=== PATIENT | male | born 1995 | race Caucasian/White ===

== ENCOUNTER 2021-07-25 14:01 | Emergency (ER) | payer SELFPAY ==
[2021-07-25 15:53] LABS: SARS-COV-2 RT PCR NEGATIVE (NEGATIVE)
--- NOTE | 2021-07-25 16:15 | EDPHYS ---
Physician Documentation [facility] Name: Aguila Monaco Age: 26 yrs Sex: Male : 1995 Arrival Date: 07/25/2021 Time: 14:02 Bed 15 Private MD: ED Physician Gt Landry HPI: 07/25 16:13 This 26 yrs old Male presents to ER via Ambulatory with complaints of Cough, kb Congestion, Headache. 16:13 The patient or guardian reports cough, that is intermittent, described as moderate. kb Onset: The symptoms/episode began/occurred 3 day(s) ago. Severity of symptoms: At their worst the symptoms were moderate, in the emergency department the symptoms are unchanged. Modifying factors: The symptoms are alleviated by nothing, the symptoms are aggravated by nothing. Associated signs and symptoms: Pertinent positives: fever, rhinorrhea. The patient has not experienced similar symptoms in the past. The patient has not recently seen a physician. Pt reports cough and congestion for 3 days. Had temp of 99.9 yesterday, but hasn't had fever since then. Historical: - Allergies: 14:15 No Known Allergies; ld1 - Home Meds: 14:15 None [Active]; ld1 - PMHx: 14:15 None; ld1 - PSHx: 14:15 None; ld1 - Immunization history:: Adult Immunizations not up to date, Client reports having NOT received the Covid vaccine. - Social history:: Smoking status: Patient reports the use of cigarette tobacco products, smokes one pack cigarettes per day. Patient/guardian denies using alcohol. ROS: 16:12 Constitutional: Negative for fever, chills, and weight loss. kb 16:12 ENT: Positive for rhinorrhea, sinus congestion. 16:12 Respiratory: Positive for cough, Negative for dyspnea on exertion, hemoptysis, orthopnea, pleurisy, shortness of breath, sputum production, wheezing. 16:12 All other systems are negative. Exam: 16:13 Constitutional: This is a well developed, well nourished patient who is awake, alert, kb and in no acute distress. Head/Face: Normocephalic, atraumatic. ENT: Moist Mucous membranes Cardiovascular: Regular rate and rhythm with a normal S1 and S2. No gallops, murmurs, or rubs. No pulse deficits. Respiratory: Respirations even and unlabored. No increased work of breathing, no retractions or nasal flaring. Skin: Warm, dry with normal turgor. Normal color. MS/ Extremity: Pulses equal, no cyanosis. Neurovascular intact. Full, normal range of motion. Neuro: Awake and alert, GCS 15, oriented to person, place, time, and situation. Moves all extremities. Normal gait. Psych: Awake, alert, with orientation to person, place and time. Behavior, mood, and affect are within normal limits. Vital Signs: 14:13 BP 119 / 74; Pulse 86; Resp 18; Temp 98.5(TE); Pulse Ox 98% on R/A; Weight 77.11 kg; ld1 Height 6 ft. 0 in. (182.88 cm); Pain 0/10; 14:47 BP 121 / 68; Pulse 75; Resp 17; Pulse Ox 98% on R/A; jt3 16:38 BP 120 / 89; Pulse 86; Resp 19; Temp 98.1; Pulse Ox 97% on R/A; jt3 14:13 Body Mass Index 23.06 (77.11 kg, 182.88 cm) ld1 MDM: 14:18 Patient medically screened. kb 16:13 Data reviewed: vital signs, nurses notes. Data interpreted: Pulse oximetry: on room air kb is 98 %. Interpretation: normal. Counseling: I had a detailed discussion with the patient and/or guardian regarding: the historical points, exam findings, and any diagnostic results supporting the discharge/admit diagnosis, lab results, the need for outpatient follow up, a family practitioner, to return to the emergency department if symptoms worsen or persist or if there are any questions or concerns that arise at home. 07/25 14:06 Order name: COVID-19/FLU A+B (Document "Date of Onset" if Symptomatic); Complete Time: kb 15:57 Administered Medications: No medications were administered Disposition Summary: 07/25/21 16:14 Discharge Ordered Location: Home Condition: Stable Diagnosis - Acute upper respiratory infection, unspecified kb Followup: kb - With: Emergency Department - When: As needed - Reason: Worsening of condition Followup: kb - With: Private Physician - When: 2 - 3 days - Reason: Recheck today's complaints, Continuance of care, Re-evaluation by your physician Discharge Instructions: - Discharge Summary Sheet kb - Upper Respiratory Infection, Adult, [id number] kb - Viral Respiratory Infection, [id number] kb Forms: - Medication Reconciliation Form kb - Thank You Letter kb - Antibiotic Education kb - Prescription Opioid Use kb - Work release form jt3 Addendum: 07/29/2021 06:41 Co-signature as Attending Physician, Gt Landry MD. m a2 Signatures: Dispatcher [employer] EDTanisha Vazquez, THO-C THO-Gt Correa MD MD ma2 Ailin Madrid, RN RN ld1
--- NOTE | 2021-07-25 16:15 | ER ---
Nurse's Notes [facility] Name: Aguila Monaco Age: 26 yrs Sex: Male : 1995 Arrival Date: 07/25/2021 Time: 14:02 Bed 15 Private MD: Diagnosis: Acute upper respiratory infection, unspecified Presentation: 07/25 14:13 Chief complaint: Patient states: My daughter just went to the doctor and we found out ld1 she has bronchitis. I have been running fever, coughing, runny nose \T\ congestion. I am heavy smoker so I want to find out what is wrong with me. Coronavirus screen: Client presents with at least one sign or symptom that may indicate coronavirus-19. Standard/surgical mask placed on the client. Ebola Screen: No symptoms or risks identified at this time. Initial Sepsis Screen: Does the patient meet any 2 criteria? No. Patient's initial sepsis screen is negative. Does the patient have a suspected source of infection? No. Patient's initial sepsis screen is negative. Risk Assessment: Do you want to hurt yourself or someone else? Patient reports no desire to harm self or others. Onset of symptoms was July 25, 2021. 14:13 Method Of Arrival: Ambulatory ld1 14:13 Acuity: GERTRUDIS 4 ld1 Triage Assessment: 14:15 General: Appears in no apparent distress. comfortable, Behavior is calm, cooperative, ld1 appropriate for age. Pain: Denies pain. EENT: Reports nasal congestion. Neuro: Level of Consciousness is awake, alert, obeys commands, Oriented to person, place, time, situation, Appropriate for age. Cardiovascular: Reports Capillary refill < 3 seconds Patient's skin is warm and dry. Respiratory: Airway is patent Respiratory effort is even, unlabored, Respiratory pattern is regular, symmetrical, Breath sounds are clear bilaterally. GI: Abdomen is flat, non-distended. : No signs and/or symptoms were reported regarding the genitourinary system. Derm: No signs and/or symptoms reported regarding the dermatologic system. Musculoskeletal: No signs and/or symptoms reported regarding the musculoskeletal system. Historical: - Allergies: 14:15 No Known Allergies; ld1 - Home Meds: 14:15 None [Active]; ld1 - PMHx: 14:15 None; ld1 - PSHx: 14:15 None; ld1 - Immunization history:: Adult Immunizations not up to date, Client reports having NOT received the Covid vaccine. - Social history:: Smoking status: Patient reports the use of cigarette tobacco products, smokes one pack cigarettes per day. Patient/guardian denies using alcohol. Screenin:37 Abuse screen: Denies threats or abuse. Denies injuries from another. Nutritional jt3 screening: No deficits noted. Tuberculosis screening: No symptoms or risk factors identified. Fall Risk None identified. Assessment: 16:37 General: Appears in no apparent distress. Behavior is calm, cooperative. jt3 Cardiovascular: Rhythm is sinus rhythm. Respiratory: Breath sounds are clear bilaterally. Vital Signs: 14:13 BP 119 / 74; Pulse 86; Resp 18; Temp 98.5(TE); Pulse Ox 98% on R/A; Weight 77.11 kg; ld1 Height 6 ft. 0 in. (182.88 cm); Pain 0/10; 14:47 BP 121 / 68; Pulse 75; Resp 17; Pulse Ox 98% on R/A; jt3 16:38 BP 120 / 89; Pulse 86; Resp 19; Temp 98.1; Pulse Ox 97% on R/A; jt3 14:13 Body Mass Index 23.06 (77.11 kg, 182.88 cm) ld1 ED Course: 14:02 Patient arrived in ED. am2 14:06 Tanish[facility] Garcia [facility]-C [facility] kb 14:06 Gt Landry MD is Attending Physician. kb 14:15 Triage completed. ld1 14:15 Arm band placed on right wrist. ld1 14:17 Adalberto Dorsey RN is Primary Nurse. jt3 16:37 Patient has correct armband on for positive identification. Bed in low position. Side jt3 rails up X2. 16:37 No provider procedures requiring assistance completed. jt3 Administered Medications: No medications were administered Outcome: 16:14 Discharge ordered by . kb 16:37 Discharged to home ambulatory. jt3 16:37 Condition: good 16:37 Discharge instructions given to patient. 16:38 Patient left the ED. jt3 Signatures: Tanisha Garcia FNP-C FNP-Mayuri Jose am2 Ailin Madrid RN RN ld1 Tejchma, Adalberto, RN RN jt3
[2021-07-25 16:56] VITALS: BP 121/68; TEMP 98.5; O2SAT 98
== END 2021-07-25 16:38 | disposition home or self-care (01) ==
LOC: ER 14:01
DX: J06.9 Acute upper respiratory infection, unspecified (principal); Z20.822 Contact with and (suspected) exposure to COVID-19
CPT/HCPCS: 0240U; 99284

== ENCOUNTER 2022-03-31 09:28 | Emergency (ER) | payer SELFPAY ==
[2022-03-31 12:25] LABS: Hematocrit 36.7 % (39.6-49.0); MCV 89.2 fL (80-100); RBC Red Blood Cell Count 4.12 M/uL (4.33-5.43)
[2022-03-31 12:51] LABS: Blood Morphology Comment NOT SEEN (NOT SEEN); Platelet Estimate DECR
--- NOTE | 2022-03-31 14:42 | ER ---
Nurse's Notes [facility] Name: Aguila Monaco Age: 27 yrs Sex: Male : 1995 Arrival Date: 03/31/2022 Time: 09:30 Bed 11 Private MD: Diagnosis: Idiopathic thrombocytopenia purpura Presentation: 03/31 10:51 Chief complaint: Patient states: was seen on Thursday02/27/2022 and dx with immune vg1 thrombocytopenic purpura and was told to come back to ED for repeat lab work; also states headache. Coronavirus screen: Vaccine status: Patient reports being unvaccinated. Client denies travel out of the [place] in the last 14 days. Ebola Screen: Patient denies exposure to infectious person. Patient denies travel to an Ebola-affected area in the 21 days before illness onset. Initial Sepsis Screen: Does the patient meet any 2 criteria? No. Patient's initial sepsis screen is negative. Does the patient have a suspected source of infection? No. Patient's initial sepsis screen is negative. Risk Assessment: Do you want to hurt yourself or someone else? Patient reports no desire to harm self or others. Onset of symptoms was February 27, 2022. 10:51 Method Of Arrival: Ambulatory vg1 10:51 Acuity: GERTRUDIS 3 vg1 Triage Assessment: 10:53 General: Appears comfortable, Behavior is calm, cooperative. Pain: Complains of pain in vg1 head Pain currently is 6 out of 10 on a pain scale. Pain:. Neuro: Level of Consciousness is awake, alert, obeys commands, Oriented to person, place, time, situation, Reports headache Denies dizziness. Historical: - Allergies: 10:53 No Known Allergies; vg1 - Home Meds: 10:53 None [Active]; vg1 - PMHx: 16:45 idiopathic thrombocytopenia purpura; ld1 - PSHx: 10:53 None; vg1 - Immunization history:: Client reports having NOT received the Covid vaccine. - Social history:: Smoking status: Patient reports the use of cigarette tobacco products, smokes one-half pack cigarettes per day. Screenin:43 Abuse screen: Denies threats or abuse. Denies injuries from another. Nutritional ss screening: No deficits noted. Tuberculosis screening: Never had TB. Fall Risk None identified. Assessment: 11:43 General: Appears in no apparent distress. comfortable, Behavior is calm, cooperative. ss Pain: Denies pain. Neuro: Level of Consciousness is awake, alert, obeys commands, Oriented to person, place, time, situation. Cardiovascular: Capillary refill < 3 seconds is sluggish in bilateral fingers Patient's skin is warm and dry. Respiratory: Airway is patent Respiratory effort is even, unlabored, Respiratory pattern is regular, symmetrical. Derm: Skin is intact, is healthy with good turgor, Skin is dry, Skin is pink, warm \\T\\ dry. normal. Musculoskeletal: Circulation, motion, and sensation intact. Range of motion: intact in all extremities, Swelling absent. Vital Signs: 10:51 BP 133 / 72; Pulse 63; Resp 16; Temp 98.8; Pulse Ox 100% on R/A; Weight 74.84 kg; vg1 Height 6 ft. 0 in. (182.88 cm); Pain 6/10; 12:17 BP 110 / 73; Pulse 64; Resp 18; Pulse Ox 99% on R/A; ld1 15:20 BP 113 / 87; Pulse 82; Resp 18; Pulse Ox 100% on R/A; eh3 17:42 BP 119 / 81; Pulse 79; Resp 18; Pulse Ox 99% on R/A; ld1 10:51 Body Mass Index 22.38 (74.84 kg, 182.88 cm) vg1 ED Course: 09:30 Patient arrived in ED. as 09:41 [facility]ala [facility]NP [facility] 09:41 Shreyas Hameed DO is Attending Physician. [facility] 10:53 Triage completed. 1 10:53 Arm band placed on. vg1 11:43 Melonie Mcnamara, MANJINDER is Primary Nurse. ss 11:43 Patient has correct armband on for positive identification. ss 12:00 Report given to MANJINDER Parisi and MANJINDER Benz. ss 15:11 CT Head Brain wo Cont In Process Unspecified. EDMS 15:33 Inserted saline lock: 20 gauge in right antecubital area, using aseptic technique. kc6 Blood collected. 15:33 PT-INR Sent. kc6 15:33 Magnesium Sent. kc6 15:33 LFT's Sent. kc6 15:33 Basic Metabolic Panel Sent. kc6 15:51 Transfer initiated with Xena Guido Rn from the [facility] Transfer [facility]. eb 16:17 SARS-COV-2 RT PCR (Document "Date of Onset" if Symptomatic) Sent. [facility] 16:25 connected the hospitalist system validation engineer for [facility] with Leslie Cornejo for patient eb transfer consultation. 16:39 administrative approval given by Xena Guido Rn/ patient has been accepted to [facility] Bed 1209/ Dr. Becky Merino has accepted the patient in transfer/ Report to be called to the transfer center at [phone]. 18:11 No provider procedures requiring assistance completed. Patient transferred, IV remains ld1 in place. Administered Medications: No medications were administered Medication: 11:43 VIS not applicable for this client. Outcome: 14:42 Discharge ordered by MD. reyes 16:28 ER care complete, transfer ordered by MD. reyes 18:11 Transferred by ground EMS to [facility]. ld1 18:11 Condition: stable 18:11 Discharge instructions given to patient, Instructed on the need for transfer. 18:11 Patient left the ED. ld1 Signatures: Dispatcher [employer] EDMS Magali Pierre Shelby, RN RN Melody Singh Victoria RN RN 1 Ailin Madrid RN RN 1 Tuyet Nolan [facility] Leslie Ayala, DIRECTOR [employer]IENCE [employer]ET[employer] DIRECTOR [employer]UD[employer]ET[employer] Marita Glover 6 Corrections: (The following items were deleted from the chart) 16:45 10:53 PMHx: None; 1 1
--- NOTE | 2022-03-31 14:43 | EDPHYS ---
Physician Documentation [facility] Name: Aguila Monaco Age: 27 yrs Sex: Male : 1995 Arrival Date: 03/31/2022 Time: 09:30 Bed 11 Private MD: ED Physician Shreyas Hameed HPI: 03/31 10:55 This 27 yrs old Male presents to ER via Ambulatory with complaints of repeat labwork. jh7 10:55 Patient presents for repeat CBC. He was seen here 2 days ago with a platelet level of jh7 31,000. He was advised to follow-up if his platelets were less than 50. States that he forgot to mention that he has been suffering from headaches lately and that his rash is spread to his chest.. Historical: - Allergies: 10:53 No Known Allergies; vg1 - Home Meds: 10:53 None [Active]; vg1 - PMHx: 16:45 idiopathic thrombocytopenia purpura; ld1 - PSHx: 10:53 None; vg1 - Immunization history:: Client reports having NOT received the Covid vaccine. - Social history:: Smoking status: Patient reports the use of cigarette tobacco products, smokes one-half pack cigarettes per day. ROS: 10:55 Constitutional: Negative for fever, chills, and weight loss, ENT: Negative for injury, jh7 pain, and discharge, Neck: Negative for injury, pain, and swelling, Cardiovascular: Negative for chest pain, palpitations, and edema, Respiratory: Negative for shortness of breath, cough, wheezing, and pleuritic chest pain, Abdomen/GI: Negative for abdominal pain, nausea, vomiting, diarrhea, and constipation, Back: Negative for injury and pain, Skin: Negative for injury, rash, and discoloration. 10:55 Skin: Positive for rash. 10:55 Neuro: Positive for headache, Negative for dizziness, loss of consciousness, numbness, syncope, tingling, weakness. Exam: 10:55 Constitutional: This is a well developed, well nourished patient who is awake, alert, jh7 and in no acute distress. ENT: Nares patent. No nasal discharge, no septal abnormalities noted. Tympanic membranes are normal and external auditory canals are clear. Oropharynx with no redness, swelling, or masses, exudates, or evidence of obstruction, uvula midline. Mucous membranes moist. Neck: Trachea midline, no thyromegaly or masses palpated, and no cervical lymphadenopathy. Supple, full range of motion without nuchal rigidity, or vertebral point tenderness. No Meningismus. Cardiovascular: Regular rate and rhythm with a normal S1 and S2. No gallops, murmurs, or rubs. Normal PMI, no JVD. No pulse deficits. Respiratory: Lungs have equal breath sounds bilaterally, clear to auscultation and percussion. No rales, rhonchi or wheezes noted. No increased work of breathing, no retractions or nasal flaring. Abdomen/GI: Soft, non-tender, with normal bowel sounds. No distension or tympany. No guarding or rebound. No evidence of tenderness throughout. Back: No spinal tenderness. No costovertebral tenderness. Full range of motion. Neuro: Awake and alert, GCS 15, oriented to person, place, time, and situation. Cranial nerves II-XII grossly intact. Motor strength 5/5 in all extremities. Sensory grossly intact. Cerebellar exam normal. Normal gait. 10:55 Skin: rash can be described as Petechial rash present on forearms and anterior chest. Vital Signs: 10:51 BP 133 / 72; Pulse 63; Resp 16; Temp 98.8; Pulse Ox 100% on R/A; Weight 74.84 kg; vg1 Height 6 ft. 0 in. (182.88 cm); Pain 6/10; 12:17 BP 110 / 73; Pulse 64; Resp 18; Pulse Ox 99% on R/A; ld1 15:20 BP 113 / 87; Pulse 82; Resp 18; Pulse Ox 100% on R/A; eh3 17:42 BP 119 / 81; Pulse 79; Resp 18; Pulse Ox 99% on R/A; ld1 10:51 Body Mass Index 22.38 (74.84 kg, 182.88 cm) vg1 MDM: 10:58 Patient medically screened. [facility] 16:30 Differential diagnosis: ITP. Data reviewed: vital signs, nurses notes, lab test [facility] result(s), radiologic studies, CT scan. Data interpreted: Pulse oximetry: is 100 %. Interpretation: normal. Counseling: I had a detailed discussion with the patient and/or guardian regarding: the historical points, exam findings, and any diagnostic results supporting the discharge/admit diagnosis, the need to transfer to another facility, [facility] does not immediately have the required specialist. ED course: The patient will be transferred to [facility]. Accepting physician is the hospitalist Dr. Palma.. 03/31 11:11 Order name: CBC with Manual Differential; Complete Time: 14:18 [facility] 03/31 14:55 Order name: Basic Metabolic Panel; Complete Time: 16:23 [facility] 03/31 14:55 Order name: LFT's; Complete Time: 16:23 [facility] 03/31 14:55 Order name: Magnesium; Complete Time: 16:23 [facility] 03/31 14:55 Order name: PT-INR; Complete Time: 16:23 [facility] 03/31 16:09 Order name: SARS-COV-2 RT PCR (Document "Date of Onset" if Symptomatic) 03/31 14:55 Order name: CT Head Brain wo Cont; Complete Time: 15:37 [facility] Administered Medications: No medications were administered Disposition: 22:12 Co-signature as Attending Physician, Shreyas CHARLTON was immediately available on-site ms3 in the Emergency Department for consultation in the care of the patient. . Disposition Summary: 03/31/22 16:28 Transfer Ordered Transfer Location: [place] [address] Reason: Higher level of care [facility] Condition: Stable(03/31/22 16:28) [facility] Problem: new(03/31/22 16:28) [facility] Symptoms: are unchanged(03/31/22 16:28) [facility] Accepting Physician: Dr. Palma, hospitalist(03/31/22 18:11) ld1 Diagnosis - Idiopathic thrombocytopenia purpura [facility] Forms: - Medication Reconciliation Form [facility] - SBAR form [facility] Signatures: Dispatcher [employer] Dariela Molina RN RN vg1 Shreyas Hameed DO DO ms3 Ailin Madrid RN RN ld1 Leslie Ayala FNP FNP [facility] Corrections: (The following items were deleted from the chart) 14:53 14:42 [place] [id number] 14:53 14:42 [place] [address] 14:53 14:42 are unchanged [place] [address] 14:53 14:42 Stable [place] [address] 14:53 14:42 Immune thrombocytopenic purpura [facility] jh7 16:45 10:53 PMHx: None; vg1 ld1 18:11 16:28 Dr. Palma, hospitalist 7 ld1
--- NOTE | 2022-03-31 15:19 | RAD REPORT ---
EXAM DESCRIPTION: CT - Head Brain Wo Cont - 03/31/2022 3:09 pm CLINICAL HISTORY: Headache COMPARISON: None. TECHNIQUE: Computed axial tomography of the head was obtained. IV contrast was not requested. All CT scans are performed using dose optimization technique as appropriate and may include automated exposure control or mA/KV adjustment according to patient size. FINDINGS: An intracranial bleed is not seen . The ventricles are normal in caliber. No significant hypodense areas within the brain visualized No extra-axial fluid collection is noted. Fluid within the sinuses/ mastoids is not seen. Moderate mucoperiosteal thickening sphenoid sinus. Mi ld mucoperiosteal thickening left maxillary sinus IMPRESSION: No acute intracranial abnormality is seen. If patient's symptoms persist MRI of the bra in would be recommended. Chronic sinusitis
[2022-03-31 15:44] LABS: Protime INR 1.04
[2022-03-31 16:02] LABS: Albumin 4.4 g/dL (3.4-5.0); Bilirubin Direct 0.2 mg/dL (0-0.2); Bilirubin Total 0.8 mg/dL (0.2-1.0); Magnesium 2.2 mg/dL (1.8-2.4); Potassium 4.2 mmol/L (3.5-5.1); Protein, Total 7.2 g/dL (6.4-8.2)
[2022-03-31 18:52] VITALS: TEMP 98.8
[2022-03-31 18:56] VITALS: BP 119/81; O2SAT 99
== END 2022-03-31 18:11 | disposition short-term general hospital (02) ==
LOC: ER 09:28
DX: D69.3 Immune thrombocytopenic purpura (principal); R51.9 Headache, unspecified; F17.210 Nicotine dependence, cigarettes, uncomplicated
CPT/HCPCS: 36415; 70450; 80048; 80076; 83735; 85025; 85610; 99285; U0003

== ENCOUNTER 2022-04-13 07:18 | Emergency (ER) | payer SELFPAY ==
[2022-04-13 08:01] LABS: Protime INR 1.12
[2022-04-13 08:09] LABS: Albumin 4.1 g/dL (3.4-5.0); Bilirubin Total 0.7 mg/dL (0.2-1.0); Potassium 3.6 mmol/L (3.5-5.1); Protein, Total 7.1 g/dL (6.4-8.2)
[2022-04-13 08:36] LABS: Absolute Lymphocytes (CBC) 1.3 K/uL (0.7-4.9); Hematocrit 31.9 % (39.6-49.0); Lymphocytes % 51.5 % (15.3-44.8); MCV 89.8 fL (80-100); MPV 6.9 fL (7.6-11.3); RBC Red Blood Cell Count 3.55 M/uL (4.33-5.43)
--- NOTE | 2022-04-13 10:00 | EDPHYS ---
Physician Documentation [facility] Name: Aguila Monaco Age: 27 yrs Sex: Male : 1995 Arrival Date: 04/13/2022 Time: 07:20 Bed 5 Private MD: ED Physician Hali Eng HPI: 04/13 07:38 This 27 yrs old Male presents to ER via Ambulatory with complaints of Bruising. sd2 07:38 27 yo M with a hx of ITP presents with CC of bruise noted to his L forearm starting 1 sd2 week ago. Reports he was seen 2 weeks ago and diagnosed with a low platelet count then followed up 2 days later and his platelets had decreased and he was transferred to [facility] at that time. Pt is a poor historian and is unable to tell me if he received any other formal diagnosis or what the treatment plan was aside from follow up. No new medications were started per patient. He states he was told to get insurance and then follow up with a group segment consultant. Pt reports he has been spitting up blood since Thursday but had an increased amount yesterday morning. This occurs upon awakening and comes from somewhere inside his mouth but he cannot tell where. Denies any hematemesis or hemoptysis. . 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 - Social history:: Smoking status: Patient reports the use of cigarette tobacco products, smokes one-half pack cigarettes per day. ROS: 07:38 Constitutional: Negative for fever, chills, and weight loss, Eyes: Negative for injury, sd2 pain, redness, and discharge, ENT: Negative for injury, pain, and discharge. Positive for gum bleeding. Cardiovascular: Negative for chest pain, palpitations, and edema, Respiratory: Negative for shortness of breath, cough, wheezing. Abdomen/GI: Negative for abdominal pain, nausea, vomiting, diarrhea. MS/Extremity: Negative for injury and deformity, Skin: Negative for injury. Positive for bruising. Neuro: Negative for headache, numbness and tingling. Hematologic/Lymphatic: Negative for swollen nodes. Positive for abnormal bleeding and easy bruising. Exam: 07:38 Constitutional: This is a well developed, well nourished patient who is awake, alert, sd2 and in no acute distress. Head/Face: Normocephalic, atraumatic. Eyes: EOMI, normal conjunctiva bilaterally ENT: Nares patent. No nasal discharge, no septal abnormalities noted. Oropharynx with no redness, swelling, or masses, exudates, or evidence of obstruction, uvula midline. Mucous membranes moist. Dentition normal. No active bleeding sources noted in the mouth. Chest/axilla: Normal chest wall appearance and motion. Nontender with no deformity. Cardiovascular: Regular rate and rhythm with a normal S1 and S2. No gallops, murmurs, or rubs. 2+ distal pulses. Respiratory: Lungs have equal breath sounds bilaterally, clear to auscultation and percussion. No rales, rhonchi or wheezes noted. No increased work of breathing, no retractions or nasal flaring. Abdomen/GI: Soft, non-tender, with normal bowel sounds. No guarding or rebound. No evidence of tenderness throughout. Skin: Warm, dry with normal turgor. Normal color with no rashes, no lesions, and no evidence of cellulitis. Area of old bruising noted to L medial forearm. MS/ Extremity: Pulses equal, no cyanosis. Neurovascular intact. Full, normal range of motion. Ambulatory without difficulty. Psych: Awake, alert, with orientation to person, place and time. Behavior, mood, and affect are within normal limits. Vital Signs: 07:26 BP 115 / 85; Pulse 73; Resp 16; Temp 98.7; Pulse Ox 98% ; Weight 74.84 kg; Height 6 ft. ll1 0 in. (182.88 cm); Pain 0/10; 07:26 Body Mass Index 22.38 (74.84 kg, 182.88 cm) ll1 MDM: 07:22 Patient medically screened. sd2 07:38 Differential Diagnosis ITP, thrombocytopenia, pancytopenia, anemia, VWD, clotting sd2 disorder, coagulopathy among others. Data reviewed: vital signs, nurses notes, old medical records. 09:55 Physician consultation: Spoke with Dr. Wren, hematology at [facility], who recommends no sd2 intervention at this time due to platelets being >20k after discussing patient's prior workup at their facility at time of last transfer. At time of discharge, his platelets were 30. Pt with no current active bleeding. Suspect 2/2 recent COVID infection that patient's counts have dropped per Dr. Wren. Pt is supposed to be getting [facility] to follow up as he is a . I stressed the importance of this with the patient and he will plan to go to the [place] tomorrow to set up insurance and get follow up. Verbalizes understanding of discharge plan and strict return precautions.. 04/13 07:28 Order name: CBC with Diff; Complete Time: 08:43 sd2 04/13 09:51 Interpretation: Abnormal: PLT 21. sd2 04/13 07:28 Order name: CMP; Complete Time: 08:12 04/13 07:28 Order name: PT-INR; Complete Time: 08:12 2 04/13 07:28 Order name: Ptt, Activated; Complete Time: 08:12 04/13 07:42 Order name: IV Saline Lock; Complete Time: 07:42 mb7 Administered Medications: No medications were administered Disposition Summary: 04/13/22 10:00 Discharge Ordered Location: Home sd2 Problem: an acute exacerbation sd2 Symptoms: have improved sd2 Condition: Stable sd2 Diagnosis - Idiopathic Thrombocytopenic Purpura sd2 Followup: sd2 - With: Private Physician - When: Tomorrow - Reason: at the [place] to set up insurance and follow up Followup: sd2 - With: Emergency Department - When: As needed - Reason: Discharge Instructions: - Discharge Summary Sheet sd2 - Thrombocytopenia sd2 - Idiopathic Thrombocytopenic Purpura sd2 Forms: - Medication Reconciliation Form sd2 - Thank You Letter sd2 - Antibiotic Education sd2 - Prescription Opioid Use sd2 Signatures: Dispatcher [employer] Paula Cannon RN RN Geneva Bishop mb7 Hali Eng MD MD sd2 Corrections: (The following items were deleted from the chart) 09:51 09:51 PLT 21. sd2 sd2
--- NOTE | 2022-04-13 10:00 | ER ---
Nurse's Notes [facility] Name: Aguila Monaco Age: 27 yrs Sex: Male : 1995 Arrival Date: 04/13/2022 Time: 07:20 Bed 5 Private MD: Diagnosis: Idiopathic Thrombocytopenic Purpura Presentation: 04/13 07:26 Chief complaint: Patient states: Noticed bruising to arm for a few days. Was recently ll1 transferred from here to [facility] for platelet transfusions. No fever. States he had covid last week. Coronavirus screen: Vaccine status: Patient reports being unvaccinated. Client denies travel out of the [place] in the last 14 days. At this time, the client does not indicate any symptoms associated with coronavirus-19. Ebola Screen: Patient denies travel to an Ebola-affected area in the 21 days before illness onset. Initial Sepsis Screen: Does the patient meet any 2 criteria? No. Patient's initial sepsis screen is negative. Does the patient have a suspected source of infection? No. Patient's initial sepsis screen is negative. Risk Assessment: Do you want to hurt yourself or someone else? Patient reports no desire to harm self or others. Onset of symptoms was April 09, 2022. 07:26 Method Of Arrival: Ambulatory 1 07:26 Acuity: GERTRUDIS 3 ll1 Triage Assessment: 07:28 General: Appears in no apparent distress. Behavior is calm, cooperative, appropriate ll1 for age. Pain: Denies pain. Derm: Bruising that is brown, on left arm. Musculoskeletal: Circulation, motion, and sensation intact. Capillary refill. 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 - Social history:: Smoking status: Patient reports the use of cigarette tobacco products, smokes one-half pack cigarettes per day. Screenin:23 Abuse screen: Denies threats or abuse. Denies injuries from another. Nutritional camilo screening: No deficits noted. Tuberculosis screening: No symptoms or risk factors identified. Fall Risk None identified. Assessment: 08:23 General: Appears in no apparent distress. Behavior is calm, cooperative. Pain: camilo Complains of pain in left arm. Derm: Bruising that is on left arm. 08:38 Reassessment: Dr. Eng notified of critical lab value PLT 21. Vital Signs: 07:26 BP 115 / 85; Pulse 73; Resp 16; Temp 98.7; Pulse Ox 98% ; Weight 74.84 kg; Height 6 ft. ll1 0 in. (182.88 cm); Pain 0/10; 07:26 Body Mass Index 22.38 (74.84 kg, 182.88 cm) 1 ED Course: 07:20 Patient arrived in ED. mr 07:21 Carlyn Anne, RN is Primary Nurse. camilo 07:21 Hali Eng MD is Attending Physician. sd2 07:24 Arm band placed on Patient placed in an exam room, on a stretcher. 6 07:28 Triage completed. ll1 07:42 Bed in low position. Call light in reach. Side rails up X 1. Door closed. Noise mb7 minimized. Warm blanket given. Client placed on continuous cardiac and pulse oximetry monitoring. NIBP monitoring applied. 07:42 Ptt, Activated Sent. mb7 07:42 CBC with Diff Sent. mb7 07:42 CMP Sent. mb7 07:42 PT-INR Sent. mb7 07:42 Inserted saline lock: 20 gauge in right forearm, using aseptic technique. Blood mb7 collected. 08:23 No provider procedures requiring assistance completed. camilo 08:[address] 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 09:[address] Wren the math interventionist covering Dr. Henning with Dr. Eng for patient eb consultation. 10:09 IV discontinued, intact, Pressure dressing applied. camilo Administered Medications: No medications were administered Medication: 08:24 VIS not applicable for this client. camilo Outcome: 10:00 Discharge ordered by . sd2 10:09 Discharged to home ambulatory. camilo 10:09 Condition: good 10:09 Discharge instructions given to patient. 10:09 Patient left the ED. camilo Signatures: Geneva Brian Melonie Mcnamara, RN RN Melody Singh Lynsay, RN RN ll1 Leslie Newman RN RN jh6 Erasmoernestine Geneva mb7 Au-Stager, Carlyn RN RN Hali Weber MD MD sd2 Corrections: (The following items were deleted from the chart) 07:31 07:26 Pulse 73bpm; Resp 16bpm; Pulse Ox 98%; Temp 98.7F; Pain 0/10; ll1 1 09:42 08:[address] 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
[2022-04-13 10:26] VITALS: BP 115/85; TEMP 98.7; O2SAT 98
[2022-04-13 12:19] LABS: Anisocytosis 1+; Blood Morphology Comment NOTED (NOT SEEN); Platelet Estimate DECR
== END 2022-04-13 10:09 | disposition home or self-care (01) ==
LOC: ER 07:18
DX: D69.3 Immune thrombocytopenic purpura (principal); F17.210 Nicotine dependence, cigarettes, uncomplicated
CPT/HCPCS: 36415; 80053; 85025; 85610; 85730; 99283

== ENCOUNTER 2022-05-13 13:09 | Emergency (ER) | payer OTHER ==
--- OUTSIDE RECORDS SUMMARY | 2022-05-13 13:14 | XMS REPORT | Continuity of Care Document ---
:1995 Author Organization [facility] t Address [address] [place] [address] Care Team Providers Name Role Phone PCP, PATIENT DOES NOT HAVE A Primary Care Physician Unavaila Chas Rios NP Attending Clinician CHAS VASQUES Attending Clinician Unavailable RICARDO CESPEDES Attending Clinician Unavailable Ricardo Cespedes MD Attending Clinician Efrain TAMEZ, Pati De Luna Attending Clinician [phone] Paige Woo MD Attending Clinician Lindsay Corral MD Attending Clinician Lachelle Ruiz MD Attending Clinician LINDSAY CORRAL Attending Clinician Unavailable DENTON DAN Attending Clinician Unavailable Denton Dan MD Attending Clinician CONRADO FRIAS Attending Clinician Unavailable Conrado Frias MD Attending Clinician [phone] Kaylie Mejia MD Attending Clinician [phone] Trina Coffman MD Attending Clinician TRINA COFFMAN Attending Clinician Unavailable Mayuri Parisi MD Attending Clinician MAYURI PARISI Attending Clinician Unavailable Doctor Unassigned, [place] Attending Clinician Unavailable KINZA EDGAR III Attending Clinician Unavailable LACHELLE RUIZ Admitting Clinician Unavailable DENTON DAN Admitting Clinician Unavailable KAYLIE MEJIA Admitting Clinician Unavailable KINZA EDGAR III Admitting Clinician Unavailable Payers Payer Name Policy Type Policy Number Effective Date Expiration Date S анна MEDICAID SSI PENDING 2022 PENDING 00:00:00 Problems Condition Condition Condition Status Onset Resolution Last Treating Co mments Source Name Details Category Date Date Treatment Clinician Date Bone Bone Disease Active [facility]17 [facility] hypocellul hypocellul [facility]:00: Ct dical arity arity 00 Center concerning concerning for for aplastic aplastic anemia anemia Pancytopen Pancytopen Disease Active [facility] ia ia 04-17 [facility] Medical 00 Center COVID-19 COVID-19 Disease Active [facility] virus virus 04-13 detected detected 00:00: Medica l (04/13/22) (04/13/22) 00 Cent er Thrombocyt Thrombocyt Disease Active [facility] openia openia 03-31 [facility] 00:00: Medical 00 [place] Headache Headache Disease Active [facility] 00 Center Petechiae Petechiae Disease Active [facility] 03[facility] 00 Center No known No known Disease Unive rs active active ity of problems problems [facility] GIB GIB Disease Resolve 2022-04-14 2022-04-[address] (gastroint (gastroint d 04-13 00:00:00 02:25:00 [facility] estinal estinal 00:00: Medical bleeding) bleeding) 00 Cent er History of History of Disease Resolve 2022-03-31 2022-03-[address] ITP ITP d 03-31 00:00:00 20:18:59 [facility] 00:[facility]: Medical 00 Center Allergies, Adverse Reactions, Alerts Allergy Allergy Status Severity Reaction(s) Onset Inactive Treating Comm ents Source Name Type Date Date Clinician NO KNOWN Allergy Active [facility] NO KNOWN Drug Active Univers ALLERGIE Class ity of S [facility] Social History Social Habit Start Date Stop Date Quantity Comments Source History of tobacco 2016-09-[address] [facility] use 00:00:00 day smoker Medical Center History [facility] Transport Non-Med Medical Center Alcohol intake 2022-04-24 2022-04-24 Ex-drinker [facility] 00:00:00 00:00:00 (finding) Medical Center History [facility] 2022-04-14 2022-04-[address] [facility] Transport Med 00:00:00 00:00:[address] History [facility] 2022-04-14 2022-04-[address] [facility] Housing Unable to 00:00:00 00:00:00 Medical Center Pay History [facility] 2022-04-14 2022-04-[address] [facility] Housing Places 00:00:00 00:00:00 Medical Ce nter Lived History [facility] 2022-04-14 2022-04-[address] [facility] Housing Homeless 00:00:00 00:00:00 Medical Center Last Year Exposure to 2022-04-03 2022-04-[address] [facility] SARS-CoV-2 (event) 00:00:00 18:25:00 [facility] Cigarettes smoked 2022-04-13 2022-04-[address] [facility] current (pack per 00:00:00 00:00:00 Medical Center day) - Reported Tobacco use and 2022-04-13 2022-04-[address] Melissa kes exposure 00:00:00 00:00:00 [facility] Sex Assigned At [address] [facility] 00:00:00 00:00:00 Medical Center Smoking Status Start Date Stop Date Source Unknown if ever smoked [facility] Current every day smoker 2022-04-13 00:00:00 [facility] Medications Ordered Filled Start Stop Current Ordering Indication Dosage Frequency Signature Comments Components Source Medication Medication Date Date Medication? Clinician (SIG) Name Name pantoprazol Yes 40mg QD Take [address] [facility] e 8-05 tablet (40 [facility] (PROTONIX) 00:00: mg total) Me dical 40 MG 00 by mouth Center tablet daily Continue while on prednisone . predniSONE Yes 75mg QD Take 7.[address] (DELTASONE) 8-05 tablets [facility] 10 MG 00:00: (75 mg Medical tablet 00 total) by Center mouth daily Continue until told to do otherwise by PCP. nicotine 0 2021- No 1{patch QD Place [address] (NICODERM 8-05 08-11 } patch onto Bhavana es CQ) 14 00:00: 00:00 the skin Medica l mg/24 hr 00 :00 daily. Center patch pantoprazol Yes 8mg/h 8 mg/hr Un lanette e 04-13 (50 ity of (PROTONIX) 22:00: mL/hr), IV [place] 80 mg in 00 Infusion, Medica l NaCl 0.9% CONTINUOUS Bran ch (NS) 500 mL , Starting infusion on 04/13/22 at 1700 pantoprazol 2021- No 80mg 80 mg, IV Univers e 04-13 Push, ity of (PROTONIX) 22:00: 22:02 ONCE, 1 Carl as 80 mg in 00 :00 dose, On Medical NaCl 0.9% [place] (NS) 20 mL 04/13/22 at syringe 1700, Administer over 2 Minutes, 20 mL iopamidol 2021- No [id number] 65mL 65 mL, Univers (ISOVUE 04-13 Intravenou ity o f 370-500 mL) 17:14: 17:14 s, ONCE, 1 [place] injection 00 :00 dose, On Medica l 65 mL [place] 04/13/22 at 1230, Routine triamcinolo Yes [id number] Apply to Univers ne 6-28 area(s) 2 ity of acetonide 00:00: (two) [place] 0.1 % cream 00 times Medical daily. Branch triamcinolo Yes [id number] Apply to Univers ne 6-28 area(s) 2 ity of acetonide 00:00: (two) [place] 0.1 % cream 00 times Medical daily. Branch traMADol Yes [id number] 50mg Take 1 Univers (ULTRAM) 50 1-03 [id number] tablet by i ty of mg tablet 00:00: mouth [place] 00 every 8 Medical (eight) Branch hours as needed for Pain (scale 4-6). cyclobenzap 2020-0 Yes [id number] 5mg Take 1 Univers rine 5 mg 1-03 [id number] tablet by ity of tablet 00:00: mouth 3 00 (three) Medical times Branch daily. traMADol 2020-0 Yes [id number] 50mg Take 1 Univers (ULTRAM) 50 1-03 [id number] tablet by i ty of mg tablet 00:00: mouth 00 every 8 Medical (eight) Branch hours as needed for Pain (scale 4-6). cyclobenzap 2020-0 Yes [id number] 5mg Take 1 Univers rine 5 mg 1-03 [id number] tablet by ity of tablet 00:00: mouth 3 00 (three) Medical times Branch daily. traMADol 2020-0 Yes [id number] 50mg Take 1 Univers (ULTRAM) 50 1-03 [id number] tablet by i ty of mg tablet 00:00: mouth 00 every 8 Medical (eight) Branch hours as needed for Pain (scale 4-6). cyclobenzap 2020-0 Yes [id number] 5mg Take 1 Univers rine 5 mg 1-03 [id number] tablet by ity of tablet 00:00: mouth 3 (three) Medical times Branch daily. Vital Signs Vital Name Observation Time Observation Value Comments Source HEIGHT 2022-04-24 11:18:00 182.9 cm WEIGHT 2022-04-24 11:18:00 74.844 kg HEIGHT 2022-04-24 11:18:00 182.9 cm WEIGHT 2022-04-24 11:18:00 74.844 kg HEIGHT 2022-04-24 11:18:00 182.9 cm WEIGHT 2022-04-24 11:18:00 74.844 kg HEIGHT 2022-04-13 20:00:00 182.9 cm WEIGHT 2022-04-13 20:00:00 74.844 kg HEIGHT 2022-04-13 20:00:00 182.9 cm WEIGHT 2022-04-13 20:00:00 74.844 kg HEIGHT 2022-04-13 20:00:00 182.9 cm WEIGHT 2022-04-13 20:00:00 74.844 kg Systolic blood 2022-04-13 21:27:45 111 mm[Hg] Univer sity of pressure [place] [facility] Diastolic blood 2022-04-13 21:27:45 70 mm[Hg] Unive rsity of pressure [place] [facility] Heart rate 2022-04-13 21:27:45 65 /min [facility] [place] [facility] Respiratory rate 2022-04-13 21:27:45 18 /min Univ ersity of [place] [facility] Oxygen saturation in 2022-04-13 21:27:45 99 /min University of Arterial blood by [place] [facility] dereck Pulse oximetry Branch Body temperature 2022-04-13 15:54:00 37.06 Cuca Univ ers[facility] [place] [facility] Body height 2022-04-13 15:54:00 182.9 cm [facility] [place] [facility] Body weight 2022-04-13 15:54:00 74.844 kg [facility] [place] [facility] BMI 2022-04-13 15:54:00 22.38 kg/m2 [facility] [place] [facility] WEIGHT 2022-04-03 16:55:00 75.479 kg WEIGHT 2022-03-31 21:00:00 75.479 kg WEIGHT 2022-04-03 16:55:00 75.479 kg WEIGHT 2022-03-31 21:00:00 75.479 kg WEIGHT 2022-04-03 16:55:00 75.479 kg WEIGHT 2022-03-31 21:00:00 75.479 kg Body height 2022-03-11 23:09:00 182.9 cm [facility] [place] [facility] Body weight 2022-03-11 23:09:00 73.891 kg [facility] [place] [facility] BMI 2022-03-11 23:09:00 22.09 kg/m2 [facility] [place] [facility] Oxygen saturation in 2022-03-11 23:09:00 99 /min University of Arterial blood by [place] [employer] dereck Pulse oximetry Branch Systolic blood 2022-03-11 23:09:00 118 mm[Hg] Univer sity of pressure [place] [facility] Diastolic blood 2022-03-11 23:09:00 60 mm[Hg] Unive rsity of pressure [place] [facility] Heart rate 2022-03-11 23:09:00 60 /min [facility] [place] [facility] Body temperature 2022-03-11 23:09:00 36.39 Cuca [facility] Respiratory rate 2022-03-11 23:09:00 18 /min [facility] Systolic blood 2022-04-24 11:18:00 118 mm[Hg] [facility] Diastolic blood 2022-04-24 11:18:00 88 mm[Hg] [facility] Heart rate 2022-04-24 11:18:00 89 /min [facility] Body temperature 2022-04-24 11:18:00 37 Cuca [facility] Respiratory rate 2022-04-24 11:18:00 17 /min [facility] Body height 2022-04-24 11:18:00 182.9 cm [facility] Body weight 2022-04-24 11:18:00 74.844 kg [facility] BMI 2022-04-24 11:18:00 22.38 kg/m2 [facility] Oxygen saturation in 2022-04-24 11:18:00 98 /min [facility] Arterial blood by Medical Ce nter Pulse oximetry Procedures Procedure Date / Time Performing Clinician Source Performed CBC W/PLT COUNT & AUTO 2022-04-24 11:51:00 [place] [facility] CBC W/PLT COUNT & AUTO 2022-04-24 11:51:00 [place] [facility] US ABDOMEN COMPLETE 2022-04-17 08:33:00 Lindsay Corral [facility] CBC W/PLT COUNT & AUTO 2022-04-17 05:13:00 [facility] W/[facility]T [facility] & AUTO 2022-04-17 05:13:00 [facility]IS[facility]LL[facility] LAB ORDER 2022-04-17 05:13[facility] AUTO 2022-04-16 05:16:00 Paige Woo [facility] BASIC METABOLIC PANEL 2022-04-16 05:16:00 Paige Woo [facility] (7) Center CBC W/PLT COUNT & AUTO 2022-04-16 05:16:00 Amna [facility] DIFFERENTIAL Center CBC W/PLT COUNT & AUTO 2022-04-15 04:23:00 Amna [facility] DIFFERENTIAL Center BASIC METABOLIC PANEL 2022-04-15 04:23:00 Amna [facility] (7) Center CBC W/PLT COUNT & AUTO 2022-04-15 04:23:00 Amna [facility] DIFFERENTIAL [place] CBC W/PLT COUNT & AUTO 2022-04-14 04:45:00 Lachelle Ruiz [facility] DIFFERENTIAL [place] ABORH, MANUAL 2022-04-14 04:45:00 Ashley Wu [facility] CBC W/PLT COUNT & AUTO 2022-04-14 04:45:00 Lachelle Ruiz [facility] (CELLAVISION MANUAL 2022-04-14 04:45:00 Lachelle Ruiz [facility] DIFF) Center BASIC METABOLIC PANEL 2022-04-14 04:45:00 Lachelle Ruiz [facility] (7) [place] PROTHROMBIN TIME/INR 2022-04-14 04:45:00 Lachelle Ruiz CH I [facility] MAGNESIUM 2022-04-14 04:45:00 Lachelle Ruiz [facility] PHOSPHORUS 2022-04-14 04:45:00 Lachelle Ruiz [facility] TYPE AND SCREEN, 2022-04-13 20:23:00 Lachelle Ruiz [facility] AUTOMATED Center CBC W/PLT COUNT & AUTO 2022-04-13 20:23:00 Lachelle Ruiz [facility] DIFFERENTIAL Center CBC W/PLT COUNT & AUTO 2022-04-13 20:23:00 Lachelle Ruiz [facility] DIFFERENTIAL Center CT HEAD WO CONTRAST 2022-04-13 18:22:00 [place] [facility] CT CHEST PULMONARY 2022-04-13 17:22:04 Denton Dan [facility] ANGIOGRAM Medical Branch TROPONIN I 2022-04-13 17:03:00 Denton Dan [facility] COMP. METABOLIC PANEL 2022-04-13 17:03:00 D[place] Dan [facility] ([id number]) Medical Branch CBC WITH DIFF 2022-04-13 17:03:00 Denton Dan [facility] PROTHROMBIN TIME / INR 2022-04-13 17:03:00 [place] Dan [facility] [place] [facility] ACTIVATED PARTIAL 2022-04-13 17:03:00 Denton Dan [facility] THRMPLAS JOHN PAUL [facility] N-TERMINAL PRO-BNP 2022-04-13 17:03:00 Denton Dan [facility] COVID-19 (ID NOW RAPID 2022-04-13 17:03:00 Denton Dan [facility] TESTING) [facility] CONSENT/REFUSAL FOR 2022-04-13 15:43:13 Doctor Unassigned, No Un [facility] DIAGNOSIS AND TREATMENT Name Medical Branch EKG-SCANNED 2022-04-13 00:00:00 ProviderTrevor [facility] CBC W/PLT COUNT & AUTO 2022-04-05 02:56:00 Son Serra [facility] DIFFERENTIAL [facility] CBC W/PLT COUNT & AUTO 2022-04-05 02:56:00 Son Serra [facility] DIFFERENTIAL [facility] BASIC METABOLIC PANEL 2022-04-05 02:55:00 Kaylie Mejia [facility] () [facility] MAGNESIUM 2022-04-05 02:55:00 Kaylie Mejia [facility] CBC W/PLT COUNT & AUTO 2022-04-04 05:38:00 Son Serra [facility] DIFFERENTIAL [facility] BASIC METABOLIC PANEL 2022-04-04 05:38:00 Kaylie Mejia [facility] () [facility] MAGNESIUM 2022-04-04 05:38:00 Kaylie Mejia [facility] CBC W/PLT COUNT & AUTO 2022-04-04 05:38:00 Son Serra [facility] DIFFERENTIAL [facility] RETICULOCYTE COUNT 2022-04-04 05:38:00 Cheryl Daniels [facility] CHROMOSOMES CANCER STUDY 2022-04-03 15:26:00 Cheryl Daniels [facility] MISCELLANEOUS LAB ORDER 2022-04-03 15:26:00 Aisha Mcmahon [facility] CT 2022-04-03 15:02:00 Cheryl Daniels [facility] BIOPSY/ASPIRATION/INJECT Center ION FLOW CYTOMETRY 2022-04-03 14:50:00 Cheryl Daniels [facility] BONE MARROW EXAM 2022-04-03 14:50:00 Cheryl Daniels [facility] FLOW CYTOMETRY 2022-04-03 14:50:00 Cheryl Daniels [facility] REQUISITION Center BONE MARROW PROCESS. 2022-04-03 14:50:00 Cheryl Daniels [facility] (MANUAL DIFFERENTIAL) 2022-04-03 03:21:00 Trina Coffman [facility] BASIC METABOLIC PANEL 2022-04-03 03:21:[address] CBC (HEMOGRAM ONLY) 2022-04-03 03:21:00 Huslia Kaylie [facility] MAGNESIUM 2022-04-03 03:21:00 HusliaKaylie [facility] MONONUCLEOSIS SCREEN 2022-04-02 18:09:00 Bryon Henning [facility] Lyndon [place] CMV PCR, QUANTITATIVE 2022-04-02 13:20:00 Cheryl Daniels [facility] EBV VIRAL LOAD 2022-04-02 13:20:00 Cheryl Daniels [facility] BASIC METABOLIC PANEL 2022-04-02 05:31:[address] CBC (HEMOGRAM ONLY) 2022-04-02 05:31:00 Kaylie Mejia [facility] MAGNESIUM 2022-04-02 05:31:00 HusliaKaylie [facility] C-REACTIVE PROTEIN 2022-04-02 05:31:00 Cheryl Daniels [facility] PERIPHERAL BLOOD SMEAR - 2022-04-01 15:31:00 Cheryl Daniels [facility] HOLD ONLY Center RETICULOCYTE COUNT 2022-04-01 15:31:00 Cheryl Daniels [facility] HEPATITIS C ANTIBODY 2022-04-01 12:26:00 Cheryl Daniels I [facility] HEPATITIS B PANEL 2022-04-01 12:26:00 Cheryl Daniels [facility] HAPTOGLOBIN 2022-04-01 12:26:00 Cheryl Daniels [facility] ANTI-NUCLEAR ANTIBODY 2022-04-01 12:26:00 Cheryl Daniels [facility] (BJ) Center DOUBLE-STRANDED DNA 2022-04-01 12:26:00 Cheryl Daniels [facility] (DSDNA) ANTIBODY Center CBC W/PLT COUNT & AUTO 2022-04-01 09:43:00 [facility] DIFFERENTIAL Center CBC W/PLT COUNT & AUTO 2022-04-01 09:43:00 [facility] DIFFERENTIAL Center CBC W/PLT COUNT & AUTO 2022-03-31 22:26:00 Kaylie Mejia [facility] DIFFERENTIAL [facility] SARS-COV2/RT-PCR ([facility] & 2022-03-31 22:26:00 HusliaKaylie [facility] REF LABS) [facility] CBC W/PLT COUNT & AUTO 2022-03-31 22:26:00 HusliaKaylie [facility] DIFFERENTIAL [facility] PERIPHERAL BLOOD SMEAR - 2022-03-31 22:26:00 Kaylie Mejia [facility] PATHOLOGIST REVIEW [facility] VITAMIN B12 2022-03-31 22:26:00 HusliaKaylie [facility] IRON, TIBC, % SAT. 2022-03-31 22:26:00 [facility] FERRITIN 2022-03-31 22:26:00 [facility] COMPREHENSIVE METABOLIC 2022-03-31 22:26:00 RobertoKaylie [facility] PANEL [facility] HIGH SENSITIVITY 2022-03-31 22:26:00 Roberto Kaylie [facility] TROPONIN I [facility] LIPASE 2022-03-31 22:26:00 Huslia [facility] HC LAB HIV-1 AG 2022-03-31 22:26:00 Huslia [facility] W/HIV-1&2 AB [facility] PT/APTT 2022-03-31 22:25:00 [facility] FIBRINOGEN 2022-03-31 22:25:00 [facility] CONSENT/REFUSAL FOR 2022-03-11 23:02:41 Doctor Unassigned, No Un [facility] DIAGNOSIS AND TREATMENT Name Medical Branch Plan of Care Planned Activity Planned Date Details Comments Source Future Scheduled 2022-05-15 INFLUENZA VACCINE (#1) [facility] 00:00:00 [code = INFLUENZA Medical Ce nter VACCINE (#1)] Future Scheduled 2021-09-[address] [facility] Test 00:00:00 (12+) [code = [facility] DEPRESSION SCREENING (12+)] Future Scheduled [address] [facility] Test 00:[facility]:00 (procedure) [code = [facility] [id number]] Future Scheduled 2016 DTAP/TDAP/TD VACCINES [facility] Test 00:00:00 (1 - Tdap) [code = Medical C enter DTAP/TDAP/TD VACCINES (1 - Tdap)] Future Scheduled [address] [facility] Test 00:00:00 0-64 YRS (1 - PCV) Medical C enter [code = PNEUMOCOCCAL VACCINE 0-64 YRS (1 - PCV)] Future Scheduled 1997 COVID-19 VACCINE (#1) [facility] Test 00:00:00 [code = COVID-[address] VACCINE (#1)] Encounters Start End Encounter Admission Attending Care Care Encounter Source Date/Time Date/Time Type Type Clinicians Facility Department ID 2022-05-02 2022-05-02 Telephone Juan [facility] [id number] 00:[facility]00 00:00:00 [facility] 2022-04-24 2022-04-24 Office Juan [facility] [id number] 11:00:00 11:30:00 Visit [facility] 2022-04-24 2022-04-24 Outpatient [facility]STAL [facility]QU[facility] [id number] [facility] 11:14:36 11:14:36 [facility] 2022-04-13 2022-04-17 [facility] Ricardo Cespedes [facility] [id number] [facility] St 18:02:00 18:06:00 Encounter Pati Zuniga [facility] Amna, [facility] Lindsay Corral [facility] Lachelle Ruiza 2022-04-13 2022-04-17 Inpatient ER SHAYNA [facility] Gastro [id number] SLE 18:02:00 18:06:00 [facility] 2022-04-13 2022-04-13 Emergency X [facility] ERT [id number] Univers 10:55:00 17:09:00 DENTON [facility] 2022-04-13 2022-04-13 [facility] [id number] Univers 10:55:00 17:09:00 [place]enton CHRISTIANSON [id number] i [facility] [id number] [facility] [id number] [address] 2022-04-13 2022-04-13 Travel [facility] [id number] [facility] 00:00:00 00:00:00 [facility] 2022-03-31 2022-04-05 [facility] Conrado Frias [facility] [id number] [facility] 19:19:00 14:01:00 Encounter [facility] 2022-03-31 2022-04-05 [id number] [facility] 19:19:00 14:01:00 [facility] 2022-03-11 2022-03-11 [facility] [id number] Univers 18:20:00 18:20:00 Care [facility] [id number] it y of HOME [id number] Carl as MARK?BLEA [id number] [address] MEDICAL OFFICE BUILDING 2022-03-11 2022-03-11 [facility] [id number] Univers 18:20:00 18:18:42 MAYURI [facility] 2022-03-11 2022-03-11 Orders Doctor SERRANO [id number] Univers 00:00:00 00:00:00 Only Unassigned, OSCAR [id number] ity of [place] [facility] [id number] Carl as [id number] [address] 2019-09-16 2019-09-16 Emergency X HERVE III, [facility] ERT [id number] Univers 16:13:08 17:09:00 KINZA [facility] Results Test Description Test Time Test Comments Results Result Comments Source Bone Marrow Exam 2022-05-06 14:46:50 Test Item Value Reference Range Interpretation Comme nts Case Report (test code = 104) Bone Marrow Pathology Report Case: [id number] Authorizing Provider: Cheryl Daniels Collected: 04/03/2022 02:50 PM Ordering Location: [address] Received: 04/03/2022 03:29 PM Service Pathologist: Aisha Mcmahon MD Specimens: A) - Bone Marrow B) - C) - ADDENDUM (test code = 3381) t1wxuLExYJUzpLE7ZmOwNTJkd1lwx1UloWQdyKB bRRmvsWLdmaWjtq29rGG2aZ35GD0aSQOoYhY9UN FzjpH3Xoo9BBTeYTNszGUgS967y8ckb1gferInx QN4SIHsJBJnS9PdEX7mGRZyiBTyY5bhOQJaCMXx H7YcNN6bNGPcZks2ZOO9OQo2MTFgkPJrwaVoVzH tZYVhnWGylMO0QHDfWF9rjlwsXUtbFUmnWBYqtg E3OJDuaLMsT6OdGIVnIB5lkrmxIWH1NLdtGBMrV QD6WiBsPVAom1Afycj5GnVeyWVyNObwnJEsxdlt gnVbTNStFYQKANPal30zVt3bRWWbYOPdGOPfUgJ SieSsTYKjphAslgUxoEg1wtSwLzFzMIFlkBxhff JhUXjwfFXfs0N6FAwuiyVlqxJhO3a1k4swmkR0q XNvg7R7HFqmmm5idBWeXPBrywETFNDdMMXtcVQz qbVimC46ioTnR4D0sNHvBNXdPFnEJRRuv1h2qYU kGCIwV6FjmVHgc4l8eCIxVAJiXLJoMTlaHPIdcV S8UBCdIe8ecYP1cL0mAconDLCkcLKeXIYhV2KpL OBgVSlpVe2lIO1lEqtmWBBzeyQql5B6TCGfNrqp JdGhM2Yxu60nD4JdHCR8jQ4tVD9npIweJKHoDMf 9r2mhQMFai0idEWQfbh3wfYGkOJ9koRHpu2ZnvX 68aYEoDhR8GxlMRTjsRW6rkMWfQJGxueqlhBWsd OS9CPCqKUtuRIEcCbXnVO6QCyWWzIVte1huKQWz k35rXQYbdnPUlz5xmHwzGozjFIVrlxa+TK0lila +HW2obap+HB3kwhd+EW1bzjSDAsIoYP6dZGnfTs NDn13bPRLxaUTidMNsPMMtsiz+KM3avyb+XH5cf lx+KP5zeme+HE6zljk+FBNdlSptME63DL3bD0Z7 rYPusarbJi9fPVDyz2QqUFidzKapmjHkLJHjE6H lGVJddiR6cDUeOv6jrA40iQ0aXOxzruOjVyZJYV AmYPPVRAjpFETHJTqgFSMRHJ0jVEOtilkfbUYcy SP8LequJMBkEFseLLNsZWAwBFCyV7XyvbGdH9M9 dZIrzZCtAJ0nb3uiug7ygZVfBFWsbL5xuQFhq7N oG83siIbrpHOpsoEkhMg1gxWbmjBkqY23DYCjwz N9AMQaa28wOXytIcVnX0clRfWewZTwZDprHEHxj rMzQMIxQIrwy8BgcxKkOT2nsT7lRFVuA7vbymdl PH2lLHu9kD81Q9btLm3mSBBvXIQvy7dleSXzybE qnWQdvVtvrWhxw8IqeEg8wAQhWKqxiLdyVF6lUB Ctk4BaOMBpGSLsUL0nsAEooJFhiPTyKX3fFHXcV ibneQVjejTpDTGfXADsX9Kyn8FyzO91h0m3HT2k gqTkQnsaGKKrEI2rpUWcbVndFXLuo1Zxg5GbvQC vuFEnchEiOattEYYgdaJ2gLYcJ4AjftKqhALjYP 4jaBKyQF52uFWrLXMzc2DmEithLIP7aW0lg7aeU WIoNGK9V1fzHKPfuY2gQMI4lQ21jyoorfj3LV6c ao6miUOmjIGww45bnHOjOVZiV8hchtDdJDGzBDE zrNhimW42rA9dOYDjVDX8DSJgXKNvtOJseN3swH 7nQGBzkvDpzUxtxsNey6ujqOmkOVZsPJTuhC4uZ 0FcgJxyHFblsXIxLNKeFVRseU7xD8XtGSQyhoBn lIP0eK3yKWAbJFKvfP4dOYNux1yim2qspRPovQZ jkaCwr14oVQ6gNVIoXBJizv6= DIAGNOSIS (test code = 3220) y9atgVUfMWYiw1vgEAEqlYYpEnDkZrIfPpEzSp p cdWMxIHtccnRmMVxlcGljOTYwMlxhbnNpXHNwbH RxH9HlgvssOWbyWG3oRR6ffOksyUBuuKPbXOErN bYgc1ajw208cZLwe5mhKAUXgeevfOj0hIjoF79l t8P1TbztP68bpGYgLVA9ILTcTCMkqMTkWOWhPJG 5PSXvnLQaD8nhGQMnAA5hbbstTXuoFExpFEIjbK Q2IOCchRWeF8HpPGIiFDtbFQLpuoz4VdDmAn2be LGjkEpvTUjgEZIcKYRkZTyqUIZgLsSoVp6WGZMM HLFGH6gvWTSILBHFNTAqQIVSF5PgCAHPQEYASUE PVGRVQizHTYAHRK8KR6t0RJTntxGtDESETvfHJq fPFEgAFH4UXDyVMZvBSjFfLTFpCTWeRIZXFFZKD 1gjRm3COODHUAQWNFDBRY4HSUDCQE1MVOAZSEkI XdRWF6PiKSRRMQDVVF4HINZPC7xtDTIrPVTTRne CRXNXZKLhWXVDH2VPC29BFhYESBZZQTrSTxGgR2 iIVsFlpOXhYX2hFRTZPEJLFXZvIVIBJoDTSL0OY HSurQUlCP6sFTOZAZyEYjKQEHGtIXCFCTADJcnf NHAqQPQKQG6PPO0IZTDLXT5GXM2OVHqEMFNOBKJ BT5yDW2TSGHLhJ2HOOJzWH3hvKPPcWGASGOQcD4 9NTUVOVFxwYXJccGFyIFBFUklQSEVSQUwgQkxPT 6F2CMXuphRtWVUGKfOMSZ7SQL3WOCmaRFM4b8iq dGYxXHNzdGUxODAwMFxhbnNpXGRlZmxhbmcxMDM gOJA3ygJgLCXbUUsbZTOkOVefGf4efNJonVqvUa FaSVUsp7fhujQRxsxdfFj8o4goYAQdFvT1rYMlS GvuV2otsjBtgFHtEQFlWGp4iZ18VKHqoH1rxWYz PVvgtpZvZuN1GWbiEMIjFyF7OALyjPFtSNMxW0u xNNLuLJyzJFKnIUrotZYoOVT5zAmnp9T2wPLetT XqwMcxWvBxNuUdUgZZo9EtRWp9rZeiN6PeRZRnE bN7qSXlHCYsOMuoIWJaZPJxmsD3qQ12WFhbsqP9 tDDfd2Nhf77wn037lA5lvOMeLKX3ZTNdPVQktVD ePIAtPCQ4YHCvkLSfW3gfZYGdGK2pmsscKLqrUR oiLXMrpJD7JTMgaJCyO9WoJLIuFSekBPMeany0V lPpHh3ldCTexEohHPjtj9dcj7qlmHJmFhb8BEOj BwErGkmpSAeig5Ouv1poSXZahb1fWFI7qSRsxFn gj9Y2kBLqHPFsiKDbGYJwGV8aaYLoICLylR3gen hmZIJlZoFoluphLYQmtKcnyrHlMf1pjPreMSX5L VptQ5uxkR6bFaJ2PGorB2dlzJ5oMSw8GFvuXGUd dHD3duK7BMTeaPFoH6IvvP0pEBSzWA2qtra7a9k tIME0HFjeRJGfUkX7nnU6ODVekCVeVGVouSpgAC ypd510PUN0UsRmVUVlq7WiF1ChoCvoV79xqLlnW 79hTEJgfRhhtV3bdJdqeL4jKwGxRfXsZPzagPkz MH1nLFGaQ7eoxRWpRRDbSHTnW7wqAzTchM6ktFk uQLmtozEdYDNrMcd2RKIndNZbKZCeTff6QONlQE ZpO19dfprhMFS9cX3qj4pdv7KfIAijVBO9NINaj 70wYDemprW9VOevAu69BKxgNFN8HHhvOPV4kU== COMMENT (test code = 3359) i4wisLGnBEFxkVY2OlAgZOIqh0ogf1BvpUSawAF oZXvzoWWzmkArqv59sVU9mV42JG6vCCVwZqX2OI DqwjM9Psd4OBUvZOOfpRNxV612y4baj3wmwoWjb RB4IRSuIBLsV2YiQM1dILWutLShK8zlWZDjXTLg O3InOQ8rEATqUpf3ELK5GXw0BNLggHEkdbYhQcW eEZTktPZpxXH8XZVsAQ1eogbyQIvoTRvdFKQabk U8RZPeoLQbD0PzNMTsMT0aovykUQG8KKslCUZyF RO7KkTuUNQpz8Birbq7MwYsoSPmGDyidMBkymtn fzRrOQIjsyQjlHLqju47PXL0PFt6DSFhj64fOKE rg41mcUZyhIOgZFHszxPisXTpgBqonQgrv3ZwvZ z6uJXfGY2wzfIxivBvq6SuEJtaCDydaPpvjWT2a VXhqufarQRojGbmLRPuALIiWP2grJ4ag0kxb6th UYYmZYOjTOG9RHDhjTD6QLJiJVW8iTrjw3hfEWI wXFC1rqEsgyNsSS9dHTUnA73pWfmnDC92LVW7p7 IiIILmKCHaytAbmzJiENDfXGRnToupx4XwSYYaK N4kYPnnTlOcW3nrIqBuhFOzKOmuKEHngtSzz7Ye sbAeclkzGbzpwtZvgTGvbOV9buige6F4VGioGCw pjMErqJU5HALMUdJfEIS5DBMlF8dfVhNdpUMiQX TdbA04yaZntoHfb55mvGnrqCOiTnDzAEcyHIFhs PTgDQUof36gUCJfABEdOA31BRNqM8NybXYdq1N2 qJQ6eV8lOJGoriAqyiTzAMQtRPWaifYfpE01iv5 xpUXgq7Q6mKxoWC18PSjtMadec5SwTuAFwZZvI8 HwJAIfC6HwGP5dTA4MEvGxI7JnUCMxZ2PaQKKkN R03SVuluVZzPXdfd8QxXBBhYWygFiLpG8mkJoPk bNCuaZSiPmetULRzTRFjMEPlGO2fc1BqVVVxRIJ vjIN2kFYhweFezXBwtSPvRoIMkz2fKV7rQKjsRP 3tLTAaOEUooHBiWL96uDcjcQRaXSbuRh9mE52jl zMqUEZfn35ikNlgGIBmxtVugphsr9G4RQtedzCj dtRbGKB6yNSnXBBor6GfFjshHPypoD62PMMhamI 7JTOzp42wCAYuwoltQBLoBJdlOOZds1QkzKOyn2 UnLXNlu86gzV4rQ6V5TDJxrC6aESQdQXMzYUtrB X2wNAenMwVsWiMbITBmeo6= CPT Code(s) (test code = 3357) d8ikjGIxFPUszIY6IaEvYDJly7uou7AyfPOl cGF cUKoicHYqroGipt40gRJ6lG40MR1bCQUjXlP8KW WdpwX0Vsc6XHXhWFMpgLCmI484l2wuv8mlzpOii UT6bCdfUVUpwndlJpX0IXzkPPSygxchFGn4NNrv MTWorSQ8GGLrySTpE0DeQVSfEY2cznz1HLS5XZm cIPIwSmX2FOBrwDRpSOFrwTouSXlrh426HEQ5Sj NrLNEynnShlFrdhS7gFjYvUuU5BDS6UUhcPMTyY Fz1NOa8JqR5JQntUrnbSXgpSFJ9YNh0TgXjJiA4 BJS0RdnvUEluRRFyyMmyoGMekZ== CLINICAL HISTORY (test code = 3356) x2rlhVLhREFejTB4IoYoMRIut7qex0U sdHBncGF zWBxxdHYhkxChdd92wBM7fN38KX2fEWXlPdV3MQ DnslA9Crf7LBAtXQQpuZShI915s9enh3hcxrKsh GZ5HKDtUVQdO6PgMG2hKWVwcFDfI6nkGWEkHKXs P4UbMZ0xXXVuUkp7FVE6FTh3HBOolDKlgkApPgW uXAOsfQIigHD5APPdHK6vjzfrBZsmHZquXNZxxf K1NIOosVGpU9IlVZWsFJ3qljzrGAX1IQfdOQQyK GE9CqWxWTQqc8Jiiyz4KaMvcHSgQIrgzQUuyrwm ttVxSHLhZWintXPrfIV6XmAMnVXtyWOuK1b0t8J lbmlhLCBhbmVtaWFccGFyfQ== SPECIMEN SOURCE (test code = 3377) i3vemAIbVGItdAX1VpLfPSNqo8fed4Mf dHBncGF qCYvmeZFnrbXlcw15fDO9wJ85UA1kZAYyDyI4WP UnwhM0Xyy4XGYaZEJvtLHmJ936d5frr1flyjLlr AR3qLelSFIzfrctNoT0FOrzCPBuvrqaJEh0BYbt NZZshXY8QIJdvYSmR6OwVANgDR7wapu5ODD8NWi zVADpUsO7BCEmjNLhKLUygPckRWnii285BMU5Na KcUBQcteFkxWgolL1pHbKjBZQCu25wGX0hlmUzo wVlg8EovlE8WCfqD7qscUMfeyGiA25kNOPhkX2s s0yvjFXecV== GROSS DESCRIPTION (test code = s6evmFSmRGRkgOQ0JiZfPJLvt7kbo5WhbDCs [facility] [place] [id number]) jJElyaCGmmyVtmn24qEP5uY73EP4dGNAjQcJ3UM NqegV1Ylw2ZOVlKLUfjXEvB110c6hwj2feodUkb ZI0ZVBqDPHxW9QwXO7pXCFbgLJvF76fuHPzCCR8 WPMfMBPxlWPuRXPrWOZ0NUUdxLJrV9acKDXzIU8 jgucxDDpxHHxtOWUkdAO0DDSpiVVeF6YwMLSlXT dhHHTcyyq9JtMiFk2avAIqgRpvLHtdPYXzu6jsH SImiOTdWLL5WOtuzTIgGYKnEJEgCMu5PGWuMOqy lQYuWG9iiKbfUgpqiAjyk5EfpTVqPVotKKLqYWP yTIzfZFHiE9WBVSPwLsi9PDU9VKYtJHo4PZnaL5 MSVVGcARN0OkahPKF5ZqE6LSj5ICWZLe5jULwtT AmrDRQoWIZ4JiYzSAdwrTFoJSnvVytdXJwfQAQc rNFvBRkskrX9FUQxCOgrNPDpOhCuCL4oTu2cLFW NVVAlh2xfJATxiomlvnPiXQYdTZZieYMkoT9rig BpcyByZWNlaXZlZCBpbiAzIHBhcnRzLCBhbGwgb XYuPKmqJZA3sBAxPHLvISYmAOLoSN55S6NboqWf ZSwgbWVkaWNhbCByZWNvcmQgbnVtYmVyLCBhbmQ jCCNcPDEgjP2iIF45fZFmct0ddLahZGNYnNVdoK 1zzyMtGLArivGvq1UcNB5oABGdoxMmXLjvVRJnp AWthULxe80xPBWeYMHleiLxfHTmbbixQDV6rmM8 QEhvNNSgr4vaRWPcIf3sUHemt91ri6CitO2qn5j rnKycz1JhxHWjMPtkVOLvaYWfSUttcI6lRbUat8 zmnHz1UAkmduN9OETsvq98DKicYPVyW3TrB5GcK WgaTOU6IEIdLpRoDSIvVJ5RRiGuFQC3PLQmQODq FAo4WXn2SL8CGcIgAMGzLXU1KeA9MUNfZQe6UBi cNS2UAWA0Sws4BWx5PHM9PAQuDWSmHORhRtIrCH QhQQcvDfAZahkztWUtWX6kaKbfimHgPNGfKWBjM QSxjpvlcpZdJQPcCXQQwGOywZ5eleTCLFGfbnTi x9DkMS8iIYKhBlaye4GzT0lekMYsAJVgqXQdode rHH9eFSkcWK68VAggST39PURuOgFqGUixMYKbCV YzyUIxEGahFGOwz0IatMLrIDQeFCHbbAWwoWX8E NHdAF10qVDdbBlmaS7vX4Qpf8H4yOOnRmQbAOVf wvuuowUbRYSoBOlcFQUeF6PrB5JumyZlvNVwRVJ zjoOcx2wwPTP0HEXtvBDokFDfNtElGrixGLM3u9 fkNLLjyEQsGKD0NKavbRKkXOGjPXEmVKdxSjBNO zEyQvRzVwC5Vao2NnX2ASt8URZZRzZbJgRqBman PUH8RsbzABh9XRb7SRhMQrM9DAT3AGS7MUBjDTH bXjJfWZn8DXEuUEvkoTXzAMHuAYXjXQthYTguL2 1cZnMyMCBDLiBVLlxwYXJcZnMyMFxjZjEgUmVjZ Af9SPDqgG0zGx2lgKQjjS7vdAPpNND7CY4qcvFq YFEjjsBwH35yKVTjMYSjjSYyxapqNf80LZHiESx pSXnvclq7wSJgcRFocMA9YHEpZM11gTUqpYnjvY 2sWmJgQe3dCZUuM9QyI5jzmXTkzFzhft2gfAGbR RDymtftlfImIZWbBUOMEE2dDSREfSV5DAAxWORG KHTsh9gwV7lybvGdqKSunwQ1VCFlrXClBWY0YQ0 cvUibQLRuR9GjV3OpqkG7AAPlve6= MICROSCOPIC DESCRIPTION (test code = m1nlxOJbMFAnkFK3PlHzYRYzd2mwu7 BsdHBncGF 3371) tPKvqqGPvciEbxv71bLE4wT25LU7rQYUeMcG8KV JjaiY5Zvd4IXCyVVRnrRJbM147k8vei3usgeLae RU4MCYnTZYmO3GiII4uDAIdmMJwQ3toMQRpJUFt K2ZsUA9tTVYsUyi6III2BTy5WCIidHPwuqPhQfE wZFOzlIUnwED8DQUbXI8evmdiHDrfRQowQQZfrt H1IMEtxPVoG1MpUIJfYF0ucmlwWJR8NZsuDWDwB MB1ZaYeSEJgt8Eyyou4AcXgxDRxGCkgjDOpkelc gjAzJGTIOlMiLOEVRa2NSPROLNiTXDNONlntJUQ gUVVBTElUWTpccGFyIEFzcGlyYXRlLSAgQWRlcX NqwCKqnDTsCPVzlOJeTEwpdUDxmtUqCTWlTLI3W YBeRQJkprxdFUPnPTREBj2MAVXMWfZWFhGSBJcW UAXLJ8MQJMgwUeUbQqPyVA6xSDNwdTbtUHVohN4 4QSS6JROfPDniVBIcWN3tRKZxWSVrBTQ8juGafU KkNNLzCAXvFTNXhx9rdAZpw8P1rPTlSLohBIQfA QoaYPFdEABMeZNuc3B4eBRjF50jrMAtrSHme3R8 mVFpQAgpJCToZpJgHNFeBWBSYW4gzb5NJBynIY6 4GIFcX7EbymYvv0W9oWQpIWqqYEKjDy7aJGWnXP 7ikD6wjCadrUDsLF1dCOMoKSI6qvMlwcLyKRQsv lDsLrGiPOLvKnQzd9ZsvAooSMDuHKZlwoRxrJUu r1EdFIeeKYOpZgOcBKQeUVNXvoe3yYTsgWCdsKT gE4Ewu40txqQzoCBfCLC9DgXyBTCpFSumwNvwC2 n3NZUiDNEvcwZeZkAeLDHfQR3lc7N9zZVpOPMeq aRkLuDqHIDeYTjem57rLCWbwVrgPIDdswfiPYVh UYjjzM7bFKglTMX9cKlkl5koGCXssLxwLhIvNH5 6WzYOx9KcPEbclGHoYUYaOOI4sbwdEp83HMqgI0 AqXDGcNYfuGOAesAAhOMLbnZMzwl0du0jid5pdF yJODLO3PTQarVK0NIHzOR9nYLNjnPZzIKMkZP6x lEFlEMAxd68bcAJfEORzBPBnGWWyFRArAFNvUYI oXYHrIAJyGTPtLMCbBXUjTTBglpPHnMXvf1QblA QluIX0DV7alZXidKYeDCP5YBAulWV3XBMej3j0p KUwg10xaXB4RCWbUQB1ekK6qP5eDGUfX7Sem5mf nnVzDS3oT2Fjz8EnACC7j3rpYPRaJP6zIBQwMWK gICAgICAgICAgICAgICAgICAgICAgICAgICAgIC MbMMJpnLNlTKYjfxNHCWenr9GofE9ydKZhbyudD PPfDFJblxWyED0zJCAqiBSoepA8ppSwfJUug0Nw bGVccGFyXHBhciBTdGFpbmFibGUgaXJvbiBpcyB iYIPyvRC1HQPpILZaZNLnyjZcmkPwlt2bLMK7JZ lgYKMgzqJhir8gAOZkrqW6wTYjGNIdsTTgdXEes 20nMIDjLAAoSUNnRCNdAFFtzkQfcK8gKUMiCUYp c9HeSVW3slThXIYckQstmSAtLzEhaQFePTKqcfU gICAgICAgICAgICAgICAgICAgICAgICAgICAgIC AgICAgICAgICAgICAgICAgICAgICAgICAgICAgI EOiUSVvCHQlDEHnMEZoSHRrIBFiOPbhIGDcEn4H HLHQSDLGP6kjNzkUKNSXOafkEOEfIiuvqDS8BCG HGZFbsCI3FPlrWMSoS8kpaB0nENFlfFMinCFneJ HqXPImhyVUAUGhKXColNApeHKvQ7IwwJBtSDMjG i5hFYJpBYEdNMIqTBTfCDcsAEAlK9SgkHVeCCTs A13rtN5tvHJwa70mn8xjyZmjmtM4fbIlz0XztxM 1MQRrdTAntcMaLA9xVTFjkUAmFFvccQZdtwRrLi IOgiz9dSYwoK9yWYIoqlJlooPktTdabS9xu3gnx 5jqJMXgGLDcg49csEN6QS2dJSSkCVwowvfsO3x6 GMVrPHLkCTWcBZFxwiEqk5e6zSRgmwKsLXpsOUZ fidAsXKLgWFGhUKKzl7BloB7oo0h0WdHdW8ElKM JcX7WgEPFmYEYxyKYxDXphy1CcnV6goI1jrFzvw G5bkYVycAHnuIYdmSFxjuMmw2h0oYHbzXBdq1Vz aHJ1LVXos651xa8pFQKdRAItKLFyw4MgSONvNIY QTgShcErpzFpkD7f7maNaTDXjFXAaWJG8fv3pGI O4fDdqt3rsGYCvEKE0wwUhlpBwPBVzWHBmb2i9a YJqWS0lHKFjO4AoxMVhiB6vKJ3xUEFNPOI8SrLK DTJiYGomK3hvrRdhcRDkoQVfGRblnvitN0m4VWS aSYGqC1VluGZvEZQhNX2goSTmrUZsawMmIMKpEW PnPOBuzGnwcZhtL2n9YRSlm11kB0DjPFQ3BFbmB zDLCHIyIKU8QYozAVlkhCaqIjUko3PrNLJyICSb i1OdPsHioHfcakRgisZjfHK3aD3gVR7iIQXuUCP QSDNgqSssMzYNV0U6aUSqBIMnZRAoJJnpqPGvuA P3ITGSABIqUzFJSSDbwIhkFACzTGYyo2YhGN0hJ 5OhMoliQQBkOGDrBPGfOSavdfFcnoNzv7CbyXGx orHyRQqgnCVza2BjgHxozPj2GGyogVwuLa77wKX qIETyJIZnseWyiPJvWiBcOYA2ZaRbgXSrtUAua8 GmuD0thVCjHQBtZSZiKICyRECuUNYrLKRmAWGxI GFpUMUuSJDqJOOtKMHcnjFGg685ZEJaUQHyK0Ie SYR0EVPRgsVxcICyv1PooWTkbMUaIKHxrmAQpEN tbiVxtKBuzBJxwoTcrwDrZMYrhAR8DLKuJLEqIN BfzqNzjjKrrb1iRYX5WXxhZLLicgXejj2gXMYho zH9cKGgH8zzjFLyCRW0fH8qQcNpZHRzholmTVOr kWVjMTMLJyiJAEQYSBisMjiFM0M3HRPnuhwpQVV aDeURczgdsTRyZL7qqf8xW5gkj13vKtMdp7Xzg7 E1sAcsIXQnJE9nZLX1iAYay3H4NMVaE34fKpxfH T39XBYeaCKcsS6cw2ruj1M3hD1byKQtfRVxSEEk ICAgICAgICAgICAgICAgICAgICAgICAgICAgICA cOSRzfwTNFiFsNdZMOZFfz8QxqeplRBcoyAfahc R7vWBotKYwhWPvAN9rIONqxwQ6mEZ6eQ1qUDZvM KM3tvIlXSWiZKGeFWUcGQEwGXEuXSAnRZOnRDVs ciAgICAgICAgICAgICAgICAgICAgICAgICAgICA gICAgIFxwYXIgUGxhdGVsZXRzOiBEZWNyZWFzZW Fce3p3kVV7vlXpnGUjp4XwhMBvwF9cpUjeiQ4if Tydlx4uU9e0lORdkwfzu1Zpd6D0MUiokNRao99s cGFyfQ== SPECIAL STUDIES (test code = 3376) e2yzsZYeZWUwoMT5MjZzHBGyv9kiq2Bi dHBncGF bDUivsPGssuNalb49eXL5nO97NQ4lXALcSgN1LN LhzkY5Vlf4MFVdWBVuwJZbN037EDWvYSJntYwtk hv1gA51GWWcoO9rxOSuOYjwzpHkCWwokfYdawNu Rjk9SRB3oGwqVQOeplpzFaI1DDabXOBezgidJWw 5FWyvFMEtaRV3EDPquRNhY9PaJPQlVI6pmfp6YM X8BFolBKYoRgM2PPMpiOFtGSSelAsjKTcum674N UF7VpKsRMAldeIaqWfsrV4gTyYgOkIqQhowPyTa RWgoQMsgdAJsxQJcxEA8fN3lRD7fZXGvuSErC7S kLMHezjHevMPdXTP6nYVhlQGiFO2gVEmiiDAcm6 gaq4HsR9asvKpvaBR4HE2kRDNeFNFuUXuxd1Wxf L8bTobtGVPvFiY1FHgsu96tgLFuNYEpBoPQRZMy RMTOCgUbUBPDPXL4EZVNXGE0BWZWPRPsNgqnG0H 7DTpvXS9rOEShMYKdxurzQ6FajYMdPMfemADnOP qnPFQuqTPvGAAzgcOpg1drI3hiFRFiWDS5TO8vr dIhFwRiMZ3gaG25m3Gir07hm82ejU2vdBHftzWo J13wgQAdxCUkn6OlFJQhskIelHE3CQHwETnbhds ip8k2tRL5hWNvbIGehCP7pSOngRRvQCKNlRClZS Jry338wh8pRXTkkUIryrFxwK6kDOftvsjznXEhS A5xQWZiAEBlAPNjML33tmSrXV3frMYco4mptlYc gZGcz7TeeFB5QLNxlTJeriacOa4wVF37KLRaORw cdU3ueOTeylTgPN0rFX8kL5P7vVFqPKCfdnSwb9 hkWIzkBS1kXKJlwNfuRbadIWIzGDKxkiRplLI5W BEqxDWfBWFtfQQrPAbnjNBfk4xil8CkE6zovXkn nGK2BMDwP0fmmVUeqUI7VFP0iR5wKMkgctDxZKW bm7GdKUPqKAEyIdE0fF5cRDY5BnHCbNajSKD5Rq B0THayCYNsUB7tUBhgOFbpM5GbdEQzJXAMMYFfq 2wbL4uxNNDuk5UalP3jlWX1eSGxDOMizOU5KSAb QMW4YByvdWAaSQNrBQIxgIKauAVyFj7qhXYgY9W vV7yhfpKcnOHgrXZ5aUHeGYozatWsFEK4JBCgnO 1kMK8uXKGzuKUlTY6evEQlTVMrLWXfVFXgLBAju 6KkISUflo72QWXoHkerbJmsGXPmFe1uVg2zMRAo elUsHGO2YjVWDW3qdwxedYHriUviaf0bWRtaMPH OECFuOQFtMUQ9HRHhiL4tPGL2hEH7ZYJ0N3owU3 niUUOgmeYpBJ0fOUExuGWkdnXbHNtmGF3edZUqQ LMdl1VqcobyFLNrNYI9UET7HMqlTPPaKMXeOc3t FOLhpC0xY4ZlUWI4zhDlv7SkKzRObCDdwQ71sLX lhk76WMZiDLShS3JjFATvPAEeFSduojFdqUcvAG Ocv67tdYGztnZbv5WdsrPnNNXrF9grAEHqbFSlz OJwt8ZfeN3bpJDhikKsAXL1lWScJJZagR7lJMMr hIbvZFCloU7lI7CyWKihKp3mKZJkfcjkFV8rbh8 8JQ2trkZpZZ2ywjNmXH25miGhJkGlYJy5GUiEUQ aGLFg2AARxzhXtbKVsbIKzMOHkmH2aaMWvDg2ca NNhaRimIEVpmUWlNDjugXcxV1eomsogHSrtdODe w5PdbS3exLO0NWT0kM2qYqjbSTU8 Gross assessment was performed at (test [facility] enter, code = 2777) Department of Pathology, [address] [place] [id number], Technical component was performed at [facility] er, (test code = 2778) Department of Pathology, [address] [place] [address], Professional component was performed at [facility] enter, (test code = 2779) Department of Pathology, [address] [place] [address], [facility] HeartBONE MARROW [id number] 14:46:50Bone Marrow Pathology Report Case: [id number] Authorizing Provider: Cheryl Daniels Collected: 04/03/2022 02:50 PM Ordering Location: [address] Received: 04/03/2022 03:29 PM Service Pathologist: Aisha Mcmahon MD Specimens: A) - Bone Marrow B) - C) - Reason for addendum: To report results of additional immunostains and cytogenetic studies.TIA-1 stain shows scattered TIA positive T cells with rare small cluster formation.(04/11/22) As reported by [employer], cytogenetic analysis shows a normal male karyotype: 46,XY[20](04/24/22) NGS Myeloid Disorders Profile: SNVs/Indels: None Detected Pertinent Negatives: No abnormalities detected in the following genes: FLT3, IDH1, IDH2,QRB5Uzeuvu see scanned/attached [employer] report for complete results and interpretation. The final diagnosis remains unchanged. Although bone marrow is variably hypocellular with an associated pancytopenia, no definitive evidence of involvement by a neoplastic process is identified in the current sa mple. Other possible etiologies, such as infectious, vitamin/nutritional deficiencies, drug/toxin effect and autoimmune conditions should be clinically excluded. Clinical correlation and close follow up is recommended.Addendum electronically signed by Aisha Mcmahon MD on 05/06/2022 at 2:46 PMBONE MARROW ASPIRATE, CLOT, AND DECALCIFIED BIOPSY:- VARIABLY HYPOCELLULAR (10-40%) MARROW FOR AGE WITH MATURING TRILINEAGE HEMATOPOIESIS- ERYTHROID PRECURSORS WITH LEFT SHIFT- ADEQUATE IRON STORES- PENDING TIA-1 STAIN- PENDING CYTOGENETIC AND MOLECULAR STUDIES- SEE COMMENTPERIPHERAL BLOOD:- PANCYTOPENIA Signing Pathologist Direct Phone Line: [phone] signed by Aisha Mcmahon MD on 04/08/2022 at 8:05 AMBone marrow evaluation demonstrates a variably hypocellular marrow for age withmaturing trilineage hematopoiesis and left shifted erythroid precursors. No significant dysplasia orincreased blasts seen. The corresponding flow cytometry study ([id number]) shows no monotypic B cell population, aberrant T cell population, or increase in immunophenotypic myeloblasts. Cytogenetics andNGS myeloid disorders profile have been ordered at the request of Dr. Sandi Tejeda and are currently pending. Correlation the pending studies is required for final interpretation.The results were communicatedto Dr. Sandi Tejeda on 04/07/22.26489; 74201; 34037 x 2; 39381; 92175; 88258; 60037 b9Wptrfevewbvplwpv, anemiaBone marrow aspirate, clot and core biopsyA. Bone Marrow.The specimen is received in 3 parts, all labeled with the patient's name, medical record number, and accession number.Specimen a consists of several aspirate smears, including 1 unstained slide for iron stain.B. U.Specimen B consists of a bloodclot measuring 1.1 x 0.8 x 0.7 cm. The specimen is bisected and submitted entirely in cassette B1.C.U.Received in formalin is a torres-red bone core measuring 2.4 cm in length submitted entirely in C1 for decalcification.Jackelyn Narayan- Pathology residentBONE MARROW ASPIRATE:QUALITY:Aspirate- AdequateTouch imprint- AdequateMARROW DIFFERENTIAL COUNT: Number of cells counted: 3001.0 % Blasts 4.0 % Promyelocytes 19.0 % Myelocytes/Metamyelocytes 22.0 % Bands/Segmented granulocytes 2.0 % Eosinophils and precursors 0.0 % Basophils and precursors 30.0 % Erythroid precursors 19.0 % Lymphocytes 1.0 % Monocytes2.0 % Plasma cellsMyeloid: Erythroid Ratio: 1.6; NormalBlasts: Not IncreasedErythropoiesis: Left shifted and complete maturation Myelopoiesis: Mildly left shifted with complete maturation, occasional me galoblastoid changes Megakaryocytes: Present and appear unremarkableStainable iron is adequate basedon an iron stain performed on the aspirate smear. There are no ring sideroblasts identified. BONE MARROW BIOPSY:Biopsy- AdequateClot- AdequateVariably hypocellular for age (10-40%)Cellular compositionsimilar to aspirate smears and touch imprints. Erythropoiesis and myelopoiesis are complete. Megakaryocytes are present with overall unremarkable morphology. A panel of immunohistochemical stains with appropriate control are performed. CD34 highlights rare blasts. Erythroid precursors are positive on E-cadherin and CD117. CD61 highlights megakaryocytes. T cells are mildly increased as highlighted on CD3 stain. TIA1 stain will be ordered for further evaluation of the T cells. Scattered CD20+ B-cells are noted. CD138+ plasma cells are scattered interstitially with both kappa and lambda subsets present. Bony trabeculae: UnremarkableStainable iron is adequate based on an iron stain performed on the clot section. PERIPHERAL BLOOD:RBCs: Normochromic normocytic anemia without significant anisopoikilocytosis WBCs: Leukopenia with neutropenia, no circulating blasts Platelets: Decreased with unremarkable morphology, no clumping or satellitismThe interpretation of this case included the use of immunohistochemistry or special stains.B1: IronC1: CD3, CD20, CD138, CD34, CD117, CD61, E-cadherin, [place], LambdaControl Slides Examined: In-house known positive controls were evaluated along with the test tissue. These control slides run alongside of the patients sample show appropriate staining. Internal positive and negative controls when available are evaluated Immunohistochemistry technical testing was performed at [facility], Pathology Laboratory where it was developed and its performance characteristics were determined. It has not been cleared or approved by the U.S. Food and DrugAdministration. The FDA has determined that such clearance or approval is not necessary. The test isused for clinical purposes. It should not be regarded as investigational or for research. This laboratory is certified under the Clinical Laboratory Improvement Amendments of 1988 (CLIA-88) as qualified to perform high complexity clinical laboratory testing.[facility], Departmentof Pathology, [address] [place] [address], [facility] of [facility], [address] [place] [address], [facility], Department of Pathology, [address] [place] [address], SLY W/PLT COUNT & AUTO [id number] 12:17:10 Test Item Value Reference Range Interpretation Comments WHITE BLOOD CELL COUNT (BEAKER) 2.8 K/ L 3.5-10.5 L (test code = 775) RED BLOOD CELL COUNT (BEAKER) 3.28 M/ L 4.63-6.08 L (test code = 761) HEMOGLOBIN (BEAKER) (test code = 10.8 GM/DL 13.7-17.5 L 410) HEMATOCRIT (BEAKER) (test code = 30.8 % 40.1-51.0 L 411) MEAN CORPUSCULAR VOLUME (BEAKER) 93.9 fL 79.0-92.2 H (test code = 753) MEAN CORPUSCULAR HEMOGLOBIN 32.9 pg 25.7-32.2 H (BEAKER) (test code = 751) MEAN CORPUSCULAR HEMOGLOBIN CONC 35.1 GM/DL 32.3-36.5 (BEAKER) (test code = 752) RED CELL DISTRIBUTION WIDTH 17.4 % 11.6-14.4 H (BEAKER) (test code = 412) PLATELET COUNT (BEAKER) (test code 21 K/CU MM 150-450 L = 756) MEAN PLATELET VOLUME (BEAKER) 9.1 fL 9.4-12.4 L (test code = 754) NUCLEATED RED BLOOD CELLS (BEAKER) 0 /100 WBC 0-0 (test code = 413) NEUTROPHILS RELATIVE PERCENT 49 % (BEAKER) (test code = 429) LYMPHOCYTES RELATIVE PERCENT 39 % (BEAKER) (test code = 430) MONOCYTES RELATIVE PERCENT 11 % (BEAKER) (test code = 431) EOSINOPHILS RELATIVE PERCENT 1 % (BEAKER) (test code = 432) BASOPHILS RELATIVE PERCENT 0 % (BEAKER) (test code = 437) NEUTROPHILS ABSOLUTE COUNT 1.37 K/ L 1.78-5.38 L (BEAKER) (test code = 670) LYMPHOCYTES ABSOLUTE COUNT 1.10 K/ L 1.32-3.57 L (BEAKER) (test code = 414) MONOCYTES ABSOLUTE COUNT (BEAKER) 0.31 K/ L 0.30-0.82 (test code = 415) EOSINOPHILS ABSOLUTE COUNT 0.02 K/ L 0.04-0.54 L (BEAKER) (test code = 416) BASOPHILS ABSOLUTE COUNT (BEAKER) 0.01 K/ L 0.01-0.08 (test code = 417) IMMATURE GRANULOCYTES-RELATIVE 0 % 0-1 PERCENT (BEAKER) (test code = 2801) MISCELLANEOUS LAB [id number] 08:56:59 Test Item Value Reference Range Interpretation Comments SCAN RESULT (test code = See scanned report [id number]) See scanned reportU/S, ABDOMINAL, [id number] 13:25:00High volumeReason for exam:->evaluate for hepatosplenomegalyReason for exam:->reordered per original order due to high volume scans [facility] : 1995 Sex: MFINALREPORT U/S, ABDOMINAL, COMPLETE CLINICAL HISTORY: evaluate for hepatosplenomegaly COMPARISON: None. TECHNIQUE: Real time grayscale and color Doppler images of the abdominal organs were obtained using a curved transducer. FINDINGS: Pancreas: Partially visualized and unremarkable. Liver: Mildly increased in echogenicity but normal in contour. Focal liver lesions: None. Portal vein: Normal, hepatopetal flow. The main portal vein is borderline dilated at 13 3 cm in diameter. Bile ducts: Normal in caliber. Gallbladder: Normally distended with no gallstones, gallbladder wall thickening, or sonographic Jang's sign. Kidneys: Normal in size with normal cortical thickness and echogenicity. No hydronephrosis. Spleen: Normal in size. Ascites: None in the upper abdomen. Visualized aorta and IVC: Unremarkable. MEASUREMENTS:Liver: 15.2 cm Common Duct: 2.2 mm Right Kidney: 11.3 cm Left Ki dney: 10.3 cmSpleen: 10.8 cm Maximum Diameter Aorta: 2.0 cm IMPRESSION: 1.No hepatosplenomegaly. 2.Mildly hyperechoic hepatic parenchyma suggesting mild hepatic steatosis. Signed: Shawn Sandhu Verified Date/Time: 04/17/2022 13:25:08 W/PLT COUNT & AUTO [id number] 08:17:32 Test Item Value Reference Range Interpretation Comments WHITE BLOOD CELL COUNT (BEAKER) 6.6 K/ L 3.5-10.5 (test code = 775) RED BLOOD CELL COUNT (BEAKER) 3.46 M/ L 4.63-6.08 L (test code = 761) HEMOGLOBIN (BEAKER) (test code = 11.3 GM/DL 13.7-17.5 L 410) HEMATOCRIT (BEAKER) (test code = 32.0 % 40.1-51.0 L 411) MEAN CORPUSCULAR VOLUME (BEAKER) 92.5 fL 79.0-92.2 H (test code = 753) MEAN CORPUSCULAR HEMOGLOBIN 32.7 pg 25.7-32.2 H (BEAKER) (test code = 751) MEAN CORPUSCULAR HEMOGLOBIN CONC 35.3 GM/DL 32.3-36.5 (BEAKER) (test code = 752) RED CELL DISTRIBUTION WIDTH 16.7 % 11.6-14.4 H (BEAKER) (test code = 412) PLATELET COUNT (BEAKER) (test code 25 K/CU MM 150-450 L = 756) MEAN PLATELET VOLUME (BEAKER) 10.4 fL 9.4-12.4 (test code = 754) NUCLEATED RED BLOOD CELLS (BEAKER) 0 /100 WBC 0-0 (test code = 413) NEUTROPHILS RELATIVE PERCENT 63 % (BEAKER) (test code = 429) LYMPHOCYTES RELATIVE PERCENT 31 % (BEAKER) (test code = 430) MONOCYTES RELATIVE PERCENT 5 % (BEAKER) (test code = 431) EOSINOPHILS RELATIVE PERCENT 0 % (BEAKER) (test code = 432) BASOPHILS RELATIVE PERCENT 0 % (BEAKER) (test code = 437) NEUTROPHILS ABSOLUTE COUNT 4.15 K/ L 1.78-5.38 (BEAKER) (test code = 670) LYMPHOCYTES ABSOLUTE COUNT 2.03 K/ L 1.32-3.57 (BEAKER) (test code = 414) MONOCYTES ABSOLUTE COUNT (BEAKER) 0.34 K/ L 0.30-0.82 (test code = 415) EOSINOPHILS ABSOLUTE COUNT 0.01 K/ L 0.04-0.54 L (BEAKER) (test code = 416) BASOPHILS ABSOLUTE COUNT (BEAKER) 0.01 K/ L 0.01-0.08 (test code = 417) IMMATURE GRANULOCYTES-RELATIVE 0 % 0-1 PERCENT (BEAKER) (test code = 2801) BASIC METABOLIC [id number] 06:28:23 Test Item Value Reference Range Interpretation Comments SODIUM (BEAKER) 139 meq/L 136-145 (test code = 381) POTASSIUM 3.8 meq/L 3.5-5.1 Specimen slight ly (BEAKER) (test hemolyzed code = 379) CHLORIDE (BEAKER) 106 meq/L 98-107 (test code = 382) CO2 (BEAKER) 28 meq/L 22-29 (test code = 355) BLOOD UREA 14 mg/dL 7-21 NITROGEN (BEAKER) (test code = 354) CREATININE 0.78 mg/dL 0.57-1.25 Specimen slight ly (BEAKER) (test hemolyzed code = 358) GLUCOSE RANDOM 100 mg/dL 70-105 (BEAKER) (test code = 652) CALCIUM (BEAKER) 8.6 mg/dL 8.4-10.2 (test code = 697) EGFR (BEAKER) 127 Interpretatio n of eGFR (test code = mL/min/1.73 values Stage D escription 1092) sq m Result G1 Ashley l or high >=90 G2 Mildly decreased 60-89 G3a Mildl y to moderately 45-5 9 G3b Moderately to s everely 30-44 G4 Severl y decreased 15-29 G5 Kidney failure <15Reported eGF R is based on the CKD-EPI 2020 equation that d oes not use a race coefficientEsti mated GFR is not as accur ate as Creatinine Jennifer burnham in predicting glom erular filtration rate . Estimated GFR is not appl icable for dialysis patien ts [employer] Worker ID - JAMESON GCBC W/PLT COUNT & AUTO [id number] 06:05:56 Test Item Value Reference Range Interpretation Comments WHITE BLOOD CELL COUNT 4.1 K/ L 3.5-10.5 (BEAKER) (test code = 775) RED BLOOD CELL COUNT 3.26 M/ L 4.63-6.08 L (BEAKER) (test code = 761) HEMOGLOBIN (BEAKER) 10.4 GM/DL 13.7-17.5 L (test code = 410) HEMATOCRIT (BEAKER) 28.6 % 40.1-51.0 L (test code = 411) MEAN CORPUSCULAR 87.7 fL 79.0-92.2 VOLUME (BEAKER) (test code = 753) MEAN CORPUSCULAR 31.9 pg 25.7-32.2 HEMOGLOBIN (BEAKER) (test code = 751) MEAN CORPUSCULAR 36.4 GM/DL 32.3-36.5 HEMOGLOBIN CONC (BEAKER) (test code = 752) RED CELL DISTRIBUTION 16.0 % 11.6-14.4 H WIDTH (BEAKER) (test code = 412) PLATELET COUNT 25 K/CU MM 150-[address] T (BEAKER) (test code = result s compared to 756) previous result s; clinical correl ation required. MEAN PLATELET VOLUME 10.0 fL 9.4-12.4 (BEAKER) (test code = 754) NUCLEATED RED BLOOD 0 /100 WBC 0-0 CELLS (BEAKER) (test code = 413) NEUTROPHILS RELATIVE 55 % PERCENT (BEAKER) (test code = 429) LYMPHOCYTES RELATIVE 39 % PERCENT (BEAKER) (test code = 430) MONOCYTES RELATIVE 5 % PERCENT (BEAKER) (test code = 431) EOSINOPHILS RELATIVE 1 % PERCENT (BEAKER) (test code = 432) BASOPHILS RELATIVE 0 % PERCENT (BEAKER) (test code = 437) NEUTROPHILS ABSOLUTE 2.23 K/ L 1.78-5.38 COUNT (BEAKER) (test code = 670) LYMPHOCYTES ABSOLUTE 1.58 K/ L 1.32-3.57 COUNT (BEAKER) (test code = 414) MONOCYTES ABSOLUTE 0.20 K/ L 0.30-0.82 L COUNT (BEAKER) (test code = 415) EOSINOPHILS ABSOLUTE 0.02 K/ L 0.04-0.54 L COUNT (BEAKER) (test code = 416) BASOPHILS ABSOLUTE 0.01 K/ L 0.01-0.08 COUNT (BEAKER) (test code = 417) IMMATURE 0 % 0-1 GRANULOCYTES-RELATIVE PERCENT (BEAKER) (test code = 2801) BASIC METABOLIC [id number] 05:25:03 Test Item Value Reference Range Interpretation Comments SODIUM (BEAKER) 141 meq/L 136-145 (test code = 381) POTASSIUM 4.0 meq/L 3.5-5.1 (BEAKER) (test code = 379) CHLORIDE (BEAKER) 106 meq/L 98-107 (test code = 382) CO2 (BEAKER) 30 meq/L 22-29 H (test code = 355) BLOOD UREA 16 mg/dL 7-21 NITROGEN (BEAKER) (test code = 354) CREATININE 0.87 mg/dL 0.57-1.25 (BEAKER) (test code = 358) GLUCOSE RANDOM 79 mg/dL 70-105 (BEAKER) (test code = 652) CALCIUM (BEAKER) 8.7 mg/dL 8.4-10.2 (test code = 697) EGFR (BEAKER) 124 Interpretatio n of eGFR (test code = mL/min/1.73 values Stage De scription 1092) sq m Result G1 Ashley l or high >=90 G2 Mildly decreased 60-89 G3a Mildl y to moderately 45-5 9 G3b Moderately to s everely 30-44 G4 Severl y decreased 15-29 G5 Kidne y failure <15Reported eGF R is based on the CKD-EPI 2020 equation that d oes not use a race coefficientEsti mated GFR is not as accur ate as Creatinine Jennifer burnham in predicting glom erular filtration rate . Estimated GFR is not appl icable for dialysis patien ts [employer] Worker ID - PIAYA LCBC W/PLT COUNT & AUTO [id number] 05:04:59 Test Item Value Reference Range Interpretation Comments WHITE BLOOD CELL COUNT (BEAKER) 3.3 K/ L 3.5-10.5 L (test code = 775) RED BLOOD CELL COUNT (BEAKER) 3.24 M/ L 4.63-6.08 L (test code = 761) HEMOGLOBIN (BEAKER) (test code = 10.7 GM/DL 13.7-17.5 L 410) HEMATOCRIT (BEAKER) (test code = 29.2 % 40.1-51.0 L 411) MEAN CORPUSCULAR VOLUME (BEAKER) 90.1 fL 79.0-92.2 (test code = 753) MEAN CORPUSCULAR HEMOGLOBIN 33.0 pg 25.7-32.2 H (BEAKER) (test code = 751) MEAN CORPUSCULAR HEMOGLOBIN CONC 36.6 GM/DL 32.3-36.5 H (BEAKER) (test code = 752) RED CELL DISTRIBUTION WIDTH 15.9 % 11.6-14.4 H (BEAKER) (test code = 412) PLATELET COUNT (BEAKER) (test code 16 K/CU MM 150-450 L = 756) MEAN PLATELET VOLUME (BEAKER) 9.7 fL 9.4-12.4 (test code = 754) NUCLEATED RED BLOOD CELLS (BEAKER) 0 /100 WBC 0-0 (test code = 413) NEUTROPHILS RELATIVE PERCENT 34 % (BEAKER) (test code = 429) LYMPHOCYTES RELATIVE PERCENT 59 % (BEAKER) (test code = 430) MONOCYTES RELATIVE PERCENT 6 % (BEAKER) (test code = 431) EOSINOPHILS RELATIVE PERCENT 1 % (BEAKER) (test code = 432) BASOPHILS RELATIVE PERCENT 0 % (BEAKER) (test code = 437) NEUTROPHILS ABSOLUTE COUNT 1.11 K/ L 1.78-5.38 L (BEAKER) (test code = 670) LYMPHOCYTES ABSOLUTE COUNT 1.90 K/ L 1.32-3.57 (BEAKER) (test code = 414) MONOCYTES ABSOLUTE COUNT (BEAKER) 0.20 K/ L 0.30-0.82 L (test code = 415) EOSINOPHILS ABSOLUTE COUNT 0.03 K/ L 0.04-0.54 L (BEAKER) (test code = 416) BASOPHILS ABSOLUTE COUNT (BEAKER) 0.01 K/ L 0.01-0.08 (test code = 417) IMMATURE GRANULOCYTES-RELATIVE 0 % 0-1 PERCENT (BEAKER) (test code = 2801) Chromosomes Cancer [id number] 11:52:22 Test Item Value Reference Range Interpretation Comments Scan Result (test code = See scanned report [id number]) LETTY (test code = LETTY) See scanned report [facility] W/PLT COUNT & AUTO [id number] 07:25:03 Test Item Value Reference Range Interpretation Comments WHITE BLOOD CELL COUNT (BEAKER) 2.7 K/ L 3.5-10.5 L (test code = 775) RED BLOOD CELL COUNT (BEAKER) 3.31 M/ L 4.63-6.08 L (test code = 761) HEMOGLOBIN (BEAKER) (test code = 10.9 GM/DL 13.7-17.5 L 410) HEMATOCRIT (BEAKER) (test code = 29.3 % 40.1-51.0 L 411) MEAN CORPUSCULAR VOLUME (BEAKER) 88.5 fL 79.0-92.2 (test code = 753) MEAN CORPUSCULAR HEMOGLOBIN 32.9 pg 25.7-32.2 H (BEAKER) (test code = 751) MEAN CORPUSCULAR HEMOGLOBIN CONC 37.2 GM/DL 32.3-36.5 H (BEAKER) (test code = 752) RED CELL DISTRIBUTION WIDTH 15.9 % 11.6-14.4 H (BEAKER) (test code = 412) PLATELET COUNT (BEAKER) (test code 17 K/CU MM 150-450 L = 756) MEAN PLATELET VOLUME (BEAKER) 10.4 fL 9.4-12.4 (test code = 754) NUCLEATED RED BLOOD CELLS (BEAKER) 0 /100 WBC 0-0 (test code = 413) (CELLAVISION MANUAL DIFF)2022-04-14 07:25:03 Test Item Value Reference Range Interpretation Comments NEUTROPHILS - REL 28 % (CELLAVISION)(BEAKER) (test code = 2816) LYMPHOCYTES - REL 62 % (CELLAVISION)(BEAKER) (test code = 2817) MONOCYTES - REL 7 % (CELLAVISION)(BEAKER) (test code = 2818) EOSINOPHILS - REL 2 % (CELLAVISION)(BEAKER) (test code = 2819) BANDS - REL (CELLAVISION)(BEAKER) 1 % 0-10 (test code = 2826) NEUTROPHILS - ABS 0.76 K/ul 1.78-5.38 L (CELLAVISION)(BEAKER) (test code = 2830) LYMPHOCYTES - ABS 1.67 K/ul 1.32-3.57 (CELLAVISION)(BEAKER) (test code = 2831) MONOCYTES - ABS 0.19 K/uL 0.30-0.82 L (CELLAVISION)(BEAKER) (test code = 2832) EOSINOPHILS - ABS 0.05 K/uL 0.04-0.54 (CELLAVISION)(BEAKER) (test code = 2834) BANDS - ABS (CELLAVISION)(BEAKER) 0.03 K/uL 0.00-0.80 (test code = 2840) TOTAL COUNTED (BEAKER) (test code 100 = 1351) PLT MORPHOLOGY (BEAKER) (test Normal code = 486) SMUDGE CELLS (BEAKER) (test code Present = 1371) ANISOCYTOSIS (BEAKER) (test code 2+ moderate = 961) MICROCYTES (BEAKER) (test code = 2+ moderate 965) ARTIFACT (CELLAVISION)(BEAKER) Present (test code = 3432) PLATELET CONCENTRATION Decreased (CELLAVISION)(BEAKER) (test code = 3438) [employer] Worker ID - [id number] ID - Shobha Black comments: Slide comments: PROTHROMBIN TIME/[id number] 06:06:12 Test Item Value Reference Range Interpretation Comments PROTIME (BEAKER) 13.4 seconds 11.9-14.2 (test code = 759) INR (BEAKER) (test 1.09 See_Comment [Automat ed message] code = 370) The system [employer] generated this result transmitted ref erence range: <=5.90. The reference range was not used to int erpret this result as normal/abnormal . RECOMMENDED COUMADIN/WARFARIN INR THERAPY RANGESSTANDARD DOSE: 2.0 - 3.0 Includes: PROPHYLAXIS for venous thrombosis, systemic embolization; TREATMENT for venous thrombosis and/or pulmonary embolus.HIGH RISK: Target INR is 2.5-3.5 for patients with mechanical heart valves.[id number] 05:45:46 Test Item Value Reference Range Interpretation Comments MAGNESIUM (BEAKER) 2.1 mg/dL 1.6-2.6 Specimen slightly (test code = 627) hemolyzed [employer] Worker ID - MEG [id number] 05:45:46 Test Item Value Reference Range Interpretation Comments PHOSPHORUS (BEAKER) 3.8 mg/dL 2.3-4.7 Specimen slightly (test code = 604) hemolyzed [employer] Worker ID - MEG WBASIC METABOLIC [id number] 05:45:46 Test Item Value Reference Range Interpretation Comments SODIUM (BEAKER) 138 meq/L 136-145 (test code = 381) POTASSIUM 4.2 meq/L 3.5-5.1 Specimen slight ly (BEAKER) (test hemolyzed code = 379) CHLORIDE (BEAKER) 103 meq/L 98-107 (test code = 382) CO2 (BEAKER) 28 meq/L 22-29 (test code = 355) BLOOD UREA 13 mg/dL 7-21 NITROGEN (BEAKER) (test code = 354) CREATININE 0.90 mg/dL 0.57-1.25 Specimen slight ly (BEAKER) (test hemolyzed code = 358) GLUCOSE RANDOM 107 mg/dL 70-105 H (BEAKER) (test code = 652) CALCIUM (BEAKER) 8.6 mg/dL 8.4-10.2 (test code = 697) EGFR (BEAKER) 123 Interpretatio n of eGFR (test code = mL/min/1.73 values Stage De scription 1092) sq m Result G1 Ashley l or high >=90 G2 Mildly decreased 60-89 G3a Mildl y to moderately 45-5 9 G3b Moderately to s everely 30-44 G4 Severl y decreased 15-29 G5 Kidney failure <15Reported eGF R is based on the CKD-EPI 2020 equation that d oes not use a race coefficientEsti mated GFR is not as accur ate as Creatinine Jennifer tej in predicting glom erular filtration rate . Estimated GFR is not appl icable for dialysis patien ts [employer] Worker ID - MEG WCBC W/PLT COUNT & AUTO [id number] 20:34:43 Test Item Value Reference Range Interpretation Comments WHITE BLOOD CELL COUNT (BEAKER) 3.0 K/ L 3.5-10.5 L (test code = 775) RED BLOOD CELL COUNT (BEAKER) 3.40 M/ L 4.63-6.08 L (test code = 761) HEMOGLOBIN (BEAKER) (test code = 11.2 GM/DL 13.7-17.5 L 410) HEMATOCRIT (BEAKER) (test code = 29.9 % 40.1-51.0 L 411) MEAN CORPUSCULAR VOLUME (BEAKER) 87.9 fL 79.0-92.2 (test code = 753) MEAN CORPUSCULAR HEMOGLOBIN 32.9 pg 25.7-32.2 H (BEAKER) (test code = 751) MEAN CORPUSCULAR HEMOGLOBIN CONC 37.5 GM/DL 32.3-36.5 H (BEAKER) (test code = 752) RED CELL DISTRIBUTION WIDTH 16.0 % 11.6-14.4 H (BEAKER) (test code = 412) PLATELET COUNT (BEAKER) (test code 19 K/CU MM 150-450 L = 756) MEAN PLATELET VOLUME (BEAKER) 10.1 fL 9.4-12.4 (test code = 754) NUCLEATED RED BLOOD CELLS (BEAKER) 0 /100 WBC 0-0 (test code = 413) NEUTROPHILS RELATIVE PERCENT 38 % (BEAKER) (test code = 429) LYMPHOCYTES RELATIVE PERCENT 54 % (BEAKER) (test code = 430) MONOCYTES RELATIVE PERCENT 8 % (BEAKER) (test code = 431) EOSINOPHILS RELATIVE PERCENT 0 % (BEAKER) (test code = 432) BASOPHILS RELATIVE PERCENT 0 % (BEAKER) (test code = 437) NEUTROPHILS ABSOLUTE COUNT 1.13 K/ L 1.78-5.38 L (BEAKER) (test code = 670) LYMPHOCYTES ABSOLUTE COUNT 1.63 K/ L 1.32-3.57 (BEAKER) (test code = 414) MONOCYTES ABSOLUTE COUNT (BEAKER) 0.24 K/ L 0.30-0.82 L (test code = 415) EOSINOPHILS ABSOLUTE COUNT 0.01 K/ L 0.04-0.54 L (BEAKER) (test code = 416) BASOPHILS ABSOLUTE COUNT (BEAKER) 0.00 K/ L 0.01-0.08 L (test code = 417) IMMATURE GRANULOCYTES-RELATIVE 0 % 0-1 PERCENT (BEAKER) (test code = 2801) TROPONIN [id number] 18:24:43 Test Item Value Reference Interpretation Comments Range TROPONIN I (test 0.000 ng/mL See_Comment [Automated code = [id number]) message] The system which generated this result transmitted reference range : <=0.034. The reference range was not used to interpret this result as normal/abnormal . LETTY (test code = Reference (Normal) LETTY) Range (defined by the 99th percentile reference limit): <= 0.034 ng/mL Note: Cardiac troponin begins to rise 3-4 hours after the onset of ischemia. Repeat in 4-6 hours if the sample was drawn within 3-4 hours of the onset of the symptom and found normal. Diagnosis of myocardial injury is made with acute changes in cTn concentrations with at least one serial sample above the 99th percentile upper reference limit (URL), taken together with the patient's clinical presentation. Biotin has been reported to cause a negative bias, interpret results relative to patient's use of biotin. Lab Interpretation Normal (test code = 16083-5) [facility] [id number] 18:21:22 Test Item Value Reference Range Interpretation Comments NT-proBNP (test code 40 pg/mL See_Comment [Autom ated = [id number]) message] The system which generated this result transmitted reference range : <=125. The reference range was not used to interpret this result as normal/abnormal . LETTY (test code = LETTY) Biotin has been reported to cause a negative bias, interpret results relative to patient's use of biotin. Lab Interpretation Normal (test code = 11576-1) [facility] WITH [id number] 18:16:37 Test Item Value Reference Range Interpretation Comments WBC (test code = See_Comment L [Automated 4990-2) message] The system which generated this result transmit goran reference range : 4.20 - 10.70 10*3/?L. The reference range was not used to interpret this result as normal/abnormal . RBC (test code = See_Comment L [Automated 789-8) message] The system which generated this result transmit goran reference range : 4.26 - 5.52 10*6/?L. The reference range was not used to interpret this result as normal/abnormal . HGB (test code = 11.9 g/dL 12.2-16.4 L 718-7) HCT (test code = 32.0 % 38.4-49.3 L 4544-3) MCV (test code = 86.3 fL 81.7-95.6 787-2) MCH (test code = 32.1 pg 26.1-32.7 785-6) MCHC (test code = 37.2 g/dL 31.2-35 H 786-4) RDW-SD (test code = 47.8 fL 38.5-51.6 38205-0) RDW-CV (test code = 15.7 % 12.1-15.4 H 788-0) PLT (test code = See_Comment LL [Automated 777-3) message] The system which generated this result transmit goran reference range : 150 - 328 10*3/ ?L. The reference range was not u sed to interpret th is result as normal/abnormal . MPV (test code = 9.2 fL 9.8-13 L 09804-4) IPF % (test code = 2.8 % 1.2-10.7 Platelet count [id number]) measured by fluorescence method. NRBC/100 WBC (test See_Comment [Automat ed code = [id number]) message] The system which generated this result transmit goran reference range : 0.0 - 10.0 /100 WBCs. The reference range was not used to interpret this result as normal/abnormal . NRBC x10^3 (test code See_Comment [Auto mated = [id number]) message] The system which generated this result transmit goran reference range : 10*3/?L. The reference range was not used to interpret this result as normal/abnormal . SEG % (test code = 27 % 33-76 L 92689-1) BAND % (test code = 6 % 0-1 H 35656-9) LYMPH % (test code = 57 % 14-54 H 16289-8) MONO % (test code = 10 % 0-4 H 08264-6) ANC (test code = 0.72 10*3/uL 1.99-6.95 L 753-4) PLT ESTIMATE (test Critically Normal AA code = 9317-9) Decreased Lab Interpretation Abnormal (test code = 10225-8) [facility]. METABOLIC PANEL ([id number])2022-04-13 18:14:21 Test Item Value Reference Range Interpretation Comments NA (test code = 138 mmol/L 135-145 1015230529) K (test code = 4.3 mmol/L 3.5-5 5930791945) CL (test code = 99 mmol/L 98-108 5286003288) CO2 TOTAL (test code 30 mmol/L 23-31 = 7011515099) AGAP (test code = 2-16 0896606523) BUN (test code = 10 mg/dL 7-23 9871714020) GLUCOSE (test code = 98 mg/dL 70-110 9098710242) CREATININE (test code 0.82 mg/dL 0.6-1.25 = 1355065291) TOTAL BILI (test code 0.9 mg/dL 0.1-1.1 = 8538926242) CALCIUM (test code = 8.7 mg/dL 8.6-10.6 5237840316) T PROTEIN (test code 6.9 g/dL 6.3-8.2 = 5854005973) ALBUMIN (test code = 4.7 g/dL 3.5-5 5450836425) ALK PHOS (test code = 59 U/L 34-122 7341239665) ALTv (test code = 27 U/L 5-50 1742-6) AST(SGOT) (test code 32 U/L 13-40 = 0393838339) eGFR (test code = mL/min/1.73m2 9721035263) LETTY (test code = LETTY) Association of Glomerular Filtration Rate (GFR) and Staging of Kidney Disease* + + +- +| GFR (mL/min/1.73 m2) ?| With Kidney Damage ?| ?Without Kidney Damage+ ------+ ----+ ------+| ?>90 ?| ?Stage one ?| ? Normal ?+ -+ + -+| ?60-89 ?| ?Stage two ?| ? Decreased GFR ? + + +- +| ?30-59 ?| ?Stage three ?| ? Stage three ? + + +- +| ?15-29 ?| ?Stage four ? | ? Stage four ?+ -+ + -+| ?<15 (or dialysis) ? ?| ?Stage five ? | ? Stage five ?+ -+ + -+ *Each stage assumes the associated GFR level has been in effect for at least three months. ?Stages 1 to 5, with or without kidney disease, indicate chronic kidney disease. Notes: Determination of stages one and two (with eGFR >59mL/min/1.73 m2) requires estimation of kidney damage for at least three months as defined by structural or functional abnormalities of the kidney, manifested by either:Pathological abnormalities or Markers of kidney damage (including abnormalities in the composition of the blood or urine or abnormalities in imaging tests). [facility]IV[facility] PART[facility] THRMPLAS [id number] 17:30:41 Test Item Value Reference Range Interpretation Comments APTT Patient (test See_Comment [Automat ed code = 3173-2) message] The system which generated this result transmitted reference range : 23 - 38 Seconds . The reference range was not used to interpr et this result as normal/abnormal . LETTY (test code = LETTY) The [facility] patient population mean normal value for aPTT is 30 seconds. Lab Interpretation Normal (test code = 49081-4) [facility] ClubPROTHROMBIN TIME / [id number] 17:28:40 Test Item Value Reference Range Interpretation Comments PROTIME PATIENT (test See_Comment [Auto mated message] code = 5964-2) The system wh ich generated this result transmitted ref erence range: 12.0 - 1 4.7 Seconds. The re ference range was not u sed to interpret this result as normal/abnor mal. INR (test code = 6301-6) Nor mal INR <1.1; Warfarin Therap eutic range 2.0 to 3. 0 or 2.5 to 3.5, dep ending upon the indica tions. Lab Interpretation (test Normal code = 29650-7) [facility] Club[facility] Cytometry [id number] 07:54:04 Test Item Value Reference Range Interpretation Comments Flow Cytometry (test code See Separate Report = 7086) Case # (test code = 2759) [id number] [facility] [id number] 07:54:04 Test Item Value Reference Range Interpretation Comments FLOW CYTOMETRY RESULT See Separate Report POINTER (BEAKER) (test code = 1695) FLOW CYTOMETRY AP CASE # [id number] (BEAKER) (test code = 9082) BASIC METABOLIC [id number] 03:44:18 Test Item Value Reference Range Interpretation Comments SODIUM (BEAKER) 135 meq/L 136-145 L (test code = 381) POTASSIUM (BEAKER) 3.8 meq/L 3.5-5.1 (test code = 379) CHLORIDE (BEAKER) 101 meq/L 98-107 (test code = 382) CO2 (BEAKER) (test 24 meq/L 22-29 code = 355) BLOOD UREA NITROGEN 13 mg/dL 7-21 (BEAKER) (test code = 354) CREATININE (BEAKER) 0.83 mg/dL 0.57-1.25 (test code = 358) GLUCOSE RANDOM 109 mg/dL 70-105 H (BEAKER) (test code = 652) CALCIUM (BEAKER) 9.1 mg/dL 8.4-10.2 (test code = 697) EGFR (BEAKER) (test 113 mL/min/1.73 ESTIM ATED GFR IS code = 1092) sq m NOT ACCURATE CREATININE CLEARANCE IN PREDICTING GLOMERULAR FILTRATION RATE . ESTIMATED GFR I S NOT APPLICABLE FOR DIALYSIS PATIEN TS. [employer] Worker ID - MELQUIADES [id number] 03:44:18 Test Item Value Reference Range Interpretation Comments MAGNESIUM (BEAKER) (test code = 1.9 mg/dL 1.6-2.6 627) [employer] Worker ID - MELQUIADES LCBC W/PLT COUNT & AUTO [id number] 03:34:58 Test Item Value Reference Range Interpretation Comments WHITE BLOOD CELL COUNT (BEAKER) 5.9 K/ L 3.5-10.5 (test code = 775) RED BLOOD CELL COUNT (BEAKER) 3.79 M/ L 4.63-6.08 L (test code = 761) HEMOGLOBIN (BEAKER) (test code = 12.3 GM/DL 13.7-17.5 L 410) HEMATOCRIT (BEAKER) (test code = 33.4 % 40.1-51.0 L 411) MEAN CORPUSCULAR VOLUME (BEAKER) 88.1 fL 79.0-92.2 (test code = 753) MEAN CORPUSCULAR HEMOGLOBIN 32.5 pg 25.7-32.2 H (BEAKER) (test code = 751) MEAN CORPUSCULAR HEMOGLOBIN CONC 36.8 GM/DL 32.3-36.5 H (BEAKER) (test code = 752) RED CELL DISTRIBUTION WIDTH 14.8 % 11.6-14.4 H (BEAKER) (test code = 412) PLATELET COUNT (BEAKER) (test code 30 K/CU MM 150-450 L = 756) MEAN PLATELET VOLUME (BEAKER) 10.1 fL 9.4-12.4 (test code = 754) NUCLEATED RED BLOOD CELLS (BEAKER) 0 /100 WBC 0-0 (test code = 413) NEUTROPHILS RELATIVE PERCENT 71 % (BEAKER) (test code = 429) LYMPHOCYTES RELATIVE PERCENT 23 % (BEAKER) (test code = 430) MONOCYTES RELATIVE PERCENT 5 % (BEAKER) (test code = 431) EOSINOPHILS RELATIVE PERCENT 0 % (BEAKER) (test code = 432) BASOPHILS RELATIVE PERCENT 0 % (BEAKER) (test code = 437) NEUTROPHILS ABSOLUTE COUNT 4.21 K/ L 1.78-5.38 (BEAKER) (test code = 670) LYMPHOCYTES ABSOLUTE COUNT 1.38 K/ L 1.32-3.57 (BEAKER) (test code = 414) MONOCYTES ABSOLUTE COUNT (BEAKER) 0.31 K/ L 0.30-0.82 (test code = 415) EOSINOPHILS ABSOLUTE COUNT 0.01 K/ L 0.04-0.54 L (BEAKER) (test code = 416) BASOPHILS ABSOLUTE COUNT (BEAKER) 0.00 K/ L 0.01-0.08 L (test code = 417) IMMATURE GRANULOCYTES-RELATIVE 0 % 0-1 PERCENT (BEAKER) (test code = 2801) EBV VIRAL [id number] 15:26:28 Test Item Value Reference Range Interpretation Comments EBV VIRAL LOAD - Negative or below See_Comment [Auto mated message] NEGATIVE (BEAKER) the linear range The sy stem which (test code = of the assay generated this 3794) (<500 IU /mL) result transmi tted reference range : <500 - >5,00 0,000 IU/mL. The refe rence range was not u sed to interpret th is result as normal/abnormal . This assay was performed by real-time PCR for the detection of the Gwendolyn-Lowery virus (EBV) gene EBNA-1. The test is composed of (1) DNA extraction from patient specimen, and (2) real-time PCR amplification and detection with YIHV-6-fasdveyg primers and probes. A well-conserved region of the EBNA-1 gene is targeted, along with an internal control sequence used to confirm PCR amplification. Asymptomatic carriers and viral genetic variation, among other factors, can affect the accuracy of nucleic acidtesting; therefore, results should be interpreted in light of clinical data.This test was developed and its performance characteristics determined by the [facility] [place] [facility],Section of Molecular Pathology. It has not been cleared or approved by the U.S. Food and Drug Administration (FDA), since FDA approval is not required for clinical use of the test. Validation was done as required by The Clinical Laboratory Improvement Amendments of 1988.This assay was performed by real-time PCR for the detection of the Gwendolyn-Lowery virus (EBV) gene EBNA-1. The test is composed of (1)DNA extraction from patient specimen, and (2) real- time PCR amplification and detection with [id number]-1-[id number] primers and probes. A well-conserved region of the EBNA-1 gene is targeted, along with an internal control sequence used to confirm PCR amplification. Asymptomatic carriers and viral genetic variation, among other factors, can affect the accuracy of nucleic acid testing; therefore, results should be interpreted in light of clinical data.This test was developed and its performance characteristics determined by the [facility] [place] [facility], Section of Molecular Pathology.It has not been cleared or approved by the U.S. Food and Drug Administration (FDA), since FDA approval is not required for clinical use of the test. Validation was done as required by The Clinical Laboratory Improvement Amendments of 1988.CMV PCR, [id number] 14:58:19 Test Item Value Reference Range Interpretation Comments CMV VIRAL LOAD - Negative or below See_Comment [Auto mated message] NEGATIVE (BEAKER) the linear range The sy stem which (test code = of the assay generated this 2558) (<300 IU/mL) result transmit goran reference range : <300 - >3,00 0,000 IU/mL. The refe rence range was not u sed to interpret th is result as normal/abnormal . Cytomegalovirus (CMV) infection can cause significant disease in immunosuppressed patients. However,it is common for CMV to manifest as a limited infection which is of no clinical significance in immunosuppressed patients or in healthy individuals.Viral load measurements are helpful to identify clinical CMV infection and to guide the pre-emptive management of antiviral therapy. For treatment of CMV infection due to reactivation in transplant recipients, a threshold between 4,000 and 5,000 copies/mLis suggested. For treatment of primary CMV infection, a lower threshold can be used.CMV infection may also be monitored using weekly serial measurements. Serial measurements of CMV DNA viral load can be evaluated by identifying a 10-fold change, as well as assessing the CMV DNA viral load and the clinical context for each patient.The plasma CMV DNA viral load was detected using quantitative polymerase chain reaction and fluorescent monitoring of a specific hybridized probe. Genetic variation and other factors can affect the accuracy of nucleic acid testing. Therefore, the results should be interpreted in light of clinical data. A negative result may not exclude the presence of CMV disease.This test was developed and its performance characteristics determined by the [facility], Section of Molecular Pathology. It has not been cleared or approved by the U.S. Foodand Drug Administration (FDA), since FDA approval is not required for clinical use of the test. Validation was done as required by The Clinical Laboratory Improvement Amendments of 1988.RETICULOCYTE COUNT 2022-04-04 13:33:41 Test Item Value Reference Range Interpretation Comments RETICULOCYTE COUNT PCT (BEAKER) (test 3.2 % 0.5-1.8 H code = 575) [employer]wear Factory Worker ID - [id number] ID - [id number] [id number] 11:50:43 Test Item Value Reference Range Interpretation Comments Case Report (test code = Flow Cytometry 104) Report Case: [id number] Authorizing Provider: Cheryl Daniels Collected: 04/03/2022 02:50 PM Ordering Location: [address] Received: 04/03/2022 03:21 PM Service Pathologist: Ghazaleh Eskandari, MD Specimen: Other Flow Interpretation (test g7antJYyRFKglMN3KpLi code = 3364) WEHyl2olo3PvmPGlzWMf TQkaaFLqbpHckw66uYA3 fC82WR1mUCJlYaO1QLFm dtZ3Gge8EVJqYRMusHTx W122l0rdw2bjofJqiIF8 pOhaSNQubygfLrR8ABqr DEElsfeiLUa8JHzdKJFq lFO5BOVxpKSaE4LrMSYq WB9xkny9AWF6BEkrAAQr AsZ4MGTkfTGnTOEvjPdg LNahw443RBB2NbGdFYRl rwOppDkkoK6yHnPbSZEA G04POT8HOvGROgtfCegO IdOBIGUKVKYYZcv2RWDo ciAtIFNMSUdIVExZIFJF RFVDRUQgVklBQklMSVRZ IEFORCBDRUxMVUxBUklU UJrxMTLuEYYCYeTBM69V VFlQSUMgQiBDRUxMIFBP QLEHQOMMH81jtFAkLH2s Lp0sXRZASoGRRkAfODZL DZaJVOHIUPSSRBFQZ07n dCFjQSIrUBzlbO6oZB9w Mn7eDK6EGcGSD6ZfPZ1f KR8VSU5OWFfIOr4FLGUV XwNODECKE1YCAIHCK2gs YXJ9 Flow Interpretation n4knjYBeKAIwlXK4LoKl Comment (test code = DFQpl1ssv7ZivPRwjXQq 3365) AZtbaJVmlgWrso42gND5 cT76YX5nKOBxYoF0LLZz meD0Nxm4TOQrWSPcmBXc F845a9tqg6wsdcNhsFC2 ULXlRYUpJ0BjTJ5sLOVs hNTbL76mtEYcTBR3MODw MJNyfHSmAOQzWZZ6MTZk zODvJ7xwWYSpCS1wbcib BCqbSAxbSOKvgNI0IOOl pURgR3XlTCZfNHvpDYMk oeh7RsSyZd1kaSAtmVcq MFxwYXJkXHBsYWluXGZz OnUfH4OjNPTeZIJpZHEj ZWUgdGhlIGJvbmUgbWFy mm40AJQatY5apASoTQKl JOKoQCD9FJAcc8NxW78i acNnVOFbr19hs2e1aWT9 uFDvjE7yfUlvuT6ipTGa HO9eDJ08kHSkPHStUES4 kcQgSfEdZ6JcHGIgwMAk fQ== CPT Code(s) (test code = z0sorUNjPSMbdIV3OmFs 3353) TIBtp4gfe3YvzBCwaXCe IMtodGAntuRwyg96mCX1 hL60LW6kFAQaMrG3LJFu qxD2Jir7XLMhVJHiyKMu Z469l1eea5boghOvvCX6 aXskRGRkogryUkI2ECbi PQNxpsogZTm5TScmMOBi bZD9FAEttGDtV3EqFGWx KF6egha5MRJ6YDqiMFDf XdC5BDMfpTMiZONeeOxt PNvnd390FZV9KiHvTDRu e2U9tpEaNcAdFHRnmQZ5 rzC4YLUmEZ5lgdnfu4mj LNwnAXbeLHYjglZ5hdS2 HMRhbAAuC7WemN3wOIUy TD9lnhwak0gtXSU4ZCsz YXJkXHBsYWluXGZzMjIg ODgxODlccGFyfQ== CLINICAL HISTORY (test w5xkpEYeLLUfaYL5QbQx code = 3356) CIUyo0uvs4CwuBQqtAZd LHqwmNXmrlSwfc65jRD1 xZ71AH3nBBCiSxN0ABXd chK9Mke0JUXpVXWwkPJx Y742g7pkl0yfeoMxgAE0 FDHuOHEuS2ClJD1cEIOk hSMxQ58etNYiUSX7LTLq RCVtaYToTKMoZPB2ZQEd eRAuS6hyQBNcGK2voxzi OBwvYWazMGBeiSO5HLZp xMKkG2JmLQUlCWuuYLEf mbw1AvTbVe1cdHBcdEpd MFxwYXJkXHBsYWluXGZz UoDeQ0PmLPUyfj5cAx0t dRFlcOQgqCUbPZMkJK0w YVxwYXJ9 SPECIMEN SOURCE (test f4kmnGByUWZsmVK4TaYm code = 3377) KFTwd8jmn8KhlIHbrPCi VKpdaUSetfYolq46aDW4 fG19TJ4fPHKpEpB8IXBy rnT5Cme6WYShERNadUDx U951s3kes1aictTpfRC5 iEwbZBPundzsMhJ5EKea GZVnqlnxZXz0EEysGANa gSG2VJPgiULfS0HiMXYw BG7xlnx0CHC7UUwkPQOc CpZ5HMHoaHUaQSLueVdd EKkdi508QTC9XxNgLMZl dzEjqBnezJ0qDcKmQHJM g69aCR4avyUgk2zvIUQ5 CELLULAR BIOMARKER s6bpvVIoCIUgiQI6QbVm ANALYSIS (test code = XLAdu9thu3WnkNGxyDWq 3380) RHjvjBGrscUdar81yEJ5 bX95PJ7sCDUeVnD9CKLc hvT4Jjd0EXGzYABqxTTj X451c8gha9cymlZccXS9 OEYnXZFoL2VvCJ8zMHLw aPTwK42enVCkOVT3HGUq BCLxtKQoVXXqMEN5ZMVe hHAaB7weAFZwWJ4kmxgw PMonFJsgFAOxuBL7UHAr nINnI6ZaJUPvIZbkWDLp han2MyFaYx3lvEPwrSfs MFxwYXJkXHBsYWluXGZz FjCjS6PhUANUQOkrr6Sq ZjPkIS9FAYXcBWvsD9Z7 Mvmki5CcItHjHN4NRU4q EZMuKAHKVDypO2TlGMzb K4LkNPmdG8VaAIPHZJFc LCBDRDQsIENENDUsIENE MTQsIENEMTMsIENEMzMs FGALQVS3HYDCMOT8ENRq R2XxdVKrABKDFA2vLDTl IVGTBuczBVLXCBV6CRYq cn0= IMMUNOPHENOTYPIC FINDINGS d2tyqJIcVVIhuQI2EsQu (test code = 3379) PJGaz2ejf4CkfBUooPZr QYevnCGztrRcva71iUE9 uG88SF1uJODzEaN4YBBj ayK5Lfy5ODGlQNVyjOOu B848j3ktf7fpmzRegCZ9 CEEwSDDmA8WgOU7nPDNc tYFoV98nxTEaMGP2QHUp FOFkhOPvSCQbXBN0ESGm vIKhY6qmERQiDP2yxggj OArpJHevDSKeyHV5NREr wBKmB6QcXTQvOAijQVKg kkg2KkAiHq6jhVIyjEwq MFxwYXJkXHBsYWluXGZz ToOjW2WxWVGyVSPudZAr YJCzFRXhmYh1aIhvPKFm MiVcflx+YW7gxiw+IE51 bWJlciBvZiBFdmVudHMg TXAgvRdiTAO8IQz6FJsw XHBhclx+XHBhciBUaGUg He2foH42bD3uEFCprXCp EXXqw30kSBQsNAQrCUEa dGlmaWVkOlxwYXJcflxw YWZsThdap5VnGsM6lULv ZGltIENENDUrIENEMzQr MDNhPBV1ikGfn22astax JKNpX1SqOUVbRQwwRbCh VNKlDnX7x4YayMYtGKyv fc7pGLKaqiauVRMlMSaa wIfaM9i5ULL9NWHxuJgd zDIWZCU3NhXyzP2gmH5k nRArzeXud37vnohfUQYd OF79ZRRaEnR6j9YltWSv GJhdno1tLXIxJHxmnhMb sS71WFNdW0W8VmISZDGz LCTfjsXwHwDaB5VzHYLi SFbsFpZuHYDnHRGow2Fm EAsxOYdjsfEzk1ahecRd AbP9pMNzoKCnQXLpC5Pg bGYwheUeF2RmlsEATFIe JU0oOESUPB7eZfXzEOnr iwKcmlYvxW7lsCN9bVfi IHdpdGggYSBrYXBwYTps CP6mWXGhjdR8hQ4uy2Jt QD63WiMLbSAfJFScmfEu Mn7iFMFQNQYqClYUTGTt bGxzIHdpdGggdGhlIGlt rUOdh3AuFK0wfTdcwPRg CoLwvWFhOHXol7OldUAl BPAuG64vTZArQAGdtud+ UQDaygSCoPHyc1orR04c gs1xsJVkBgSau7K6dOT0 dL6hdlosCTBmgVKrieTi EecrBXXytTXCCZQ2NGTq MPJgmQtjpXUrY9C5hXLz WJIcAAYlZ9XriheytBlm xrgeS1VgbrTkw6A6xRId IGNvbXByaXNlIHRoZSBt LYhajmy1vHQiGuJfUGys inMppcFocFexPWlnQN4s OWNZRLUhAG1lqp1fhLWt lxKfr75zigpuNQPkH6Tu IDIuMFxjZjEgJSBvZiB0 z3PcuYPrOXerlp6rjDOj AO9acBVkOOPzBTLjVETa ZWxsczogXGNmMCAwLjJc Z7KjDLFwE1VaNwplnN7x sYTayeAmwQuxy65sIRPv pMtsNMRnDGMaw2CyZNV7 jHKuQIDkcMm8uUQzVmRr mAKqmBkvm27dRzMktAdl dCBjaGFpbiBleHByZXNz xN3aWhbtXQXojcuoDFTt VGhlIHJlbWFpbmluZyBl jmJowTFbDN3vhFm6FBMf fwBlvwLtXH88QY6xdgWm WQOeFTPiKNmmwydvmq3j NVnysIE6h8x4wDWgz3ng IGNlbGxzLCBhbmQgZGVi cmlzLlxwYXJ9 DISCLAIMER (test code = t6exiUAtZIWetTC4EnUz 3361) RVRgy0hks2UrsULgwLFc QQzvyTYvyiOktu71wLV3 aO30NX5jJYMqPcZ9LPJv ehD2Jvt1JSXrZVZakOLb M427z3tsf1rjtyNopDV7 pUmxKDRoslmoBzI9OUpr ZIVoqrtvRBo6AJmkLEYg iOQ5HFHetHLtW8RsNIVo MQ4nobu2EVK0TGedLNUi PrV5FONxpELjWQUkkHqt ZIgfj144PFG9UqYkGALn obWtoBuozE0aMyXoUnFF tPMmVOQ8SGG3vmC6ERUp ONBwgkKqb2LiUSZxvgXn rFvnqSSquQOlUg1xjBUu S9AgT9mqkvBtvPCyvJV7 aWNzIGRldGVybWluZWQg PyrhTzK6lK6bDFS7HfEF mYkmD8YyVBOqhJDyjIUH YM87ERIrRSWdPUjftED9 KWUdi1QpTdEoesKftNHn eyUfMW3pIYAsfAZwdyDd JER1SBQwCWTYYoHyBYJl d2IvUH5vXVHbhVaxSFQz iK0xz8OpLMIdf93fXYMo ZSBGREEgaGFzIGRldGVy bWluZWQgdGhhdCBzdWNo EPLrQCSeOC5hLCEgshJv bSBjg6EgdLCvpoXtw7Tq krLxYVIjRXU4RsWWpFIh jB48nJDfxq55ETHiCXHz P3YdQGOsZAMnYAxfzwUd vWvdUBYrj47ymWYxazFo u2UawdFnNBXaF7omKPTk iOYykXGna5StgN6ddLRg jlIeDBV0cGMoSQUbyR2u HDSmaHmfGTFxzT1bT2Xv QZkfJo3iYTEkorkpVY5t kq33TW9vpzRoNN8ozaUc WE80glGsOuGuSNm4ITec X1gTSRRcASFdPVX9GZrd MvvvZOY4sgAfBKIfn6Zt KPqtZ4doU03rsEetsYb7 bSLdyNclcLOeaHI4XLR3 lJ2uZfpmAZF4 Technical component was [facility]'s performed at (test code = [facility], 2778) Department of Pathology, [address] [place] [address], Professional component [facility]'s was performed at ([facility], code = 2779) Department of Pathology, [address] [place] [address], [facility]OW [id number] 11:50:43Flow Cytometry Report Case: [id number] Authorizing Provider: Cheryl Daniels Collected: 04/03/2022 02:50 PM Ordering Location: [address] Received: 04/03/2022 03:21 PM Service Pathologist: Aisha Mcmahon MD Specimen: Other BONE MARROW, FLOW CYTOMETRY:- SLIGHTLY REDUCED VIABILITYAND CELLULARITY- NO MONOTYPIC B CELL POPULATION- NO ABERRANT T CELL POPULATION- NO INCREASE IN IMMUNOPHENOTYPIC MYELOBLASTS Please see the bone marrow report ([id number]) for correlation with the morphologic and other features. [id number], anemiaBone marrowCD8, surface-[place], CD56, surface-Lambda, CD5, CD19, CD10, CD3, CD20, CD4, CD45, CD14, CD13, CD33, CD117, CD34, cKappa, cLambda, CD38, FT418Zhgmfqnz Viability: 86.2%Number of Events Acquired: 33105 The following populations are identified: Blasts: the dim CD45+ CD34+ blasts comprise 1.0% of total cells. Lymphocytes: Bright CD45+ lymphocytes comprise 15.5% of totalcells. T cells show a CD4:CD8 ratio of 1.0 and normal expression of the isidro T cell antigens CD3 and CD5. B cells are polytypic with a kappa:lambda ratio of 1.4. There are 2.2% CD10+ B cells with the immunophenotypic features of hematogones. Myeloid/monocytic populations: As identified by CD45 and light scatter characteristics, granulocytes comprise the majority of cells analyzed, and CD14+ monocytes comprise 2.0% of total cells. Plasma cells: 0.2% CD138 positive plasma cells are noted with polytypiccytoplasmic light chain expression. The remaining events analyzed represent nonviable cells, non-hematolymphoid cells, and debris.These tests were developed and their performance characteristics determi avelino by [facility]. They have not been cleared or approved by the U.S. Food andDrug Administration. The FDA has determined that such clearance or approval is not necessary. It should not be regarded as investigational or for research. This laboratory is certified under the Clinical Laboratory Improvement Amendments of 1988 ("CLIA") as qualified to perform high- complexity clinical testing.[facility], Department of Pathology, [address] [place] [address], [id number], [facility], Department of [facility], [address] [place] [address], [employer]FF[employer] [id number] 08:31:12 Test Item Value Reference Range Interpretation Comments SODIUM (BEAKER) 135 meq/L 136-145 L (test code = 381) POTASSIUM (BEAKER) 4.0 meq/L 3.5-5.1 (test code = 379) CHLORIDE (BEAKER) 102 meq/L 98-107 (test code = 382) CO2 (BEAKER) (test 25 meq/L 22-29 code = 355) BLOOD UREA NITROGEN 14 mg/dL 7-21 (BEAKER) (test code = 354) CREATININE (BEAKER) 0.82 mg/dL 0.57-1.25 (test code = 358) GLUCOSE RANDOM 102 mg/dL 70-105 (BEAKER) (test code = 652) CALCIUM (BEAKER) 9.1 mg/dL 8.4-10.2 (test code = 697) EGFR (BEAKER) (test 114 mL/min/1.73 ESTIM ATED GFR IS code = 1092) sq m NOT ACCURATE CREATININE CLEARANCE IN PREDICTING GLOMERULAR FILTRATION RATE . ESTIMATED GFR I S NOT APPLICABLE FOR DIALYSIS PATIEN TS. [employer] Worker ID - PIAYA [id number] 08:31:12 Test Item Value Reference Range Interpretation Comments MAGNESIUM (BEAKER) (test code = 1.8 mg/dL 1.6-2.6 627) [employer] Worker ID - PIAYA LCBC W/PLT COUNT & AUTO [id number] 05:52:44 Test Item Value Reference Range Interpretation Comments WHITE BLOOD CELL COUNT (BEAKER) 5.3 K/ L 3.5-10.5 (test code = 775) RED BLOOD CELL COUNT (BEAKER) 3.77 M/ L 4.63-6.08 L (test code = 761) HEMOGLOBIN (BEAKER) (test code = 12.1 GM/DL 13.7-17.5 L 410) HEMATOCRIT (BEAKER) (test code = 32.9 % 40.1-51.0 L 411) MEAN CORPUSCULAR VOLUME (BEAKER) 87.3 fL 79.0-92.2 (test code = 753) MEAN CORPUSCULAR HEMOGLOBIN 32.1 pg 25.7-32.2 (BEAKER) (test code = 751) MEAN CORPUSCULAR HEMOGLOBIN CONC 36.8 GM/DL 32.3-36.5 H (BEAKER) (test code = 752) RED CELL DISTRIBUTION WIDTH 14.5 % 11.6-14.4 H (BEAKER) (test code = 412) PLATELET COUNT (BEAKER) (test code 26 K/CU MM 150-450 L = 756) MEAN PLATELET VOLUME (BEAKER) 9.8 fL 9.4-12.4 (test code = 754) NUCLEATED RED BLOOD CELLS (BEAKER) 0 /100 WBC 0-0 (test code = 413) NEUTROPHILS RELATIVE PERCENT 68 % (BEAKER) (test code = 429) LYMPHOCYTES RELATIVE PERCENT 23 % (BEAKER) (test code = 430) MONOCYTES RELATIVE PERCENT 9 % (BEAKER) (test code = 431) EOSINOPHILS RELATIVE PERCENT 0 % (BEAKER) (test code = 432) BASOPHILS RELATIVE PERCENT 0 % (BEAKER) (test code = 437) NEUTROPHILS ABSOLUTE COUNT 3.58 K/ L 1.78-5.38 (BEAKER) (test code = 670) LYMPHOCYTES ABSOLUTE COUNT 1.24 K/ L 1.32-3.57 L (BEAKER) (test code = 414) MONOCYTES ABSOLUTE COUNT (BEAKER) 0.46 K/ L 0.30-0.82 (test code = 415) EOSINOPHILS ABSOLUTE COUNT 0.01 K/ L 0.04-0.54 L (BEAKER) (test code = 416) BASOPHILS ABSOLUTE COUNT (BEAKER) 0.00 K/ L 0.01-0.08 L (test code = 417) IMMATURE GRANULOCYTES-RELATIVE 0 % 0-1 PERCENT (BEAKER) (test code = 2801) CT, BIOPSY, BONE [id number] 15:58:00Reason for exam:->pancytopenia, concern for aplastic anemia or amegakaryocytic thrombocytopenia [facility] : 1995 Sex: [address] guided bone marrow biopsy History: pancytopenia, concern for aplasticanemia or amegakaryocytic thrombocytopenia Modality: CT, CT fluoroscopy Anesthesia: 1% lidocaine local Approach: Right dorsal percutaneous Consent: Informed written consent was obtained from the patient. Sedation: Moderate sedation was administered, including a total of 1.0 mg of Versed and 25 mcg of f entanyl. Continuous monitoring was performed by the operating physician and radiology nursing throughout the procedure. Procedure time spent during conscious sedation: 15 minutes. Technique: The patient was placed in the prone position in the CT scanner. A safe window to the right iliac wing was localized using CT and CT fluoroscopy. This exam was performed according to our departmental dose optimization program which includes automated exposure control, adjustment of the mA and/or kV according to patient's size and/or use of iterative reconstructive technique. After the usual sterile preparation and application of local anesthesia, using a dorsal percutaneous approach, a 10 cm 12 gauge Bonopty bone biopsy needle was advanced into the right iliac wing using CT guidance. Approximately 9 cc of marrow aspirates were obtained. Subsequently, a 2 cm core biopsy sample was obtained. The samples were collected by cytopathology for further analysis. Disposition: The patient tolerated the procedure well,without immediate complications. The patient left CT in stable condition. Impression: 1. Technicallysuccessful CT guided bone marrow biopsy Signed: Hilario Morgan Verified Date/Time: 04/03/2022 15:58:35 Reading Location: [address] Consult Reading Room (MANUAL DIFFERENTIAL)2022-04-03 15:50:57 Test Item Value Reference Range Interpretation Comments NEUTROPHILS - REL (DIFF) (BEAKER) 31 % (test code = 1359) LYMPHOCYTES - REL (DIFF) (BEAKER) 62 % (test code = 1360) MONOCYTES - REL (DIFF) (BEAKER) 7 % (test code = 1361) NEUTROPHILS - ABS (DIFF) (BEAKER) 0.99 K/ L 1.80-8.00 L (test code = 1365) LYMPHOCYTES - ABS (DIFF) (BEAKER) 1.98 K/ L 1.48-4.50 (test code = 1366) MONOCYTES - ABS (DIFF) (BEAKER) 0.22 K/ L 0.00-1.30 (test code = 1367) TOTAL COUNTED (BEAKER) (test code = 100 1351) WBC MORPHOLOGY (BEAKER) (test code Normal = 487) PLT MORPHOLOGY (BEAKER) (test code Normal = 486) RBC MORPHOLOGY (BEAKER) (test code Normal = 762) Biopsy Bone [id number] 15:30:06 Test Item Value Reference Range Interpretation Comments Anatomic Case# (test code = 2470) [id number] Ordering Physician (test code = Frances 2457) Performing Physician (test code = Cathy 2458) Clot Rec'd? (test code = 2459) Yes Biopsy Rec'd? (test code = 2460) Yes Rec'd for Culture? (test code = No 2464) Rec'd for Flow? (test code = 2461) Yes Rec'd for Cytogenetics? (test code Yes = 2462) Rec'd for Molecular Genetics? (test Yes code = 2463) [facility].2022-04-03 15:30:06 Test Item Value Reference Range Interpretation Comments ANATOMIC CASE# (BEAKER) (test code [id number] = 2470) ORDERED BY DOCTOR# (BEAKER) (test Frances code = 2457) PERFORMED BY DOCTOR# (BALAAKER) (test Cathy code = 2458) CLOT RECEIVED? (BEAKER) (test code Yes = 2459) BIOPSY RECEIVED? (BEAKER) (test Yes code = 2460) CULTURE RECEIVED? (BEAKER) (test No code = 2464) FLOW RECEIVED? (BEAKER) (test code Yes = 2461) CYTOGENICS? (BEAKER) (test code = Yes 2462) MOLECULAR GENETICS? (BEAKER) (test Yes code = 2463) DOUBLE-STRANDED DNA (DSDNA) [id number] 14:39:48 Test Item Value Reference Range Interpretation Comments ANTI-DNA DS (BEAKER) (test code = Negative Negative 1055) MONONUCLEOSIS [id number] 06:36:10 Test Item Value Reference Range Interpretation Comments HETEROPHILE ANTIBODIES (BEAKER) Negative Negative (test code = 621) BASIC METABOLIC [id number] 04:34:58 Test Item Value Reference Range Interpretation Comments SODIUM (BEAKER) 139 meq/L 136-145 (test code = 381) POTASSIUM (BEAKER) 4.3 meq/L 3.5-5.1 (test code = 379) CHLORIDE (BEAKER) 105 meq/L 98-107 (test code = 382) CO2 (BEAKER) (test 29 meq/L 22-29 code = 355) BLOOD UREA NITROGEN 15 mg/dL 7-21 (BEAKER) (test code = 354) CREATININE (BEAKER) 0.87 mg/dL 0.57-1.25 (test code = 358) GLUCOSE RANDOM 83 mg/dL 70-105 (BEAKER) (test code = 652) CALCIUM (BEAKER) 9.2 mg/dL 8.4-10.2 (test code = 697) EGFR (BEAKER) (test 107 mL/min/1.73 ESTIM ATED GFR IS code = 1092) sq m NOT ACCURATE CREATININE CLEARANCE IN PREDICTING GLOMERULAR FILTRATION RATE . ESTIMATED GFR I S NOT APPLICABLE FOR DIALYSIS PATIEN TS. [employer] Worker ID - PIAYA [id number] 04:34:58 Test Item Value Reference Range Interpretation Comments MAGNESIUM (BEAKER) (test code = 1.8 mg/dL 1.6-2.6 627) [employer] Worker ID - PIAYA LCBC (HEMOGRAM ONLY)2022-04-03 03:48:53 Test Item Value Reference Range Interpretation Comments WHITE BLOOD CELL COUNT (BEAKER) 3.2 K/ L 3.5-10.5 L (test code = 775) RED BLOOD CELL COUNT (BEAKER) 3.94 M/ L 4.63-6.08 L (test code = 761) HEMOGLOBIN (BEAKER) (test code = 12.6 GM/DL 13.7-17.5 L 410) HEMATOCRIT (BEAKER) (test code = 34.3 % 40.1-51.0 L 411) MEAN CORPUSCULAR VOLUME (BEAKER) 87.1 fL 79.0-92.2 (test code = 753) MEAN CORPUSCULAR HEMOGLOBIN 32.0 pg 25.7-32.2 (BEAKER) (test code = 751) MEAN CORPUSCULAR HEMOGLOBIN CONC 36.7 GM/DL 32.3-36.5 H (BEAKER) (test code = 752) RED CELL DISTRIBUTION WIDTH 14.4 % 11.6-14.4 (BEAKER) (test code = 412) PLATELET COUNT (BEAKER) (test code 22 K/CU MM 150-450 L = 756) MEAN PLATELET VOLUME (BEAKER) 10.0 fL 9.4-12.4 (test code = 754) NUCLEATED RED BLOOD CELLS (BEAKER) 0 /100 WBC 0-0 (test code = 413) ANTI-NUCLEAR ANTIBODY (BJ)2022-04-02 12:54:10 Test Item Value Reference Range Interpretation Comments ANTI-NUCLEAR ANTIBODY (BJ) (BEAKER) Negative Negative (test code = 418) Test performed by IFA method.Test performed by IFA method.[id number] 07:06:15 Test Item Value Reference Range Interpretation Comments MAGNESIUM (BEAKER) (test code = 1.9 mg/dL 1.6-2.6 627) [employer] Worker ID - MELQUIADES LC-REACTIVE [id number] 07:06:15 Test Item Value Reference Range Interpretation Comments C-REACTIVE PROTEIN (BEAKER) (test 0.18 mg/dL 0.00-0.50 code = 676) [employer] Worker ID - MELQUIADES LBASIC METABOLIC [id number] 07:06:14 Test Item Value Reference Range Interpretation Comments SODIUM (BEAKER) 136 meq/L 136-145 (test code = 381) POTASSIUM (BEAKER) 4.2 meq/L 3.5-5.1 (test code = 379) CHLORIDE (BEAKER) 102 meq/L 98-107 (test code = 382) CO2 (BEAKER) (test 27 meq/L 22-29 code = 355) BLOOD UREA NITROGEN 12 mg/dL 7-21 (BEAKER) (test code = 354) CREATININE (BEAKER) 0.87 mg/dL 0.57-1.25 (test code = 358) GLUCOSE RANDOM 86 mg/dL 70-105 (BEAKER) (test code = 652) CALCIUM (BEAKER) 9.3 mg/dL 8.4-10.2 (test code = 697) EGFR (BEAKER) (test 107 mL/min/1.73 ESTIM ATED GFR IS code = 1092) sq m NOT ACCURATE CREATININE CLEARANCE IN PREDICTING GLOMERULAR FILTRATION RATE . ESTIMATED GFR I S NOT APPLICABLE FOR DIALYSIS PATIEN TS. [employer] Factory Worker ID - MELQUIADES LCBC (HEMOGRAM ONLY)2022-04-02 06:11:27 Test Item Value Reference Range Interpretation Comments WHITE BLOOD CELL COUNT (BEAKER) 3.3 K/ L 3.5-10.5 L (test code = 775) RED BLOOD CELL COUNT (BEAKER) 4.02 M/ L 4.63-6.08 L (test code = 761) HEMOGLOBIN (BEAKER) (test code = 12.7 GM/DL 13.7-17.5 L 410) HEMATOCRIT (BEAKER) (test code = 34.9 % 40.1-51.0 L 411) MEAN CORPUSCULAR VOLUME (BEAKER) 86.8 fL 79.0-92.2 (test code = 753) MEAN CORPUSCULAR HEMOGLOBIN 31.6 pg 25.7-32.2 (BEAKER) (test code = 751) MEAN CORPUSCULAR HEMOGLOBIN CONC 36.4 GM/DL 32.3-36.5 (BEAKER) (test code = 752) RED CELL DISTRIBUTION WIDTH 14.3 % 11.6-14.4 (BEAKER) (test code = 412) PLATELET COUNT (BEAKER) (test code 23 K/CU MM 150-450 L = 756) MEAN PLATELET VOLUME (BEAKER) 9.0 fL 9.4-12.4 L (test code = 754) NUCLEATED RED BLOOD CELLS (BEAKER) 0 /100 WBC 0-0 (test code = 413) PERIPHERAL BLOOD SMEAR - HOLD [id number] 17:14:12 Test Item Value Reference Range Interpretation Comments PERIPHERAL SMEAR SAVE (BEAKER) (test saved code = 1815) PERIPHERAL BLOOD SMEAR - PATHOLOGIST [id number] 16:31:07 Test Item Value Reference Range Interpretation Comments PERIPHERAL SMR REVIEW Cell counts confirmed. (BEAKER) (test code = Normocytic normochromic 2640) anemia without significant anisopoikilocytosis. Platelets markedly decreased with no platelet clumps or satellitism identified. [id number] Aisha Mcmahon, (BEAKER) (test code = M.D. 4427) RETICULOCYTE [id number] 15:48:44 Test Item Value Reference Range Interpretation Comments RETICULOCYTE COUNT PCT (BEAKER) (test 2.8 % 0.5-1.8 H code = 575) [employer] Worker ID - [id number] 14:11:38 Test Item Value Reference Range Interpretation Comments HEPATITIS B CORE TOTAL ANTIBODY Nonreactive Nonreactive (BEAKER) (test code = 497) HEPATITIS B SURFACE ANTIBODY 1671.2 mIU/mL <8.0 H (BEAKER) (test code = 647) HEPATITIS B SURFACE ANTIGEN (2) Nonreactive Nonreactive (BEAKER) (test code = 2585) [employer] Factory Worker ID - DBOperator ID - DBSARS-CoV2/RT-PCR (Asymptomatic ONLY)2022-04-01 14:09:07 Test Item Value Reference Range Interpretation Comments SARS-COV2/RT-PCR Negative Not Detected, (test code = Negative, See 27435-1) external report for linked test SARS-COV-2 [facility] (test code = 53290-2) LETTY (test code = Negative result for this LETTY) test determines that SARS-CoV-2 RNA was not present in the specimen above the Limit of Detection (LOD). However, Negative results do not preclude SARS-CoV-2 infection and should not be used as the sole basis for treatment or patient management decisions. Negative results must be combined with clinical observations, patient history, and epidemiological information. A false negative result may occur if a specimen is improperly collected, transported or handled. A false negative result should be considered if patient's recent exposures or clinical presentation indicate that COVID-19 (SARS-CoV-2) is likely and diagnostic tests for other causes of illness are negative. Re-testing should be considered in cases of suspected false negatives. The limit of detection for this assay is 800 copies/mL. This SARS CoV-2 test is a real-time RT-PCR test intended for the qualitative detection of nucleic acid from SARS-CoV-2 in a nasopharyngeal swab specimen collected from individuals suspected of COVID-19 by their healthcare provider. This test has not been Food and Drug Administration (FDA) cleared or approved. This is a modified version of an approved Emergency Use Authorization (EUA) and is in the process of review by the FDA. Once authorized by the FDA, the issued EUA will be effective until the declaration that circumstances exist justifying the authorization of the emergency use of in vitro diagnostic tests for detection and/or diagnosis of COVID-19 is terminated under Section 564(b)(2) of the Act or the EUA is revoked under Section 564(g) of the Act. Fact Sheet for Healthcare Providers:[email or web address] [email or web address] [email or web address] Fact Sheet for Healthcare Patients:https://www.[employer]/sites/default/fi les/product/documents/Fa ct_Sheet_Patients_Lyra_S ARS-CoV-2.pdf Performing Laboratory:[facility] [place] [address] [facility])2022-04-01 14:09:07 Test Item Value Reference Range Interpretation Comments SARS-COV2/RT-PCR (test Negative Not Detected, Negative, code = 9227913) See external report for linked test SARS-COV-2 PERFORMING LAB [facility] (test code = 0251349) Negative result for this test determines that SARS-CoV-2 RNA was not present in the specimen above the Limit of Detection (LOD). However, Negative results do not preclude SARS-CoV-2 infection and should not be used as the sole basis for treatment or patient management decisions. Negative results must be combined with clinical observations, patient history, and epidemiological information. A false negative result may occur if a specimen is improperly collected, transported or handled. A false negative result should be considered if patient's recent exposures or clinical presentation indicate that COVID-19 (SARS-CoV-2) is likely and diagnostic tests for other causes of illness are negative. Re-testing should be considered in cases of suspected false negatives.The limit of detection for this assay is 800 copies/mL.This SARS CoV-2 test is a real-time RT-PCR test intended for the qualitative detection of nucleic acid from SARS-CoV-2 in a nasopharyngeal swab specimen collected from individuals suspected of COVID-19 by their healthcare provider.This test has not been Food and Drug Administration (FDA) cleared or approved. This is a modified version of an approved Emergency Use Authorization (EUA) and is in the process of review by the FDA. Once authorized by the FDA, the issued EUA will be effective until the declaration that circumstances exist justifying the authorization of the emergency use ofin vitro diagnostic tests for detection and/or diagnosis of COVID-19 is terminated under Section 564(b)(2) of the Act or the EUA is revoked under Section 564(g) of the Act.Fact Sheet for Healthcare Prov iders:https://www.[employer]/sites/default/files/product/documents/Fact_Sheet_HC _Sczifvwjg_Ysfe_IAAM-NxZ-1.pdfFact Sheet for Healthcare Patients:https://www.[employer]/sites/default/files/product/docume nts/Zzoq_Qivjd_Zfkanppj_Hxhd_QQHY-ZmG-7.pdfPerforming Laboratory:[facility] [facility], [place] [address]JUDUPQKEZ C ANTIBODY 2022-04-01 14:08:55 Test Item Value Reference Range Interpretation Comments HEPATITIS C ANTIBODY (BEAKER) Nonreactive Nonreactive (test code = 367) [employer]wear Factory Worker ID - [id number] 13:23:20 Test Item Value Reference Range Interpretation Comments HAPTOGLOBIN (BEAKER) (test code = 19 mg/dL 14 366) [employer]wear Factory Worker ID - DBCBC W/PLT COUNT & AUTO [id number] 09:53:31 Test Item Value Reference Range Interpretation Comments WHITE BLOOD CELL COUNT (BEAKER) 3.8 K/ L 3.5-10.5 (test code = 775) RED BLOOD CELL COUNT (BEAKER) 4.16 M/ L 4.63-6.08 L (test code = 761) HEMOGLOBIN (BEAKER) (test code = 13.3 GM/DL 13.7-17.5 L 410) HEMATOCRIT (BEAKER) (test code = 36.4 % 40.1-51.0 L 411) MEAN CORPUSCULAR VOLUME (BEAKER) 87.5 fL 79.0-92.2 (test code = 753) MEAN CORPUSCULAR HEMOGLOBIN 32.0 pg 25.7-32.2 (BEAKER) (test code = 751) MEAN CORPUSCULAR HEMOGLOBIN CONC 36.5 GM/DL 32.3-36.5 (BEAKER) (test code = 752) RED CELL DISTRIBUTION WIDTH 14.4 % 11.6-14.4 (BEAKER) (test code = 412) PLATELET COUNT (BEAKER) (test code 27 K/CU MM 150-450 L = 756) MEAN PLATELET VOLUME (BEAKER) 9.3 fL 9.4-12.4 L (test code = 754) NUCLEATED RED BLOOD CELLS (BEAKER) 0 /100 WBC 0-0 (test code = 413) NEUTROPHILS RELATIVE PERCENT 47 % (BEAKER) (test code = 429) LYMPHOCYTES RELATIVE PERCENT 45 % (BEAKER) (test code = 430) MONOCYTES RELATIVE PERCENT 7 % (BEAKER) (test code = 431) EOSINOPHILS RELATIVE PERCENT 1 % (BEAKER) (test code = 432) BASOPHILS RELATIVE PERCENT 0 % (BEAKER) (test code = 437) NEUTROPHILS ABSOLUTE COUNT 1.79 K/ L 1.78-5.38 (BEAKER) (test code = 670) LYMPHOCYTES ABSOLUTE COUNT 1.73 K/ L 1.32-3.57 (BEAKER) (test code = 414) MONOCYTES ABSOLUTE COUNT (BEAKER) 0.27 K/ L 0.30-0.82 L (test code = 415) EOSINOPHILS ABSOLUTE COUNT 0.03 K/ L 0.04-0.54 L (BEAKER) (test code = 416) BASOPHILS ABSOLUTE COUNT (BEAKER) 0.01 K/ L 0.01-0.08 (test code = 417) IMMATURE GRANULOCYTES-RELATIVE 0 % 0-1 PERCENT (BEAKER) (test code = 2801) VITAMIN [id number] 02:30:29 Test Item Value Reference Range Interpretation Comments VITAMIN B12 (BEAKER) (test code = 453 pg/mL 213-816 774) [employer] Worker ID - MEG [id number] 02:30:29 Test Item Value Reference Range Interpretation Comments FERRITIN (BEAKER) (test code = 236.85 ng/mL 5.00-275.00 361) [employer] Factory Worker ID - MEG WHIV-1 ANTIGEN WITH HIV-1/2 [id number] 00:18:54 Test Item Value Reference Range Interpretation Comments HIV-1 ANTIGEN WITH HIV 1\\T\\2 Nonreactive Nonreactive ANTIBODY (2) (BEAKER) (test code = 2586) Footwear Factory Worker ID - DBCBC W/PLT COUNT & AUTO [id number] 00:12:44 Test Item Value Reference Range Interpretation Comments WHITE BLOOD CELL COUNT (BEAKER) 3.5 K/ L 3.5-10.5 (test code = 775) RED BLOOD CELL COUNT (BEAKER) 4.14 M/ L 4.63-6.08 L (test code = 761) HEMOGLOBIN (BEAKER) (test code = 13.0 GM/DL 13.7-17.5 L 410) HEMATOCRIT (BEAKER) (test code = 36.3 % 40.1-51.0 L 411) MEAN CORPUSCULAR VOLUME (BEAKER) 87.7 fL 79.0-92.2 (test code = 753) MEAN CORPUSCULAR HEMOGLOBIN 31.4 pg 25.7-32.2 (BEAKER) (test code = 751) MEAN CORPUSCULAR HEMOGLOBIN CONC 35.8 GM/DL 32.3-36.5 (BEAKER) (test code = 752) RED CELL DISTRIBUTION WIDTH 14.3 % 11.6-14.4 (BEAKER) (test code = 412) PLATELET COUNT (BEAKER) (test code 26 K/CU MM 150-450 L = 756) MEAN PLATELET VOLUME (BEAKER) 9.8 fL 9.4-12.4 (test code = 754) NUCLEATED RED BLOOD CELLS (BEAKER) 0 /100 WBC 0-0 (test code = 413) NEUTROPHILS RELATIVE PERCENT 40 % (BEAKER) (test code = 429) LYMPHOCYTES RELATIVE PERCENT 49 % (BEAKER) (test code = 430) MONOCYTES RELATIVE PERCENT 8 % (BEAKER) (test code = 431) EOSINOPHILS RELATIVE PERCENT 1 % (BEAKER) (test code = 432) BASOPHILS RELATIVE PERCENT 0 % (BEAKER) (test code = 437) NEUTROPHILS ABSOLUTE COUNT 1.40 K/ L 1.78-5.38 L (BEAKER) (test code = 670) LYMPHOCYTES ABSOLUTE COUNT 1.71 K/ L 1.32-3.57 (BEAKER) (test code = 414) MONOCYTES ABSOLUTE COUNT (BEAKER) 0.29 K/ L 0.30-0.82 L (test code = 415) EOSINOPHILS ABSOLUTE COUNT 0.04 K/ L 0.04-0.54 (BEAKER) (test code = 416) BASOPHILS ABSOLUTE COUNT (BEAKER) 0.01 K/ L 0.01-0.08 (test code = 417) IMMATURE GRANULOCYTES-RELATIVE 0 % 0-1 PERCENT (BEAKER) (test code = 2801) HIGH SENSITIVITY TROPONIN [id number] 00:04:27 Test Item Value Reference Range Interpretation Comments HIGH SENSITIVITY < pg/ml See_Comment [Automated message] TROPONIN I (test code = The system which [id number]) generated this result transmitted ref erence range: <=35. Th e reference range was not used to interpr et this result as normal/abnormal . Footwear Factory Worker ID - DBThe [employer] STAT High Sensitivity Troponin-I results should be used in conjunctionwith other diagnostic information such as ECG, clinical observations and information, and patient symptoms to aid in the diagnosis of DE.[id number] 00:00:27 Test Item Value Reference Range Interpretation Comments FIBRINOGEN LEVEL (BEAKER) (test 240 mg/dl 225-434 code = 658) [id number] 00:00:27 Test Item Value Reference Range Interpretation Comments PROTIME (BEAKER) (test 14.7 seconds 11.9-14.2 H code = 759) INR (BEAKER) (test 1.16 See_Comment [Automat ed code = 370) message] The sy stem which generated this result transmitted reference range : <=5.90. The reference range was not used to interpret this result as normal/abnormal . PARTIAL THROMBOPLASTIN 31.4 seconds 22.5-36.0 TIME (BEAKER) (test code = 760) RECOMMENDED COUMADIN/WARFARIN INR THERAPY RANGESSTANDARD DOSE: 2.0 - 3.0 Includes: PROPHYLAXIS for venous thrombosis, systemic embolization; TREATMENT for venous thrombosis and/or pulmonary embolus.HIGH RISK: Target INR is 2.5-3.5 for patients with mechanical heart valves.IRON, TIBC, % SAT. (WITHOUT FERRITIN) 2022-03-31 23:58:49 Test Item Value Reference Range Interpretation Comments IRON (BEAKER) (test code = 547) 153.0 ug/dL 40.0-160.0 TOTAL IRON BINDING CAPACITY 258 ug/dL 250-450 (BEAKER) (test code = 769) IRON % SATURATION (2) (BEAKER) 59 % 20-55 H (test code = 2590) Footwear Factory Worker ID - DBCOMPREHENSIVE METABOLIC [id number] 23:58:48 Test Item Value Reference Range Interpretation Comments TOTAL PROTEIN 6.7 gm/dL 6.0-8.3 (BEAKER) (test code = 770) ALBUMIN (BEAKER) 4.4 g/dL 3.5-5.0 (test code = 1145) ALKALINE PHOSPHATASE 78 U/L 40-150 (BEAKER) (test code = 346) BILIRUBIN TOTAL 0.8 mg/dL 0.2-1.2 (BEAKER) (test code = 377) SODIUM (BEAKER) (test 139 meq/L 136-145 code = 381) POTASSIUM (BEAKER) 4.2 meq/L 3.5-5.1 (test code = 379) CHLORIDE (BEAKER) 103 meq/L 98-107 (test code = 382) CO2 (BEAKER) (test 29 meq/L 22-29 code = 355) BLOOD UREA NITROGEN 11 mg/dL 7-21 (BEAKER) (test code = 354) CREATININE (BEAKER) 0.89 mg/dL 0.57-1.25 (test code = 358) GLUCOSE RANDOM 90 mg/dL 70-105 (BEAKER) (test code = 652) CALCIUM (BEAKER) 9.2 mg/dL 8.4-10.2 (test code = 697) AST (SGOT) (BEAKER) 20 U/L 5-34 (test code = 353) ALT (SGPT) (BEAKER) 20 U/L 6-55 (test code = 347) EGFR (BEAKER) (test 104 ESTIMATE D GFR IS code = 1092) mL/min/1.73 sq NOT ACCURA TE m CREATININE CLEARANCE IN PREDICTING GLOMERULAR FILTRATION RATE . ESTIMATED GFR I S NOT APPLICABLE FOR DIALYSIS PATIEN TS. Footwear Factory Worker ID - [id number] 23:58:48 Test Item Value Reference Range Interpretation Comments LIPASE (BEAKER) (test code = 749) 16 U/L 8-78 Footwear Factory Worker ID - DB
[2022-05-13 14:26] LABS: Protime INR 0.97
[2022-05-13 14:27] LABS: Albumin 4.3 g/dL (3.4-5.0); Bilirubin Total 0.7 mg/dL (0.2-1.0); Potassium 4.6 mmol/L (3.5-5.1); Protein, Total 7.1 g/dL (6.4-8.2)
[2022-05-13 14:28] LABS: Absolute Lymphocytes (CBC) 0.4 K/uL (0.7-4.9); Hematocrit 30.1 % (39.6-49.0); Lymphocytes % 8.9 % (15.3-44.8); MCV 101.6 fL (80-100); MPV 8.4 fL (7.6-11.3); RBC Red Blood Cell Count 2.97 M/uL (4.33-5.43)
--- NOTE | 2022-05-13 14:56 | RAD REPORT ---
EXAM DESCRIPTION: CT - Chest For Pe Angio - 05/13/2022 2:43 pm CLINICAL HISTORY: chest pain, hemoptysis COMPARISON: No comparisons TECHNIQUE: Dynamically enhanced axial 3 mm thick images of the chest were obtained during administra tion of <100> mL Isovue 370 IV contrast. Coronal and oblique reconstruction images were generated and reviewed. Exam utilizes a protocol for optimal evaluation of pulmonary arterial tree. Maximum intensity projections 3D imaging was utilized All CT scans are performed using dose optimization technique as appropriate and may include automated exposure control or mA/KV adjustment according to patient size. FINDINGS: Chest Wall: No suspicious thyroid nodules or pathologic lymphadenopathy. Lungs: No acute abnormality. Pleura: No significant effusions or pneumothorax. Mediastinum/sarah: No pathologic lymphadenopathy. Pulmonary arteries/Aorta: No filling defect identified. No aortic aneurysm. Heart: No significant pericardial effusion. Normal heart size. Upper abdomen: No acute abnormality. Bones: No acute abnormality. IMPRESSION: Negative for pulmonary embolism. No acute findings in the chest.
--- NOTE | 2022-05-13 15:01 | RAD REPORT ---
EXAM DESCRIPTION: CTAbdomen Pelvis W Contrast - 05/13/2022 2:43 pm CLINICAL HISTORY: right lower abdominal pain, bruising COMPARISON: Chest For Pe Angio dated 05/13/2022 TECHNIQUE: CT of the abdomen and pelvis was performed. All CT scans are performed using dose optimization technique as appropriate and may include automated exposure control or mA/KV adjustment according to patient size. FINDINGS: Lower chest: No acute abnormality. Liver: No acute abnormality or suspicious lesions. Biliary: No biliary ductal dilatation. Stomach: No significant focal abnormality. Duodenum: No significant focal abnormality. Pancreas: No significant abnormality. Spleen: No significant abnormality. Adrenal: No suspicious lesions. Kidney/ureter: No hydronephrosis. No renal calculi. Retroperitoneum: No retroperitoneal adenopathy. Vascular: No aneurysm. Bowel: No significant focal abnormality. Normal appendix. Peritoneum: No ascites or free air. Bladder: Grossly unremarkable. Reproductive: No adnexal masses. Bones: No acute fracture. Other: n/a IMPRESSION: No acute intra-abdominal or pelvic finding. Normal appendix.
[2022-05-13 15:11] LABS: Anisocytosis 1+; Blood Morphology Comment NOTED (NOT SEEN); Platelet Estimate DECR; White Blood Cell Scan OK (OK)
--- NOTE | 2022-05-13 16:23 | ER ---
Nurse's Notes [facility] Name: Aguila Monaco Age: 27 yrs Sex: Male : 1995 Arrival Date: 05/13/2022 Time: 13:12 Bed 26 Private MD: Diagnosis: Thrombocytopenia, unspecified;Anemia, unspecified Presentation: 05/13 13:25 Chief complaint: Patient states: i have been in here a few times for the platelet time. tw2 i havent wanted to come in because i have to stay a week in the ER. last week i was spitting up blood clots. my nurse advised me to come in but i didn't. but the last couple of days it has been hurting bad, from head to toe. my torso and my back feels tender. Coronavirus screen: At this time, the client does not indicate any symptoms associated with coronavirus-19. Ebola Screen: Patient denies travel to an Ebola-affected area in the 21 days before illness onset. Initial Sepsis Screen: Does the patient meet any 2 criteria? No. Patient's initial sepsis screen is negative. Does the patient have a suspected source of infection? No. Patient's initial sepsis screen is negative. Risk Assessment: Do you want to hurt yourself or someone else? Patient reports no desire to harm self or others. Onset of symptoms was May 13, 2022. 13:25 Method Of Arrival: Ambulatory tw2 13:25 Acuity: GERTRUDIS 3 tw2 13:33 Note provider SANJAY Kuo in triage room at this time. tw2 Triage Assessment: 13:33 General: Appears in no apparent distress. slender, well groomed, Behavior is calm, tw2 cooperative, appropriate for age. Pain: Complains of pain in back and chest. Respiratory: Airway is patent Respiratory effort is even, unlabored, Respiratory pattern is regular, symmetrical. Historical: - Allergies: 13:30 No Known Allergies; tw2 - Home Meds: 13:30 pantoprazole 40 mg oral TbEC 1 tab once daily [Active]; prednisone 75 mg Oral tab once tw2 daily [Active]; - PMHx: 13:30 IDIOPATHIC THROMBOCYTOPENIA PURPURA; aplastic anemia; tw2 - PSHx: 13:30 None; tw2 - Immunization history:: Client reports having NOT received the Covid vaccine. - Social history:: Smoking status: Patient denies any tobacco usage or history of. Smoking status: Reported history of juuling and/or vaping. Screenin:34 Abuse screen: Denies threats or abuse. Nutritional screening: No deficits noted. tw2 Tuberculosis screening: No symptoms or risk factors identified. Fall Risk None identified. Assessment: 13:35 Reassessment: pt reports "bruising noted to RIGHT lower stomach and i feel some lumps i tw2 probably need to have checked out as well", provider notified. 14:02 General: Appears in no apparent distress. Behavior is calm, cooperative, appropriate ld1 for age, Smells of Reports pain all over. Pain: Complains of pain in generalized body pain. Neuro: No deficits noted. Cardiovascular: No deficits noted. Respiratory: No deficits noted. GI: No deficits noted. : No deficits noted. EENT: No deficits noted. Derm: 2 small saeed to left arm. Musculoskeletal: No deficits noted. Injury Description: Bruise sustained to left arm Vital Signs: 13:25 BP 119 / 94; Pulse 84; Resp 17; Temp 98.4(O); Pulse Ox 100% on R/A; Weight 74.84 kg; tw2 Height 6 ft. 0 in. (182.88 cm); Pain 10/10; 15:21 BP 119 / 71; Pulse 71; Resp 18; Pulse Ox 100% on R/A; ld1 13:25 Body Mass Index 22.38 (74.84 kg, 182.88 cm) tw2 ED Course: 13:12 Patient arrived in ED. mr 13:20 Ayaan Avalos PA is PHCP. jmm 13:20 Shreyas Hameed DO is Attending Physician. jmm 13:25 Arm band placed on. tw2 13:30 Triage completed. tw2 13:35 Bed in low position. Call light in reach. tw2 13:41 Denice Bland, RN is Primary Nurse. kb3 13:55 Type And Screen Sent. ld1 13:55 CMP Sent. ld1 13:55 CBC with Diff Sent. ld1 14:01 Inserted saline lock: 20 gauge in right antecubital area, using aseptic technique. ld1 Blood collected. 14:45 CT Chest For PE Angio In Process Unspecified. EDMS 14:45 CT Abd/Pelvis - IV Contrast Only In Process Unspecified. EDMS 16:40 No provider procedures requiring assistance completed. IV discontinued, intact, ld1 bleeding controlled, No redness/swelling at site. Administered Medications: No medications were administered Medication: 16:40 VIS not applicable for this client. ld1 Outcome: 16:23 Discharge ordered by . [facility] 16:40 Discharged to home ambulatory. ld1 16:40 Condition: stable 16:40 Discharge instructions given to patient, Instructed on discharge instructions, follow up and referral plans. medication usage, Demonstrated understanding of instructions, follow-up care, medications, Prescriptions given X 1. 16:40 Patient left the ED. ld1 Signatures: Dispatcher [employer] EDMS Ayaan Avalos PA PA jmm Rivera, Mary mr Rosita Funes, RN RN tw2 Ailin Madrid, MANJINDER RN ld1 Denice Bland, RN RN kb3
--- NOTE | 2022-05-13 16:24 | EDPHYS ---
Physician Documentation [facility] Name: Aguila Monaco Age: 27 yrs Sex: Male : 1995 Arrival Date: 05/13/2022 Time: 13:12 Bed 26 Private MD: ED Physician Shreyas Hameed HPI: 05/13 14:04 This is a 27-year-old male with history of idiopathic thrombocytopenia purpura aplastic jmm anemia the presents emerged part with complaints of hemoptysis, abdominal pain, bruising beginning approximately a week ago. Patient was recently hospitalized and prescribed prednisone and pantoprazole. Patient states he has been unable to follow-up with hematology due to financial constraints. Historical: - Allergies: 13:30 No Known Allergies; tw2 - Home Meds: 13:30 pantoprazole 40 mg oral TbEC 1 tab once daily [Active]; prednisone 75 mg Oral tab once tw2 daily [Active]; - PMHx: 13:30 IDIOPATHIC THROMBOCYTOPENIA PURPURA; aplastic anemia; tw2 - PSHx: 13:30 None; tw2 - Immunization history:: Client reports having NOT received the Covid vaccine. - Social history:: Smoking status: Patient denies any tobacco usage or history of. Smoking status: Reported history of juuling and/or vaping. ROS: 14:04 Constitutional: Positive for body aches, fatigue. jmm 14:04 Respiratory: Positive for cough, hemoptysis. 14:04 Abdomen/GI: Positive for abdominal pain. 14:04 All other systems are negative. Exam: 14:04 Constitutional: This is a well developed, well nourished patient who is awake, alert, jmm and in no acute distress. Head/Face: atraumatic. Eyes: EOMI, no conjunctival erythema appreciated ENT: Moist Mucus Membranes Neck: Trachea midline, Supple Chest/axilla: Normal chest wall appearance and motion. Cardiovascular: Regular rate and rhythm. No edema appreciated Respiratory: Normal respirations, no respiratory distress appreciated 14:04 Back: Normal ROM 14:04 Abdomen/GI: Inspection: abdomen appears normal, Bowel sounds: normal, Palpation: soft, moderate abdominal tenderness, in the right lower quadrant. 14:04 Skin: Ecchymosis noted to the right lower quadrant of the abdomen. 14:04 Neuro: Orientation: is normal, Mentation: is normal, Memory: is normal. 14:04 Psych: Behavior/mood is pleasant, cooperative. Vital Signs: 13:25 BP 119 / 94; Pulse 84; Resp 17; Temp 98.4(O); Pulse Ox 100% on R/A; Weight 74.84 kg; tw2 Height 6 ft. 0 in. (182.88 cm); Pain 10/10; 15:21 BP 119 / 71; Pulse 71; Resp 18; Pulse Ox 100% on R/A; ld1 13:25 Body Mass Index 22.38 (74.84 kg, 182.88 cm) tw2 MDM: 13:35 Patient medically screened. [facility] 16:13 Data reviewed: vital signs, nurses notes. Counseling: I had a detailed discussion with chanel the patient and/or guardian regarding: the historical points, exam findings, and any diagnostic results supporting the discharge/admit diagnosis, lab results, radiology results, the need for outpatient follow up, to return to the emergency department if symptoms worsen or persist or if there are any questions or concerns that arise at home. 05/13 13:36 Order name: CBC with Diff; Complete Time: 15:13 [facility] 05/13 13:36 Order name: CMP; Complete Time: 14:29 [facility] 05/13 13:37 Order name: Type And Screen; Complete Time: 14:53 [facility] 05/13 13:58 Order name: CT Chest For PE Angio; Complete Time: 14:57 [facility] 05/13 13:58 Order name: PT-INR; Complete Time: 14:29 [facility] 05/13 15:12 Order name: CBC Smear Scan; Complete Time: 15:13 [facility] 05/13 13:36 Order name: Saline Lock; Complete Time: 13:55 [facility] 05/13 13:38 Order name: Gown patient; Complete Time: 13:55 [facility] 05/13 13:58 Order name: CT Abd/Pelvis - IV Contrast Only; Complete Time: 15:06 [facility] Administered Medications: No medications were administered Disposition: 17:34 Co-signature as Attending Physician, Shreyas Hameed DO I agree with the assessment and ms3 plan of care. Disposition Summary: 05/13/22 16:23 Discharge Ordered Location: Home [facility] Condition: Stable [facility] Diagnosis - Thrombocytopenia, unspecified jmm - Anemia, unspecified jmm Followup: anibal - With: Private Physician - When: 2 - 3 days - Reason: Recheck today's complaints, Continuance of care, Re-evaluation by your physician Discharge Instructions: - Aplastic Anemia anibal - Discharge Summary Sheet tw2 Forms: - Medication Reconciliation Form anibal - Thank You Letter anibal - Antibiotic Education anibal - Work release form tw2 - Prescription Opioid Use anibal Prescriptions: - Prednisone 10 mg - take 1 tablet by ORAL route once daily for 30 days; 30 tablet; Refills: 0, chanelm Product Selection Permitted Signatures: Dispatcher [employer] Ayaan Khan PA PA jmm Wise, Tara, RN RN tw2 Shreyas Hameed DO DO ms3
[2022-05-13 17:34] VITALS: TEMP 98.4; O2SAT 100
[2022-05-13 17:43] VITALS: BP 119/71
== END 2022-05-13 16:40 | disposition home or self-care (01) ==
LOC: ER 13:09
DX: D69.3 Immune thrombocytopenic purpura (principal); D61.9 Aplastic anemia, unspecified
CPT/HCPCS: 85025; 36415; 86900; 86850; 85610; 86901; 80053; 71275; 74177; Q9967

== ENCOUNTER 2022-09-23 08:09 | Emergency (ER) | payer OTHER ==
--- OUTSIDE RECORDS SUMMARY | 2022-09-23 08:16 | XMS REPORT | Continuity of Care Document ---
:1995 Author Organization [facility] t Address [address] [place] [address] Care Team Providers Name Role Phone PCP, PATIENT DOES NOT HAVE A Primary Care Physician Unavailkanika Machado RN, Astrid Christianson Attending Clinician Unavailable DONNA MARCUS Attending Clinician Unavailable Donna Estrada Attending Clinician Unknown, Attending Attending Clinician Unavailable Chas Martinez NP Attending Clinician CHAS MARTINEZ Attending Clinician Unavailable Ricardo Rueda MD Attending Clinician Efrain TAMEZ, Pati De Luna Attending Clinician [phone] Paige Woo MD Attending Clinician Shayna TAMEZ, Lindsay Ayala Attending Clinician Lachelle Ruiz MD Attending Clinician LINDSAY CORRAL Attending Clinician Unavailable DENTON DAN Attending Clinician Unavailable Sy TAMEZ, Denton Attending Clinician Minerva TAMEZ, Becky Gomes Attending Clinician [phone] Roberto TAMEZ, Kaylie Henderson Attending Clinician [phone] Trina Coffman MD Attending Clinician TRINA COFFMAN Attending Clinician Unavailable Mayuri Parisi MD Attending Clinician MAYURI PARISI Attending Clinician Unavailable Doctor Unassigned, [place] Attending Clinician Unavailable KINZA EDGAR III Attending [...] marrow marrow 04-17 [facility] hypocellul hypocellul 00:00: Ma dical arity arity 00 Center concerning concerning for for aplastic aplastic anemia anemia Pancytopen Pancytopen Disease Active [facility] 00:[facility]: Medical 00 Center COVID-19 COVID-19 Disease [facility] virus [facility] detected detected 00:00: Medica l (04/13/22) (04/13/22) 00 Cent er Thrombocyt Thrombocyt Disease Active [facility] openia openia 7-18 [facility] 00:00: Medical 00 Center Thrombocyt Thrombocyt Disease Active [facility] open[facility] openia 7[facility]18 [facility] 00:00: Medical 00 [place] Headache Headache Disease Active [facility] 00[facility] Medical 00 Center Petechiae Petechiae Disease Active [facility] 00:[facility]: Medical 00 [place] No known No known Disease Unive rs active active ity of problems problems [facility] GIB GIB Disease Resolve 2022-04-14 2022-04-14 CHI [...] Date Date Clinician NO KNOWN Allergy Active [facility] ALLERGIE [facility] NO KNOWN Drug Active [place] ALLERGIE [facility] Social History Social Habit Start Date Stop Date Quantity Comments Source History of tobacco 2016-09-[address] [facility] use 00:00:00 Medical Center History [facility] Non-Med Medical Center Exposure to 2022-09-09 2022-09-19 Not sure University of SARS-CoV-2 (event) 00:00:00 19:29:00 [facility] Alcohol intake 2022-04-24 2022-04-24 Ex-drinker [facility] 00:00:00 00:00:00 (finding) Medical Center History [facility] 2022-04-14 2022-04-[address] [facility] Transport Med 00:00:00 00:00:[address] History [facility] 2022-04-14 2022-04-[address] [facility] Housing Unable to 00:00:00 00:00:00 Medical Center Pay History [facility] 2022-04-14 2022-04-[address] [facility] Housing Places 00:00:00 00:00:00 Medical Ce nter Lived History [facility] 2022-04-14 2022-04-[address] [facility] Housing Homeless 00:00:00 00:00:00 [facility] Center Last Year Cigarettes smoked 2022-04-13 2022-04-[address] [facility] current (pack per 00:00:00 00:00:00 Medical Center day) - Reported Tobacco use and 2022-04-13 2022-04-[address] [facility] exposure 00:00:00 00:00:00 Medical Center Sex Assigned At [address] [facility] 00:00:00 00:00:00 Medical Center Smoking Status Start Date Stop Date Source Unknown if ever smoked [facility] Current every day smoker 2022-04-13 00:00:00 [facility] Medications Ordered Filled Start Stop Current Ordering Indication Dosage Frequency Signature Comments Components Source Medication Medication Date Date Medication? Clinician (SIG) Name Name pantoprazol 2022-0 Yes 40mg QD Take [address] [facility] 8-05 tablet (40 [facility] (PROTONIX) 00:00: mg total) Me dical 40 MG 00 by mouth Center tablet daily Continue while on prednisone . predniSONE 2021-0 Yes 75mg QD Take 7.[address] (DELTASONE) 8-05 tablets [facility] 10 MG 00:00: (75 mg Medical tablet 00 total) by Center mouth daily Continue until told to do otherwise by PCP. pantoprazol 2-0 Yes 40mg QD Take [address] [facility] 8-05 tablet (40 [facility] (PROTONIX) 00:00: mg total) Me dical 40 MG 00 by mouth Center tablet daily Continue while on prednisone . predniSONE 2022-0 Yes 75mg QD Take 7.[address] (DELTASONE) 8-05 tablets [facility] 10 MG 00:00: (75 mg Medical tablet 00 total) by Center mouth daily Continue until told to do otherwise by PCP. nicotine 2021-2021- No 1{patch QD Place [address] (NICODERM 04-18 } patch onto Bhavana es CQ) 14 00:00: 00:00 the skin Medica l mg/24 hr 00 :00 daily. Center patch nicotine 2021-0 2021- No 1{patch QD Place [address] (NICODERM 04-18 } patch onto Bhavana es CQ) 14 00:00: 00:00 the skin Medica l mg/24 hr 00 :00 daily. Center patch pantoprazol 2021-0 Yes 8mg/h 8 mg/hr Un lanette e 04-13 (50 ity of (PROTONIX) 22:00: mL/hr), IV [place] 80 mg in 00 Infusion, Medica l NaCl 0.9% CONTINUOUS Bran ch (NS) 500 mL , Starting infusion on 04/13/22 at 1700 pantoprazol 2021-0 2021- No 80mg 80 mg, IV Univers e 04-13 Push, ity of (PROTONIX) 22:00: 22:02 ONCE, 1 Carl as 80 mg in 00 :00 dose, On Medical NaCl 0.9% [place] (NS) 20 mL 04/13/22 at syringe 1700, Administer over 2 Minutes, 20 mL iopamidol 2021-0 2021- No [id number] 65mL 65 mL, Univers (ISOVUE 04-13 Intravenou ity o f 370-500 mL) 17:14: 17:14 s, ONCE, 1 [place] injection 00 :00 dose, On Medica l 65 mL [place] 04/13/22 at 1230, Routine triamcinolo 2021-0 Yes [id number] Apply to Univers ne 6-28 area(s) 2 ity of acetonide 00:00: (two) [place] 0.1 % cream 00 times Medical daily. Branch triamcinolo 0 Yes [id number] Apply to Univers ne 6-28 area(s) 2 ity of acetonide 00:00: (two) [place] 0.1 % cream 00 times Medical daily. Branch triamcinolo 0 Yes [id number] Apply to Univers ne 6-28 area(s) 2 ity of acetonide 00:00: (two) [place] 0.1 % cream 00 times Medical daily. Branch triamcinolo 0 Yes [id number] Apply to Univers ne 6-28 area(s) 2 ity of acetonide 00:00: (two) [place] 0.1 % cream 00 times Medical daily. Branch cyclobenzap 2020-0 Yes [id number] 5mg Take 1 Univers rine 5 mg 1-03 [id number] tablet by ity of tablet 00:00: mouth 3 [place] 00 (three) Medical times Branch daily. traMADol 2020-0 Yes [id number] 50mg Take 1 Univers (ULTRAM) 50 1-03 [id number] tablet by i ty of mg tablet 00:00: mouth [place] 00 every 8 Medical (eight) Branch hours as needed for Pain (scale 4-6). cyclobenzap 2020-0 Yes [id number] 5mg Take 1 Univers rine 5 mg 1-03 [id number] tablet by ity of tablet 00:00: mouth 3 [place] 00 (three) Medical times Branch daily. traMADol 2020-0 Yes [id number] 50mg Take 1 Univers (ULTRAM) 50 1-03 [id number] tablet by i ty of mg tablet 00:00: mouth [place] 00 every 8 Medical (eight) Branch hours as needed for Pain (scale 4-6). traMADol 2020-0 Yes [id number] 50mg Take 1 Univers (ULTRAM) 50 1-03 [id number] tablet by i ty of mg tablet 00:00: mouth [place] 00 every 8 Medical (eight) Branch hours as needed for Pain (scale 4-6). cyclobenzap 2020-0 Yes [id number] 5mg Take 1 Univers rine 5 mg 1-03 [id number] tablet by ity of tablet 00:00: mouth 3 00 (three) Medical times Branch daily. cyclobenzap 2020-0 Yes [id number] 5mg Take 1 Univers rine 5 mg 1-03 [id number] tablet by ity of tablet 00:00: mouth 3 00 (three) Medical times Branch daily. traMADol 2020-0 Yes [id number] 50mg Take 1 Univers (ULTRAM) 50 1-03 [id number] tablet by i ty of mg tablet 00:00: mouth [place] 00 every 8 Medical (eight) Branch hours as needed for Pain (scale 4-6). cyclobenzap 2020-0 Yes [id number] 5mg Take 1 Univers rine 5 mg 1-03 [id number] tablet by ity of tablet 00:00: mouth 3 00 (three) Medical times Branch daily. traMADol 2020-0 Yes [id number] 50mg Take 1 Univers (ULTRAM) 50 1-03 [id number] tablet by i ty of mg tablet 00:00: mouth [place] 00 every 8 Medical (eight) Branch hours as needed for Pain (scale 4-6). Vital Signs Vital Name Observation Time Observation Value Comments Source Heart rate 2022-09-20 01:30:00 100 /min [facility] Body temperature 2022-09-20 01:30:00 38.17 [facility] Respiratory rate 2022-09-20 01:30:00 16 /min [facility] Body height 2022-09-20 01:30:00 182.9 cm [facility] Body weight 2022-09-20 01:30:00 72.303 kg [facility] BMI 2022-09-20 01:30:00 21.62 kg/m2 [facility] Oxygen saturation in 2022-09-20 01:30:00 97 /min [facility] Arterial blood by [facility] Pulse oximetry Branch Systolic blood 2022-09-20 01:30:00 125 mm[Hg] [facility] sit of pressure [facility] Diastolic blood 2022-09-20 01:30:00 85 mm[Hg] Unive rsity of pressure [facility] HEIGHT 2022-04-24 11:18:00 182.9 cm WEIGHT 2022-04-24 [...] 21:27:45 111 mm[Hg] Univer sity of pressure [facility] Diastolic blood 2022-04-13 21:27:45 70 mm[Hg] Unive rsity of [facility] Heart rate 2022-04-13 21:27:45 65 /min [facility] Respiratory rate 2022-04-13 21:27:45 18 /min [facility] Oxygen saturation in 2022-04-13 21:27:45 99 /min [facility] Arterial blood by [facility] Pulse oximetry Branch Body temperature 2022-04-13 15:54:00 37.06 Cuca [facility] Body height 2022-04-13 15:54:00 182.9 cm [facility] Body weight 2022-04-13 15:54:00 74.844 kg [facility] BMI 2022-04-13 15:54:00 22.38 kg/m2 [facility] WEIGHT 2022-04-03 16:55:00 75.479 kg WEIGHT 2022-03-31 21:00:00 75.479 kg WEIGHT 2022-04-03 16:55:00 75.479 kg WEIGHT 2022-03-31 21:00:00 75.479 kg WEIGHT 2022-04-03 16:55:00 75.479 kg WEIGHT 2022-03-31 21:00:00 75.479 kg Systolic blood 2022-03-11 23:09:00 118 mm[Hg] Univer sity of [facility] Diastolic blood 2022-03-11 23:09:00 60 mm[Hg] Unive rsity [facility] Heart rate 2022-03-11 23:09:00 60 /min Universi ty [facility] Body temperature 2022-03-11 23:09:00 36.39 Cuca [facility] Respiratory rate 2022-03-11 23:09:00 18 /min [facility] Body height 2022-03-11 23:09:00 182.9 cm Universi ty [facility] Body weight 2022-03-11 23:09:00 73.891 kg Universi ty [facility] BMI 2022-03-11 23:09:00 22.09 kg/m2 [facility] Oxygen saturation in 2022-03-11 23:09:00 99 /min University Arterial blood by [facility] Pulse oximetry Branch Systolic blood 2022-04-24 11:18:00 118 mm[Hg] [facility] Diastolic blood 2022-04-24 11:18:00 88 mm[Hg] [facility] Heart rate 2022-04-24 11:18:00 89 /min [facility] Body temperature 2022-04-24 11:18:[address] [facility] Respiratory rate 2022-04-24 11:18:00 17 /min [facility] Body height 2022-04-24 11:18:00 182.9 cm [facility] Body weight 2022-04-24 11:18:00 74.844 kg [facility] BMI 2022-04-24 11:18:00 22.38 kg/m2 [facility] Oxygen saturation in 2022-04-24 11:18:00 98 /min [facility] Arterial blood by Medical nter Pulse oximetry Procedures Procedure Date / Time Performing Clinician Source Performed POCT SARS-COV-2 ANTIGEN 2022-09-20 02:06:00 Donna Marcus [facility] (BINAX NOW) Medical Branch CBC W/PLT COUNT & AUTO 2022-04-24 11:51:00 JuanChas [facility] CBC W/PLT COUNT & AUTO 2022-04-24 11:51:00 [place] [facility] US ABDOMEN COMPLETE 2022-04-17 08:33:[address] [facility] MISCELLANEOUS LAB ORDER 2022-04-17 05:13:00 [facility] W/PLT COUNT & AUTO 2022-04-17 05:13:00 Lindsay Corral [facility] CBC W/PLT COUNT & AUTO 2022-04-17 05:13:00 Lindsay Corral [facility] CBC W/PLT COUNT & AUTO 2022-04-16 05:16:00 [facility] BASIC METABOLIC PANEL 2022-04-16 05:16:00 [facility] (7) [place] CBC W/PLT COUNT & AUTO 2022-04-16 05:16:00 [facility] CBC W/PLT COUNT & AUTO 2022-04-15 04:23:00 [facility] BASIC METABOLIC PANEL 2022-04-15 04:23:00 [facility] (7) Center CBC W/PLT COUNT & AUTO 2022-04-15 04:23:00 [facility] BASIC METABOLIC PANEL 2022-04-14 04:45:00 Lachelle Ruiz [facility] () [place] PROTHROMBIN TIME/INR 2022-04-14 04:45:00 Lachelle Ruiz [facility] MAGNESIUM 2022-04-14 04:45:00 Ruiz[facility] 2022-04-14 04:45:[address] [facility] CBC W/PLT COUNT & AUTO 2022-04-14 04:45:00 Lachelle Ruiz [facility] DIFFERENTIAL Center ABORH, MANUAL 2022-04-14 04:45:[address] [facility] CBC W/PLT COUNT & AUTO 2022-04-14 04:45:00 Lachelle Ruiz [facility] DIFFERENTIAL Center (CELLAVISION MANUAL 2022-04-14 04:45:[address] [facility] Center CBC W/PLT COUNT & AUTO 2022-04-13 20:23:[address] [facility] DIFFER[facility] Center TYPE AND SCREEN, 2022-04-13 20:23:00 Lachelle Ruiz [facility] AUTOMATED Center CBC W/PLT COUNT & AUTO 2022-04-13 20:23:00 Lachelle Ruiz [facility] DIFFERENTIAL [place] CT HEAD WO CONTRAST 2022-04-13 18:22:00 Denton Dan [facility] CT CHEST PULMONARY 2022-04-13 17:22:04 Denton Dan [facility] ANGIOGRAM [facility] Branch TROPONIN I 2022-04-13 17:03:00 Denton Dan [facility] COMP. METABOLIC PANEL 2022-04-13 17:03:00 Denton Dan [facility] ([id number]) [facility] CBC WITH DIFF 2022-04-13 17:03:00 Denton Dan [facility] PROTHROMBIN TIME / INR 2022-04-13 17:03:00 Denton Dan [facility] ACTIVATED PARTIAL 2022-04-13 17:03:00 [place] Dan [facility] N-TERMINAL PRO-BNP 2022-04-13 17:03:00 Denton Dan [facility] COVID-[facility] (ID NOW RAPID 2022-04-13 17:03:00 [place] Dan [facility] TESTING) Medical [place] CONSENT/REFUSAL FOR 2022-04-13 15:43:13 Doctor Unassigned, No Un [facility] DIAGNOSIS AND TREATMENT Name Medical Branch EKG-SCANNED 2022-04-13 00:00:00 ProviderTrevor [facility] CBC W/PLT COUNT & AUTO 2022-04-05 02:56:00 Son Serra [facility] DIFFERENTIAL [facility] CBC W/PLT COUNT & AUTO 2022-04-05 02:56:00 Son Serra [facility] DIFFERENTIAL [facility] BASIC METABOLIC PANEL 2022-04-05 02:55:00 HolidayKaylie [facility] () [facility] MAGNESIUM 2022-04-05 02:55:00 Holiday [facility] BASIC METABOLIC PANEL 2022-04-04 05:38:00 Kaylie Mejia [facility] () [facility] MAGNESIUM 2022-04-04 05:38:00 Roberto Kaylie [facility] CBC W/PLT COUNT & AUTO 2022-04-04 05:38:00 Son Serra [facility] DIFFERENTIAL [facility] RETICULOCYTE COUNT 2022-04-04 05:38:[address] [facility] CBC W/PLT COUNT & AUTO 2022-04-04 05:38:00 Son Serra [facility] DIFFERENTIAL [facility] CHROMOSOMES CANCER STUDY 2022-04-03 15:26:[address] [facility] MISCELLANEOUS LAB ORDER 2022-04-03 15:26:[address] [facility] CT 2022-04-03 15:02:00 Cheryl Daniels [facility] BIOPSY/ASPIRATION/INJECT Center ION FLOW CYTOMETRY 2022-04-03 14:50:00 Cheryl Daniels [facility] REQUISITION Center BONE MARROW PROCESS. 2022-04-03 14:50:00 Cheryl Daniels [facility] FLOW CYTOMETRY 2022-04-03 14:50:[address] [facility] BONE MARROW EXAM 2022-04-03 14:50:[address] [facility] BASIC METABOLIC PANEL 2022-04-03 03:21:00 [facility] () [facility] CBC (HEMOGRAM ONLY) 2022-04-03 03:21:00 HolidayKaylie [facility] MAGNESIUM 2022-04-03 03:21:00 [facility] (MANUAL DIFFERENTIAL) 2022-04-03 03:21:[address] [facility] MONONUCLEOSIS SCREEN 2022-04-02 18:09:00 Bryon Henning [facility] Lyndon [place] CMV PCR, QUANTITATIVE 2022-04-02 13:20:00 Cheryl Daniels [facility] EBV VIRAL LOAD 2022-04-02 13:20:[address] [facility] BASIC METABOLIC PANEL 2022-04-02 05:31:00 [facility] CBC (HEMOGRAM ONLY) 2022-04-02 05:31:00 HolidayKaylie [facility] MAGNESIUM 2022-04-02 05:31:00 [facility] C-REACTIVE PROTEIN 2022-04-02 05:31:[address] [facility] PERIPHERAL BLOOD SMEAR - 2022-04-01 15:31:00 Cheryl Daniels [facility] Center RETICULOCYTE COUNT 2022-04-01 15:31:[address] [facility] HEPATITIS C ANTIBODY 2022-04-01 12:26:00 Cheryl Daniels [facility] I [facility] HEPATITIS B PANEL 2022-04-01 12:26:00 Cheryl Daniels [facility] HAPTOGLOBIN 2022-04-01 12:26:[address] [facility] ANTI-NUCLEAR ANTIBODY 2022-04-01 12:26:00 Cheryl Daniels [facility] DOUBLE-STRANDED DNA 2022-04-01 12:26:00 Cheryl Daniels [facility] (DSDNA) ANTIBODY Center CBC W/PLT COUNT & AUTO 2022-04-01 09:43:00 [facility] CBC W/PLT COUNT & AUTO 2022-04-01 09:43:00 [place] [facility] DIFFERENTIAL Center SARS-COV2/RT-PCR ([facility] & 2022-03-31 22:26:00 HolidayKaylie [facility] REF LABS) [facility] CBC W/PLT COUNT & AUTO 2022-03-31 22:26:00 [facility] DIFFERENTIAL [facility] PERIPHERAL BLOOD SMEAR - 2022-03-31 22:26:00 HolidayKaylie [facility] PATHOLOGIST REVIEW [facility] VITAMIN B12 2022-03-31 22:26:00 Holiday [facility] IRON, TIBC, % SAT. 2022-03-31 22:26:00 [facility] (WITHOUT [facility]ERRITIN) [facility] FERRITIN 2022-03-31 22:26:00 HolidayKaylie [facility] COMPREHENSIVE METABOLIC 2022-03-31 22:26:00 HolidayKaylie [facility] PANEL [facility] HIGH SENSITIVITY 2022-03-31 22:26:[address] [facility] TROPONIN I [facility] LIPASE 2022-03-31 22:26:00 HolidayKaylie [facility] HC LAB HIV-1 AG 2022-03-31 22:26:00 [facility] W/[facility]-1&2 AB [facility] CBC W/PLT COUNT & AUTO 2022-03-31 22:26:00 [facility] DIFFERENTIAL [facility] PT/APTT 2022-03-31 22:25:00 [facility] FIBRINOGEN 2022-03-31 22:25:[address] [facility] CONSENT/REFUSAL FOR 2022-03-11 23:02:41 Doctor Unassigned, No Un [facility] DIAGNOSIS AND TREATMENT Name Medical Branch Plan of Care Planned Activity Planned Date Details Comments Source Future Scheduled 2023-04-[address] [facility] Test 00:00:00 Counseling [facility] Medical Cente r Screening (12+) [code = Tobacco Cessation Counseling and Screening (12+)] Future Scheduled 2022-09-[address] [facility] Test 00:00:00 (12+) [code = [facility] Center DEPRESSION SCREENING (12+)] Future Scheduled 2022-05-15 INFLUENZA VACCINE (#1) [facility] 00:00:00 [code = INFLUENZA Medical Ce nter VACCINE (#1)] Future Scheduled 2022-05-15 INFLUENZA VACCINE (#1) [facility] Test 00:00:00 [code = INFLUENZA Medical Ce nter VACCINE (#1)] Future Scheduled 2021-09-[address] [facility] Test 00:00:00 (12+) [code = [facility] DEPRESSION SCREENING (12+)] Future Scheduled [address] [facility] Test 00:00:00 (procedure) [code = [facility] [id number]] Future Scheduled [address] [facility] Test 00:00:00 (procedure) [code = [facility] [id number]] Future Scheduled 2016 DTAP/TDAP/TD VACCINES [facility] 00:00:00 (1 - Tdap) [code = Medical C enter DTAP/TDAP/TD VACCINES (1 - Tdap)] Future Scheduled 2016 DTAP/TDAP/TD VACCINES [facility] Test 00:00:00 (1 - Tdap) [code = Medical C enter DTAP/TDAP/TD VACCINES (1 - Tdap)] Future Scheduled [address] [facility] Test 00:00:00 0-64 YRS (1 - PCV) Medical C enter [code = PNEUMOCOCCAL VACCINE 0-64 YRS (1 - PCV)] Future Scheduled [address] [facility] Test 00:00:00 0-64 YRS (1 - PCV) Medical C enter [code = PNEUMOCOCCAL VACCINE 0-64 YRS (1 - PCV)] Future Scheduled 1997 COVID-19 VACCINE (#1) [facility] 00:00:00 [code = COVID-[address] VACCINE (#1)] Future Scheduled 1997 COVID-19 VACCINE (#1) [facility] Test 00:00:00 [code = COVID-[address] VACCINE (#1)] Encounters Start End Encounter Admission Attending Care Care Encounter Source Date/Time Date/Time Type Type Clinicians Facility Department ID 2022-09-20 2022-09-20 Letter MAGGIE Machado [id number] Univers 00:00:00 00:00:00 (Out) Astrid MOORE [id number] it y of [facility] [id number] Carl as [id number] [address] 2022-09-19 2022-09-19 Outpatient R [facility] [id number] Univers 19:20:00 20:12:25 REENU ity [facility] 2022-09-19 2022-09-19 Urgent Donna Marcus [facility] [id number] Univers 19:20:00 20:12:25 Care Unknown, Attending HEALTH [id number] ity [facility] [id number] Carl as MARK?BLEA [id number] Ma elise [address] MEDICAL OFFICE BUILDING 2022-05-02 2022-05-02 Telephone Juan [facility] [id number] 00:[facility]00 00:00:00 [facility] 2022-05-02 2022-05-02 Telephone Juan [facility] [id number] 00:[facility]00 00:00:00 [facility] 2022-04-24 2022-04-24 Office EL Juan [facility] [id number] 11:00:00 11:30:00 Visit [facility] 2022-04-24 2022-04-24 Office Juan [facility] [id number] 11:00:00 11:30:00 Visit [facility] 2022-04-24 2022-04-24 Outpatient [facility] [id number] 11:14:36 11:14:36 [facility] 2022-04-13 2022-04-17 Hospital ER Ricardo Rueda [facility] [id number] [facility] 18:02:00 18:06:00 Encounter Pati Zuniga [facility] Edilberto Ruizkanika Ames 2022-04-13 2022-04-17 Inpatient ER SHAYNA [facility] Gastro [id number] SLE 18:02:00 18:06:00 [facility] 2022-04-13 2022-04-17 [facility] Ricardo Rueda [facility] [id number] 18:02:00 18:06:00 Encounter Pati Zuniga [facility] Lachelle Ruiz Hui 2022-04-13 2022-04-13 Emergency X [facility] ERT [id number] Univers 10:55:00 17:09:00 [place] catherine [facility] 2022-04-13 2022-04-13 Emergency [facility] [id number] Univers 10:55:00 17:09:00 [place] CHRISTIANSON [id number] [facility] [id number] [facility] [id number] [place] [address] [address] 2022-04-13 2022-04-13 Travel [facility] [id number] [facility] 00:[facility] 00:00:00 [facility] 2022-04-13 2022-04-13 Travel [facility] [id number] [facility] 00:[facility] 00:00:00 [facility] 2022-03-31 2022-04-05 [facility] ER Becky Palma RUST C [id number] [facility] 19:19:00 14:01:00 Encounter Roberto Kaylie Beatriz [facility] 2022-03-31 2022-04-05 [facility] Becky Palma RUST C [id number] [facility] 19:19:00 14:01:00 Encounter Roberto Kaylie Beatriz [facility] 2022-03-31 2022-04-05 Inpatient ER [facility] [id number] [facility] 19:19:00 14:01:00 [facility] 2022-03-11 2022-03-11 Elisha Parisi [facility] [id number] Univers 18:20:00 18:20:00 [facility] [id number] it y of [place] 4.2.7.2.686 Carl as MARK?BLEA [id number] [address] MEDICAL OFFICE BUILDING 2022-03-11 2022-03-11 Outpatient [facility] [id number] Univers 18:20:00 18:18:42 MAYURI catherine [facility] 2022-03-11 2022-03-11 Orders Doctor MAGGIE [id number] Univers 00:00:00 00:00:00 Only Unassigned, OSCAR 350.1.13.10 ity of [place] [facility] 4.2.7.2.686 Carl as [id number] [address] 2019-09-16 2019-09-16 Emergency X HERVE III, [facility] ERT [id number] Univers 16:13:08 17:09:00 KINZA catherine [facility] Results Test Description Test Time Test Comments Results Result Comments Source POCT SARS-COV-2 ANTIGEN (BINAX NOW) 2022-09-20 02:07:00 Test Item Value Reference Range Interpretation Comme nts POCT SARS-COV-2 ANTIGEN (test code = 44304-0) Not Detected Not Dete cted On board controls acceptable with C Line (test code = Yes 4642) [facility] Esuo8381-01-20 14:46:50 Test Item Value Reference Range Interpretation Comments Case Report (test code Bone Marrow Pathology = 104) Report Case: [id number] Authorizing Provider: Cheryl Daniels Collected: 04/03/2022 02:50 PM Ordering Location: [address] Received: 04/03/2022 03:29 PM Service Pathologist: Aisha Mcmahon MD Specimens: A) - Bone Marrow B) - C) - ADDENDUM (test code = [id number] 3381) Xng6agw8CtrAKdlFUcTVmv yKFmfaOeqn93iID5hJ02IE 3fNINkQmQ6GTKovgM4Zce4 LUKjFKYvmUWiV528n8lcx4 gutyGncUM9JVRaJEKaA9Zi XK9qNZAfmADoZ9yhMAVaIX EfX4XvYC4sUEJnPqh0ZUF6 BCk8CHEoqUSikgJgAeCyLN AhoREjvBJ5MXYeDO0wwnlf BPcnSEivZEWpckP5YAReaY AyW5PfJEGsDK3tbinwLYM4 LOsvRDQlTEI5ZyOoCYBmd9 Ltvei5JxNweXLbGUxcwMRk blxmczIwXGNmMSBSZWFzb2 6gRt1vBXIkLDSqKCKdQgQR eaGrYCShtjXbtcFbzYe1la BvZiBhZGRpdGlvbmFsIGlt aYMxm9V5JAlzttCsbeSqW4 h2h2opgzK6mUCsr1H6YPlx vt4elEJaFWYuioRDKAEcXL CwwCIqgfTnaZ09kfUqD1Y1 tCFcUCWyMDwVEDJrr5l1gR NeWCShU2EpcSRdq2v2cDTc CXLxFTXjKPrpLXJgqDY6PU DqMf4ryCQ8hN9uBwgtEIUh uZPtFFDcL5LlLLBtKYbxSu 1vSH6mKtziRBObgbVty9R6 SYHrItckRdCrY5Mft66uW0 FgTTW0mL5xMA4egRwvWKCg BSx7a5mxBNXqe6yuSZIqky 7mxSCdAU2brNPtw1KdtZ47 eIYsUlJ3PviGEFhcEC6thM VeJIOdjjqmjMLhmMM0UARf AGavJLRlNnBrCP9GJnTMpB Jqp6wpKZSfe00dSKGskzYV pu1jwKseRxjlMLFtggn+XH 5cflx+RC1jidb+EV2iwgf+ OA2ypyUVNnYaZS1aPJwuHi LRf73nAEOapEGzqTZkOEMa clx+XV5ezlt+CB9krwn+XH 5cflx+SO1nwtl+UGVydGlu AZ17RT3fA5K8jPXufoaxLn 8pLRHmc5EjKBjsxCgqxgYd VGQbB1QkPQPomeV6aGMbKj 6dxJ12hP4uUXusauTkZlHK TFQzLCBJREgxLCBJREgyLC ODWT1hFWSluehgcVTxhDC8 MlxwYXIgUGxlYXNlIHNlZS OuW6UwxaRgW2M1zERceBOi JX4wh1oonm4qiTTxQJFgeO 9viDWjd9EwB76yqLlcgMAr enAuiKo4foIkerCxfN84YF UpjsS4FPExl70lXVraPrGe P6jqEsZtrGDbKLylJQKitz DySRRcSQoen5KtamUzBM5v hA5kXDJiZ6iwzdxrFP4hJW s0nD41R9weWt8iUPEcYUJo n6yydSJmlnIgjGPydZpruL tct5KrzAg5jFQnCRnquTje WI3nAGQmb0YfLJCqXAXfYC 1avRNbtIBahLIdDC7oUEUr ZmluaXRpdmUgZXZpZGVuY2 Oma9ChgU29b5g4AA6udcBd AiuwWMTqDJ2cbFCpwBqyJC Tyz5Zcq6JvxEEcpNXrdyVz ZbexUAHdbfL6hSXsJ7Xser BxnWPkCS4cnRIiFQ51fIIf PXJvc5KvQxasGOY1nE9nz6 stCWNvTGN6Q3zoLNTdbZ8s IUA2hH49itfroeb0SY0cig 3iyKGopPRlf85ieNBhHCHh V5fadmDcICMbDLCwwNcmsI 46aL2zNNQaWTC8KRYgJQSv dAQleP9kqH8lVDSwdgWjmC qpjaMtq1wanQjaMRMoEEJs bA7gK3RsfLiwXTnyfJDbDJ EeIZKpxU2tN6FhBIEykqKp lYZ3gS7aBXHwDESnkC9wMH Ujq1pij9wufQNlfZUljbSi l49zDE5uKBRxYVYlek7= DIAGNOSIS (test code = g9rszZOhBCCcu7hzTECqhR 3220) FuZzEwMzNcZnRuYmpcdWMx IHtccnRmMVxlcGljOTYwMl bszcFzFAQefBVxR4Aslcic DUrzES8gHW9oyOitmNUypO DbEILxJoRvx0tco829uXWt o8gcDVUGikxroDf2aYtgA1 2zm6P4FkmaC87xeFWiMFV1 QMCyQXUyrEPwZCDcOFY5YP VgbCMfF7slCZYsDH2uycgq MPrvYLtmSIOiwPC1NZDnfE BaZ9HtKRSoUDvfQNQmqld9 AjAyTs5twKXvjVuwCVehYT FgPTXcZCuwPGMhKfYqUl8O GDRVSORZW3unXTTQQTRHZH TiMDHBH8QoVYIQIJJJQFOR JKQPJtbGOJINBV0ZZ1c3CV BhciAtIFZBUklBQkxZIEhZ NL5EVWgFVKjDCzQfSTAwRJ CjTEBDDWRMI0zwGo5PGCAU NWJTBKHELF3FMYNSID6OBR LATExRJfBFV6PgWUAWNBAS NZ2THEGOX9kpDJToYSWPPw lQKXQGNQGxZAADU3AZF17S KaOOHVQHFKnTAiOeH8uGQq IkjNHmMX9cFPGNYBAONLZn GAMXReJTXI1NAPKapDNgOT 0gUEVORElORyBUSUEtMSBT QBHZHsenEZTtIECYYH2FXK 9QMVOORD3BUD5ZUPeEJQXH GEBFH9tYG4ODREThZ3DOOA sGM2cdOBNdREFROWXrS85Z TUVOVFxwYXJccGFyIFBFUk qXSYQSXBgrRirNG1G0DUMs dmKzJJFWZhWPYV2YMA1UNB wiAGJ3r5tccAOkSZOvhYLs ODAwMFxhbnNpXGRlZmxhbm yjSCZbWIO8kxBqIHMrDJqb GATuLFpzGp8gaGPuhBhtUs ViFRTai5sujuGLnvhbgJx9 l2pjLWBqAwK3xELzLEjyW4 roipYlaKOpGVCmLFa0mH68 LQUexJ9znNPaYRqbpuKeNi I8INdeXNMdVkA0NLVgcSKh MOXhA2rhEEYzDHfqDTXmJP hgfFHxGGG9aPqyv9G1oAUk aGVldHtcZjBcZnMyMiBOb3 WwGEc7nJbiI2CgNIJgMuZ9 bHQgUGFyYWdyYXBoIEZvbn A4eA89WGefejS7cZMax7Yt q14zu759wD4qlLBpTZM6TD FtTYLtxFHsBXRuYOM6LPGr dYLpB3rjFNVyFV0oobnzNH oySBddISWazMB6ESTfgDNz H8PiZAJdAZdmMTHwksk2Zu RtWd6idJFlsTacQWkuy2iq p4nyqHFhKig5NVVyLoGsZg ezSXnxc2Qdn1swEOGfnl8w JRO3mEJmkMhrz3M4eQJhBR NmsOMfZUXeGJ2xpAPgZMPv jX2bhiqqXWVzAiAmwzemBB BzaZbjpvFeNa7rpAzvEZZ1 IFwlK5kawA4pMuI0OQcsI9 qnqL4fBDu9UBviQBLymQT7 asX9ZBGhyKImF1XjkG5rKG JzXY1hdsk6m4qxWCY3APhy RWOgOrI5ywX7HFJwpGKyOH OhgOyuQJsxp126YUK5SzRj JORax7YjB0WfzQuxH71ijK zeB67yQYLkiGsofK9hdUvg bW9pZjVgYwCoDLwpsPgkBM 5fLUOxN0renDSkUSHvYIKx Q8pvXsIwmI5coBhaQRglrq LvWDDxXih7KWPzuGPsUWCd Yjs5MXHpQPTnS53sckavVB A2vC8yz2cwf8TyCNtuZHR9 KXEpi87yHRqhriI3WBljEg 34DEmuHII0TOruPID6pF== COMMENT (test code = x3fffHRgPTUdhYD3KgUdOU 3289) Ock0nmz9VshSTlgGGrWKjw uBQdvdQxaj47fKW8yN28WA 4rXPLlPbQ6VDFdeeQ4Ifo9 LJJmWFMrnTXoA787b3qdy3 llmnMpkQU0HMHiSWGdE8Fi VC8wSDLzgZSfF0mcBEBfEL ZaM3TiYQ1eWUXzReq4KEN4 UOp0VDHokYRjzbKfTwWpGQ FyfSDwyCL9QZKlAZ4shhni BJpzTNlhIBQcgpM2OIZwqG GtN3CyIFCyJK2kvtlxUCX6 FZxlQMRoUHD3ZlYcZBPrx3 Qrgcr8BdIlfQToEPzbrQFn blxmczIwIEJvbmUgbWFycm 42RWG5HKo5RORip89kDPBl s01hxNJfuXPtJOKntoRjpQ ZomQgiyNrhu6YorTx0hZIr KW8ccqMaonNid4RqEMeiQD oflEgplIM7bVLcuzuiaPRh xQoaTCVfEFTmKE9kiA3jj2 mfp3fnBBRnDZBlXNY3WLKy gAT3VIBsGNL9mHdpi0mmBP AzVDD4krXxduGnBL7kKJVp I59wDkpiMR78WPG4u6NpWQ NpYSBvciBpbmNyZWFzZWQg Iohun5KuIZTaMJ8dTJxrNb FuY5tkLwDkeILzMYoyDFZv itZzl6NmxfBlihieRmovkh WueBGjfQC2ndzeg9G8EHpl DYiqxCCfsSG8FLCVUhYrRT Q6EJOeM1hiUbPajZUxYBWv vC05gtPiebFpa85hrGngmB MgQiBjZWxsIHBvcHVsYXRp e13oOACaJROhFO80GSRtV2 ZfzSHdz1E9pHJ8gR3lUGRe ciBpbmNyZWFzZSBpbiBpbW 43uj9kmNFbg7Q4hKpfPO47 RLwkFekvj8BiVvTQlHCeV1 UkNIFzZ2GmIA7hOU8TRvCj Z5EoSQVxI9YfPNRgPK24EO snxXRkGTeul9McGZGsGWhj DkUpD6bpNoAdmJWmoBJhYn vmCDOwPZEeDLWmHL6sn2Vp VRClOFBvdTW4vVQvmlPzmS RqfOOvEyWSku5uJB5sUYwh UB4kWCEcKBQlqTHbDR33uK rhgTBoSKzjMa2uJ78dsxVy HYEvl09esHmjMWOgemQrdr enq0L6MQkiguWwyrOkSBC8 qXNxBBFbq9IvIrctPFnniT 37YXVaduE7BMVjv69jUXJe xtwmLAEqJVtuDLUrq9GbhR Fuu0CtKOYax05ilV4nK1C1 IBRwhE0kPSOpJDJgREknUF 8kVIvwQiSyYnAhKMKfsd4= CPT Code(s) (test code w9pnzUIaHGQebPI7OoZnKP = 3357) Zgu7gsi2UeuYQsxFQyVKxa gVZftfRxtj47rWS9wW36RT 4dBATqKeM1QFEhlhD1Zuc8 CBKwQTCzbZVoS483q9zpi0 tqrgSooFF9lCjdIAIimujd SwW3DQfyRYDjkeytVLy0IY tpLMMwaEO6VGIspHFpY5Wc VMYuUJ2dwkz8EVW7WHdiBO QwTqD9ZJBovZCnDWKmmDtq NWzmf847JKT0OqJeXPUvtl YfwGlutI8lLgDmMuY4QLY0 XPeuUVUyXPy4DKu4EzM9IL xiSffaPIutQBU4FZb8AvRz KsH0RSE1JnljXZbxSYMplR lccGFyfQ== CLINICAL HISTORY (test e7vchFFyTUUlhTT1QjTdSV code = 3356) Vib5bww2SznAMbnKYrMCto jSMclfKgsx46mUE7fX36JV 1kOEVuWbJ4GYUdouB4Yas2 ZXYuQZPgyKHgA169r2sah2 mbhvZiqDN7HIGvDZYrG3If YS9eQTBlkEDmQ2mcVEFsYF RnB9QmIX4hJRSiAru7HVT8 GCw1WOBxnFOumzLpNjUiSZ JmiVZvnQX9ZGSvJL4tvnfn CDwkVKeoIQVznnW1MYHbiH MgZ5FmJFQqPZ6plskmJAM0 ENdgNSJwEVA1SrUaLLRuw9 Tbsdc2DcQmcMZxCWorsXAu blxmczIwXGNmMVxjaGNicG J7UiIIdYTjqXYeF0o1z8Et bmlhLCBhbmVtaWFccGFyfQ == SPECIMEN SOURCE (test t8wnePWwWIYohET4LkHjHQ code = 3377) Plc3cxo5KpuRRtgCSaYDhi pDYfbcWljm80eID8sA53XS 6gASYlGpT7CNAglqY8Pvy8 DPOcEVYbtLHbS991w7jnw3 hsamWzaPE2tWuhCGHmyaso QgS0ODnoJWBraqlvNFb0KN liERJkgCB9ZUIstRHwY5Dw RBFqVH0qxxi9LRE4WQaqTP JkMqH9QVTyaZScEICdjEcl XHecd107VLQ4RrZyXDZzsd MivKdczY8aHkNjXQYMo15l PZ5zeeJkltOqr5JmmdN8UB zrQ1ntbLUwphFxE22qKLXo tD6gd8zjcQPrpU== GROSS DESCRIPTION (test j2daiWFiFKPeeCA8GfDvLW code = 7131923563) Loi9ljq9UkmLBccLNzXRct fPAemzPudp68xGH3zC46NR 9jWYTqBgG2YXXizmU4Bsj0 SBQwHBMgsAYnD296r9bdl4 fjcfCbfYZ4WTNsCEOqX4Vt QE3jVKTxaUEqY86mdWFoQQ C2OTQbHEHnaNTcYLPjGRD9 HUUlxBVhU1nnVCIbVK2bxt uwJFuuUReuMYOnqYR9UBDb aMOlQ8KnOPJfVZdrVCUdpd q6JrLeCx0ffPElsRjvUVnv WWVvn0qnGCHukBQdWSL7HJ thvZPoCQBvDWVcCDk0IYAw ITmrsGYhYE2joVuiCjxjmH siu0RioJQfIUgkPCPfGYOe GWjcTZBlN5MXDHQfTkc5TU F9TCHbRIq5ZQvpP3ICHMQe HAT4UroxWWU7MrN2SEk5WQ YSMz0aEVbdXIeaTNQzBII0 MjIwIFxcdCAyIFxcZmwgXF lxUMHybULjCCkxntX4TJKc RNfxYSImTxHjXQ0fKy8zCE PYBSSjs7cePSJgwxmshmTk OVGqMLXaxKSzwR0wzlFyug ByZWNlaXZlZCBpbiAzIHBh cnRzLCBhbGwgbGFiZWxlZC L2fARxPHPcWLGnOVTgND75 B4ZdhlCoTGaijVIwtTWxoH ByZWNvcmQgbnVtYmVyLCBh ukTfACVlSREumS9lQO69rU Qfvz4mcHvlAZKLpFSzwG0y fdInFOUomzSln3DuAG3iJE NldmVyYWwgYXNwaXJhdGUg c55fTRSvZGPckwGynOWreu djLTK0gsA3QIwdOHVwd4lq QHGlCm7pWPsrn99sl8UusZ 5og2dmaSrzc2MbwJGgYEcu TCJtgCInSGzafV2vQlNke4 sodGe4KLzeigS5LEVpmc78 ZCzyWHPoP1OyW7RdGCozFJ S3LANaGaVsFYYjAA6PXuPy CUH9CIHhMRVrAGw4RFj1RY 6DPrXdRXXcBEM0TdN0DYTv QKq2UGmcII2FMDJ6Cfg4JC x1TJF7ERDzMLMxTVLpAdWy XGZsIFxcZiBBcmlhbCBcXG 5jfVxmczIwIEIuIFUuXHBh clxmczIwXGNmMSBTcGVjaW 3dqtWXGBTztgBum3VuUY9u PJSsOwwmc7QuJ6ljjFGmXG CpsUXkmvblFU4eVKsqPY30 LJaaEX91CSFzRuRvKCeyER ElQMLktQXoJUrgDMBqo5Kx zKHcKXAyREXvaRKdcCP6MT MdRH14hTQpmQjigE0eR8Ye a4E7lQDwFySgJVGxejhtfu OlOMJqBSeqDISdJ7FpQ6Oi nkTkjNCeLUXugpTkq0doLG Y5ORHnkQBdmDZpGbLzVkfv LJT6x4qxBMDyuPCbAVR6YQ xcaWQgNTEwMDIgXFxkYiBP XsZfUsNwBnY0Wgi8NiE7WS w8UQKNGfSiKmShSwcwCCV9 QkucCTx7QXh5KHyVFvF4XV G8SVS7LXQqKKTxSiFmVVi0 IDIgXFxmbCBcXGYgQXJpYW deJEtmA91bZqQtLHFYJjFH LlxwYXJcZnMyMFxjZjEgUm KsSYk5HMTlqG4uLi0mjUQi pZ1emPLbTKV7UY0imxFyIU MlfeUpY63bZXKfASPvgYGt aqhgHv61QQIrDTpqALugxi x8hSBzdREloQE4XMOwYL07 vJMpeUkepI4eKuZcWo5yFY XzF8SxN2kjjYLpiWwazc8l cGFyXHBhclxmczIyXGNmMC QOUN9nLEQBrZI9JUQcMNDP OLDbl4cdY5xdmsDnvRSpbw P5JCTvkZTcAOD5MK7wxIsy ACPuN4RyW3RydhX4LEGrlz 0= MICROSCOPIC DESCRIPTION x4ivzVJjITHvbIV5EuDjNB (test code = 3371) Jar1jwn4NrxVDewODtFXxv bMWkdvWrxh79ySQ8hE35GY 1rWDSfVzB2DLKtquW6Ani2 YDVvCWUqzIOhO831f7qej4 zfrqHmaUD2GVSeQIMjS3Zv QE7kNJTnmWYrS0mwPNDmWX YjA2DcOS0hKMOsCvw7VGC0 HHc7JVQjqZSitjFeGxXkVG NsfZTkuJK0KSChMS2tqoaq FQcqTGfcFSZiudX4CQZlfV LhR0AgKFBbYB6vfykfDNG7 FPmyYKVuATR5HlMiYQJln9 Yhtid4TgBwcUCpPTitsBQk blxmczIyIEJPTkUgTUFSUk 9XIEFTUElSQVRFOlxwYXIg UVVBTElUWTpccGFyIEFzcG lyYXRlLSAgQWRlcXVhdGVc cGFyIFRvdWNoIGltcHJpbn OfGWJpKCV8BNHrJRMvojgk FBCsXTTJZw4QOYRESvCEUv JAAQrCVWFYV3EKAAcgAdMe XlYyAC0mDUPopQfkDAHqrH 60HHU7DHAfEWzoDLBcTE2x RSHfXUNwIUV7gpBthRUeTB RoIJWvPMMBzk0kfDOij7I7 dGVzIFxwYXIgMTkuMCAgJS IFgYAmh7T5cNSoD93lnXSy zORji3N7oCRwLIrdPPSxIj ZaBONoFHUHNX8qit1XHIby NH85YXHlR0JgrdJfe8K1lE LsDSgzMIYsGq9sHMLsWF1v vF6geRaxzEHiRN3eCQWzOU S4zqVfjqMuUJLakjWhVrLo FKZwEeIjh3FvkWhzDAJmQY PrjdPnfIQer7LlCEgrBPGa PtLrYCQwLCDNkir8oIBshH OooZWmJ9Oww97uvxEucXMa LKR7MrHfGZGlZTzjnGwpF7 j3HBLpCQFthlMdLqRyPTTc QB6oc1I8pRMhVSQnraKfZk AyDOMeDDpfa83uTIZobBqr UFLuxvxfHKOiYOjdhW6nSI jbQTP5gXmdu1vaOMJdhGbz VfZfPS39QaJVf3WwOWekbB XjNOHgVGY8sqldGl67ZJfw T2GxDSFbNMopCHSukAUzYT NoxNTrdr9me3apu9ozCuTF IGN6MCPzhIR7LWQzJP2vRH TtqDXqVHQnNV6nfHVrBBQb p56ubLNpWQIwLGMnSYHuDE AgICAgICAgICAgICAgICAg ICAgICAgXHBhciBNeWVsb3 YihLIzhYE5SF0ywCUyuBEy HMG3ROPklZN5MWDxo3n9tN Rrl26jrPK7POJdWMA2zoN6 aI0gKOEmY1Qtp7ehadVrAG 0jW2Hkm1KgHRB1p7zoPRUg QS6rLTExEDRbQEKtFBCrAN AgICAgICAgICAgICAgICAg ICAgICAgICBccGFyXHBhci VEVYwqw1OtdE4vcSMtbzfz WZKjSJUtnySoTU0dMQWvgS UqgdD7ytVbgPZpb0PvnSHy cGFyXHBhciBTdGFpbmFibG UgaXJvbiBpcyBhZGVxdWF0 ZSBiYXNlZCBvbiBhbiBpcm 8eFUZ1GWxhDJLfppOaju7t EFQgmwP9qPDiARFesCAjxW Kwb24oTSRfAXPsWSKcXGPe VMYddnRtlW3gEYAtUHGqf0 VoOKZ1kwOtHYWmtBcghOUk LiBccGFyXHBhciAgICAgIC AgICAgICAgICAgICAgICAg ICAgICAgICAgICAgICAgIC AgICAgICAgICAgICAgICAg ICAgICAgICAgICAgICAgIC RqRNDePQTgOKneVXPpAs0Q SGOPXPBYW4ouGmsDRVXSBi yhTSCiTkgmlIS1YDXROKLo zBU5WRjrUMEvU6ogvX2uRF RlcXVhdGVccGFyXHBhciBW SXTrCATzhAHqcBTyS6PdlD BlUWRyIh6jGDEcWHWcMOOj EDLgWTqmYQQwV1BusPDcKU AfD38ltL8jaIJkr38hn0xe rZbawqE8paHnp0LymyD0XS XapAWekwCeVI8oUIWocFWy KCppaUNbjcFcFfMIiik7oA XmxS8uHGMbsbSiugAoyFdb xA8jn7msr2wbQHPyVYXtl2 6ouRB3LC4tMEQtGAfnkyhp W6l8WFMfJQZiVYAsHBJcky Tlv1b3cOTtozExWNeoJFWd tlBmAQTbJLPlNRRvi3BddF 8he3u8AbIzA3TiRSRzC2Yj XCRlJWDjkYUuZRygu9JchQ 4epZ1fuJjixC3wmYBkqJFf sSZzeTWcivRpy1f0nZDglK Rys6WxiPY9EEYfm563qf4q OAWmHEWsPDInf5DnASXaDC OVLzAgxLoowJwkM8w0orZx RWZmXAYhIKR5rz0iSXI9lL vgx3ciZRMgUOX1pjTsobKv GOWrHMSoy1s0eATaUS4wFE HzL2SahKMacK5vOM0pQPEQ IOM2BkYWADUnGEnqT8rmdI hvdRBfcSQeZEsyavssY9x9 IPKxSABiK0VlbXZkLUZcWB 1pbGRseSBpbmNyZWFzZWQg QIUqbUzgwWqxQ3k4XBFhq7 7oD5RzRKE9SYeiUgXHOTEy JAC5UAqtMQnllBumBqCdc9 OeKAKfCEPwm0AwHcRxvIbg uqHefkSmzVP1qE1yAV4kHG IoLSBPLQDmbJbqItBUE2R9 dGVyZWQgXGNmMFxjaGNicG S0SYZCOMCkUkOQKZBugEhp NAIwZTWuj7ScZD1kV1YnKf grIHBsYXNtYSBjZWxscyBh qfCdj8LqrPKqocRnLAkecX Xnw2DojBgxwJz1CRxgbPsp Qk09gCFzFZUrMKQjixAvmZ JvTtQcJVW0StPehWUfoIJp e8IkqM1zdAFiVRBrDCGhGP AgICAgICAgICAgICAgICAg ICAgICAgICAgXHBhciBCb2 09BUXbZPRdB7EmJAN5OLYM lhKmwISfz9IlzHHanKOvZH BhciBTdGFpbmFibGUgaXJv rrZgcyEtNGEfeRN5BKSwET UyVIVlleUkgjWhdl1zCIC5 AWsgLMRzheGivs8bCBHrlm E4oYDiK0yzkSExTPG5pO4m LiAgXHBhclxwYXJccGFyIF XPNsjGBKZRJFzrXymOI1T3 XHBhclxwYXIgUkJDczpcdG TtBS8lpg3wC9ocp22eFsLk b6Hlp5Z6wZolDRBsRN8xUE D2gRTeu0D4IBOvR42jLfhp PJ02LBVnrHOmtZ4we2hmi6 F7jY9fmTMbvNLfALLsVMSi ICAgICAgICAgICAgICAgIC AgICAgICAgICAgXHBhciBX FaYhFcZIPKMlf1LjycytEB xjfCtzrcW4eZXacHPzrRFx HK0oMTZoeaU8aUI6gL9oWN MwXME0roOuOJTcJIHiIFEg ICAgICAgICAgICAgXHBhci AgICAgICAgICAgICAgICAg ICAgICAgICAgICAgICAgIF xwYXIgUGxhdGVsZXRzOiBE JQWmVFFzPNGyp2c1vXD5ly JcxUEfq9UopISlpA5fgQce fH9bxSlskl6vL9s1xNIhzq roc7Shd6R6MNrvnOXyb97w cGFyfQ== SPECIAL STUDIES (test x5medSFgWSMpnPR4YtNuAT code = 3376) Xpe4jph9UvzQSyaMYhEErj iJNdyhXrgs53lMY1iW24BY 5zPPSgTxR6QAFhnrA0Fti6 SATuDODvpLDaY347XHFwFY TsqJyzwrp5yZ04ISAqwD3k dGJsIDtccmVkMFxncmVlbj DaRri1CSN0xHwsISLikwrt NoU0YChgJBFivhsvSWm8YW kxZLGoyEE7FZHplQOuD7Kd VOWwMB6smzx0BZS2KQkmTG SfYtD0WQSidHQzNJCjnUrk JEmnw600UMM8IrPlBCLrsd YwdGibnD8eMaYyDsNuMinx ZjEgVGhlIGludGVycHJldG W6sA7jUL0pUJQygOZkS0Tc VEFnbqRxiCCtWKJ5kPUanO LuWA3dNJkjjNYiu5duf5Aq K5pvwMlyzYW1UH2pLETgZH XbIBsan9GodD5uRasfTPLq JaH3JEwxg85wzTKiJABfWr BDRDMsIENEMjAsIENEMTM4 YJMBONL4GNHPOCOyHkpmD1 K1SYgtFB7hHHQuGINzceyh V1JawMVeSFlcnDPgXYymGY VpfVFaJTZbsyUhq6dhK8yz EIMuRCP7HB4xuwDxDxOqTC 7joI86e0Xfo31wb32ezJ1a dAWrntGgM47xqBTpkEUzg0 QjEQFdfcNjkBR4TZTgTJcp xfjrp3h6wUN3tSEqzVGluH V4fGZxpHWyGKOWzTBwTZZk c070vs0hZHMmbZXobkNrrY 5lUYzfpvybcVDdOE3pVXEq GKZyUOQzWM39esLyOO0zwX Kdq6iwcqLwxWFog4CrqIX9 RZKstPAozetnHs0uXU92GV VnCCzudL0xtVUhcuHcRN4i YL9aU4B5fLJzWZWvhoFor5 qkKExvYV2yRLVagXzaTsah EVQeTUXzqsMstOF9WUDtmZ QwMDEkyKBdKXcrfRPwj1dd o9RxF1dvqLiqsIZ7YMUiY0 ycfJKwyWS5IAB4nZ6fRDhk iuIjNTRvg7NeTXVpBLDlGn Y7aA8pFRN6ViSLqMbeYJP6 ZpM8YCzvHOFgSR9yNAxoUJ hxJ9IuwNVqYBVOIADdv9cf T2xpFDGiq0BdzF4dgXF7hS UsBPRplST8LFJbOUF7XJyk cGVkIGFuZCBpdHMgcGVyZm 5cwOYsJ2IpM5pnrdMlkHRv eAL0oNRaUQdzecVeMCJ9NC VjgQ9lWA6tKBPhgPBzHD8p dCBiZWVuIGNsZWFyZWQgb3 NaEMBkiq83UZQvOunmtNtj OYVuUe9zFo9rCVLxlxXxOC W3WkUCUL4hsiljlABekKmw gj4yAUibLGNPKGDcEKDzAE W8TGMnaC5xQOM6bGS2RAP7 J9cyW9cyCJEsysDrNX3mGP UthNVoadBqUBfqYP2kxFTn XFXkb1CdsajvGJNgEYI0MZ J6DZnfLONmCOJzAq3wWFMd vX0cL0TuBMK2ocEiz7GpCq SYcLLhmM28zXFnec18HNUc OVGvZ6VzXJLnNUYtQUvjob HohKnqWPYqx64keARtgkZy d1IadcGjIWZrM4vsTTRksY KrxBZil6ZdlR4jjZMagxMw QYK8jNOoDEPyvJ6wAWDpoI mkJSNfxE8wD9CvWGncXw5k ETLmijvvQX3ikf62IN5zjn JeAP4ercFrNF22xhTpYbGw ZLz4FQoJFOkBTRe3GBKjvl DbxYFfkBAbOONdrC4cnKBs Zx8vtOWigOxwAGWqkAPoZM kavZobJ8ibstlwFKltfFOm w9BsjC5ffYC7UAN7bT6aJp xwYXJ9 Gross assessment was [facility] performed at ([facility], = 2777) Department of Pathology, [address] [place] [address], Technical component was [facility] performed at ([facility], = 2778) Department of Pathology, [address] [place] [id number], Professional component [facility] was performed at ([facility], code = 2779) Department of Pathology, [address] [place], [place] [id number], [id number] 14:46:50 Test Item Value Reference Range Interpretation Comments Case Report (test code Bone Marrow Pathology = 104) Report Case: [id number] Authorizing Provider: Cheryl Daniels Collected: 04/03/2022 02:50 PM Ordering Location: [address] Received: 04/03/2022 03:29 PM Service Pathologist: Aisha Mcmahon MD Specimens: A) - Bone Marrow B) - C) - ADDENDUM (test code = [id number] 3381) Anf0ceu4LagYWckVEkHYyo gFNzalIjfv90vQA7tP46CS 9nVLSzXdI3FMHtooF2Gss1 WEBbGGRnyHOnL718f4ptq1 zpqeAcyCK0BDLfOQPuC1Jp NR1qXUDruKAzL6kiPQSpTS TkW1GoUX6cAKEdFuy8MUO2 CTy8EMExsAShpmRlBbVdSY XugZTjbBB9FCFgZW8mhuoe CGrcDGjlZSUiyhQ9EAChfE WdG3ZmGBXcFP5cwxryRLK6 NZxwQMXpAGW2VyHhNQFgs2 Vmkqk4FjTffIBoVFiemXXj blxmczIwXGNmMSBSZWFzb2 7nIg0pRCDlWYNbVKMwMaVN pwQfUXHiuwYuujGpuRy7rp BvZiBhZGRpdGlvbmFsIGlt nNFxf6E5HBaxpuHdzhJxM3 r5t4mqsfZ9gNUmd0O0MTwm us6jhFRdKEInkjVRNDYjQW NwxBPagtPvtX01ejTfW3N6 tDEdBDYiBHnFAWHcu3b3xF MqNFOxA5XakWPoa1m9gPLe TGEgTKZxDOawFMNikVV9QH QuYu9ryDW1kN3qIcxxUYTx qHTdKAYvX2FePVGuUZexUa 3vPE7cNijgIVTrwgLyi0L0 JRWhApukSoZoG1Qfe59aX0 OgJFD8pK2uFR2bvFhrIARj ARi0x1dkXVPpz2smVLAyhh 1xiMIcQO6txQVvj3GhlV14 gYXfOxO5UjeUPQfxIA0ptT KaGOJkepcrmTGntLM0YAQu IRoyLTXvKjYqVZ3MXaFOiT Wpd3vsEFJcw83bPOTvptLU sw7ilPutHqpfBRJinwj+XH 5cflx+AD9rlrn+HS4opoz+ SB4tlaFSXvHvZF1fGUsiPv EXu49uBAXahXBalRCuHNMz clx+XI9jqla+KK3zuxa+XH 5cflx+WW9aqzc+UGVydGlu NY54XX7wZ0W5kBDqucrdAz 4tOYClj1WgCDthpMwynqTo SKGnW3RrJTUxysE8gGLqLq 6ssS78fO9yHShabuNrTcUX TFQzLCBJREgxLCBJREgyLC FSCX3fKWDufmzuaRPhvON9 MlxwYXIgUGxlYXNlIHNlZS EiZ3BxniXeL3O6pCLjhNIu GG6fd2cujy2nbZEwGZOqdR 0fcKWuu2ZcY67ugUsqjHIv nwGbtOh5imToweGspO70QE BrvcE1ONIuj24hZLejGqIs T0rtSfXpxEGtEVguAJYvcf MvDYPuIOktx2XbmgAmJA0r rU4wUFSlA5tehfgbDF2iZS p6vU43P3unPz5lISErUTLz z3vphTBdpaGpbZQblRogvF jhw1RyfQp9nADmSEpvfKse OS2wWCDkq0QgEWWwXMDwIQ 4rbZMhtROvsVSyDK6aSANe ZmluaXRpdmUgZXZpZGVuY2 Umu1KurG50p8p8XI9foaQo FpkjGKOcBC1mrFZjwRfiWZ Pcb2Nbk0PwxCBzmSAzvvYu XmojGMNpuhV3lBOhX5Rgwa TxcXKqXU5kwYNpNG00rGYw DJIgp3QwJkslWQD6wQ1zw8 ucXLVdYOZ3Q3coYYWnxX4z XNN9aV98letpzmg2YQ9ixz 3lsPDfkJUgh67axBIyBKRe C9kqqfNrGIGhQEMotAzqzB 05pQ3jPRPsWFZ1MPQxCWUi cLTdrI3hxI0zMAXasaIyuM bdljMjw7zvyIiaXHDuMJMj pR0sO2MfpUsgLXxrkOYnBC MvSVXieR5dT8HqGOBkibJt jLH3yK0zUJEaRIIaqB9kVI Ehp8wfw3uzfSSuiTKmrcEy q23mMH4aBKPeARIzjt2= DIAGNOSIS (test code = m3lkmRIvFGLra2wyYLSygF 3220) FuZzEwMzNcZnRuYmpcdWMx IHtccnRmMVxlcGljOTYwMl docmBtHVQvoFRzD8Maugji UIjkCR9cNW1kmAqhyJNdgM WeEVVuXqNqk9uwu902tVIk p8wjVDPLpbgttQl8gTqhN2 0ko2L8HwmuS35mwOVpOPA8 JPHgRBJwgTJaVSUwIBD1RM TphPBtV1idHCTnBO4lizfb UGojXJnoEGUjlDE7SOLjwG PgG5GtPZTmHUvfCNFlzql2 RcLlZx3frYFniNttNPhmDH KsQZRpKQyaBJZwSxQmQh3N NVOKAZUXS9xuSJQEXIWCQE FyCHTIP7QcEIBACCXYMWRY RXGINnsYZFCVRB5VV5v1IX BhciAtIFZBUklBQkxZIEhZ XL9QRPqRORjEHrJiQTCsIT YcWJEODLNVQ0ogNc6FWYXP TSPLBTVTBP8JLGDXLQ2GKG XZPUlEAyIYY5XxAQUWFXHK JR4EZERGU0emYMWeEOHRVc dDFOGQVEVjLWAQH1SPI86N MnSJICPULKwONwBmW5aVNl MlhBQaQZ4aDPXMQWBKVOEe PMWAHsYQNQ5BBZQwtSVfPY 0gUEVORElORyBUSUEtMSBT DGLIAklkGMKrIGMUGN4XHD 6PQRCTTL8IDT0UCPeZTOHC STIRL8yDQ3MFYIUbX4GHAF hRL2gbPGNnTLXDXHAfH12K TUVOVFxwYXJccGFyIFBFUk zGKXQDBTmvYreVR0M1LWTt aaObTGQONxHJTJ4ZIR5JRJ ihSTD4s5fuoPIkTMJlxMAg ODAwMFxhbnNpXGRlZmxhbm gxFAQiLKS6jlQhPFAqSEdv WAMtBPjcFh7djUMkmKziIk TnSYSzr9qkerTVplwdnBs0 l2zwUZLrAjZ2dYVzRJqtC2 gvjqIfeYSnVSGuSOh0kM75 OUGejQ8pcWYcUZknylDuQw Q1DAjsXZLkAeH6VIMqtXKe GDRrN0fbZYZvHBhpCCNwTU lutKYaIAQ9bHnrr8Y8eUFv aGVldHtcZjBcZnMyMiBOb3 QnPLd7xQryK9BiVPBhYgM0 bHQgUGFyYWdyYXBoIEZvbn H8zY65WYikarW0oTZkk5Ts x53kr179oC7zeLTfUOE8ES YtLGBgkKQmHDHgPAZ8RZYu bFOdX3ncFXLpQW9jpqbvVD exZSssYNWndRR5AUPygFQn F4HaPOUuUVssGEAqbsp4Kf UfGd7tqLMppQrmNYtsw8xo c2buiKJuSri7CVCrXgIoNh yeMKeef4Uju0njDZAzug0o LPL9yOPhyFwzx5I4dUKlXN FveUXfDIWqED3osKKbHDSv zL7urpchJKYeIqOgmxpqOS PyyJvjkbZzHs5xkBseYLG0 PLhhK1fbiO2qYiG4XYovF4 xrbB9fOFy0OHbqSYApaMR5 qeU3BZJeiMAkZ8UwoV2qOF HgOA0afid9l2gmZTG9XBcp YTFdMsL7qmR6GQEqnMIpCR YrqLzsLUpbf154CGV1DwYk ODNym8CzY6JwkYzvF81zlX whA54rKBEqvDpgfB4riWml xO5yJsRqWhPbVVztrMfhSG 3oFESxK1kzgSVaEZXaXJRp M8cmYkLgjK0ugJvxJZmbqz DnHFYrNnt7PIJfiGFfWTJx Buq8HWLwSDPvM28vdzpdUS N2kY2js9qkd7FxBUyjTKH0 UBPws18nPRcahgA6OHhfCx 36AElxIYT8WGtlCFY3jO== COMMENT (test code = p4vbaSTiXIUocPT3DpGvVD 2899) Owd0ndx3ChmVOpsXYyZZjz dUQvuzDcmr33wLY6yN99XS 5tNXWfBmR8DCZsedK5Woi9 NYEmURApeDGbL626b8hvp6 crssGfyFG3GTOgJIFwP6Ov NO4kKYLshVHtA7mgKLBuLW HjA6CmII7cDBRxQlv6ASE6 DVm6TOXcgVIegyOqQlLlQU SyoSNlbNF7TXPyWZ4furbo UXggBDzfMRHxdnX5QYEbdA ElO5FaUYLaPW1idxkcJPO4 GCltGHSnHQF6MlMnRLLxx7 Jiard8MaWlrJUnXNuerOGw blxmczIwIEJvbmUgbWFycm 76XPR3COy3GRQor09eJBVf k94cpPBngYLeMAIkskZefS UldNtiyTtwo9SmbYi0cKMj CU2zexBsalWdi9IsJNeiSO bdySckrTG5mFYnigufgCXw oJfdGKWdHSKmOI6isG2je6 ocy2hwNNRwFKKsOLE5VVPe qRJ0XGOuDKR3iUggy0zwBU HpWUO3lnAsyeTgKV1dOJDn Z24aYdkfZW81TQG1z3VgFK NpYSBvciBpbmNyZWFzZWQg Rbeta6BmAOPmRT1bADggVv OiB0npZoXzsKPrIBtiGQFn faCud9JdrzPjrvipVzylkl IqaWAhyRX6cyito7V2LLig QYlyjDFwtOW4LWGAOcCyTO P3ULMbG9hbWsEduQTrVQHt aX43aiWwfwZpa19jjJwwbG MgQiBjZWxsIHBvcHVsYXRp s94mZCKkULYrUX70NFZpR8 CqxRIqx0L6fYX5dE0eIXZi ciBpbmNyZWFzZSBpbiBpbW 82jz5pxUIfr3D8uUttOL88 OJryKnyiq8GuZjTQcWIkM0 DhPERqW7PiOG2fXQ1PWpAe L0DbMVNxP6HvBBZvMU22VU eyrYMxAVqfq1LfIETtQMwc LoLvP1zyCyUxfYBpdYMvVn jzNKGiZOEbSPNsPJ1gk8Jw NHWcCOFrwRZ1sJWdtaHcnY NevEPjUpVWgr1wDK9pWCxy QP1jSWSvGBKbqXMuGS66fH zymKOwZUrcTk2pB39lvcWz BKXkk42miBmfBKXknwOprg ydq2X1MSrwxiKtrbAeFJK2 zAFdIOZxj1AkWzpbUFxduG 59JLFwizQ2ERMdf59oSXDi ttwtOZLaQUkzOBYks7KoyZ Llz9TxSDNut32nhS6zA1A6 PTXtkF2sLGYkDAWxOGiaFL 9yWNtqUtWyIjAcPJHsok2= CPT Code(s) (test code j1lgjNEuMAWpiUR8RjKgCQ = 3357) Yfr0rwd6HclXOdxZJkXXhg tTOwpiMetr59kDM9qA96ID 1yLILkYrJ8SEOsznQ9Ren6 UEGcULUhuHImI116m6fre4 twaaWhmNQ8tTfwNTPgosaj OlE8USebQYJlamtvJLi8AI cfDCWmdDT8ASXvlHXiI7Ti WDJtBN7ymyi0BXC9RKcnEZ BkQuL7NIXcaASzPXHkyQfe THani107ANF5MpNgYQQilq DnqQlvhI2sAaWwSsH6BQR1 NDheDRSjOKq3KRb8AvV0TD qdAehuXMtoBJM2TSm4MxAq EcD4EOH1HbreKOrqJSKuyR lccGFyfQ== CLINICAL HISTORY (test m9ucbYCeQUPepGV9ZwRcCX code = 3356) Lyb6lbi4IgmANmuGShQFeq nSOnfyGxfx13kYS6qC47GY 5dBLLcSuF1WBQfznQ0Njc2 IKIgPPXgdMGqU656f2kpy2 xttoOsjTN0WLPeIDVfN0Bd SC2dVBYtqJWnG4byIWTuBE KlK8HvHS6sTMPmHns7SIU6 CJe7CIFeeMSkeeRyIaAyYN HlkPWxoGD2UWUzSH6bfzsc VZewSJgmVSBnioP4NWJxjC DpY7CrOLEmIY1mshqmYBK8 THszRKQaSMM1OfOiZGXil2 Ctugr1EzHvfOGxSRotdKBv blxmczIwXGNmMVxjaGNicG F5ZbZXnVWzmDHqY8z6b0Ur bmlhLCBhbmVtaWFccGFyfQ == SPECIMEN SOURCE (test e1votFZlLMZhlNK7QoLkRR code = 3377) Ntr4hlb6SigKJtfBHhALgm zJQqryVgcz53iXS6rV23RX 9bYLJtSkO1FEAfmcP2Duh2 GUMkRHKftOZcQ117m4ejs6 lmypFmcYQ2wEdlPHQomxam HbX6YRewKTXbcltaYOl5GW xaCLOjeJX2YCQloTFxY7Gz QERcQX9rrkp2OOY1IWqlCR PlLfT1WVZkqKNbVXBmpTqw IHdyo691EWS9KiRmDOKvsl ZnrYrxmJ1aUrJdXJLAi47h WY7ymyWjobPzu9VlxcQ8AV cbT2jefXWibaNsI61eMKBo zA4qd5ambNSpfM== GROSS DESCRIPTION (test f0nzmCGsBKMspLB4ZfGlQX code = [id number]) Maz4ije2QdcZAneNNlLNfh jWUdlfUzjj97cOW9cV42PS 9cUKTgClQ6QBJafkJ6Orx5 DCTgQFVbqEQeJ752i6tsk7 tvseIvgGC2BTTdJRSgJ2Gz DG7iWTHvnROjQ71fnQVoDT T7QDYkSRDekSAjONEkTTT6 DQDopEQnQ4cnNCNqVX4bny daSPkvZCweZUEiwGQ4VKWo tAAhN9YyHHRpNEbhQKXjgy c0DbTgQg9wiQSjdUcePZrg VPKtz4qlAGLxwDQzBTS6AA gcxVVaUGRoNYNsIQg4JXVp BFlyaREwWJ9wqUbwDomgtI oaj4DbsBLdEOnrKZPgBWAg NPwtEXEcC9RMCVJcCki8SD B1VGLxRNx4YWyiO0SDBQNw URS0DhhuAKU1FmZ2XYu4TP ZBYf6hOGfmSAohRKQoFMC8 MjIwIFxcdCAyIFxcZmwgXF zqRWWglJIaVNxkkvT7INNh TAraCRDsIoOeTM8yNa5bHN SWNXUmp4xeMLFqnmkpywMs PZQwQTTtkFKxnK4uskTfdt ByZWNlaXZlZCBpbiAzIHBh cnRzLCBhbGwgbGFiZWxlZC Y3cOMxXFVcDJEeZPInEA87 H8IglzMqOCzhhVAjqKTlbW ByZWNvcmQgbnVtYmVyLCBh bcLvUTBwSQKuiW2cXP11qZ Ukqm8lyGriHLGSbQGndR8s vlYxIPKvreDhl0UoPN0lSA NldmVyYWwgYXNwaXJhdGUg c09wIKNqVHYyyeWwrPKmni ssZJC4gmV2ZOozPZWcq0xr ABClWy0aVSmpq17oz9TdbE 6nb3ueeWzqt0HnmCMnMQay NXWquFGeUCldqZ2oSdApg7 wvqJt9NFsyyfL6VKOudx65 NNshSOYiO2LzJ1ScPMnlWX C5CMCeYnJxKRHvRX3BIxTf BCZ4QJEkWKRdEOz6VOx7QG 8ROzEtJXMgQGX4HdP7OXPk BYa0IAtkKB7IDTB7Upz3FA u5ZKF3ISQkZHMdNTMeSaFt XGZsIFxcZiBBcmlhbCBcXG 5jfVxmczIwIEIuIFUuXHBh clxmczIwXGNmMSBTcGVjaW 5nxsSXFLDevcHix8GgCR5r NMCnDduun9AxM3fklGOtBZ RlbVRlkkgePB9iCOveGH60 PZenDA26DVEqRjWlKPftFU WdHXDdiNKiGWthPTFcl0Nn iWMbKXQuNAShcXWmyMQ7XU QwDX77wVTvpHbyqF1nB3Ao d7U8xLQmHbYnBNLzexgkut VfYRRjKHahHXMuC6ZcJ2Ep tdPlhUObOAMlqiLvi0hkGK X9HDEtuIVsdTTpNlUbSxen MCM3d2opHCZfwDBkHHT9BU xcaWQgNTEwMDIgXFxkYiBP CjSrEjVfSgX0Giz1UmR5GU d2EEJWTzAySkHiHkhiVOO0 JbctPMy2EMd5KWvUDdM4HI X0CWB5ZHQiZLLdIbGiXXy9 IDIgXFxmbCBcXGYgQXJpYW gaUBjcQ91qLcAkTUFPBcOW LlxwYXJcZnMyMFxjZjEgUm EaMXo9WMMckB2wRf4yuOHe wX9fwWFxMRB4IY7aahHjCJ NcouWzX39cIBRbSAZzlBGq rokaRm24DZSuIAciALvsff w9lDXleTOisRG0FDNqLW91 vWOqxGgfjJ4zKcItXh7iLH ZvZ5FhN6tmvSSytXikxk0y cGFyXHBhclxmczIyXGNmMC QJKA4uSZLXjXO9YKCvNFGC IHKdv0ajY6xvypXbnFPjsz W0BELtwLQfPJL8ZR4teBtt JRRiL6JjH8PzdxC4AWWhap 0= MICROSCOPIC DESCRIPTION v0cbsJSoSDVuvBQ1IqKwXE (test code = 3371) Agg8ulk4TuoJDjhDKzNKrb jADumlScws20iDP5sA43XR 9aWCKvEnM3YSGqqdJ5Xht0 FPKbIIWguLEcJ151q7qwb6 qsvyXliAQ0BGVeDRZkR9Oy GT1vXOQwmJUkJ3jjUAYeLN TzG4WrEW2oJRZzDln8MAI4 UCh3LDOfhOPuzcJvOeOiZQ OumKNutPI7BDKvQM0ajbyh MWbqNCawVINpfhG4TYYaeP NiM1XoZXOaSK2uyukpYQN1 BKlkLHHfHXE7KcEnNSQcx4 Unarm6OgLtsQGwCFobnQPn blxmczIyIEJPTkUgTUFSUk 9XIEFTUElSQVRFOlxwYXIg UVVBTElUWTpccGFyIEFzcG lyYXRlLSAgQWRlcXVhdGVc cGFyIFRvdWNoIGltcHJpbn QsLMGnATJ8ZKDcCUCwrkhx SRAnRCKBHk9DNMZCZfWPBy OFHOgQAKMVQ5USCYdqJrRf TcKgIE3lNNPvaEeeFDBydH 66DJK7VMPpNLjiEALaBT8g CYOoOBYuBRO1gvLigATpEL QaBNEkAQWNrc4vfZYql5S5 dGVzIFxwYXIgMTkuMCAgJS XXrCBqg3Y0yFKjN82csYZu xMTmz7T5dCYrINenFUJdZj CbXGGdIBHWSB5xsp1WBZum GU94WBAjZ7MosuVgx1T5sW DaGVdeKTGuQp3uNURzBO0b xH1zcXpprABgSQ8pQFUvPE N0gmSeoeKcPOUtnrRoRfFi QWZpLpZrx6HsgAkjXEAaJI YinqOcgMByu6KcJWzxDOXy GdVsDRHpHPNQrlm2eROahS PmvUWoX2Dzx02kexDnmMFd SPI3BtKuTGUdAKwjmNngQ2 u9WNDqKRBswzMyGvKsMFLh EA1jt8U8jQOtDJEjynMcQp AfYRPxXJfrv90kCHMjrCvu PDGhqkneIEDbKFuksM0zJT vjRBO8zNanr7slXEYweXuo IeXaED65IuZFq0HdJShejL SjQVGeSWA8kijuEe93KPyn M4XxNPNfMTcrWCAyfOJfOB ScpZOyxz9vh1tak6xnInPV SHY7LBPgvMC9ZNByAT5lJK KmeGQtCEIbYW7pxWXtVZAn n36crQBpAKNoWNFoMZDcOW AgICAgICAgICAgICAgICAg ICAgICAgXHBhciBNeWVsb3 OvaMFztZG6GF5usWJyxLJa AVU4BTMtgTJ5TNCbq3h2xP Nkk94ojKU0PTQjIFZ4bxI4 bJ3fSXIpN0Yjl3fpbaCuWC 4zL9Mhj6FaRAK4y2prMBMt GD7wDQUiZVUmMGNgYYAcCR AgICAgICAgICAgICAgICAg ICAgICAgICBccGFyXHBhci QIQNlys6OnkC2mwTGjzmox HJZmTNFahtAfBG3xWNKwrD OabkH8nfDzvLGaj0ZbxAJf cGFyXHBhciBTdGFpbmFibG UgaXJvbiBpcyBhZGVxdWF0 ZSBiYXNlZCBvbiBhbiBpcm 9pFON4UPkwDFChukYqiz6t OFHhzbB6wLScDPTobBQwnS Fcp06iXSIuBVYaFUCjFDRs IQAymhBanU6rNTXwULNtl8 DrXJJ0msCrGLOmxJxlnDSg LiBccGFyXHBhciAgICAgIC AgICAgICAgICAgICAgICAg ICAgICAgICAgICAgICAgIC AgICAgICAgICAgICAgICAg ICAgICAgICAgICAgICAgIC SzFEDfXDZfEZscMJUjZy2U HLXKISLWR9fwGzeRLDBBZg nqMWCtSskifGB2DMZSFHZk qTB9FItqHTHuZ4kdmM7pDZ RlcXVhdGVccGFyXHBhciBW FTHuIEZhwHSccGCfV9AfgB EjQYNnAs5yMIYzPUQpTZZd GOAmAJymMYEgF8EsuTNuYF FnF44tcI8dkQYny64ma6ji cQqpgyG1wrAlx0XedyO6VC JnsFPnjnXiIJ5oIUBkuWWx RZxgsGUbxuHhFaOCwml6bJ XxtY4eFAKnkgJjkiYelEqg vZ9mz0oqm7fuUEFsHSQnz4 3awGS1UT1uQFIhYZxtaeau R8r3IHDiDRJvWUHaSMZgvf Bqk7k8kGGsfhNzTPajPISn wiUtZXYeGQPcQNBgg6JeaL 0pb6i1YpWfD5RrBOLyG3Jc GBPeGIVzqQApLFhou4HfsA 8xbR0pgXqusE1qtXWitPJp bIDixEGkwaFsv8f3wOQtkD Yfc9HvhCQ5ZQPuh554iu5l DTJkIFOmEVGih4YuZIMgVX LFTsBhbSrblVojZ3z5cvPi NDEiFOWeWNS9xn0yANF2fY gbb5jpEFBeJXT8diXxunLc SAXmNOLio7t6xAWlRF0gZX EeZ1XngNFesV1oYO3yVBSX FXT1VsXEEWOzQSdbY3fhuQ ufwLEkwFHmHDiodjacP7b6 JDPkXBJxO3FwnBBvGAXfUO 1pbGRseSBpbmNyZWFzZWQg TDSulCetsCziP5f4EBPwt0 6mC7XpZVP1LRzgNjJKQTNz TUB8RYeeMDvmwWvjFyQhw7 RhEYKzSJYfi3GlGlSuvFoj lkNjypHrnPW2gP2iTS6qGT ZoQFPMIAAprFiiLsOHF9W4 dGVyZWQgXGNmMFxjaGNicG Q6DKANPQGpInMYDLZejDtg LNUcBSXog0HmBJ8iH6RsTc grIHBsYXNtYSBjZWxscyBh uzJws6NgjHJaqdMjYKyjzY Yhe0HqkVrxcCk1IDtdtAwj Gn33fJFcQQJsSMPunnKvtS DkOiMaOBN1RuAatXKjxHQq g2LnhZ5qaCCmCCUeEMHpGR AgICAgICAgICAgICAgICAg ICAgICAgICAgXHBhciBCb2 83VQFfXJCpU6QkNZW1SZLT wxLgyCEyd9PfoMKwhYBxFU BhciBTdGFpbmFibGUgaXJv yhSqdmYjZMPpdJO1SWMgGL ZuIDNouyTutfVngl7vUKD4 HKhaJXJbycOloz5bGMDybj B5bXWnU2lcnKXpXIL2uU7g LiAgXHBhclxwYXJccGFyIF EJKwwMUEGRDGfmUqtTW0D3 XHBhclxwYXIgUkJDczpcdG JdQJ3osv4xQ9mjy23wTiSs v8Wiy6R4zPnqIYGiVB7iMI U3zNDkc2E7OTOhP79mZxef GE21RRHgrAOwrW2sf4yco5 J7wT1wpJWejQKcJOAgVYDf ICAgICAgICAgICAgICAgIC AgICAgICAgICAgXHBhciBX EgXbDaWRZUGzs8UcwurvTN cjbGzckxM6oKLgfMSbcKSa YY6sVKCwyjQ4bHX5oV4iNV QbGEC9sjAwAENiWXVdXVMb ICAgICAgICAgICAgXHBhci AgICAgICAgICAgICAgICAg ICAgICAgICAgICAgICAgIF xwYXIgUGxhdGVsZXRzOiBE JLYwOCDnKKUxn6d7gKM2pq BfnSBlu5QqhPXcfU7boOjr gQ7eoDkynj1pA7o5rNHiju chd5Vmf6N4LYlntPLpq35f cGFyfQ== SPECIAL STUDIES (test u5tviIDaOIPdbEF8HbUvMF code = 3376) Ydd5akw4GivBCsqURtSPxn tYFszbEbpa08jJN2rI30XJ 9uIDTpIkK0ZXUyfoJ7Qoj9 QCQeUDFqzTLbO596FQUbJX FnjUwshct5sV34KCDjiO6g dGJsIDtccmVkMFxncmVlbj XmIuo6XUT0cJkpUXRberer IqN9FSemKSOhqmxrUOy1DR opTIRlkHD2BVHuqHCqZ0Ca BHInCC6gnqj6EJH6GNpgIQ IfFaD0UYDcfSWqGTGxzBar MYvju253FTK6GhLnVRCksb IvgSvvhA8wZnUfVpDtFqic ZjEgVGhlIGludGVycHJldG Y4lV0xUZ4kPXKjzLDwN6Cm QQBrbsFisQRaBGB1tFStaI FeSK0fEHtivYXbc5che6Zi E8vjzFqkhIA5OE1dGTSeEK UcBOcus2NfeH8fGioeSXNy BmD9TOsvm14bgBCfZCWnHn BDRDMsIENEMjAsIENEMTM4 TTGVGVL6KHXSMLHeVdowC6 L0CKcqZU7fIDJdFVFrlwlk R6PwpJViDUypoSVoRWwfVP OycJLqJVRskaUqt3lxI3eg HDMlUSP2PC0txyGoXsKnCE 0jpO94d3Dna62mq21wlO4y pRDboeNoN07yvBDmdJUgd9 BxONNbvtBueNT5OEHgJIyg txtlg6h9bTF6cMHhhAGzrF F7hENbcWEfKGVBrHIoSMPp x799ql8zMXFmtBChicLtrF 1gIAkhanrxzPLvUF1cLTJd GGNuYBSyNF18gaAuQS7bcR Vbk0zjmoPegTIwj2PnyFJ3 EKFtoXEwyzuoZo0nLB12XS FvUSsscN7jcSBukoVdGW8s HG5sH9R6oVQyYLYldmXmk0 mhEJgjUV7wIZPptAooJzcs KOWxKXToguFrxQV3PFKpoV TdZRCwsNBeZMcicXXuu7lg e7FlT6vvgQwgoZI8XHKpU3 uomWLooHZ8UYA8gO4jGOws xrCyWVQio7UzBTBxQNJzQr V6yX5rRAS4QlGXzPzmQML0 FgA6TVqgKCQtWL8dXHrgRB osX3AuwRNsWDXKPTPrk2gy Q0rcJOEih3JvtA5wmOF2pC NtRTEzpMS2EWRzLPJ1VNuv cGVkIGFuZCBpdHMgcGVyZm 3kvKNkT0DiP9litfTtiMJo pJE9xCMwMAajxyJhLAB7FJ IibY0zRW4hHWHxnVNxQQ0j dCBiZWVuIGNsZWFyZWQgb3 XlYKIuxp10DYTaZmfusDde MVOfFf8xXd0mJQSaxzHxMG Q6AlSDNY8pntajsJLxxJhm on7zDWtkHDANOSCcXHRgBL Z5ENRnkE2aKFU4vYH1LUG5 H5gyQ2uhBCEjntJhKM7rVZ FmfPVdlfNyZJqxBF4hcHHb TBVzj3VjabqtXVNfHJE5CU X3OOmkDPTxHLXgFt8tHXVy pJ4rM9NrPYU4yvFat7DeIk CEmLXvhL92uRDvjj66FXFx XLYbN6QxVLAhGSEyGHklnm XtiZnoPMGlw75xbFXpznHe x9RcuaRnFBSeI8caRMWxuF DgkKMae2AamL1dfCZrvzXr NRR5oPEsBRBnfE6qKIFomJ xaTZBseK3qO7ItFXcwMe8p STVcgypqXG0wct94HW3gxv ApEW3xtiDhLM10dwKqRaWy QHa4PDmVEXfHFLx8CHLhvn HrrWSlzJIfSPHzgU0rrCJp Fj8fpCHgiPfvYZHuqAIwGE xmrMryD7jtneviIYeddKJi g0AvyY6zdOH6QOX4hK9rIx xwYXJ9 Gross assessment was [facility] performed at ([facility], = 2777) Department of Pathology, [address] [place] [address], Technical component was [facility] performed at ([facility], = 2778) Department of Pathology, [address] [place], [place] [address], Professional component [facility] was performed at ([facility], code = 2779) Department of Pathology, [address] [place], [place] [address], [facility] [id number] 14:46:50Bone Marrow Pathology Report Case: [id number] Authorizing Provider: Cheryl Daniels Collected: 04/03/2022 02:50 PM Ordering Location: [address] Received: 04/03/2022 03:29 PM Service Pathologist: Aisha Mcmahon MD Specimens: A) - Bone Marrow B) - C) - Reason for addendum: To report results of additional immunostains and cytogenetic studies.TIA-1 stain shows scattered TIA positive T cells with rare small cluster formation.(04/11/22) As reported by [facility], cytogenetic analysis shows a normal male karyotype: 46,XY[20](04/24/22) NGS Myeloid Disorders Profile: SNVs/Indels: None Detected Pertinent Negatives: No abnormalities detected in the following genes: FLT3, IDH1, IDH2,NMW1Sahlla see scanned/attached [facility] report for complete results and interpretation. The [...] BLOOD:- PANCYTOPENIA Signing Pathologist Direct Phone Line: [phone] signed by Aisha Mcmahon MD on 04/08/2022 at 8:05 AMBone marrow evaluation demonstrates a variably hypocellular marrow for age withmaturing trilineage hematopoiesis and left shifted erythroid precursors. No significant dysplasia orincreased blasts seen. The corresponding flow cytometry study ([id number]) shows no monotypic B cell population, aberrant T cell population, or increase in immunophenotypic myeloblasts. Cytogenetics andNGS myeloid disorders profile have been ordered at the request of Dr. Sandi Tejeda and are currently pending. Correlation the pending studies is required for final interpretation.The results were communicatedto Dr. Sandi Tejeda on 04/07/22.16833; 79103; 16665 x 2; 17749; 95166; 48687; 78457 i8Gdtqpkmuexiayncu, anemiaBone marrow aspirate, clot and core biopsyA. [...] entirely in C1 for decalcification.Jackelyn Narayan- Pathology [facility] MARROW ASPIRATE:QUALITY:Aspirate- AdequateTouch imprint- AdequateMARROW DIFFERENTIAL COUNT: [...] BIOPSY:Biopsy- AdequateClot- AdequateVariably hypocellular for age (10-40%)Cellular composition similar to aspirate smears and touch imprints. Erythropoiesis [...] no circulating blasts Platelets: Decreased with unremarkable mo rphology, no clumping or satellitismThe interpretation of this case included the use of immunohistochemistry or special stains.B1: IronC1: CD3, CD20, CD138, CD34, CD117, CD61, E-cadherin, [place], LambdaControl Slides Examined: In-house known positive controls were evaluated along with the test tissue. These control slides run alongside of the patients sample show appropriate staining. Internal positive and negative controls when available are evaluated Immunohistochemistry technical testing was performed at [facility], Pathology Laboratory where it was developed and its performance characteristics were determined. It has not been cleared or approved by the U.S. Food and Drug Administration. The FDA has determined that such clearance or approval is not necessary. The test is used for clinical purposes. It should not be regarded as investigational or for research. This laboratory is certified under the Clinical Laboratory Improvement Amendments of 1988 (CLIA-88) as qualified to perform high complexity clinical laboratory testing.[facility], Department of Pathology, [address] [place] [address], [facility], [address] [place] [address], [facility], Department of [facility]ology, [address] [place] [address], JYE W/PLT COUNT & AUTO [id number] 12:17:10 Test Item Value Reference Range Interpretation [...] (BEAKER) (test code = 2801) MISCELLANEOUS LAB [id number] 08:56:59 Test Item Value Reference Range Interpretation Comments SCAN RESULT (test code = See scanned report [id number]) See scanned reportU/S, ABDOMINAL, [id number] 13:25:00High volumeReason for exam:->evaluate for hepatosplenomegalyReason for exam:->reordered per original order due to high volume scans [facility] : 1995 Sex: MFINALREPORT U/S, ABDOMINAL, COMPLETE CLINICAL HISTORY: evaluate for hepatosplenomegaly COMPARISON: None. TECHNIQUE: Real time grayscale and color Doppler images of the abdominal organs were obtained using a curved transducer. FINDINGS: Pancreas: Partially visualized and unremarkable. Liver: Mildly increased in echogenicity but normal in contour. Focal liver lesions: None. Portal vein:Normal, hepatopetal flow. The main portal vein is borderline dilated at 13 3 cm in diameter. Bile ducts: Normal in caliber. Gallbladder: Normally distended with no gallstones, gallbladder wall thickening, or sonographic Jang's sign. Kidneys: Normal in size with normal cortical thickness and echogenicity. No hydronephrosis. Spleen: Normal in size. Ascites: None in the upper abdomen. Visualized aortaand IVC: Unremarkable. MEASUREMENTS:Liver: 15.2 cm Common Duct: 2.2 mm Right Kidney: 11.3 cm Left Kidney: 10.3 cmSpleen: 10.8 cm Maximum Diameter Aorta: 2.0 cm IMPRESSION: 1.No hepatosplenomegaly. 2.Mildly hyperechoic hepatic parenchyma suggesting mild hepatic steatosis. Signed: Shawn Sandhu Verified Date/Time: 04/17/2022 13:25:08 CBC W/PLT COUNT & AUTO [id number] 08:17:32 Test Item Value Reference Range Interpretation [...] (BEAKER) (test code = 2801) BASIC METABOLIC [id number] 06:28:23 Test Item Value Reference Range Interpretation [...] G3b Moderately to s everely 30-44 G4 Sever ly decreased 15-29 G5 Kidney failure <15Repo rted eGFR is based on the CKD-EPI 2020 equation t hat does not use a race coefficientEsti mated GFR is not as accur ate as Creatinine Jennifer tej in predicting glom erular filtration rate . Estimated GFR is not appl icable for dialysis patien ts Cad Operator ID - JAMESON GCBC W/PLT COUNT & AUTO [id number] 06:05:56 Test Item Value Reference Range Interpretation [...] (BEAKER) (test code = 2801) BASIC METABOLIC [id number] 05:25:03 Test Item Value Reference Range Interpretation [...] not appl icable for dialysis patien ts Cad Operator ID - PIAYA LCBC W/PLT COUNT & AUTO [id number] 05:04:59 Test Item Value Reference Range Interpretation [...] (BEAKER) (test code = 2801) Chromosomes Cancer [id number] 11:52:22 Test Item Value Reference Range Interpretation Comments Scan Result (test code = See scanned report [id number]) LETTY (test code = LETTY) See scanned report [facility] CenterChrom[facility] Cancer [id number] 11:52:22 Test Item Value Reference Range Interpretation Comments Scan Result (test code = See scanned report [id number]) LETTY (test code = LETTY) See scanned report [facility] CenterCBC [facility]/PLT COUNT & AUTO [id number] 07:25:03 Test Item Value Reference Range Interpretation [...] CONCENTRATION Decreased (CELLAVISION)(BEAKER) (test code = 3438) Cad Operator ID - [id number] ID - Shobha Black comments: Slide comments: PROTHROMBIN TIME/[id number] 06:06:12 Test Item Value Reference Range Interpretation Comments PROTIME (BEAKER) 13.4 seconds 11.9-14.2 (test code = 759) INR (BEAKER) (test 1.09 See_Comment [Automat ed message] code = 370) The system [employer] generated this result transmitted ref erence range: <=5.90. The reference range was not used to int erpret this result as normal/abnormal . RECOMMENDED COUMADIN/WARFARIN INR THERAPY RANGESSTANDARD DOSE: 2.0 - 3.0 Includes: PROPHYLAXIS for venous thrombosis, systemic embolization; TREATMENT for venous thrombosis and/or pulmonary embolus.HIGH RISK: Target INR is 2.5-3.5 for patients with mechanical heart valves.[id number] 05:45:46 Test Item Value Reference Range Interpretation Comments MAGNESIUM (BEAKER) 2.1 mg/dL 1.6-2.6 Specimen slightly (test code = 627) hemolyzed Cad Operator ID - MEG [id number] 05:45:46 Test Item Value Reference Range Interpretation Comments PHOSPHORUS (BEAKER) 3.8 mg/dL 2.3-4.7 Specimen slightly (test code = 604) hemolyzed Cad Operator ID - MEG WBASIC METABOLIC [id number] 05:45:46 Test Item Value Reference Range Interpretation [...] not appl icable for dialysis patien ts Cad Operator ID - MEG WCBC W/PLT COUNT & AUTO [id number] 20:34:43 Test Item Value Reference Range Interpretation [...] PERCENT (BEAKER) (test code = 2801) TROPONIN [id number] 18:24:43 Test Item Value Reference Interpretation Comments Range TROPONIN I (test 0.000 ng/mL See_Comment [Automated code = [id number]) message] The system which generated this result [...] biotin. Lab Interpretation Normal (test code = 67748-4) [facility] [id number] 18:21:22 Test Item Value Reference Range Interpretation Comments NT-proBNP (test code 40 pg/mL See_Comment [Autom ated = [id number]) message] The system which generated this result transmitted reference range : <=125. The reference range was not used to interpret this result as normal/abnormal . LETTY (test code = LETTY) Biotin has been reported to cause a negative bias, interpret results relative to patient's use of biotin. Lab Interpretation Normal (test code = 94128-7) [facility] WITH [id number] 18:16:37 Test Item Value Reference Range Interpretation Comments WBC (test code = See_Comment L [Automated 6690-2) message] The system which generated this result [...] RDW-SD (test code = 47.8 fL 38.5-51.6 12059-3) RDW-CV (test code = 15.7 % 12.1-15.4 H 788-0) PLT (test code = See_Comment LL [Automated 777-3) message] The system which generated this result transmit goran reference range : 150 - 328 10*3/ ?L. The reference range was not u sed to interpret th is result as normal/abnormal . MPV (test code = 9.2 fL 9.8-13 L 74487-6) IPF % (test code = 2.8 % 1.2-10.7 Platelet count [id number]) measured by fluorescence method. NRBC/100 WBC (test See_Comment [Automat ed code = 9932458706) message] The system which generated this result transmit goran reference range : 0.0 - 10.0 /100 WBCs. The reference range was not used to interpret this result as normal/abnormal . NRBC x10^3 (test code See_Comment [Auto mated = 7564599906) message] The system which generated this result transmit goran reference range : 10*3/?L. The reference range was not used to interpret this result as normal/abnormal . SEG % (test code = 27 % 33-76 L 08003-3) BAND % (test code = 6 % 0-1 H 90324-8) LYMPH % (test code = 57 % 14-54 H 38967-0) MONO % (test code = 10 % 0-4 H 25560-0) ANC (test code = 0.72 10*3/uL 1.99-6.95 L 753-4) PLT ESTIMATE (test Critically Normal AA code = 9317-9) Decreased Lab Interpretation Abnormal (test code = 24275-2) [facility]. METABOLIC PANEL (06824)2022-04-13 18:14:21 Test Item Value Reference Range Interpretation Comments NA (test code = 138 mmol/L 135-145 5561543869) K (test code = 4.3 mmol/L 3.5-5 9506031366) CL (test code = 99 mmol/L 98-108 1764531389) CO2 TOTAL (test code 30 mmol/L 23-31 = 2034186957) AGAP (test code = 2-16 8659959019) BUN (test code = 10 mg/dL 7-23 6716915753) GLUCOSE (test code = 98 mg/dL 70-110 4608257767) CREATININE (test code 0.82 mg/dL 0.6-1.25 = 7919479797) TOTAL BILI (test code 0.9 mg/dL 0.1-1.1 = 8911225804) CALCIUM (test code = 8.7 mg/dL 8.6-10.6 0346635883) T PROTEIN (test code 6.9 g/dL 6.3-8.2 = 6099069882) ALBUMIN (test code = 4.7 g/dL 3.5-5 8900112809) ALK PHOS (test code = 59 U/L 34-122 8541438469) ALTv (test code = 27 U/L 5-50 1742-6) AST(SGOT) (test code 32 U/L 13-40 = 9476722580) eGFR (test code = mL/min/1.73m2 5831551093) LETTY (test code = LETTY) Association of [...] or urine or abnormalities in imaging tests). [facility] [id number] 17:30:41 Test Item Value Reference Range Interpretation Comments APTT Patient (test See_Comment [Automat ed code = 3173-2) message] The system which generated this result transmitted reference range : 23 - 38 Seconds . The reference range was not used to interpr et this result as normal/abnormal . LETTY (test code = LETTY) The [facility] patient population mean normal value for aPTT is 30 seconds. Lab Interpretation Normal (test code = 43104-6) [facility] / [id number] 17:28:40 Test Item Value Reference Range Interpretation [...] tions. Lab Interpretation (test Normal code = 48906-9) [facility] [id number] 07:54:04 Test Item Value Reference Range Interpretation Comments Flow Cytometry (test code See Separate Report = 2758) Case # (test code = 2759) [id number] [id number] 07:54:04 Test Item Value Reference Range Interpretation Comments Flow Cytometry (test code See Separate Report = 2758) Case # (test code = 2759) [id number] [facility] [id number] 07:54:04 Test Item Value Reference Range Interpretation Comments FLOW CYTOMETRY RESULT See Separate Report POINTER (BEAKER) (test code = 2758) FLOW CYTOMETRY AP CASE # [id number] (BEAKER) (test code = 2759) BASIC METABOLIC [id number] 03:44:18 Test Item Value Reference Range Interpretation [...] S NOT APPLICABLE FOR DIALYSIS PATIEN TS. Cad Operator ID - MELQUIADES [id number] 03:44:18 Test Item Value Reference Range Interpretation Comments MAGNESIUM (BEAKER) (test code = 1.9 mg/dL 1.6-2.6 627) Cad Operator ID - MELQUIADES LCBC W/PLT COUNT & AUTO [id number] 03:34:58 Test Item Value Reference Range Interpretation [...] (BEAKER) (test code = 2801) EBV VIRAL [id number] 15:26:28 Test Item Value Reference Range Interpretation Comments EBV VIRAL LOAD - Negative or below See_Comment [Auto mated message] NEGATIVE (BEAKER) the linear range The sy stem which (test code = of the assay generated this 2559) (<500 IU /mL) result transmi tted reference [...] (2) real-time PCR amplification and detection with BBOP-2-bofokadh primers and probes. A well-conserved region of the EBNA-1 gene is targeted, along with an internal control sequence used to confirm PCR amplification. Asymptomatic carriers and viral genetic variation, among other factors, can affect the accuracy of nucleic acidtesting; therefore, results should be interpreted in light of clinical data.This test was developed and its performance characteristics determined by the [facility] Pathology Department,Section of Molecular Pathology. It has [...] real- time PCR amplification and detection with MAQQ-5-qcmxnoxd primers and probes. A well-conserved region of the EBNA-1 gene is targeted, along with an internal control sequence used to confirm PCR amplification. Asymptomatic carriers and viral genetic variation, among other factors, can affect the accuracy of nucleic acid testing; therefore, results should be interpreted in light of clinical data.This test was developed and its performance characteristics determined by the [facility] Pathology Department, Section of Molecular Pathology.It has not been cleared or approved by the U.S. Food and Drug Administration (FDA), since FDA approval is not required for clinical use of the test. Validation was done as required by The Clinical Laboratory Improvement Amendments of 1988.CMV PCR, [id number] 14:58:19 Test Item Value Reference Range Interpretation [...] and its performance characteristics determined by the [facility] Pathol ogy Department, Section of Molecular Pathology. It has not been cleared or approved by the U.S. Foodand Drug Administration (FDA), since FDA approval is not required for clinical use of the test. Validation was done as required by The Clinical Laboratory Improvement Amendments of 1987.RETICULOCYTE COUNT 2022-04-04 13:33:41 Test Item Value Reference Range Interpretation Comments RETICULOCYTE COUNT PCT (BEAKER) (test 3.2 % 0.5-1.8 H code = 575) Cad Operator ID - [id number] ID - [id number] [id number] 11:50:43 Test Item Value Reference Range Interpretation Comments Case Report (test code = Flow Cytometry 104) Report Case: [id number] Authorizing Provider: Cheryl Daniels Collected: 04/03/2022 02:50 PM Ordering Location: [address] Received: 04/03/2022 03:21 PM Service Pathologist: Aisha Mcmahon MD Specimen: Other Flow Interpretation (test x4zpsAFuPZOhsTA3YxYq code = 3364) JZVqk1kjn3HvxIQisLEd LNsfnMBzkoCgbr85xNO3 lC84RI6hBKQsNzE3XPAa ekT1Eqe4QWBtAZTqhMDa Z073p1hnj0dnwiLqzJM3 aDrcIHWrhymyWoY8IHbe XGRaqbiqAXr2CMecAHHu eXU8SNMrnPCaD9NaIRXq EH9svij9NUZ9IKqeKEVz FfA6QLJxyWZcJDNkhPfr PPsoz739QJJ7KpLsXACm nqTwhJnebS2xKrKrVCCP M84EEH1PHmLLVcgyEocR NwMRDREKODPFPdb1MWAj ciAtIFNMSUdIVExZIFJF RFVDRUQgVklBQklMSVRZ IEFORCBDRUxMVUxBUklU NUhyYMTuDYSGNsATG22N VFlQSUMgQiBDRUxMIFBP NNOOLRKOM41rsSZrBF4k Zs7dQWRFNfHPOuEoHLWE HRcQWLYBWBOHTVQLV14d iEZsVVSxHTepcC9rHE6h Ai4nWA6NRnTSA9IzVN4s VW5YBB6ZOOdPVl6CRYKI IcCNUKWPI8JHZHBOJ2gt YXJ9 Flow Interpretation y2sigHUoOZWazFQ9ApCz Comment (test code = DYGpo9cbl8KbsOUeqIHo 3365) LIcxyORpocOnuh04yUH1 sX50LM7wEKZeVoU7FNSt xbG4Kvv7ARSgRVOjzPCc I846c8pto7cuyhZdiYN2 JNOgHIBpF6LkKI6eVICl jWFcP17ucXRcVDI0OODh TEVkxFPbQUXfBTA5IACp zMBfZ7qcNWSzKI4ybxaj ALepFVxfEIFnqPX1NVGd jLRyI4ToWHKpFVrqRZEi ffb9ZnLpPn7kjKDagMvw MFxwYXJkXHBsYWluXGZz XbSlV1IvTWEkSRKpJSYq ZWUgdGhlIGJvbmUgbWFy ei31WYOqeQ5dbHWlJHPr BOJoJSY3WLFpm9JyQ78f uePcOFCsh83oi1a4eTE3 kWNcrS4vfPexkO8jfUBq DQ0kOO70kNIeNWSsWBZ5 akPqVfCwL4WrGVFohJTy fQ== CPT Code(s) (test code = b3hujXWpPDFieKF7RgDw 3357) GTIpq3bff0CruNMpbMAo WUiuvWYasqZcql53vEN4 uF54QV3jDEScMrG5TJPi gyL6Wqy4TNEbYGIqlBSd I586z2jwt2sitdEfhIC3 rOvzUNXbdisrHaO5DVhl ICGcoyuqZCv1IOgcNSEw zFP1TNApfGKmE2NsVGJn UL7fysw1ZWI4YIccALNs XcT1SEZthQJpLXYqiVpx BJnxt819UTW4WtHlJUEb q2Z2vbDoUjHcMDIxhXN4 jeD2DDBvPC2iyukoy4un EXjiSJdiAKSlfvP8chH2 EMEmuLEdC9JwzR7mWHHo KH5kyufua8vbCPU6EWik YXJkXHBsYWluXGZzMjIg ODgxODlccGFyfQ== CLINICAL HISTORY (test m2kpfWWjXQCkiNN5DuOw code = 3356) PNYtr6crb7QtsYAgzFJt LHbpuTGpsaUveo14fPR8 iY88TU5eIFYjYeA7UBUm soP3Kur3QEMtFUFmhJZy F062s1rnp5vqhgMbxVI6 UNMlBGIjZ1TsKA1wSOZu lTGkG46kwWIdNVA4RURq RLBfxNCfULXmOVE0BUKl dOObW5epTQJeMK5rlavl INzmMAknJAGcuOV1DWKc rPQjI2HsOBXuTQkaMZOh dda0BtGkPd9kgPRkfHfy MFxwYXJkXHBsYWluXGZz RuOpR9VcQIQbsp8xBv7c nEQviVHtlETiNCSpYM9h YVxwYXJ9 SPECIMEN SOURCE (test i7xmzQBwLJKlfGY9XpJr code = 3377) PVQbi6wsa3CtwYYhpHAv ZJjseZDghcUmjj56kTQ3 cK04TI1aIIDvDiI0XDDa rdR8Bio6GZDlMAAcfSOm T236s1ybg3rlzxFtpOS1 vTdhZVMfczkgPyN3RNli KCOaxwlcYSs5UPrfVHBg vWD2QERovWJcB2TwEMHt KM0pnoe8XTF3FKuhBJZa ItP4CZSmqRWwUDGefGyb BKsgk263KSX6ZzIdMEEo vqNdvAxblV2oOdIwNLRI u86sXB7wmeFnv3oxDUK1 CELLULAR BIOMARKER i5wuuQCkCIJyqFN3EkVv ANALYSIS (test code = UYFvo3nzc7JucUBpuEWp 3380) FUmxhBReccSiba24dVV7 vH77DK7qTVNiWtZ5JCDp nyT3Tyt4UMTiVAPufUXx P722r8rnu3tnyrBhzYC2 VCIwFZUtG8NtRE2dIKXp xYQzD93ebNBlAEP1MPLs DXFwkMSlGQJhMRT7DELq xCDfP6idWCSuTK4mwwui MAqgMZcpWQYbhHK1XCFs pLPwQ7HdZIBaJKiwSTBj bvc6FoWaDe1rjYRgxJlg MFxwYXJkXHBsYWluXGZz ZeHiY4WvIBLGCLglr3Fv VoJfPS0HWFNaCGquC9O4 Qapqb4XkRpYnIR1NMN7f DNVpVUBPGDuvW6JpNXqw S8TnDJzmV2JiLRFHCYEv LCBDRDQsIENENDUsIENE MTQsIENEMTMsIENEMzMs IVXVAVK2NDVLNSI1VXDw P4CpoSKuFXYHDJ9gZCNp SWVYNeqoAUDGAWT7QRHj cn0= IMMUNOPHENOTYPIC FINDINGS a0wbmIKaLQDlpOG3QsNt (test code = 3379) SNZts8ctj3SauSSevSYz XKoszSAoriUybm59oWW1 jQ03PY9dXKTzRbQ1ERIs gjI2Kcp7GAVvFKTpdRUo W047q2iqw0whtwRwkCX3 QHLoUWPvH4UgJG5xVINc kZTbR68qbTFfTQH0UPMq ZWFqvVKjNRBqTGF0SFDi rEQpB4xxSTJjOI6xwksv KXxnUDvcCCTdrNH3JHCn mNRiD7JlQANwYUziJYFk aai6MrImCa2lnNIivOim MFxwYXJkXHBsYWluXGZz BtDlB0YyVTXbMUOcsVRk EEFwYXItaLy1oReaFCAd MiVcflx+CS9jczs+IE51 bWJlciBvZiBFdmVudHMg UVTjsAslFYJ3LJr0ZAag XHBhclx+XHBhciBUaGUg Ov0hoM71zT3tSKWraVXc DBPwq60pWKInGXQmOPSc dGlmaWVkOlxwYXJcflxw AFCdCtetb6LjKdG3gNAr ZGltIENENDUrIENEMzQr OHIpJAB3weBdo10erkqw NKLcV2CsDXAeCNawNtDd QRWmCzZ0v3ItsQXxVNik bi1aJXLbyblyPAZfMYgy jJmjQ0f0LEK3FMQpyQnh nEEYFAC2BvYazP7kcG2u aFEzcjDlc93wpyfcEOWo GY12VFIjRsS2e2KmiVDu PGscxd2eEBMfYWcwqjOd eC04COHgE4A8ToPFYUEy HNSetqKoCiMsF7KiQACv VLupDdJtCKNyTEFaz9Xz BRkkZYeivzZeu9zzwgNf HiS8hOIdiZTxPFVjQ9Ms uWJnoxXoD5YiioIMOIYs GO7pPPXBYJ8ePwJoVFdn zjMnofUsnU7uwAS6aPzc IHdpdGggYSBrYXBwYTps EH1fUZOecsB6yG7nb2Vx AS22OqTMjPRxKHZqfjLz Lm2kBMYZJHRiVlRIIOIy bGxzIHdpdGggdGhlIGlt xVMcv6BdTS3umZgtwRCy HeHysNMpLRBse6IakPGi LEYrW10gIWHdUORwhnu+ YMZjmiRRkNXnx8okY49b px1agWWbMqXjd2G5kPA5 bW5cyloxPRGioWKcteZf QkxnRBJtnSNQBQH8SPPk CCAzrKsduKZjH6Z4eYXc GJWiSDRiT5TkjhgiuGgf hrloV6PmlaZde1X1wJOg IGNvbXByaXNlIHRoZSBt BAnpryi5eIIfNuLxOHyp yaZdurRhoVaoINaiPM3c WJPZTYAtPL4bpt5tiSYj fuLzw43bucydRGIkJ7Kk IDIuMFxjZjEgJSBvZiB0 g3WgoGRwMNkasc4tjBNb CV1ggVKfJRXmYDElOPFs ZWxsczogXGNmMCAwLjJc H0GsIPIpU7PmHcdcmV8l yVDkxiGciSced96oGBBd hBpqBGUoJACvt2QbMMG3 oUInNDAkwIk3aBZiXtXz eUTlqOxhr76fPdSlpXyk dCBjaGFpbiBleHByZXNz uM0gKnzfIYFwfrmjRAWq VGhlIHJlbWFpbmluZyBl ylXtmJIpZD0eiXq1OLOq waTttvSdJY06NP2tdkEp XUKsCEEqGGxcyjfbaq4l DFcezZR8h6w9fPHjk3lc IGNlbGxzLCBhbmQgZGVi cmlzLlxwYXJ9 DISCLAIMER (test code = f1cjfXMvMBLfaAT5UsEm 3363) HRAjb5lyi7QmuXJmpKXt JXqpbKGqvrDxdo53lIW8 pP80PT6dZHCtPsG0XBZv nfT1Bbo3ONBqRUKsdYOt Q010z1ant7zwvvGzmHL0 vNjbOJZtbvghJrV0UCsa KMBujoesWMr7QGzvZJUf iNK9JHGhjIBlB1YvGQUi RO6mivq6MHQ0QPtrMGJl UxE1HHLbyXCfCZTcdCpk ZClej785BZW1GtZlLNCg yiRjoLzwrU1oSiJzSqHU wODhKDH1PQI5qsV6ZYJf PWAxxbBsk3DtICNyphMl zYibaSDzlAYfFy7slGGi G1OlL3ilbdGqcYVwuRG2 aWNzIGRldGVybWluZWQg AdiiSzV5mC4eLRD9ObBN tQouG2CfMBEpcHAoyWCK QG33ZSHbYAMvAZfqcWQ4 NIBqo7PnGkFsyxZxkMWs vpBjDL4jONFpgJGkmsHj MEC1PMUjJOSHKzBaOOQy e5McZD8rYTEflMfuADKb xB4as6MyDHOku31uWIFd ZSBGREEgaGFzIGRldGVy bWluZWQgdGhhdCBzdWNo YIVoUTBlMC5tUOArsnEo mMDzs4NdnUDhphQrh2Nt buGzHHWyZPM6GxUJhWXb sF38wXTavy35THHtYMSu L9ToKJEhRAZyAEsyisQl xLyaGMOll44rhLGgrzIu u9XsmhOfRJKoT4czRWWv nBXqyCYck5JnoH7dgXPd nzBrATF0mDGtIBTyvQ4v QNLgtUvhCQRthL1rO0Hr YFyuZj9yQABvzocpRM6s tf60YT7gwsIeDD4oudEd PS07jxFxLjXxXGf9OAyl V2hPFYNjLQVvING4LZpb FllrFUK3myLfXWHaz7Xj IFeyJ2yzG10arQurgVq9 pGYcpUushBNmrXF3QZC3 hF9jJwavWBE7 Technical component was [facility] performed at (test code = [facility], 2778) Department of Pathology, [address] [place] [address], [place] [address], Professional component [facility] was performed at (test [facility], code = 2779) Department of Pathology, [address] [place] [address], [place] [address], [facility] [id number] 11:50:43 Test Item Value Reference Range Interpretation Comments Case Report (test code = Flow Cytometry 104) Report Case: [id number] Authorizing Provider: Cheryl Daniels Collected: 04/03/2022 02:50 PM Ordering Location: [address] Received: 04/03/2022 03:21 PM Service Pathologist: Aisha Mcmahon MD Specimen: Other Flow Interpretation (test w2kopLAnFVSxfOP5OiHa code = 3364) IMGmy5nni2WbrGBceIJl USeduFVugnWset69iVH5 kZ93GF3qKGMuMoD6LLVe veX2Oiw4QSXnFXTpoRQm V736w5svp2eysvYnnAI2 dCljPFZfudxeNrK3FWac JZUtclezLGl2GYtsWLQh sHM9CSMykSOvR8XkJLLs ZI6ewln5RNI9DRmvXFOv IlV1WZYmxCViUGFttFcd GAsrc977ZSF2SxMjFTEo wfCpsFxcmW0rFfRuYUKE D66HGN0WTiZYOlexNvpU ZvTLPUKKNCFEVcf1ICQv ciAtIFNMSUdIVExZIFJF RFVDRUQgVklBQklMSVRZ IEFORCBDRUxMVUxBUklU TUwgFXJpKYKNXgSSQ69K VFlQSUMgQiBDRUxMIFBP WIHVBIBUK45srDQmLB6d My6fBKODRyQXStLhZWFN IClYSVCHHPZIJWDFF35b cIDsTZBxPXztnG6sDJ6o Ng5yTL5WIlKBX8YiTD6e WP1UCP6ZJHqOTd2YRFKV VfSWVYVAV8JSEUBPW8an YXJ9 Flow Interpretation v7aigYQzNFJqlGN8ZnCu Comment (test code = JCWdb3swj3WmfNPohUIi 3365) ETjmvFYwibUvhx05sWZ7 yX69BR0hSBIqHgR1JAMl exF5Btt6WWOlZWZicFVr E693w8zss7gegoPfoFC9 AXLhBTKnO2EtFQ4gFCSz gHLaE48lsRAqZXM6ZNSi PLKwiRJwDZYcPQW3OCZz xRGtJ7jkZOAiWH4ajgvd WRjaGTizEMSgwAU7UFXl gRFkZ3VbWLZtSThpVSAi ssk7IwIaPc9eqIHlqYyt MFxwYXJkXHBsYWluXGZz KnMiT1PrBGYkZKXmEVTl ZWUgdGhlIGJvbmUgbWFy vc11TIHvjZ4ftXZbDSBr TZGmQVG7XPIuu1FqE71d yiAgVRSnj78rn5e6zAD7 xNQayI5etUkqbK9pzLQa ZY9wDP46bAIcARLkPSP1 eaQmGkHqU3LtGOXrzMTk fQ== CPT Code(s) (test code = t2jrkOKyMNMbxKY0KqHr 3357) TFPue9udt1DmgHAdkEHr JFiypMAemhZjhs15kSP6 uM12QE2cEDQzMkT7WKRl cqL1Oxd5QELkYIEriFXt A460x9vgq6lphpFmqNT4 cQwrOMJopwdnZhG7TTpd CAPikoxnKCe4QTpkNGJz mYK9SOIorNJzC5JqDHHw UW0yqiw8QUP3WJusSJLg GjM2MMMepFBmVQJdiNfh FCrfu077DIX8HbYbHZJo d0W2evHjFbWjYYDxlZU0 pcP7OXYmQW6xufach7dx PAlvWGfcMGMdmxU4bfJ4 PKAmkBOsV8HfsJ6iSHWe VV6zlsado4xlPBJ2MLjx YXJkXHBsYWluXGZzMjIg ODgxODlccGFyfQ== CLINICAL HISTORY (test x1sccGOcWLRkuRR1NdOe code = 3356) LHZwk1yjk8HsgBDroFGf LXtsvELmedTimb65sSP7 mG60RI0aDRCrWrD3QOUx wqP9Unx5BIJzPFRvjEMh R396p8omk9grcyUakGO0 ATVeKJGjK0TcRC1jRCJl hUAhQ76lyMBvHWN4UCVt XVBnjGJeYXZpXAN4ABZh kPKaD9ybCLGnFW3rzloi VXdtXNzbFPJfwSJ2MOSd vAJxJ4HtBTGuMCyzGBWw udg3FsOhIi3wnXHufAyw MFxwYXJkXHBsYWluXGZz NvKuV4LfJUOjoh8uPv0j wAQwfOGfoPTdUSOpQP2a YVxwYXJ9 SPECIMEN SOURCE (test i4fbhFKzTTFpeEQ7QgVw code = 3377) MQVcx7ipj0YejXCipVUk CIxwzELslyNzib10cKH8 aX82GM2wTUCyBvS7BLBt pgB6Pzt5XJDiWSFcrGSt O708n5jsm4gfgxQggOL2 eYnoQETfaghbYdH7HHyu KRQxkufcMMa6OZhoSXKi hGK6NOLsmNPiF3NnJPJv GW3qibp2KZZ4KJkrZAUe YlN2GLDiiYIvTCMmlSfv NSidk580OYB6ZnAhVEZh ieZvnZwugI2rCzJxYLCH s94uYZ0izfLry7pmDMZ2 CELLULAR BIOMARKER s6msuHZrLZUivJJ7TxOi ANALYSIS (test code = KWYct3amy1CdiGXorUCl 3380) ZJqquTIhvgPdyt74hMM8 cP21HK7mTHQbBqV5EYJv tzN2Rvh0ENBwPZTvsVIc Z124g0ice5gsheIgzAA3 YJJaDJHlO3HcGM6hYXLt nILyT14vaUTrEOR4WGLk XLQgsXJwBLKnQCW0FKKo hJUoV3dpQGFiRO1zslvs WQltOIkbPZQdrQQ6HHMf dXUuC6CnGNSaHPcyWTMm qtd2EqJoQx9ofRDvtEfk MFxwYXJkXHBsYWluXGZz SqKjU1XqGJVBDScxb4Vq MnQgRL7MLSFoCWnaL9J9 Zssoi2DgChNmQJ5TZX6h OBQkHPKRQYpeK1WpIQzw B6DmAZgnZ4JfEEUQPIZb LCBDRDQsIENENDUsIENE MTQsIENEMTMsIENEMzMs AWHMQWW7GHEKFNZ2ZRZr L6RwuAPuMUZRFC8mNPQl KROLKuacPWJJZJC2PTGe cn0= IMMUNOPHENOTYPIC FINDINGS h7jrwBRlGGTqkJC3LxMy (test code = 3379) EBJmc6mvs5DbbCNlbVEn ZZwdlSOupxVmcb72vKM6 jJ52YZ7tOMZjHpR2BJVc fxS6Uhh3MVDcTTRbnDZt Z434z4sbe2hhmkVesZO9 JDToLVOlS6PmFO0sIJCu uIToS85juQYrSQW1OOVg CCQovNHvDAGhSHI0OITx bXJeA0qqGUVcGD8iiqvb ITsxSNfrJBHppFY3DVVj eIKsR3HqALLxEMrtGUNe zbp5QhLhCl6seIIznBkd MFxwYXJkXHBsYWluXGZz VdLvZ0QqBLYzMBYagEMu BWGlFEBolRm4pLsrWGLr MiVcflx+EO5qdwm+IE51 bWJlciBvZiBFdmVudHMg JUNuzDkxZKS1WAo0AAwh XHBhclx+XHBhciBUaGUg Vb6zuM70eQ7lSUZgkKYc RTVfm93pTQCwPYFpBQWp dGlmaWVkOlxwYXJcflxw VXLtAbhog2ScYuU6uMLs ZGltIENENDUrIENEMzQr MYOvNKR8rbCqi62mczei HASsG9QnBIKeKFimEeCz DJYbToT3e8UenHWcOCxl yz6bBQQddymrUKMuJNsn zLecO9g6IVH2YCIctHfr gLEZYYE8VmRafI7krZ3d zHGhabNwo45drlodVBWd DQ29ULTtVdT7f4XdcZEu ZOrxbu3aYBSrWAhgwtIa gT11KLBdI9M5UbHJJCRl QISplbVnTbBqU5BbZOKh NPhuLvNzXTJvDWGsr5Um BGgdIUwsjbCun3bkhmRr ErB5zEWpjLCeZYPeO8Ub xQFqjsYfM7QfslWURMWb TA2vJUMCAL6bHdMfOPal cwVsuxXeoK0phWL5bPhr IHdpdGggYSBrYXBwYTps NT4iYTMdxkP2aL7sw8Vl LM15KhIOdMAmJQIkbaWs Bn7sZNBZFNIzTyKCJCHb bGxzIHdpdGggdGhlIGlt kPHxh9TdJH5myFzcaCUl KqYpqVZkXWBzg6OhhNTx SIPoF25gGVPxYQEyayu+ DIRspoRDjLRlb6jsN88o xy3aqGOpAjYfx1A4zOV9 xD4ngzwiPAJodIEhqeTw XkhpRQNivDGBRKB3VHPa TKUibDbvvZGaJ8V9xMEj WNNcPKZpA3IonjkoxZtu kkrcN8QtazUjt1J7eHJm IGNvbXByaXNlIHRoZSBt JHtfxzt7nVYeJdFnBNkj bfKpmjXzvUbiZYliHD9b XERISAYwAC5hdd9orSCx wfOxn93kihrlXNNoY2Lp IDIuMFxjZjEgJSBvZiB0 n7ZjuCOtYFylra7bcOMt DL5irAOcVFPxDQInMWUj ZWxsczogXGNmMCAwLjJc S3HeMOShW9OjBozlmY3m zJZmktQleTsuh70yVZMq hDugZIEgMFAlf0GwOXU2 kZEbXVZziQg7fVAcNwRe zVNrsCavb29pSgZqsPne dCBjaGFpbiBleHByZXNz aU3vHmdgDLWnyajyOSRt VGhlIHJlbWFpbmluZyBl ofXkfVClAJ1yxOz2ZHOs ygHwrbGoMO87RS2pcmDg HAZdZKVdNFsjlisydu6a MImyjCN1x2l4kFZex0ep IGNlbGxzLCBhbmQgZGVi cmlzLlxwYXJ9 DISCLAIMER (test code = s6hkkRLyRHZejEF1FlHl 3363) XLKos2mmv0YosUOfqOQe VNiulMUrgcLujd14rNO1 cX21LB5pRXBcQvG7VPYk hmL6Tze4MILrDNGkwDGw D394m2doh5spboOukGK1 pYbmACYpnkalHpC5OEha WAHonphcEEp1LTtxELQb hFV1IGNlsIFwV7JnUWVj AJ7zuez9ARF1MMpuXJPs ReR8XXYslSNhWLAusFqp CJalr147CYG1RvHbKIOv ykRfiRahcE0lBzCvJnPT sUNhXJG5COB4yoC0PXJp QWDakzKrg2QhLFMitoQf eYezxFOmyNYlDd3wqILz J6LfB3eneuCbrXPayNI3 aWNzIGRldGVybWluZWQg GaexApA8yX4dIFD4XwMQ oMfmO8TrDJLjuUAozTWF YP31COMhWPGuGBwguPV3 VFKbo2TsJjYksfUwiGRl phUnNQ8tADXyrPQcioRe BOE2JDZxSQOQZxRwFOKg g3HiTX1tSAQagPonEHRu zG8xj3LbMBSve33uBNXh ZSBGREEgaGFzIGRldGVy bWluZWQgdGhhdCBzdWNo JDNsYGZtKC4wDOQaaaNc cINgv5KbpNAlbsOtx3If uiJrLLDvEXD3MuFThBIk zV00gGAbnn89ZMGnEDEb Z8LkQQNxSNEmTPmlrsXm hAdyWRDel74gsECpnwEy v2KfjeUfMPNaK1pfSGWg mGNoxRQky4JjaD2bfEJy xgXoZAH3lIUnHLYrrB7m YSXbnRbdFOAheT7oR6Ee MCmrWp2xBQJsogsqQL1t cj25OT2hpbCqAL8gtmUr IB64kfXkDsSxRQe9IQcg F4oZDZMzRCUnHWZ6WRii OvmqJGG5rtWvAOSgs6Cu MXllD8ydG09xvMkmjCk7 gXUxxEghmCNdrSS8RHC5 oP1gPzhxIGN4 Technical component was [facility] performed at (test code = [facility], 2778) Department of Pathology, [address] [place] [address], Professional component [facility] was performed at (test [facility], code = 2779) Department of Pathology, [address] [place] [address], [facility] [id number] 11:50:43Flow Cytometry Report Case: [id number] Authorizing Provider: Cheryl Ricardo Daniels Collected: 04/03/2022 02:50 PM Ordering Location: [address] Received: 04/03/2022 03:21 PM Service Pathologist: Aisha Mcmahon MD Specimen: Other BONE MARROW, FLOW CYTOMETRY:- SLIGHTLY REDUCED VIABILITY AND CELLULARITY- NO MONOTYPIC B CELL POPULATION- NO ABERRANT T CELL POPULATION- NO INCREASE IN IMMUNOPHENOTYPIC MYELOBLASTS Pleasesee the bone marrow report ([id number]) for correlation with the morphologic and other features. [id number], anemiaBone marrowCD8, surface-[place], CD56, surface-Lambda, CD5, CD19, CD10, CD3, CD20, CD4, CD45, CD14, CD13, CD33, CD117, CD34, cKappa, cLambda, CD38, RW622Ebxxniqz Viability: 86.2%Number of Events Acquired: 28604 The following populations are identified: Blasts: the [...] and their performance characteristics determi avelino by [facility]. They have not been cleared or approved by the U.S. Food andDrug Administration. The FDA has determined that such clearance or approval is not necessary. It should not be regarded as investigational or for research. This laboratory is certified under the Clinical Laboratory Improvement Amendments of 1988 ("CLIA") as qualified to perform high- complexity clinical testing.[facility], Department of Pathology, [address] [place], [place] [id number], [facility], [address] [place] [address], XXQIA METABOLIC [id number] 08:31:12 Test Item Value Reference Range Interpretation [...] S NOT APPLICABLE FOR DIALYSIS PATIEN TS. Cad Operator ID - MELQUIADES [id number] 08:31:12 Test Item Value Reference Range Interpretation Comments MAGNESIUM (BEAKER) (test code = 1.8 mg/dL 1.6-2.6 627) Cad Operator ID - MELQUIADES LCBC W/PLT COUNT & AUTO [id number] 05:52:44 Test Item Value Reference Range Interpretation [...] (test code = 2801) CT, BIOPSY, BONE [id number] 15:58:00Reason for exam:->pancytopenia, concern for aplastic anemia or amegakaryocytic thrombocytopenia [facility] : 1995 Sex: MFINALREPORT [...] Morgan Verified Date/Time: 04/03/2022 15:58:35 Reading Location: [facility] C013X [facility] Reading Room (MANUAL DIFFERENTIAL)2022-04-03 15:50:57 Test Item [...] (test code Normal = 762) Biopsy Bone [id number] 15:30:06 Test Item Value Reference Range Interpretation Comments Anatomic Case# (test code = 2470) [id number] Ordering Physician (test code = Frances 2457) Performing Physician (test code = Cathy 2458) Clot Rec'd? (test code = 2459) Yes Biopsy Rec'd? (test code = 2460) Yes Rec'd for Culture? (test code = No 2464) Rec'd for Flow? (test code = 2461) Yes Rec'd for Cytogenetics? (test code Yes = 2462) Rec'd for Molecular Genetics? (test Yes code = 2463) [facility] [id number] 15:30:06 Test Item Value Reference Range Interpretation Comments Anatomic Case# (test code = 2470) [id number] Ordering Physician (test code = Frances 2457) Performing Physician (test code = Cathy 2458) Clot Rec'd? (test code = 2459) Yes Biopsy Rec'd? (test code = 2460) Yes Rec'd for Culture? (test code = No 2464) Rec'd for Flow? (test code = 2461) Yes Rec'd for Cytogenetics? (test code Yes = 2462) Rec'd for Molecular Genetics? (test Yes code = 2463) [facility]2022-04-03 15:30:06 Test Item Value Reference Range Interpretation Comments ANATOMIC CASE# (BEAKER) (test code [id number] = 2470) ORDERED BY DOCTOR# (BEAKER) (test Frances code = 2457) PERFORMED BY DOCTOR# (BEAKER) (test Cathy code = 2458) CLOT RECEIVED? (BEAKER) (test code Yes = 2459) BIOPSY RECEIVED? (BEAKER) (test Yes code = 2460) CULTURE RECEIVED? (BEAKER) (test No code = 2464) FLOW RECEIVED? (BEAKER) (test code Yes = 2461) CYTOGENICS? (BEAKER) (test code = Yes 2462) MOLECULAR GENETICS? (BEAKER) (test Yes code = 2463) DOUBLE-STRANDED DNA (DSDNA) [id number] 14:39:48 Test Item Value Reference Range Interpretation Comments ANTI-DNA DS (BEAKER) (test code = Negative Negative 1055) MONONUCLEOSIS [id number] 06:36:10 Test Item Value Reference Range Interpretation Comments HETEROPHILE ANTIBODIES (BEAKER) Negative Negative (test code = 621) BASIC METABOLIC [id number] 04:34:58 Test Item Value Reference Range Interpretation [...] S NOT APPLICABLE FOR DIALYSIS PATIEN TS. Cad Operator ID - PIAYA [id number] 04:34:58 Test Item Value Reference Range Interpretation Comments MAGNESIUM (BEAKER) (test code = 1.8 mg/dL 1.6-2.6 627) Cad Operator ID Lester ARNETT LCBC (HEMOGRAM ONLY)2022-04-03 03:48:53 Test Item Value [...] performed by IFA method.Test performed by IFA method.[id number] 07:06:15 Test Item Value Reference Range Interpretation Comments MAGNESIUM (BEAKER) (test code = 1.9 mg/dL 1.6-2.6 627) Cad Operator ID Lester ARNETT LC-REACTIVE [id number] 07:06:15 Test Item Value Reference Range Interpretation Comments C-REACTIVE PROTEIN (BEAKER) (test 0.18 mg/dL 0.00-0.50 code = 676) Cad Operator ID - PIAYA LBASIC METABOLIC [id number] 07:06:14 Test Item Value Reference Range Interpretation [...] S NOT APPLICABLE FOR DIALYSIS PATIEN TS. Cad Operator ID - PIAYA LCBC (HEMOGRAM ONLY)2022-04-02 06:11:27 Test Item Value [...] = 413) PERIPHERAL BLOOD SMEAR - HOLD [id number] 17:14:12 Test Item Value Reference Range Interpretation Comments PERIPHERAL SMEAR SAVE (BEAKER) (test saved code = 1815) PERIPHERAL BLOOD SMEAR - PATHOLOGIST [id number] 16:31:07 Test Item Value Reference Range Interpretation Comments PERIPHERAL SMR REVIEW Cell counts confirmed. (BEAKER) (test code = Normocytic normochromic 2640) anemia without significant anisopoikilocytosis. Platelets markedly decreased with no platelet clumps or satellitism identified. [id number] Aisha Mcmahon, (BEAKER) (test code = M.D. 2849) RETICULOCYTE [id number] 15:48:44 Test Item Value Reference Range Interpretation Comments RETICULOCYTE COUNT PCT (BEAKER) (test 2.8 % 0.5-1.8 H code = 575) Cad Operator ID - 6000HEPATITIS B [id number] 14:11:38 Test Item Value Reference Range Interpretation Comments HEPATITIS B CORE TOTAL ANTIBODY Nonreactive Nonreactive (BEAKER) (test code = 497) HEPATITIS B SURFACE ANTIBODY 1671.2 mIU/mL <8.0 H (BEAKER) (test code = 647) HEPATITIS B SURFACE ANTIGEN (2) Nonreactive Nonreactive (BEAKER) (test code = 2585) Cad Operator ID - DBOperator ID - DBSARS-CoV2/RT-PCR (Asymptomatic ONLY)2022-04-01 14:09:07 Test Item Value Reference Range Interpretation Comments SARS-COV2/RT-PCR Negative Not Detected, (test code = Negative, See 45458-5) external report for linked test SARS-COV-2 [facility] (test code = 72879-4) LETTY (test code = Negative result for [...] of the Act. Fact Sheet for Healthcare Providers:https://www.ISBX/sites/default/f mukul/product/documents/F act_Sheet_HC_Providers_L ryv_KXXU-JaJ-9.pdf Fact Sheet for Healthcare Patients:https://www.BR Supply/sites/default/fi les/product/documents/Fa ct_Sheet_Patients_Lyra_S ARS-CoV-2.pdf Performing Laboratory:[facility] [place] [address] [facility]2022-04-01 14:09:07 Test Item Value Reference Range Interpretation Comments SARS-COV2/RT-PCR Negative Not Detected, (test code = Negative, See 04122-9) external report for linked test SARS-COV-2 [facility] (test code = 12523-2) LETTY (test code = Negative result for [...] of the Act. Fact Sheet for Healthcare Providers:https://www.[employer].Tout/sites/default/f mukul/product/documents/F act_Sheet_HC_Providers_L nrm_TFLQ-TyO-4.pdf Fact Sheet for Healthcare Patients:https://www.FatRedCouch.Tout/sites/default/fi les/product/documents/Fa ct_Sheet_Patients_Lyra_S ARS-CoV-2.pdf Performing Laboratory:[facility] [place] [address] [facility]2022-04-01 14:09:07 Test Item Value Reference Range Interpretation Comments SARS-COV2/RT-PCR (test Negative Not Detected, Negative, code = 9904502) See external report for linked test SARS-COV-[address] [facility] (test code = 2129167) Negative result for this test determines that [...] 564(g) of the Act.Fact Sheet for Healthcare Pro viders:https://www.Wymsee.com/sites/default/files/product/documents/Fact_Sheet_H I_Yxfqjhfvz_Xoeb_GEEL-VfX-5.pdfFact Sheet for Healthcare Patients:https://www.Wymsee.com/sites/default/files/product/docum ents/Etot_Zevlo_Rijttzjx_Dxjf_EXGN-UkX-6.pdfPerforming Laboratory:[facility], [place] [address]JJBQPVOYP C ANTIBODY 2022-04-01 14:08:55 Test Item Value Reference Range Interpretation Comments HEPATITIS C ANTIBODY (BEAKER) Nonreactive Nonreactive (test code = 367) Cad Operator ID - [id number] 13:23:20 Test Item Value Reference Range Interpretation Comments HAPTOGLOBIN (BEAKER) (test code = 19 mg/dL 14-258 366) Cad Operator ID - DBCBC W/PLT COUNT & AUTO [id number] 09:53:31 Test Item Value Reference Range Interpretation [...] PERCENT (BEAKER) (test code = 2801) VITAMIN [id number] 02:30:29 Test Item Value Reference Range Interpretation Comments VITAMIN B12 (BEAKER) (test code = 453 pg/mL 213-816 774) Cad Operator ID - MEG [id number] 02:30:29 Test Item Value Reference Range Interpretation Comments FERRITIN (BEAKER) (test code = 236.85 ng/mL 5.00-275.00 361) Cad Operator ID - MEG WHIV-1 ANTIGEN WITH HIV-1/2 [id number] 00:18:54 Test Item Value Reference Range Interpretation Comments HIV-1 ANTIGEN WITH HIV 1\\T\\2 Nonreactive Nonreactive ANTIBODY (2) (BEAKER) (test code = 2586) Cad Operator ID - DBCBC W/PLT COUNT & AUTO [id number] 00:12:44 Test Item Value Reference Range Interpretation [...] (test code = 2801) HIGH SENSITIVITY TROPONIN [id number] 00:04:27 Test Item Value Reference Range Interpretation Comments HIGH SENSITIVITY < pg/ml See_Comment [Automated message] TROPONIN I (test code = The system which 1298113) generated this result transmitted ref erence range: <=35. Th e reference range was not used to interpr et this result as normal/abnormal . Cad Operator ID - DBThe QUALITY CONTROL ASSOCIATE STAT High Sensitivity Troponin-I results should be used in conjunctionwith other diagnostic information such as ECG, clinical observations and information, and patient symptoms to aid in the diagnosis of NH.[id number] 00:00:27 Test Item Value Reference Range Interpretation Comments FIBRINOGEN LEVEL (BEAKER) (test 240 mg/dl 225-434 code = 658) [id number] 00:00:27 Test Item Value Reference Range Interpretation [...] % 20-55 H (test code = 2590) Cad Operator ID - DBCOMPREHENSIVE METABOLIC [id number] 23:58:48 Test Item Value Reference Range Interpretation [...] 5-34 (test code = 353) ALT (SGPT) (VitaSensisAKER) 20 U/L 6-55 (test code = 347) EGFR ([employer]) (test 104 ESTIMATE D GFR IS code = 1092) mL/min/1.73 sq NOT ACCURA TE m CREATININE CLEARANCE IN PREDICTING GLOMERULAR FILTRATION RATE . ESTIMATED GFR I S NOT APPLICABLE FOR DIALYSIS PATIEN TS. Cad Operator ID - [id number] 23:58:48 Test Item Value Reference Range Interpretation Comments LIPASE ([employer]) (test code = 749) 16 U/L 8-78 Cad Operator ID - DB
--- NOTE | 2022-09-23 08:52 | RAD REPORT ---
EXAM DESCRIPTION: Roselia David (2 Views)09/23/2022 8:39 am CLINICAL HISTORY: Cough COMPARISON: April 2022 FINDINGS: The lungs appear clear of acute infiltrate. The heart is normal size IMPRESSION: No acute abnormalities displayed
[2022-09-23 09:08] LABS: Hematocrit 37.6 % (39.6-49.0); Lymphocytes % 40.4 % (15.3-44.8); MPV 7.5 fL (7.6-11.3); RBC Red Blood Cell Count 4.04 M/uL (4.33-5.43)
[2022-09-23 09:28] LABS: Bilirubin Total 0.7 mg/dL (0.2-1.0); Potassium 3.3 mmol/L (3.5-5.1); Protein, Total 7.7 g/dL (6.4-8.2)
[2022-09-23] MEDS ORDERED: ALBUTEROL 2.5 MG/3 ML NEB SOL ONE (09:29)
[2022-09-23] MEDS ORDERED: IPRATROPIUM BROM 0.5MG/2.5ML ONE (09:29)
[2022-09-23] MEDS ORDERED: NA CHLORIDE 0.9% 1,000 ML ONE (09:29)
[2022-09-23 09:47] LABS: SARS-COV-2 RT PCR NEGATIVE (NEGATIVE)
[2022-09-23 09:52] LABS: Protime INR 1.13
--- NOTE | 2022-09-23 10:04 | ER ---
Nurse's Notes [facility] Name: Aguila Monaco Age: 27 yrs Sex: Male : 1995 Arrival Date: 09/23/2022 Time: 08:12 Bed 12 Private MD: Diagnosis: Influenza due to identified novel influenza A virus Presentation: 09/23 08:13 Chief complaint: Patient states: Cough, fever, body aches, abd pain since . ll1 Covid and flu swab negative on Thursday. Coronavirus screen: Client denies travel out of the [place] in the last 14 days. cough unrelated to allergies, fatigue, headache, muscle pain, Client presents with at least one sign or symptom that may indicate coronavirus-19. Standard/surgical mask placed on the client. Ebola Screen: Patient denies travel to an Ebola-affected area in the 21 days before illness onset. 08:13 Method Of Arrival: Ambulatory 1 08:13 Acuity: GERTRUDIS 3 ss 08:15 Initial Sepsis Screen: Does the patient meet any 2 criteria? No. Patient's initial [facility] sepsis screen is negative. Does the patient have a suspected source of infection? No. Patient's initial sepsis screen is negative. Risk Assessment: Do you want to hurt yourself or someone else? Patient reports no desire to harm self or others. Onset of symptoms was September 18, 2022. Triage Assessment: 08:18 General: Appears uncomfortable, ill, Behavior is calm, cooperative, appropriate for [facility] age. Pain: Complains of pain in head Pain currently is 10 out of 10 on a pain scale. Quality of pain is described as aching. Neuro: Reports headache weakness. Cardiovascular: No deficits noted. Respiratory: Reports cough that is. GI: Reports diarrhea, nausea, vomiting. Musculoskeletal: Reports pain in body aches. Historical: - Allergies: 08:15 No Known Allergies; ll1 - PMHx: 08:13 aplastic anemia; IDIOPATHIC THROMBOCYTOPENIA PURPURA; ll1 - PSHx: 08:15 None; ll1 - Immunization history:: Client reports having NOT received the Covid vaccine. Flu vaccine status is unknown. - Social history:: Smoking status: Reported history of juuling and/or vaping. Patient denies any tobacco usage or history of. Screenin:19 [facility] Fall Risk Assessment (Adult) Score/Fall Risk Level 0 - 2 = Low Risk ll1 Oriented to surroundings, Maintained a safe environment, Educated pt \T\ family on fall prevention, incl call for assistance when getting out of bed, Hourly rounding (assess needs \T\ fall precautionary measures) done. Abuse screen: Denies threats or abuse. Nutritional screening: No deficits noted. Tuberculosis screening: No symptoms or risk factors identified. Assessment: 08:32 Reassessment: No changes from previously documented assessment. to X ray via wheelchair.ll1 Vital Signs: 08:13 Weight 72.12 kg; Height 6 ft. 0 in. (182.88 cm); Pain 10/10; ll1 08:15 BP 125 / 79; Pulse 85; Resp 17; Temp 99.1; Pulse Ox 98% ; ll1 08:50 BP 114 / 71 Supine; Pulse 61; ll1 08:52 BP 113 / 73 Sitting; Pulse 86; ll1 08:54 BP 104 / 75 Standing; Pulse 101; ll1 08:13 Body Mass Index 21.56 (72.12 kg, 182.88 cm) ll1 ED Course: 08:12 Patient arrived in ED. rg4 08:13 Arm band placed on. ll1 08:15 Triage completed. ll1 08:17 Tanisha Garcia FNP-C is PHCP. kb 08:17 Juan Clark MD is Attending Physician. kb 08:19 Patient has correct armband on for positive identification. Bed in low position. Call ll1 light in reach. Side rails up X 1. Cardiac monitoring not applicable on this patient. 08:40 Chest Pa And Lat (2 Views) XRAY In Process Unspecified. EDMS 08:48 Paula Benitez, RN is Primary Nurse. ll1 10:19 No provider procedures requiring assistance completed. IV discontinued, intact, ss bleeding controlled, No redness/swelling at site. Pressure dressing applied. Administered Medications: 09:34 Drug: DuoNeb (albuterol 2.5 mg, ipratropium 0.5 mg) (3:1) (2.5 mg - 0.5 mg) 3 ml Route: ss Nebulizer; 09:35 Drug: NS 0.9% 1000 ml Route: IV; Rate: 1000 ml; Site: right antecubital; ss Medication: 08:20 VIS not applicable for this client. ll1 Outcome: 10:03 Discharge ordered by . laurel 10:19 Discharged to home ambulatory. ss 10:19 Condition: good 10:19 Discharge instructions given to patient, Instructed on discharge instructions, follow up and referral plans. Demonstrated understanding of instructions, follow-up care. 10:20 Patient left the ED. ss Signatures: Dispatcher [employer] EDMS Tanisha Garcia, MAIL DELIVERY SUPERVISOR-C THO-Melonie Fabian RN RN Malika Medley rg4 Paula Benitez RN RN ll1 Corrections: (The following items were deleted from the chart) 08:18 08:15 BP 127 / 96; Pulse 93bpm; Resp 17bpm; Pulse Ox 98%; Temp 99.1F; ll1 ll1 08:21 08:13 Acuity: GERTRUDIS 4 ll1 09:01 08:54 BP 104 / 75; Pulse 101bpm; ll1 ll1
--- NOTE | 2022-09-23 10:04 | EDPHYS ---
Physician Documentation [facility] Name: Aguila Monaco Age: 27 yrs Sex: Male : 1995 Arrival Date: 09/23/2022 Time: 08:12 Bed 12 Private MD: ED Physician Juan Clark HPI: 09/23 10:02 This 27 yrs old Male presents to ER via Ambulatory with complaints of Body Aches, kb Abdominal Pain, Weakness. 10:02 The patient or guardian reports cough, that is intermittent, described as moderate, flu kb symptoms, low-grade fever, myalgias. Onset: The symptoms/episode began/occurred 6 day(s) ago. Severity of symptoms: At their worst the symptoms were moderate, in the emergency department the symptoms are unchanged. Modifying factors: The symptoms are alleviated by nothing, the symptoms are aggravated by nothing. Associated signs and symptoms: Pertinent positives: diarrhea, fever, nausea, rhinorrhea, sore throat, vomiting. The patient has not experienced similar symptoms in the past. The patient has not recently seen a physician. Pt reports flu symptoms since . Reports has similar symptoms. Historical: - Allergies: 08:15 No Known Allergies; ll1 - PMHx: 08:13 aplastic anemia; IDIOPATHIC THROMBOCYTOPENIA PURPURA; ll1 - PSHx: 08:15 None; ll1 - Immunization history:: Client reports having NOT received the Covid vaccine. Flu vaccine status is unknown. - Social history:: Smoking status: Reported history of juuling and/or vaping. Patient denies any tobacco usage or history of. ROS: 10:01 Cardiovascular: Negative for chest pain, palpitations, and edema. kb 10:01 Constitutional: Positive for body aches, chills, fatigue, fever, malaise. 10:01 ENT: Positive for rhinorrhea, sinus congestion, sore throat. 10:01 Respiratory: Positive for cough, Negative for dyspnea on exertion, hemoptysis, orthopnea, pleurisy, shortness of breath, sputum production, wheezing. 10:01 Abdomen/GI: Positive for nausea, vomiting, and diarrhea, Negative for abdominal pain. 10:01 All other systems are negative. Exam: 10:01 Constitutional: This is a well developed, well nourished patient who is awake, alert, kb and in no acute distress. Head/Face: Normocephalic, atraumatic. ENT: Moist Mucous membranes Cardiovascular: Regular rate and rhythm with a normal S1 and S2. No gallops, murmurs, or rubs. No pulse deficits. Abdomen/GI: Soft, non-tender. No distention Skin: Warm, dry with normal turgor. Normal color. MS/ Extremity: Pulses equal, no cyanosis. Neurovascular intact. Full, normal range of motion. Neuro: Awake and alert, GCS 15, oriented to person, place, time, and situation. Moves all extremities. Normal gait. Psych: Awake, alert, with orientation to person, place and time. Behavior, mood, and affect are within normal limits. 10:01 Respiratory: the patient does not display signs of respiratory distress, Respirations: normal, Breath sounds: wheezing: expiratory that is mild, is heard in the right middle lobe and right posterior middle lobe. Vital Signs: 08:13 Weight 72.12 kg; Height 6 ft. 0 in. (182.88 cm); Pain 10/10; ll1 08:15 BP 125 / 79; Pulse 85; Resp 17; Temp 99.1; Pulse Ox 98% ; ll1 08:50 BP 114 / 71 Supine; Pulse 61; ll1 08:52 BP 113 / 73 Sitting; Pulse 86; ll1 08:54 BP 104 / 75 Standing; Pulse 101; ll1 08:13 Body Mass Index 21.56 (72.12 kg, 182.88 cm) ll1 MDM: 08:23 Patient medically screened. 09:18 Data reviewed: vital signs, nurses notes. kb 10:00 I considered the following discharge prescriptions or medication management in the emergency department Antibiotics: At this time antibiotics are not recommended, Antivirals: At this time, antivirals are not recommended. Test considered but Not performed:. External Records Reviewed: previous CBCs reviewed. Pt has history of low platelet count. . Counseling: I had a detailed discussion with the patient and/or guardian regarding: the historical points, exam findings, and any diagnostic results supporting the discharge/admit diagnosis, lab results, radiology results, the need for outpatient follow up, a family practitioner, to return to the emergency department if symptoms worsen or persist or if there are any questions or concerns that arise at home. 10:56 Differential Diagnosis: Bronchitis Influenza Upper Respiratory Infection Sinusitis kb Viral Syndrome. 09/23 08:21 Order name: CBC with Diff; Complete Time: 09:22 kb 09/23 08:21 Order name: CMP; Complete Time: 09:29 kb 09/23 08:21 Order name: Lipase; Complete Time: 09:29 kb 09/23 08:21 Order name: COVID-19/FLU A+B; Complete Time: 09:49 kb 09/23 09:22 Order name: Protime (+inr); Complete Time: 09:56 kb 09/23 09:22 Order name: Ptt, Activated; Complete Time: 09:56 kb 09/23 08:21 Order name: IV Saline Lock; Complete Time: 08:48 kb 09/23 08:21 Order name: Labs collected and sent; Complete Time: 08:48 kb 09/23 08:21 Order name: Chest Pa And Lat (2 Views) XRAY; Complete Time: 08:54 kb 09/23 08:21 Order name: Orthostatics; Complete Time: 08:48 kb Administered Medications: 09:34 Drug: DuoNeb (albuterol 2.5 mg, ipratropium 0.5 mg) (3:1) (2.5 mg - 0.5 mg) 3 ml Route: ss Nebulizer; 09:35 Drug: NS 0.9% 1000 ml Route: IV; Rate: 1000 ml; Site: right antecubital; Disposition Summary: 09/23/22 10:03 Discharge Ordered Location: Home kb Condition: Stable kb Diagnosis - Influenza due to identified novel influenza A virus kb Followup: kb - With: Emergency Department - When: As needed - Reason: Worsening of condition Followup: kb - With: Private Physician - When: 2 - 3 days - Reason: Recheck today's complaints, Continuance of care, Re-evaluation by your physician Discharge Instructions: - Discharge Summary Sheet kb - Influenza, Adult, [id number] kb Forms: - Medication Reconciliation Form kb - Thank You Letter kb - Antibiotic Education kb - Prescription Opioid Use kb - Work release form Signatures: Dispatcher [employer] Tanisha Amin, DANITA NETTLES-Melonie Fabian, RN RN ss Paula Benitez RN RN ll1
[2022-09-23 10:26] VITALS: TEMP 99.1; O2SAT 98
[2022-09-23 10:28] VITALS: BP 104/75
== END 2022-09-23 10:20 | disposition home or self-care (01) ==
LOC: ER 08:09
DX: J10.1 Influenza due to other identified influenza virus with other respiratory manifestations (principal); D69.3 Immune thrombocytopenic purpura; Z20.822 Contact with and (suspected) exposure to COVID-19
CPT/HCPCS: 85025; 36415; 85610; 85730; 83690; 80053; 0240U; 71046; J7613; J7644; J7030; 94640; 99284

== ENCOUNTER 2023-04-08 15:25 | Emergency (ER) | payer OTHER ==
--- OUTSIDE RECORDS SUMMARY | 2023-04-08 15:32 | XMS REPORT | Continuity of Care Document ---
:1995 Author Organization [facility] t Address [address] [facility] [address] [place] [address] Care Team Providers Name Role Phone PCP, PATIENT DOES NOT HAVE A Primary Care Physician Unavailkanika Machado RN, Astrid Christianson Attending Clinician Unavailable DONNA MARCUS Attending Clinician Unavailable Donna Estrada Attending Clinician Unknown, Attending Attending Clinician Unavailable Chas Martinez NP Attending Clinician CHAS MARTINEZ Attending Clinician Unavailable Ricardo Rueda MD Attending Clinician Efrain TAMEZ, Pati De Luna Attending Clinician [phone] Paige Woo MD Attending Clinician Filemon TAMEZ, Lindsay Ayala Attending Clinician Lachelle Ruiz MD Attending Clinician LINDSAY CORRAL Attending Clinician Unavailable DENTON DAN Attending Clinician Unavailable Sy TAMEZ, Denton Attending Clinician Minerva TAMEZ, Becky Gomes Attending Clinician [phone] Roberto TAMEZ, Kaylie Henderson Attending Clinician [phone] Trina Coffman MD Attending Clinician TRINA COFFMAN Attending Clinician Unavailable Mayuri Parisi MD Attending Clinician MAYURI PARISI Attending Clinician Unavailable Doctor Unassigned, [place] Attending Clinician Unavailable KINZA EDGAR III Attending [...] Date Treatment Clinician Date Bone Bone Disease Recurre [facility] hypocellul hypocellul 00:00: Ut dical arity arity 00 Center concerning concerning for for aplastic aplastic anemia anemia Pancytopen Pancytopen Disease Active [facility] ia 04[facility]17 [facility] 00:00: Medical 00 [place] COVID-19 COVID-19 Disease [facility] detected detected 00:00: Medica l (04/13/22) (04/13/22) 00 Cent er Thrombocyt Thrombocyt Disease Active [facility] openia openia 18 [facility] 00:[facility]: Medical 00 Center Thrombocyt Thrombocyt Disease Recurre [facility] openia openia nce 18 [facility] 00:00: Medical 00 [place] Headache Headache Disease Active [facility] 00:[facility]: Medical 00 [place] Petechiae Petechiae Disease Active [facility] 7[facility]18 [facility] 00:00: Medical 00 [place] No known No known Disease Unive rs active active ity of problems problems [facility] GIB GIB Disease Resolve 2022-04-14 2022-04-[address] (gastroint (gastroint d 04-13 00:00:00 02:25:00 [facility] estinal estinal 00:00: Medical bleeding) bleeding) 00 Cent er History of History of Disease Resolve 2022-03-31 2022-03-[address] ITP ITP d 03-31 00:00:00 20:18:59 [facility] 00:[facility]: Medical Center Allergies, Adverse Reactions, Alerts Allergy Allergy Status Severity Reaction(s) Onset Inactive Treating Comm ents Source Name Type Date Date Clinician NO KNOWN Allergy Active [facility] NO KNOWN Drug Active Univers ALLERGIE Salvador ity of [facility] Social History Social Habit Start Date Stop Date Quantity Comments Source History of tobacco 2016-09-[address] [facility] use 00:00:00 Medical Center History [facility] Transport Non-Med Medical Center Exposure to 2022-09-09 2022-09-19 Not sure University of SARS-CoV-2 (event) 00:00:00 19:29:00 [facility] Alcohol intake 2022-04-24 2022-04-24 Ex-drinker [facility] es 00:00:00 00:00:00 (finding) Medical Center History [facility] 2022-04-14 2022-04-[address] [facility] Transport Med 00:00:00 00:00:[address] History [facility] 2022-04-14 2022-04-[address] [facility] Housing Unable to 00:00:00 00:00:00 Medical Center Pay History [facility] 2022-04-14 2022-04-[address] [facility] Housing Places 00:00:00 00:00:00 Medical Ce nter Lived History [facility] 2022-04-14 2022-04-[address] [facility] Housing Homeless 00:00:00 00:00:00 Medical Center Last Year Tobacco use and 2022-04-13 2022-04-[address] Melissa kes exposure 00:00:00 00:00:00 Medical Center Cigarettes smoked 2022-04-13 2022-04-[address] [facility] current (pack per 00:00:00 00:00:00 Medical Center day) - Reported Sex Assigned At [address] [facility] St Melissa kes 00:00:00 00:00:00 Medical Center Smoking Status Start Date Stop Date Source Unknown if ever smoked Universit y [facility] Current every day smoker 2022-04-13 00:00:00 [facility] Medications Ordered Filled Start Stop Current Ordering Indication Dosage Frequency Signature Comments Components Source Medication Medication Date Date Medication? Clinician (SIG) Name Name pantoprazol 2022-0 Yes 40mg QD Take [address] [facility] 8-05 tablet (40 [facility] (PROTONIX) 00:00: mg total) Me dical 40 MG 00 by mouth Center tablet daily Continue while on prednisone . predniSONE 2-0 Yes 75mg QD Take 7.[address] (DELTASONE) 8-05 tablets [facility] 10 MG 00:00: (75 mg Medical tablet 00 total) by Center mouth daily Continue until told to do otherwise by PCP. pantoprazol 202-0 Yes 40mg QD Take [address] [facility] [...] told to do otherwise by PCP. pantoprazol 2021-0 Yes 40mg QD Take [address] [facility] [...] told to do otherwise by PCP. nicotine 2021-0 2021- No 1{patch QD Place [address] (NICODERM 04-18-11 } patch onto Bhavana es CQ) 14 00:00: 00:00 the skin Medica l mg/24 hr 00 :00 daily. Center patch nicotine 2021-0 2021- No 1{patch QD Place [address] (NICODERM 8 08-11 } patch onto Bhavana es CQ) 14 00:00: 00:00 the skin Medica l mg/24 hr 00 :00 daily. Center patch nicotine 2021-0 2021- No 1{patch QD Place [address] (NICODERM 8 08-11 } patch onto Bhavana es CQ) 14 00:00: 00:00 the skin Medica l mg/24 hr 00 :00 daily. Center patch pantoprazol 2022-0 Yes 8mg/h 8 mg/hr Un lanette e [...] 2 Minutes, 20 mL iopamidol 2021- No [id number] 65mL 65 mL, Univers (ISOVUE 04-13 Intravenou ity o f 370-500 mL) 17:14: 17:14 s, ONCE, 1 [place] injection 00 :00 dose, On Medica l 65 mL [place] Branch 04/13/22 at 1230, Routine triamcinolo Yes [id number] Apply to Univers ne 6-28 area(s) 2 ity of acetonide 00:00: (two) [place] 0.1 % cream 00 times Medical daily. Branch triamcinolo Yes [id number] Apply to Univers ne 6-28 area(s) 2 ity of acetonide 00:00: (two) [place] 0.1 % cream 00 times Medical daily. Branch triamcinolo Yes [id number] Apply to Univers ne 6-28 area(s) 2 ity of acetonide 00:00: (two) [place] 0.1 % cream 00 times Medical daily. Branch triamcinolo Yes [id number] Apply to Univers ne 6-28 area(s) 2 ity of acetonide 00:00: (two) [place] 0.1 % cream 00 times Medical daily. Branch cyclobenzap Yes [id number] 5mg Take 1 Univers rine 5 mg - [id number] tablet by ity of tablet 00:00: mouth 3 [place] 00 (three) Medical times Branch daily. traMADol Yes [id number] 50mg Take 1 Univers (ULTRAM) 50 1-03 [id number] tablet by i ty of mg tablet 00:00: mouth [place] 00 every 8 Medical (eight) Branch hours as needed for Pain (scale 4-6). cyclobenzap 2020-0 Yes [id number] 5mg Take 1 Univers rine 5 mg 1-03 [id number] tablet by ity of tablet 00:00: mouth 3 00 (three) Medical times Branch daily. traMADol 2020-0 Yes [id number] 50mg Take 1 Univers (ULTRAM) 50 1-03 [id number] tablet by i ty of mg tablet 00:00: mouth [place] 00 every 8 Medical (eight) Branch hours as needed for Pain (scale 4-6). traMADol 2020-0 Yes [id number] 50mg Take 1 Univers (ULTRAM) 50 1-03 [id number] tablet by i ty of mg tablet 00:00: mouth [place] 00 every 8 Medical (eight) Branch hours as needed for Pain (scale 4-6). cyclobenzap 2020-0 Yes [id number] 5mg Take 1 Univers rine 5 mg 1-03 [id number] tablet by ity of tablet 00:00: mouth 3 00 (three) Medical times Branch daily. cyclobenzap 2020-0 Yes [id number] 5mg Take 1 Univers rine 5 mg 1-03 [id number] tablet by ity of tablet 00:00: mouth 3 00 (three) Medical times Branch daily. traMADol 2020-0 Yes [id number] 50mg Take 1 Univers (ULTRAM) 50 1-03 [id number] tablet by i ty of mg tablet 00:00: mouth [place] 00 every 8 Medical (eight) Branch hours as needed for Pain (scale 4-6). cyclobenzap 2020-0 Yes [id number] 5mg Take 1 Univers rine 5 mg 1-03 [id number] tablet by ity of tablet 00:00: mouth 3 00 (three) Medical times Branch daily. traMADol 2020-0 Yes [id number] 50mg Take 1 Univers (ULTRAM) 50 1-03 [id number] tablet by i ty of mg tablet 00:00: mouth [place] 00 every 8 Medical (eight) Branch hours as needed for Pain (scale 4-6). Vital Signs Vital Name Observation Time Observation Value Comments Source Heart rate 2022-09-20 01:30:00 100 /min [facility] Body temperature 2022-09-20 01:30:00 38.17 [facility] Respiratory rate 2022-09-20 01:30:00 16 /min [facility] Body height 2022-09-20 01:30:00 182.9 cm Universi ty of [facility] Body weight 2022-09-20 01:30:00 72.303 kg Universi ty of [facility] BMI 2022-09-20 01:30:00 21.62 kg/m2 [facility] Oxygen saturation in 2022-09-20 01:30:00 97 /min [facility] Arterial blood by [facility] Pulse oximetry Branch Systolic blood 2022-09-20 01:30:00 125 mm[Hg] Univer [facility] Diastolic blood 2022-09-20 01:30:00 85 mm[Hg] Unive rs[facility] of [facility] HEIGHT 2022-04-24 11:18:00 182.9 cm WEIGHT 2022-04-24 [...] 2022-04-13 21:27:45 111 mm[Hg] Univer [facility] Diastolic blood 2022-04-13 21:27:45 70 mm[Hg] [facility] Heart rate 2022-04-13 21:27:45 65 /min [facility] Respiratory rate 2022-04-13 21:27:45 18 /min [facility] Oxygen saturation in 2022-04-13 21:27:45 99 /min University of Arterial blood by [facility] Pulse oximetry Branch Body temperature 2022-04-13 15:54:00 37.06 Cuca [facility] Body height 2022-04-13 15:54:00 182.9 cm [facility] Body weight 2022-04-13 15:54:00 74.844 kg Universi ty of [facility] BMI 2022-04-13 15:54:00 22.38 kg/m2 [facility] WEIGHT 2022-04-03 16:55:00 75.479 kg WEIGHT 2022-03-31 21:00:00 75.479 kg WEIGHT 2022-04-03 16:55:00 75.479 kg WEIGHT 2022-03-31 21:00:00 75.479 kg Systolic blood 2022-03-11 23:09:00 118 mm[Hg] Univer [facility] Diastolic blood 2022-03-11 23:09:00 60 mm[Hg] Unive rs[facility] Heart rate 2022-03-11 23:09:00 60 /min Universi ty of [facility] Body temperature 2022-03-11 23:09:00 36.39 Cuca [facility] Respiratory rate 2022-03-11 23:09:00 18 /min [facility] Body height 2022-03-11 23:09:00 182.9 cm [facility] Body weight 2022-03-11 23:09:00 73.891 kg [facility] BMI 2022-03-11 23:09:00 22.09 kg/m2 Universi ty of [facility] Oxygen saturation in 2022-03-11 23:09:00 99 /min University of Arterial blood by [facility] Pulse oximetry Branch Systolic blood 2022-04-24 11:18:00 118 mm[Hg[facility] Di[facility] blood 2022-04-24 11:18:00 88 mm[Hg] [facility] Heart rate 2022-04-24 11:18:00 89 /min [facility] Body temperature 2022-04-24 11:18:00 37 Cuca [facility] Respiratory rate 2022-04-24 11:18:00 17 /min [facility] Body height 2022-04-24 11:18:00 182.9 cm [facility] Body weight 2022-04-24 11:18:00 74.844 kg [facility] BMI 2022-04-24 11:18:00 22.38 kg/m2 [facility] Oxygen saturation in 2022-04-24 11:18:00 98 /min [facility] Arterial blood by Medical Ce nter Pulse oximetry Procedures Procedure Date / Time Performing Clinician Source Performed POCT SARS-COV-2 ANTIGEN 2022-09-20 02:06:00 Donna Marcus [facility] (BINAX NOW) Medical Branch CBC W/PLT COUNT & AUTO 2022-04-24 11:51:00 [place] [facility] CBC W/PLT COUNT & AUTO 2022-04-24 11:51:00 [facility] US ABDOMEN COMPLETE 2022-04-17 08:33:00 Lindsay Corral [facility] MISCELLANEOUS LAB ORDER 2022-04-17 05:13:00 Lindsay Corral [facility] CBC W/PLT COUNT & AUTO 2022-04-17 05:13:00 Lindsay Corral [facility] CBC W/PLT COUNT & AUTO 2022-04-17 05:13:00 Lindsay Corral [facility] CBC W/PLT COUNT & AUTO 2022-04-16 05:16:00 Paige Woo [facility] BASIC METABOLIC PANEL 2022-04-16 05:16:00 Paige Woo [facility] CBC W/PLT COUNT & AUTO 2022-04-16 05:16:00 [place] Minor [facility] CBC W/PLT COUNT & AUTO 2022-04-15 04:23:00 Paige Woo [facility] BASIC METABOLIC PANEL 2022-04-15 04:23:00 Paige Woo [facility] CBC W/PLT COUNT & AUTO 2022-04-15 04:23:00 Bacilio Wooshubham Minor [facility] DIFFERENTIAL Center BASIC METABOLIC PANEL 2022-04-14 04:45:00 Lachelle Ruiz [facility] PROTHROMBIN TIME/INR 2022-04-14 04:45:00 Lachelle Ruiz [facility] MAGNESIUM 2022-04-14 04:45:00 Lachelle Ruiz [facility] PHOSPHORUS 2022-04-14 04:45:00 Lachelle Ruiz [facility] CBC W/PLT COUNT & AUTO 2022-04-14 04:45:00 Lachelle Ruiz [facility] DIFFERENTIAL [place] ABORH, MANUAL 2022-04-14 04:45:00 Ashley Wu [facility] CBC W/PLT COUNT & AUTO 2022-04-14 04:45:00 Lachelle Ruiz [facility] DIFFERENTIAL [place] (CELLAVISION MANUAL 2022-04-14 04:45:00 Lachelle Ruiz [facility] DIFF) Center CBC W/PLT COUNT & AUTO 2022-04-13 20:23[facility] [place] TYPE AND SCREEN, 2022-04-13 20:23:00 Lachelle Ruiz [facility] AUTOMATED Center CBC W/PLT COUNT & AUTO 2022-04-13 20:23:00 Lachelle Ruiz [facility] DIFFERENTIAL [place] CT HEAD WO CONTRAST 2022-04-13 18:22:00 [place] Dan [facility] Medical Branch CT CHEST PULMONARY 2022-04-13 17:22:04 [place] Dan [facility] ANGIOGRAM Medical Branch TROPONIN I 2022-04-13 17:03:00 [place] Dan [facility] COMP. METABOLIC PANEL 2022-04-13 17:03:00 [place] Dan [facility] ([id number]) Medical Branch CBC WITH DIFF 2022-04-13 17:03:00 Dan, [place] [facility] PROTHROMBIN TIME / INR 2022-04-13 17:03:00 [facility] [facility] ACTIVATED PARTIAL 2022-04-13 17:03:00 [place] Dan [facility] THRLAS [facility] N-TERMINAL PRO-BNP 2022-04-13 17:03:00 [place] Dan [facility] COVID-19 (ID NOW RAPID 2022-04-13 17:03:00 [place] [facility] TESTING) Medical Branch CONSENT/REFUSAL FOR 2022-04-13 15:43:13 Doctor Unassigned, No Un [facility] DIAGNOSIS AND TREATMENT Name Medical Branch EKG-SCANNED 2022-04-13 00:00:00 ProviderTrevor [facility] CBC W/PLT COUNT & AUTO 2022-04-05 02:56:00 Son Serra [facility] DIFFERENTIAL [facility] CBC W/PLT COUNT & AUTO 2022-04-05 02:56:00 Son Serra [facility] DIFFERENTIAL [facility] BASIC METABOLIC PANEL 2022-04-05 02:55:00 [facility] MAGNESIUM 2022-04-05 02:55:00 [facility] BASIC METABOLIC PANEL 2022-04-04 05:38:00 [facility] MAGNESIUM 2022-04-04 05:38:00 [facility] CBC W/PLT COUNT & AUTO 2022-04-04 05:38:00 Son Serra [facility] DIFFERENTIAL [facility] RETICULOCYTE COUNT 2022-04-04 05:38:00 Cheryl Daniels [facility] CBC W/PLT COUNT & AUTO 2022-04-04 05:38:00 Son Serra [facility] DIFFERENTIAL [facility] CHROMOSOMES CANCER STUDY 2022-04-03 15:26:00 Cheryl Daniels [facility] MISCELLANEOUS LAB ORDER 2022-04-03 15:26:00 Aisha Mcmahon [facility] CT 2022-04-03 15:02:00 Cheryl Daniels [facility] BIOPSY/ASPIRATION/INJECT Center ION FLOW CYTOMETRY 2022-04-03 14:50:00 Cheryl Daniels [facility] REQUISITION Center BONE MARROW PROCESS. 2022-04-03 14:50:00 Cheryl Daniels [facility] FLOW CYTOMETRY 2022-04-03 14:50:00 Cheryl Daniels [facility] BONE MARROW EXAM 2022-04-03 14:50:00 Cheryl Daniels [facility] BASIC METABOLIC PANEL 2022-04-03 03:21:00 [facility] CBC (HEMOGRAM ONLY) 2022-04-03 03:21:00 [facility] MAGNESIUM 2022-04-03 03:21:00 [facility] (MANUAL DIFFERENTIAL) 2022-04-03 03:21:00 Trina Coffman [facility] MONONUCLEOSIS SCREEN 2022-04-02 18:09:00 Bryon Henning [facility] Lyndon [facility] CMV PCR, QUANTITATIVE 2022-04-02 13:20:00 Cheryl Daniels [facility] EBV VIRAL LOAD 2022-04-02 13:20:00 Cheryl Daniels [facility] BASIC METABOLIC PANEL 2022-04-02 05:31:00 [facility] CBC (HEMOGRAM ONLY) 2022-04-02 05:31:00 [place] [facility] MAGNESIUM 2022-04-02 05:31:00 [facility] C-REACTIVE PROTEIN 2022-04-02 05:31:00 Cheryl Daniels [facility] PERIPHERAL BLOOD SMEAR - 2022-04-01 15:31:00 Cheryl Daniels [facility] HOLD RUSTON Center RETICULOCYTE COUNT 2022-04-01 15:31:00 Cheryl Daniels [facility] HEPATITIS C ANTIBODY 2022-04-01 12:26:00 Cheryl Daniels [facility] HEPATITIS B PANEL 2022-04-01 12:26:00 Cheryl Daniels [facility] HAPTOGLOBIN 2022-04-01 12:26:00 Cheryl Daniels [facility] ANTI-NUCLEAR ANTIBODY 2022-04-01 12:26:00 Cheryl Daniels [facility] Center DOUBLE-STRANDED DNA 2022-04-01 12:26:00 Cheryl Daniels [facility] (DSDNA) ANTIBODY Center CBC W/PLT COUNT & AUTO 2022-04-01 09:43:00 Yloie [facility] DIFFERENTIAL Center CBC W/PLT COUNT & AUTO 2022-04-01 09:43:00 Yolie [facility] DIFFERENTIAL Center SARS-COV2/RT-PCR ([facility] & 2022-03-31 22:26:00 Kaylie Mejia [facility] REF LABS) [facility] CBC W/PLT COUNT & AUTO 2022-03-31 22:26:00 [place] [facility] DIFFERENTIAL [facility] PERIPHERAL BLOOD SMEAR - 2022-03-31 22:26:00 Kaylie Mejia [facility] PATHOLOGIST REVIEW [facility] VITAMIN B12 2022-03-31 22:26:00 [place] [facility] IRON, TIBC, % SAT. 2022-03-31 22:26:00 [place] [facility] (WITHOUT FERRITIN) [facility] FERRITIN 2022-03-31 22:26:00 [place] [facility] COMPREHENSIVE METABOLIC 2022-03-31 22:26:00 Kaylie Mejia [facility] PANEL [facility] HIGH SENSITIVITY 2022-03-31 22:26:00 [place] [facility] TROPONIN I [facility] LIPASE 2022-03-31 22:26:00 Kaylie Mejia [facility] HC LAB HIV-1 AG 2022-03-31 22:26:00 [place] [facility] W/HIV-1&2 [facility] [place] CBC W/PLT COUNT & AUTO 2022-03-31 22:26:00 RobertoKaylie [facility] PT/APTT 2022-03-31 22:25:00 RobertoKaylie [facility] FIBRINOGEN 2022-03-31 22:25:00 Roberto Kaylie [facility] CONSENT/REFUSAL FOR 2022-03-11 23:02:41 Doctor Unassigned, No Un [facility] DIAGNOSIS AND TREATMENT Name Medical Branch Plan of Care Planned Activity Planned Date Details Comments Source Future Scheduled 2023-05-15 Influenza Vaccine (#1) [facility] 00:00:00 [code = Influenza Vaccine Me dical Center (#1)] Future Scheduled 2023-04-[address] [facility] Test 00:00:00 Counseling and Screening Med ical Center (12+) [code = Tobacco Cessation Counseling and Screening (12+)] Future Scheduled 2023-04-[address] [facility] Test 00:00:00 Counseling and Screening Med ical Center (12+) [code = Tobacco Cessation Counseling and Screening (12+)] Future Scheduled 2022-09-[address] [facility] Test 00:00:00 (12+) [code = DEPRESSION Med ical Center SCREENING (12+)] Future Scheduled 2022-09-[address] [facility] Test 00:00:00 (12+) [code = DEPRESSION Med ical Center SCREENING (12+)] Future Scheduled 2022-05-15 INFLUENZA VACCINE (#1) [facility] 00:00:00 [code = INFLUENZA VACCINE Me dical Center (#1)] Future Scheduled 2022-05-15 INFLUENZA VACCINE (#1) [facility] 00:00:00 [code = INFLUENZA VACCINE Me dical Center (#1)] Future Scheduled 2021-09-[address] [facility] Test 00:00:00 (12+) [code = DEPRESSION Med ical Center SCREENING (12+)] Future Scheduled 2017 Lipid panel (procedure) [facility] Test 00:00:00 [code = 22494851] Medical Ce nter Future Scheduled 2017 Lipid panel (procedure) [facility] Test 00:00:00 [code = 84931597] Medical Ce nter Future Scheduled 2017 Lipid panel (procedure) [facility] Test 00:00:00 [code = 05763037] Medical Ce nter Future Scheduled 2016 DTAP/TDAP/TD VACCINES ([address] [facility] Test 00:00:00 - Tdap) [code = Medical Cent er DTAP/TDAP/TD VACCINES (1 - Tdap)] Future Scheduled 2016 DTAP/TDAP/TD VACCINES ([address] [facility] Test 00:00:00 - Tdap) [code = Medical Cent er DTAP/TDAP/TD VACCINES (1 - Tdap)] Future Scheduled 2016 DTAP/TDAP/TD VACCINES ([address] [facility] Test 00:00:00 - Tdap) [code = Medical Cent er DTAP/TDAP/TD VACCINES (1 - Tdap)] Future Scheduled 2012 Human immunodeficiency [facility] 00:00:00 virus screening Medical Cent er (procedure) [code = 676793560] Future Scheduled 2003 PNEUMOCOCCAL VACCINE 0-[address] [facility] Test 00:00:00 YRS (1 - PCV) [code = Medica l Center PNEUMOCOCCAL VACCINE 0-64 YRS (1 - PCV)] Future Scheduled 2003 PNEUMOCOCCAL VACCINE 0-[address] [facility] Test 00:00:00 YRS (1 - PCV) [code = Medica l Center PNEUMOCOCCAL VACCINE 0-64 YRS (1 - PCV)] Future Scheduled 2003 Pneumococcal Vaccine: [facility] 00:00:00 0-64 Years (1 - PCV) Medical Center [code = Pneumococcal Vaccine: 0-64 Years (1 - PCV)] Future Scheduled 1997 COVID-19 VACCINE (#1) [facility] 00:00:00 [code = COVID-19 VACCINE [facility] (#1)] Future Scheduled 1997 COVID-19 VACCINE (#1) [facility] 00:00:00 [code = COVID-19 VACCINE [facility] (#1)] Future Scheduled 1997 COVID-19 VACCINE (#1) [facility] 00:00:00 [code = COVID-19 VACCINE [facility] (#1)] Encounters Start End Encounter Admission Attending Care Care Encounter Source Date/Time Date/Time Type Type Clinicians Facility Department ID 2022-09-20 2022-09-20 Letter MAGGIE Machado [id number] Univers 00:00:00 00:00:00 (Out) Astrid MOORE [id number] it y of [facility] [id number] Carl as [id number] [address] 2022-09-19 2022-09-19 Outpatient R AMRIT [facility] [id number] Univers 19:20:00 20:12:25 DONNA ity [facility] 2022-09-19 2022-09-19 Urgent Donna Marcus [facility] [id number] Univers 19:20:00 20:12:25 Care Unknown, Attending HEALTH [id number] ity [facility] [id number] Carl as MARK?BLEA [id number] [address] MEDICAL OFFICE BUILDING 2022-05-02 2022-05-[address] [facility] [id number] 00:[facility]00 00:00:00 [facility] 2022-05-02 2022-05-[address] [facility] [id number] 00:[facility]00 00:00:00 [facility] 2022-04-24 2022-04-[address] JuanIsmael [id number] 11:00:00 11:30:00 Visit [facility] 2022-04-24 2022-04-[address] [facility] [id number] 11:00:00 11:30:00 Visit [facility] 2022-04-24 2022-04-24 Outpatient [facility] [id number] [facility] 11:14:36 11:14:36 [facility] 2022-04-13 2022-04-17 [facility] ER Ricardo Rueda [facility] [id number] [address] 18:02[facility]00 18:06:00 [facility] 2022-04-13 2022-04-17 Inpatient ER LASHELL CORRAL Gastro [id number] SLE 18:02:00 18:06:00 [facility] 2022-04-13 2022-04-17 [facility] Ricardo R[facility]a [facility] [id number] 18:02:00 18:06:00 [facility] Lachel[facility] Ruiz Hui 2022-04-13 2022-04-13 Emergency [facility] [id number] [facility] 10:55:00 17:09:00 DENTON catherine [facility] 2022-04-13 2022-04-13 Emergency [facility] [id number] Univers 10:55:00 17:09:00 [place] [id number] [facility] 4.2.7.2.686 [facility] [phone] [address] 2022-04-13 2022-04-13 Travel [facility] [id number] [facility] 00:[facility] 00:00:00 [facility] 2022-04-13 2022-04-13 Travel [facility] [id number] [facility] 00:[facility] 00:00:00 [facility] 2022-03-31 2022-04-05 [facility] ER Becky Palma [facility] [id number] [facility] 19:19:00 14:01:00 [facility]22-04-05 [facility] [id number] [facility] 19:19:00 14:01:00 [facility] 2022-03-11 2022-03-11 Urgent Isak [facility] [id number] Univers 18:20:00 18:20:00 Care [facility] [id number] it y of [place] [id number] Carl as MARK?BLEA [id number] [address] MEDICAL OFFICE BUILDING 2022-03-11 2022-03-11 [facility] [id number] Univers 18:20:00 18:18:42 MAYURI catherine [facility] 2022-03-11 2022-03-11 Orders Doctor MAGGIE [id number] Univers 00:00:00 00:00:00 Only Unassigned, OSCAR 350.1.13.10 ity of [place] [facility] 4.2.7.2.686 Carl as [phone] [address] 2019-09-16 2019-09-16 Emergency X HERVE III, [facility] ERT [id number] Univers 16:13:08 17:09:00 KINZA catherine [facility] Results Test Description Test Time Test Comments Results Result Comments Source POCT SARS-COV-2 ANTIGEN (BINAX NOW) 2022-09-20 02:07:00 Test Item Value Reference Range Interpretation Comme nts POCT SARS-COV-2 ANTIGEN (test code = 30912-7) Not Detected Not Dete cted On board controls acceptable with C Line (test code = Yes 3574) [facility] [id number] 14:46:50 Test Item Value Reference Range Interpretation Comments Case Report (test code Bone Marrow Pathology = 104) Report Case: [id number] Authorizing Provider: Cheryl Daniels Collected: 04/03/2022 02:50 PM Ordering Location: [address] Received: 04/03/2022 03:29 PM Service Pathologist: Aisha Mcmahon MD Specimens: A) - Bone Marrow B) - C) - ADDENDUM (test code = y1txoKUzUZHeoZD7KgWcDF 3381) Mfj9lyg2AlwTRnqNJgORts jVYbocDjdm46oYJ8yB54WZ 9kDXGySvU2OWJnnsL1Scb7 ARZuCHCfbBXyB579q0znp2 vicwQnpEX6YMDaMJSwU4Lf TS2vZFSquQLwF4ueMMZjTN XyK3WpKA5zIRDqSsr0EUH8 ZUv9MWZiqVSfqdPvZtLnTP DafHDchHS4KNWfMF0bkzod QJkhZKelHPIsdkN8KXPcvA YxV1NoARWeAT9lptgoAKD6 GVjmKZYbDOT5OfOeLSCgu2 Myymr3AaFqyIHySZgflCWs blxmczIwXGNmMSBSZWFzb2 4pVg4iDWCsSYGbOMAhMaCS fkZrVCVnplCnxoDarGl3vl BvZiBhZGRpdGlvbmFsIGlt rAPmz9X1IVgjtyRtszZwF7 l4v2dlzoG1fARao6M3EZhb rn5vbHJdRZLwygSKGPHpVG YlqIPquyLtyC56tqNyB9F0 uCRjOYThJDpHIWKvg8x1bP BcIKWdG9BobWRmb8m0dLOa WQJfFURwHGteIKFzkBD1US RtPd8frKF7mK1aFcogSJTu jIOlVLOwN4CaFCIrYNsxQs 7wZW2lEicsKLLrtwDzi4E1 YBRxProcLmVpL2Dxu56sB1 NfNDL2wK3xZH3bySlhQRWm JVv4t4guSMJaa5jcPSHcle 5shHDpXX4ddMAab4QisD28 yLNoCiK6ZhcRGClvFM0hjE NdPOJjgsncbHGipJP5OLRl OZunDWSsVzCgAS8KWlUKiZ Jdg0dbMOAop15iKVJajbCH hp3ciVniNaezTPSfkat+XH 5cflx+XF9gqmb+GZ0oxck+ KK9wcfECPxCcPX5hVWtmMy GNl82gVBEsuCMdeSKsNTNc clx+GV2uiam+WH5qvwc+XH 5cflx+HE7frib+UGVydGlu CW78YD6bY1R4hWByrrvwTi 1kFWHnt4GtXAucvJmoihPu LHPsT7HoMAPgcnA2uHLwGw 2hsT10jZ0bSRthfdFeDyHA TFQzLCBJREgxLCBJREgyLC HTFZ3bIXAwalpaeCFqkCQ0 MlxwYXIgUGxlYXNlIHNlZS HaC6VdcrMjC6Z1xISslMAb FX1ah3pfqy2cuEYcNBKreJ 1jlJByv0EpL72mdEetfTIb dyFzbLt8fyGwihRgeY53RP HtcyA9BNSvq81lTUpmNnOm A1lcVcMwaPXqNDxrSJOkfz GgAEOuIAmzj2KmilKcPM7r kW0fDZLuE7rycyezZH5pAA w7hD19M2zpTj4hFZLjEWIv s2qdbMQnmxLudGFtmMjudH ivk7GvaKf7fEVoXZgiiNif JB1iHXSiy9PeVCGhXWRjSL 4gzNIpkYQfeNJxHS3oJNTl ZmluaXRpdmUgZXZpZGVuY2 Bjw6NodL82n8e6XU8kudDj AbsrTDCeTG9vjPItnHtqJB Aef8Msp1NauGDpqLAvqcBd LekpKCTcfnT7fZZpG1Zbvh OyzXIkLG5maIYnKF30wFNz BHYgc8YpNrrgZUM6dF8kb0 eaJROsWZM9I3jrSYKmjZ3h NXI6cL23kuyzhbh5JG3hzj 7puFMkgGCjl86obHHxYCMr N6efqtPfVSZeMRNdzIuemU 15pO3jNDOnLQW2NCVmOERb sIWvaP0jeC0ySHSpjgFsnX tgzrNzw8tgrKmoJYYrNAQn qT0qQ2SivIlpZVzyvEGzTX BkOIBrsC3pX9CvSXJclfZs kHZ6pP1qPVSsKOZugJ7lLO Ztk2nrr2dmeKCxfEDlziZo c98wPZ8xFNRvCNHqom0= DIAGNOSIS (test code = a9frzKOaOMHrc7rjUFEciB 3220) FuZzEwMzNcZnRuYmpcdWMx IHtccnRmMVxlcGljOTYwMl bienZoVYRlaFPmP7Pcalfm TKykCY0dGQ1cnDqbdTTouS HuJGScWeQre9xjt404fWMl k7fiEQAQwronkGz4kNmgM9 5hd5Y1WvwoT26jrJIaSCM2 KQVqBQLbpHAbDKKrPOT9AU FmcSPyB5dnUQBiYU4dceia LTvvOQaoITFknJZ3YWArrQ QdJ2RcNWDqCZzuQSWwzjo4 GvMgOk5crXCacDhcLFgfJE MhJSXmCYjcDBYuWdSeAe5O ENHLTJKPD5ivDATBORARDS KqXHUIG0AuVCPKFAJXRWBB QGCDCwxYQXDUFT3MI5h2DD BhciAtIFZBUklBQkxZIEhZ DD4OQHyDRNzIMrMgNNMpML RrJZZHPUGWV7lqAg3YIUVH BLZSIWRTJF1MDJNUES9ZNV RTELtMOlZGQ9OsIILINORX RX0NCMUJZ3vrDISrZHETFq yDVVDHKWWnTCGDF0VGD11E QbQBZJUYCIiQCoKfG3vESd OamUHbUO2lGAMXIDIPKSNj AXVDCiGWKP8NEYJzyINxEN 0gUEVORElORyBUSUEtMSBT MYBWFnqdHTPrOMPDNJ3UOQ 0SJMMBDW8RNO0BNKrOVCOH RGTAA4rQI2JSEQUlM2TPJT kEM2jyZUFlETIPHNVjP07I TUVOVFxwYXJccGFyIFBFUk hUFTNKWUjrNopIV1I8DXHu cqMsIKPWPdJDEI9DQW6JDH nlDMH4z1xlyHSvAMWeqDAp ODAwMFxhbnNpXGRlZmxhbm vnPPNvRNY5jnJcSGRtVJzs LEMpTHfwHa9tpEVkkMrjWw QuTCVob5yxvoDHitasfUz2 l0tmTCTdDlA8jLQdERozK6 butzOjxSHcTXSuPXq9nW71 TZRnsP8qnVEqBDxdqoCtEc X2RQooZBKiRmR2AJQfzCSo HMSaJ0mfIOVwAQqcORJgYC jbiOSyVFU4yFefj3E4vWRg aGVldHtcZjBcZnMyMiBOb3 WoQUc9yQsvO4QbOQVvVuS6 bHQgUGFyYWdyYXBoIEZvbn P3bZ38OKpyqtB9mWZyt6Fr s75vg017jI1smGAhZDY0TU MgRWHrmHVvOXIiWHL8EBTb cAGgK7mpQYDvST5xbqpiRY fjPEwgIKMvwWY0TJUvmTNa L3RaYXOtQXboXNZfnmk6Tc GpWf1peRPwhSffDYbne8ma z3hxoXUxAkx0WFJsOkZoEh qrSMjsb8Edm2juPPHgud8t LBT9xGXubAftt5E7vOPoZL ZgnLWkAUIrWW8enRNaFQSp tM0xawywANNsLnIqppdgQK TtwPwmkpOqPb5bxWsiXXB5 EPygY0uyjD6bMxW9BSloC2 eryA4bBYv8DFdqAHCkzSG4 nnW9XKWkoQFjK4BedJ0wXC JzMC3qghc8k5ejKRE3LGpw GGXfSeA2vmO6PHZjiZLdFZ MhpJvvYUdpd097WCB0DnSx VATba9YeG2BekSdrB38fzU dwK68nUBFjlMdljL3yyCmr bJ6vVhXsLqTyEAdejFbjES 4tEBBbG1eyqBIuKOXhBHSk F7saMbDwtD6ihEarKUzrzv MoMBIvObe1JPVglNUjYIYc Uab0AHRpYOReF07ebaoeZL T9yF4iy6mtw2JvJCpiPUC4 IGOwo17lNYsyceI6MHphKr 34QUbxTCB4NYhnQDZ0tO== COMMENT (test code = y5baeWXqAXFgiLP8RmDsQF 0942) Xan5mbo8UzfMHhrNJqVSdv dJBcrsSjcd34mGS1bJ41GX 2wOFSlFpZ5YNVyivK4Trm6 WZXpKERgiUHoW784o1kqr7 kqimOxjMP7URDtIYVdR2Ye KY2nYWAplQKsS1hxZAHfPJ XrW8ApEG3cAMNfKio1RTK4 XFx4POZwxZKdurHjBrXrED VikBIuaEV0KNZtMP1gedll NGqfJRzfNZCpdtQ4WAHapS UnE2IlUYJtVS4mdwcyKQQ8 YFyqLCXcLXA6DoTdBTHil7 Jutvk0YjAjhIQwROcjfPGn blxmczIwIEJvbmUgbWFycm 50WLM3ZAc4HPIyj58oZUJc v14wxIJfzSDoAWQbneYxdJ KscNopmXsev1JgzOa6nIFs KN7tdvUippXey8TdOFjrFS twpQgaeMJ1uIGgqkzoiUDx pHicLIXqWNIiJL1zcT1lm5 byy5edCPUvJAWiFMC7PCBy uOL8EJGqGFY7zOxhe7xnBB BbQIQ5ipWugqZpOV4hMDGc F76rPonsDU97MIE4s7DjOO NpYSBvciBpbmNyZWFzZWQg Gkavp8OqAOSjKD4wKIqyPa DmI1xcVkHvoFPaNIrgRVIs mcDyg0KhkuQxqokhNtrthx LfyDZovDZ1cyorj1O7WDjr VUmpcSBguOR9MJVDUhBmKH M5WRZsI9aiMcPqnKHuYGSf bC50azRvruWfv96rgRsvmK MgQiBjZWxsIHBvcHVsYXRp u86xARKmSQQmTK53UUTkL1 RzcHYud5Q2eFZ7cH1hOPEg ciBpbmNyZWFzZSBpbiBpbW 18zk0jwXDjk9I1uIiaVI08 MHaiVinpa7VhGpYDbGQsR7 MaUOKiM8ZbGY9tQP0PFgYv Z0HbMNFwA2GoUXWvJF32LO pizDLaTXrvt2YiNGKqIYim AlBwB1pvWhZpuMXasKZqQe ooROZwSFRwWMLoWH9ml8Jn VFHnEAKjlLF4aLPmraAcwR EuoXUzAwDKhe6lND7dFMwa EP1hFZUoYPFfpJJwFF26dH mjmRVhCMikJf4pY73yfbYe WBOfm03yqOlvELCrjtZhvr ket7Y2PPikifDvttWtKMA0 lLEkULAgd4QsBfslQOtihQ 64SUHcnqR1LLQiq13zUJDn iiexAWGgUIldMIQjo7QrvV Zkv1JfXOWma28hxI0cZ9W8 EAUiqL2qEQJnUIImDXxyQM 5yKOmsBjElOwChSMSqhu0= CPT Code(s) (test code x0minVMxCUSysYT6CwDqQE = 3357) Xpm0orn9QfhJDpaLGrGFua hRUpapEtez55zPI8gH02XV 5pSIMdSiJ9UGCrkxO3Tyc6 EYLpLLRpbKRxA697p5ekm0 qnreAsaPL9hRsjPPGqvsxa AtV8WSehUVDstpjyJOn6TV dlEDBiuSP2TLGqlUPfY2Mk UHZtUL0nmix7JSR8UTjdSJ FvOqE8MZIfbZVfKEWgkGld VSshi364EJK2VfMqNRKfqw TuhLxmlM8tHaWbAdW4IEW0 IUjmPMMxFVl3BBf6BoI3MX pzImfqONqmKFF1SDl3BdKk LgQ4LGR1XaaePMymIYBagM lccGFyfQ== CLINICAL HISTORY (test a4ngxMHtDSQxhQQ6XuKkHX code = 3356) Ruc5eml6VtnVXqhOVqBNpq dCOoqvFvqf82fOQ0rD50KX 4hAJSgNbP9EJWglcZ7Lle9 QCEdHEZjyTYsM936e5yef1 gnicSuxVI4TOBiGLXqU9Zc MO0nOCXrqHQoZ2fjXSXjSS PgF2JdWE2rMETiGrj9VDN8 TJn0JMGtuVOvmxLsQhIvIU NiuROevLX7GAPyQS8hhuek NTyaAIakQSScitV7IWEyeH FoV4GbADYxON5vrwekBEQ4 VUveUAPvFBB7FjMgCJHxk3 Nimme9CtNjrKDmFTcnwGJt blxmczIwXGNmMVxjaGNicG R0PdLAdTLdeTXdA4c3u1Es bmlhLCBhbmVtaWFccGFyfQ == SPECIMEN SOURCE (test o9hmlFQmQSGncFU7HuAhET code = 3377) Tii1qbu2VpmPEqzTVrORhl xAMpxvLqrm82rXC8dW03UK 4vGUGqQrV0EYPnqkL6Csz6 TKJiSJJvoTQyR327o5nmn6 rqpaHquHM8iEqePTKxbpub BhL4DScwGCCodcayMJo2GF usHMEjrOT6NELaoBSjQ5Ds NKJnBR0acxn5WCL7KZshZN RjTvU9ZMGwdTOfDNHjeSar BEfnl294VSR4EdUdAXQigh DtzRzcdP7vEzRgMDYNl07f FW1oqpYgdvQlo8EtwsA7VS kqS3twpVDmccSxF04fXBRj cP6gn9gnpVMdzD== GROSS DESCRIPTION (test q6gjjKDjJSLluHL8JyDaDS code = [id number]) Jku7tjb3AuwAJheSRtOHxo sTRniwIlev28qBV7aN46SG 7nQHRmNjR4WKCxvbF2Sbx6 APKsHPJjjBTuK758x3boo3 esoyHpyOI9QIXsJABmV9Rt OS1fLLRqwHOcC69xdJVbFI E5JOPpNMMtfYJhOXQrPHP3 LOZbdQIqL6gtTTJzHW2twe snPMuaLNvwHIUtsAR9QAKn xTApF1KeCTTeLPgdSZOpxa a9MhWxUm2usISioQfrIEfw OPJsy5gtZPRptXFjTMF3IY vbrLQlHERaNNNcRKf5RFTo AXjppLTsIU8htQbkHxvzrE zsq9VcrHOiPFbaBUTbANNc REdlFYRvX5GGSJStAht0JL O8FREvETo0GJglP0OGVZPh QFY9HaqoFJT3WrB5VZw1QP MLXc7jMShqCXufVCUiLTM1 MjIwIFxcdCAyIFxcZmwgXF xhFHPjgTRsNYdioeF9EIIy JFrjPZOmWkUdZU0rUz9nUR KFQTNbz0kdFNEtkwmpwpIl EBZvIMNoeWLjgW3eptIkfg ByZWNlaXZlZCBpbiAzIHBh cnRzLCBhbGwgbGFiZWxlZC E2jWEiIVDfFAHkMJWcDY29 O2TbngHjPBzjsKYyoJJvqA ByZWNvcmQgbnVtYmVyLCBh qcTwYIJpAUJqkJ6pJR07hB Ymgk2jlJaaODYOnRJeeU2v msXbLMGgkcKvu2ZcZU9jCJ NldmVyYWwgYXNwaXJhdGUg b45eRGPfEQUbyoStpBRcoy lmQEW6moQ9BMluKLTys4od FTKlKy9xSUcnk23vx8IyjE 4xh6bwgPgvn1ZvnYVhBDik JFMifFHzJQpmeA1gHhCsj8 lqmWg2FTupgoW0LBZkuw06 BOmwBWSpH5LoA4XeDVeaRG R5BAVvSbFyTALyEI0QEwBm XLR8PHKcYVEnDGc5VTt9LX 1XDgJdYOBqYPD7HvS2WWTq KTa2LOzgWD2LXWO0Yxl0TB l6TVE3JSAyKTFiWBAxIkLa XGZsIFxcZiBBcmlhbCBcXG 5jfVxmczIwIEIuIFUuXHBh clxmczIwXGNmMSBTcGVjaW 2azqPVDQFgclHyb0CqIE8e MTFqXyuni8PkH9vibLOgFZ KhqLAyqoxvYK1yZJvvHK96 MMhwST77LIQvKkYoIKvfBC UsWNLddCDuOXoaAJRhi9Fz aEHiSKAaSPQkpMRgiDG3KT DpJF97cVVfkZhjrU0cU9Bl m5R3xEXzHdDvCRTcrohshi RmLNQlTRztGNPiP2KxC2Sp ecDjvEVgSWFjrlVmw4izHN R2MBEzmODbeJVcZzUeJvzf JPG2r6qtODMxaPAfTOO6OA xcaWQgNTEwMDIgXFxkYiBP GoZlAaBvNbR0Uwc8YtS2MI i3AGRNOuJeUoEtScbdPUT9 GeayNFn8REw1GEsDAwQ3NM V4LIO1VDJfDOXwOnVeKXb5 IDIgXFxmbCBcXGYgQXJpYW hlCGseJ82vUeVeDCGNZrGQ LlxwYXJcZnMyMFxjZjEgUm CeXZv0OIVvcZ0yDl9nhSKy vP2jeSTkTEW9HL5mqbFdON JggdGsE96uKYZzJUFjeOZt rmenVe01HGQrGJoxFBxycp v9bTIlrANzmOE0JGIxYG35 zDEwfRufcZ8aHsGvEu7sHF VyC4FaC6ylnUAafSgvaz8d cGFyXHBhclxmczIyXGNmMC WPBQ5oHHSHiWB1MVMqPQZU BTZco2plM7lxysYjlKXkll T7BKItvOBlQMH6RL5dpFkm PRNgW3AoF6BnghB5UALjfl 0= MICROSCOPIC DESCRIPTION n5napGEzCAGuxJZ4LlLqAW (test code = 3371) Jhd2whz6WrhYCcoFAkTStg oHSxffLkyu74nNW8vT25MS 5mUSLdIwU7ZGHzsiV9Ldl5 OCJhEVCddRYiG124n4wyt7 aymsUvzCJ1NRIkSMZcC7Ik PC9bQTZrwDAcU8huXJBjMT SzK2HfFB7fNWZnQsg9SZD7 NWb6XVTrhQLkqzFgBsUuOS PcwCBpnUJ5XBQfZA7istyz OBbaPGxfGZGyocY2SKTjcU NnE4OcDLDzQQ5rlrqkGOP5 DOvfELGyOMG9LxTvCBPub9 Xtmbs3SdKxnYTcYPvboXPr blxmczIyIEJPTkUgTUFSUk 9XIEFTUElSQVRFOlxwYXIg UVVBTElUWTpccGFyIEFzcG lyYXRlLSAgQWRlcXVhdGVc cGFyIFRvdWNoIGltcHJpbn AkJHGpXWU7YKRsPBYldqbu LGVrNJABOd6DMOVWInDEDz VSSNhXMMCDK9ZZWXcxAnIm ScWmLT4mNPUheDlrHXBmiR 64EEV2UWVdRVwoSZPdNE6u MQIoIKEfOGT8diKrhROeHQ GmGNCnHPEWhc6vnSUds7A7 dGVzIFxwYXIgMTkuMCAgJS IVaMSei2I2wDXzG40vxLYi rISrt8V2bCEdMFaaRLXzDa JsLGEgVPRJBW5xev9JGSya LP35MCRmB7AplpGod5Y3sD XrDIkzYFXqGm9rYFGxGI3j zM9xiYyvqSIuPN5dOVBqCP T6fkJxqfAuVNBskhHcHjCx NMZkEjMia2CsyIxjXYItXQ PthvYdyIXsg2RoWQjpUIPo VcVwCDShRHQUanf4tHBwvY FsiJDvO1Tge00msvLynIZp PQA5VvGmVFRoZVgvyGmbW4 p8XNXtWKHcugJpNcScMZIx EC1ch1X9jJWuOYFsfgPmNs QpGOOwAEsob78yRGNnyDcz EKIgopkxFRUhJOwreP5eUS tpYNZ9xBmwn5pgSZUwwZvu OlZxIY43BjIVs9BkDIxokC NaARCwENN6kzfrXl15DCpb T0XlHOTvXNvsHHRppXXbCL OdzIItfb5wq1kat5gpZzWV UAC9DGVwkMF0LANyYI1yQT KnxZIsPHIeAG1gyVSnAUYq x27zmSJdSDOaKNIzJILbKT AgICAgICAgICAgICAgICAg ICAgICAgXHBhciBNeWVsb3 SjfANcmKE8LY2quNMmqHMl RZU6UPZgrFU4GVZrp6j3xR Agg11bhPY9EAVsVYX1qrY6 wU2qQOFcM3Hwd5yzdkGpDK 2jQ4Dmr8MhIVJ5c0lyIHBn RX2oHIVrFCIsHHMyGGZnFK AgICAgICAgICAgICAgICAg ICAgICAgICBccGFyXHBhci DFKAtak8DbeD7blUCqenpp HPDzQZFxxuTaFI8jPJYpjX ZijxG9abYufGHvj1NzlBDa cGFyXHBhciBTdGFpbmFibG UgaXJvbiBpcyBhZGVxdWF0 ZSBiYXNlZCBvbiBhbiBpcm 0eYEJ1YBevKZIlftPnnh4n LXMyqbO9hFIzZEOuvBJjoN Ajy15tJVMtTJMbKRUhZEJb DVBnsaUmoD8aBXSvBUKzc4 EjPTA8syOjKMVlgTwvsQMu LiBccGFyXHBhciAgICAgIC AgICAgICAgICAgICAgICAg ICAgICAgICAgICAgICAgIC AgICAgICAgICAgICAgICAg ICAgICAgICAgICAgICAgIC OvRVYpSSZzQYhyOSWfYf1M LRMESGCEW3olQgtVZYUPRs qfECKeSrockMZ6FDADKYRw uZD9BLyuWVRbF7veuA7fYR RlcXVhdGVccGFyXHBhciBW INTbFSFmaGMsyTGkF2TfcU FhZWRcNc1sZAVhAPOaWQRt HZNnIEekOBUhP6NsqJQkAR GlS57fnE2twVMkp81xs4hu jSogewE1mlWkk8OwefR5TC IptJSentPuLV6cXVSuhPWa RAcmcOVkogAzJwXUewn5cT RgpJ8nQRPfptGuelAxcAte tE1lu1jpc0ejHKXxGXRug9 6ibYZ4HE6nHHLfDZsbjqdd Q6x0WAWdLGQvDMTqIBBfbb Hsh3t5sQNpvcZgJPwxWCLw atEdTAUqEEApGDEkz7MuyH 6ah0m8NqSqE4IwMKGoD9Ps OTYhSNQgbJVdFKxbh0CpuC 1ifH2roLusdM2upEVgrZZf pZLnxSLifgVip7l5pMGagP Mzw3FqmUJ6XHErj450fz4d PYRjYPYlTIDxt3LpYWXcOG HAAlCfsTqnjZymT9d7geGj DAPeYUNzRFZ8ez5sSZD3pI eei1fsKBJiUCC8fvNyxlHj RYHnZKNwv0d8hFNcSK2tBQ ZqR2KmoVJlqP7oUY5mEOSV DXT7BaSFLJXqGBulW0gohV zewFNtxFIeAAxfnkodL9i6 FYHaVECqL3UkoTFaDBUsZM 1pbGRseSBpbmNyZWFzZWQg OYAeqZpvjFztG2f8VVPnm4 2uF4MpSCY9WFpdYpWOWGCo VHX0LJxmGQbjvRvqTmWaa8 CtIGMvGOFrd9MbPtDkiOen npXlzuRryOM1lK2xFX7iDV QvZEHQQIKtlTfeObIKS6E9 dGVyZWQgXGNmMFxjaGNicG M3ANECCFXeSgMZAECbkEpo SUVzXQDlj6AhJH6pF5AbTb grIHBsYXNtYSBjZWxscyBh pqBwt3CceGHnltScACurhH Vai5RfaHjwhDl2FSolqBsr Ul56cZZoKFOcTNZxgsIrxK EzNwCqQYN4BtLdfNVawKKe i5PbpS6vwXTrFVQaXTUiHK AgICAgICAgICAgICAgICAg ICAgICAgICAgXHBhciBCb2 75KJCqEHQpU8VgBFW5RDAG wnHzpPUec4KstGMeeXNdIG BhciBTdGFpbmFibGUgaXJv woCckzQwFIPytMV9LBFxCU ZkJYSbooIienThhe0yTEN4 XOnqNJJgpvEebs8kJLGkab P3hZXuR4ksiACjSNM9hU0w LiAgXHBhclxwYXJccGFyIF ZBQxqFUDINBFsrPveRT2X3 XHBhclxwYXIgUkJDczpcdG DnVB8kcl6vJ1mwc65uZrFb x4Jhx7K5mZzcGYQtEL2iCB M9vHQzh0U7RNMwX87fTdui XE35PIXhcGQnvE8av6fjx3 L6jY0xzOWkzGEtNMCzPLQj ICAgICAgICAgICAgICAgIC AgICAgICAgICAgXHBhciBX MiThOeMCYYKgt1RkytpsEP qhjObimqB9pTZfbZUcmXJe KQ6uVQOsabH8lSO7rU7sXE ZvUIZ5lgMrNIFiGYQtJRQo ICAgICAgICAgICAgXHBhci AgICAgICAgICAgICAgICAg ICAgICAgICAgICAgICAgIF xwYXIgUGxhdGVsZXRzOiBE OTYzRQIxLXDsx5v4gRI7oo DcnYHta2EzjYQuqQ5ckLhy kT0ncKcplc2vR3f8jYBjrr lit5Viy2Z0VKbxzJFhl95j cGFyfQ== SPECIAL STUDIES (test g8veaJHdYGSevXJ1KgBcTN code = 3376) Flr7sto2PvlVUtgSSmGLub rSVgupEzvo17kIB5vT34DC 3nWZLnQeQ6PBCsaoH9Jey2 HVJjUXYiaIKlJ601HJChVY JzlRrcqia7nE35VTOyhL8n dGJsIDtccmVkMFxncmVlbj NbRkx7FZW7hQkrHQHwvpki PbN2CJrpSTOaavosJEh1RC foTDAviMW7XJMyqGJuA0Rb DBEhPY0aoac8KEI9XSksDK AfPrK2CMSwlXRgFDMhxFjs IDgzw326TVN5NgIuJGEvno FpfJjyfY9pFxRvOyAlBici ZjEgVGhlIGludGVycHJldG F2vT5vJJ9fIAOgfAAwI3Ud JCNequHkrMVjSPP3bGPgvW AiWK8hDLnplCDrl3cno0Bu I2gtbXwurOS6WP2mLDTrCH TdMHhzt2YnkC6sSljiFAAh QaT2CBlfb95jnZOsXWPiBg BDRDMsIENEMjAsIENEMTM4 TQRLBKG4LQRRJVEdWgtuX7 X4SIyeML0hMONuKDNcxebo F9EroQUoGSexdJAeKEyvXY EufLRnSFEysvMyb2doE1kg FRAaKKO2JT5oekDyUlWoQC 9gkM24o0Dsq38qw32brO4f uMBnxzKfO95xdONpaACbc7 PsBPLykvOckOU6CZKbUZqa dhldi4c3hQW7eLAclYCepU Q6jNFxrODhUFJDxOBrXNAs j048ay5bFVSlaTSaufKogV 2hQNtqcoojiXSfVG0lYTBm FOUkLUHgMV81hbWkQE1qjW Mdi6fdvfOyuWYix0TbwXW2 EUFdnDEyobikPn9fUZ01KI WhHLjenJ5ziJOeumKtXJ0a OL8tW8Z7rOBwBVUzpoCkt1 nkBUcyFC9vQELplXclAveo CLOvJROadhLrkQJ3RETkcV JtUGAejLMwSJqpfIPcx5ew f8GyD5roxQqvjWF6YAKpP7 lziKAffAO3VED9iR6bLJdy cqHpJVCml2ImFGKgYLZrZq O0cO2rWUY8XwSPxLneAFO1 CbQ6TGzcKVDmVO7hJPwmJU ysL4VerJXbVRCVGXWlj9lj K6tbDIIho5ClmB3gwDL0bB NsZMHeqGV7PZVoPKZ3BNlk cGVkIGFuZCBpdHMgcGVyZm 4apBVlQ8HzG3njgsMaiGOz kPQ6gSJsDNbuheYjMNU3QI BeeV9qLL6qIHDipYRxAS3o dCBiZWVuIGNsZWFyZWQgb3 UeOIYgjv92UJZeStgenKlt WQUyBc7zRa2zQKFxuzGkQV L8ZaSJXL3qvejpdRKnqVfg vd5lJZkkTOCQAMJaANKaLU J6WUOufE0jZZI0wJD4UAS8 L8hsA2ltSSJzgoXlXY5uRQ GqwKKbbtNnIYwrEW6iiDEw TIOxh0FuckipDHPsOPE1RK U4JGxkVHKcFXZcAc7wJEJr nF0yV1KuKXL3onVkx5InIj QHzTKbgQ99aMYynn41SLAi XXYjW1RaZFUtXFCrFVyzrl WkdDzzXQAej45ifRTnyfYz i2CcwvQiVKAdR4yhLDHloL ZchMGic1JepB5otRTnbwQb ZXC3zPFkPCQzwG2kZSPalE tkGTAfzT8tD3XcPQtbBy8l CUUtucdeRP5htm04PN5elk IdUN9nmdYjZY35rfJxQuEj YVh5JQcNTAzJRLt0PGCdfx NkdCObiGHbMDWlvW5pqAWj Ba1udYQlrNupWJQmjIDhHQ kuyTbwN4hwsmcdKFpswXIo g1EzmS8peCL9KAC2hU6iMh xwYXJ9 Gross assessment was [facility] performed at ([facility], = [phone]) Department of Pathology, [address] [place] [id number], Technical component was [facility] performed at ([facility], = [phone]) Department of Pathology, [address] [place] [id number], Professional component [facility] was performed at ([facility], code = 2779) Department of Pathology, [address] [place] [phone], [facility] [id number] 14:46:50 Test Item Value Reference Range Interpretation Comments Case Report (test code Bone Marrow Pathology = 104) Report Case: [id number] Authorizing Provider: Cheryl Daniels Collected: 04/03/2022 02:50 PM Ordering Location: [address] Received: 04/03/2022 03:29 PM Service Pathologist: Aisha Mcmahon MD Specimens: A) - Bone Marrow B) - C) - ADDENDUM (test code = [id number] 3381) Dbh7sem9TlkJCmtUUkVEui jLRkhmFfog91zUC6iB27CG 3wEEYuNfI1CSJaafH0Ndi5 DZWvMHKekIKsV172i6goj4 mwtoMqfDV6CRHrEDIhT2Ce HG3pGLEylTWfD5mdKIJzVG ZrH1QfBY0mIFHrIjd2MIH9 EZy2DVWjyBDvgjWlEdZbJN BoxGXmoZG4LDAwRX2idaql UYjlLKiuIGCbszR7FTFbpB WbE3YmFXYmHB0epyjjGGF8 UVfkERKiOPH9EtQgFTWhq6 Esvof5KeWowPEfGOzmmNHo blxmczIwXGNmMSBSZWFzb2 1cPd5vGRPtAHVdNCIePyDI abDmAREsndTgalQgwYo2ug BvZiBhZGRpdGlvbmFsIGlt pZZrp3K7GRueckMmyqVvZ8 f8n6idhiH6rGAes7V6ZCiw tn8dvOMeJPYglxWTWIIaVA NxaPNkddPvfJ49kpUmV7S2 aLNjOKHiHEiYCXJgn7w9rV TyFGDtR5ZcvRSnt7c2pTMb GNBdGAYpDRemNTSzdZX8GH KeGy1yiQC0oO0mBjfjPVDs rYWfINWhE6XvTCBsNNuuVs 5fIA5aRwrwFRWjsbFoe6W8 IVUxBlwhAoXtX1Eoi96dB1 ArWGJ0jC0kAQ8jsBtlXEUi RJi8r8kjRZNbu1msHLFjlw 7igENaHL0laGIub1IfkU73 pXLdBcM0VgaBLZasPS2fdB KrWJKxunjiqDPkxTY6LSZy JVrkXJTtStUuOL2CXpYSwD Inu8xvCQAbg18xLOKoyfEY wg6izJtdNgcsNJKqvvs+XH 5cflx+GU4zccq+SK3okqg+ AO3toyDVLbExAM1lAFurLt QMx51gVFPwzHBjpYJwVKDg clx+OE8sqyt+BH3qbgt+XH 5cflx+TG6iden+UGVydGlu QX44EU2uP7V8zBBsvkskHz 8vXFJzj1LfUCvkgKcgrmTu JTRwA7WnJOPxmiW0aODaRm 9iuU31dV0zSTvnvnExRiCP TFQzLCBJREgxLCBJREgyLC LWFX3kAUSmsagllZUkvPQ3 MlxwYXIgUGxlYXNlIHNlZS WeY6YqpgFlH9M9tYNttYZc AN0qg7uckw5uiNNbDDWbqM 7hdLAlv1XkS94bqMnftFJj zkEfrEa6nfFhtzNtfK36AL GwqfS1LANuo59aJRsbTnYp L4nlIcSffTFpLYuqRDRyll XoACDaVGfrx0JvojLwQI5p xB0vTDNlV6oyofftSS1aWH v2nP97M4weAc5qXCRqMNYu w3bztFMpuhDmdXLqmKpqnR klw5HqvHb9sIBaAYatmKkc BZ5oBNNbp1VjSXRiIAOlTK 0ylGRirVBhaAMlCB2fZGVi ZmluaXRpdmUgZXZpZGVuY2 Ibo0BobG83g4l9KL2vtgIz ZaueMTAlKK3uaHQtxDldCW Ugp1Bpm7VjqDCyxYRvzeYi UrafDFCvgdM4bZCgW7Oawb RuwCHgGV8usNIwHI62pPNk EPOmb7SpFcpwWYB4rJ5uv0 bcKXEeYAB4V2aiTIFviS9f ZDR0gY05khlhvbn6EE4vxr 7mfBTqvBUwx55mfZGdAROv K0sadmSqJGDcVNFomCbypE 56bI0aIVKqBEW4UTHnDGIf eNJtoS4svA7sZPXkqhZqhP gcyoZdi5qbwMpwEVJyAUYx zN7iV0OxhGquVRmzyCHlSN VuHNZzkQ7kX4RzFQGxggSb vWL9wL0cYDPyVNFvpX0vCX Ywk4rpr3dkpWKeeQNnvqFx e21jAY8hIIKkVOFvxe0= DIAGNOSIS (test code = d1gzrGJwRRJog4ekOIEatY 3220) FuZzEwMzNcZnRuYmpcdWMx IHtccnRmMVxlcGljOTYwMl trkqYlSNEpmGLcV1Lwpikp WFjbLR5tHB2rzXaxjMMerS NpQFHsDgPwq4vcy317lYTy r1ctRFLPxycxkXi8aVhqY3 9zc4Q0KmwmH98vlLBjJOS9 RXDpBVJafJKcFDQpYUK7LI GmgWDdI8rqZFBtPN1xdnhk KGpcJCabKEPhhVT8VWXwyC FyV0XjKUBeYRkqEYDadxl6 OnUsUi4voIPuxDtlMVktLE DoEIYsWNdwHSJbFcXuSl9V LLQCPOQNY9meSTSEKAKKTN GpKMGWH3JmJBTIAXWWVCNN MGAKPugHVKNCZV6OO5b0ZJ BhciAtIFZBUklBQkxZIEhZ CV0BWQpCZPnAViZcRNNdNS ZfYICPGAOVN9sdYd7UTCYI IIKCTFKYKJ7WVBTOFG8NRU QOGMsYYqIFO8DuQXBKKTGA UD1KVDLTX2dpPTNnKYXTZu bZLQXRTMJzSRGDZ2RGH43K NeCFUWMQOSiADsXfJ9jOTn XauILqLL3wZVMOAZEAVHLv TKXWNhHEJV7CZRPyuDJqLT 0gUEVORElORyBUSUEtMSBT QJKBUlinHCBtTEPPZM8ITV 0LPUJBGV2LLR0ETVgQXTKE YZWNG3hDZ3VBTCIdT5YVDF xWV3neNTChIYQYHBLoN58F TUVOVFxwYXJccGFyIFBFUk aHZADPNHfeKmnRB3X9KPNf ndAlWUXKHbFIJK5TEC2JJP gxALN2i4vahDRxFHEazFMc ODAwMFxhbnNpXGRlZmxhbm qkGRKmATY3awUaKWEqFImp AOYqJRkwIu1seMLclNydSt GvEKXux4qfcvXTpganeAi9 s0beMHKwKyU4tBHyDBpuW5 crgcUqaTHmZEKbVMt9sO23 KJCcrN2ysPWyWGnfkoGpWh P6HOeyJEYkNeS4QWAipQGt PQJxV9siDEIlYXjrNHNvOG vguHEpPLE2eBhns0H5yKRa aGVldHtcZjBcZnMyMiBOb3 QdCKq9hFxvD4OlLZRnYkX3 bHQgUGFyYWdyYXBoIEZvbn U1lM23JKnrcvK2zNTob9Gs m00xn835mL6ioZBsDOA7AZ EgMDTxfRKxLJOdXZG9IZRu iMWrN3uwUBApGV6wtaalDK eaRWsoUGZvmPS2JIAceNHh I7OpLIUqMCtkIRVhjpt2Lf PzVl4fuPMbgEueMOowu7ww n3wwtKZkOfn1YVFhBrEfZf uuQOawk9Asu8moDXLgui1j IBY7wELqmDwgm5J1eCOqEK RagNUhDGTeEI9ytFLsCTNg lU8qtfyhTDVaMzRjxkyyJM IevJxqxpUzMy2pnTthBQL8 DEhvK6sqcK0mRlJ2NJnjX8 nblL1tCJg7RFrbBTAtxEB0 qlT6ZQGpxMDaW2FazJ9nKF MtIC7dflf4u9ygGWF9BPim OABiXsW1qbI4UAEnwDXlXU IreNipTDitp258RVX4WxUj YDCtu2RfP2SovHamL04dhC ojD99qNBCnsNawnF7bvAfp lJ2gUcWsGmWpUSwbyDvbJP 0oPNByW5xyhATwPMUiAOAt X9mfFqIncC1laSprATxoqa NvAPHtHud2ZBJvzMVbTTGc Hah6USAgHZIaB46izyoeBT Y7zN4xi3hnn2VfJWedDFU0 ABQdj59wAZqdorB0TZrpWk 33EPjtWMF3PAyvXDR2gZ== COMMENT (test code = o9akrGLiKXDboZE3DnRhKJ 2280) Uwc1oit2IwdMNoqZQkXQvf qIEvydJqmv41vIE5sT94DR 9kNZWkLuN6UHVodmM7Och8 VRHgLQTaoMQlC566r3pwy3 rgfkMylTR2FSQpZTUvK6Qn FS0kJYJgsZUdV3jzDKUqCR VxU3SqOE5zMMVyEhn9HCB8 MDu2UOBtiCTrawFuJuFdEX CjvNDeoDF8UXRgHZ2cewfh ZAzxPEmrHMRdopJ9IVMttC TkZ4KjLQGsVB1qkyvaDYK7 USqsUKBcQSX6PpSxTLGaf6 Xmzbb5XjFtnRWrWHswyDPj blxmczIwIEJvbmUgbWFycm 50UIO8UJl7WOPqm74tXLUj t90biSJhuGAjZNGxmcHbhC JabJtbyLbmh6BzpLl6oLFc OU8gieXvdgSaz1WrNNqnRQ ervUyeoFE4jAYusejyxVSj gXwhIHItOTTwOP5dsM2kr5 vam3jsJHIcLOEySYJ3EVFj rFK5CTDdNWC3vIhza3rcIG DeJGE7onXhuqAtSM4wMCQm T58cRasmYR01CQB5i4AhYH NpYSBvciBpbmNyZWFzZWQg Qmuco8EdHMPcZP1pVKrxVe RaW9ieNmWgdBJxWWwuWORm zxArt2PinvNtfdggOtbvlf RhdAZtuPE9jpyqa2T8WMhc YJwjcSGokQE5ZIZSLqPpNG L4GQDwS9hhQfCuaCTsMRUz bU46mqMpjzBeu92fvEekmF MgQiBjZWxsIHBvcHVsYXRp a24xUVKjVAHaDT58HQJtL6 IghWTlk6O2qGY1aG0cHXJl ciBpbmNyZWFzZSBpbiBpbW 19wd8erMZug7H5cRqsOI26 NYswLfkdt3KjBnGPqQYtG3 JbGWPfN2XzFX3eFO9WSgYj P2VxASIjT0YdMICuFQ29LE uqfLUgJDmls2OyAVVpTIwz PrCpD3oxQeSkoFQnjCAzOr ghKLSgCWCoEACaIV7ih7Eu XJKgPYIxpVX7gEWcmpHdqQ NpdEIwByUGyf1rPT9cQYry KD0dCGNyCKWcpEMtWV56sG shyDOoWRwnKy3tV46zihCf UVVgz67biJoiUZRkgxJhlo rmt8Y6IGidwxWfsmIkQEX1 uDImGLAds5KuCzkjCRybiL 28WKMvyoF9TZAls25fTCPc forwIROoFPkvCHWun1JsrC Bkw1TwTULsw85ibB5fT1E4 EIKfoX9aVUGtGHTuVBviFJ 7tXNgzBqSoPfNcJJBhec9= CPT Code(s) (test code y8kqxLNlRLTsfCS9QdVrUV = 3357) Mgb2lha2QkuKBjlPUgYEsp aHJjyzCrlj72tIW5aE57GM 3hJYSvIrX3WXBfrpT0Slz1 SULeHNReaYBuG169j6brh1 hbrrEpdEG0jSgiPVPyzbya LtY1ZErrFEVbhdnuNVb1MX nwJXAylRB7QAOcgTEkI9Tu NCRkVL4kdso0HYR0ECiyQS YlEfK9PWNhvVIiIWTmsUxd JZqsh308QMJ8AxCmJQYegs PkvPyhgB9yBeWpLyT9QSG6 MJatEREtNZa2ZNz2PaV8EB wlExspOMcvDZW3MIo8QhGb EuH8AAQ5PdndDRxrFRAxdR lccGFyfQ== CLINICAL HISTORY (test j5apfLGqXYElcJH0PdXnRW code = 3356) Rpt5hxn7SssOWkmZElOGqa gVShusZurc14aAV5pW82WK 1dXTEbOnI1UJLykjW3Jpf0 JRWoUNVctTDkI214x5gyh1 xybsSuoTC0JLGdHLYvK7Dk EI4sLOAsmHGsD4jmWAUxWI WaK6IqJO0pHLQoZsi0SKA9 CCt3DPVjjDBpmkIyPzInHR SjvOOnuCK2NFNwSU5ttcys FRocJBprLLQkczO1NFSxcU DnK9TrKQQcUU1rfrqiSQB9 BLfiHOLrOIE7OzEsCHQrx7 Ucwfc8EaRuwZQlERfmnRPd blxmczIwXGNmMVxjaGNicG P2EtOCxTBowWErY3y3p3Zh bmlhLCBhbmVtaWFccGFyfQ == SPECIMEN SOURCE (test r3kouBTdGTEtpKL6UzWsJR code = 3377) Led0thn0AisMTkxNRpHVht pQGnhdLsbw21wOG0bX97UD 8sXCVvVtU5NSZqjrN5Dbw0 CXPoPNMcxZZuN204f0xdw3 vzjgLcsNJ9fGuqFAPxutjm QmQ5VBpwHCVexkwsXXj2GY lcUXVirDP1IYFbrUQjO4Aj AWFlOU3vbfj4LRO3XKdhMW XwRzA8MICgnWDvFBNpvYzy OQdja919QUZ2OtEsLEZxox WpgClddP8nUyPwJWXGj19c GP3xxrHzzuFdx3KjiyI5VX yaT1tovVZmmcJlN30mKDCi xZ3qw0dqqKWgcX== GROSS DESCRIPTION (test l9bylVDtVQAspAT0YrInMD code = [id number]) Teq8tih1GxvQXwaVQxGYwt kOQtvqMlbf45aGG5tL85BV 0gZIZzRyG1RLHryvF8Cow3 IKLeGOFhaFCdI414u0uhi7 tpdlWtdJM1QAHjUENvP5Vz HZ3xJKIecEVaA93ltCZrTJ G7PSFxLPDbyQXzFGKqBZC1 MTDfoWTzK2eyVXRmRX4qel qiQEftTDdrQBEwyVE0FAIu vHWnB5HmOYHqDVlyOAOnfp e8UtExWa1djKHxhClgKXrl WNUxt7fpCTAxvYEeBAX2KY ahyZEdXOLxVWXsKQq3WGKs OCibrDCkML4moMdtRacqkU smk6RsvYBbGUtcPPYmBBAy OZtzOZYgB6WGJJQaYfs8NV W2NYTfFBf5OQidV5VVXCTa LDG4QldyXGA8QyK5VQe8LR YSGk4sSDwtALdrOAXbCME5 MjIwIFxcdCAyIFxcZmwgXF dgDJNaaHExDEdkccC5GUHc KNhmGITfUhIrGJ5yFv2pTY QFPEZzf9vyBDUzglwohhRh TTFaADJdjITlxB7wpcMhfu ByZWNlaXZlZCBpbiAzIHBh cnRzLCBhbGwgbGFiZWxlZC S6jDFtILTlRSVhTWGeWN57 J0AdwqMoVKednYHofCPxdO ByZWNvcmQgbnVtYmVyLCBh anUoRIScBITzpQ4aAH23wV Fktj7neKzvEIVEbTJscD7a dvYmXAUlqiSbw6JlAA8uWK NldmVyYWwgYXNwaXJhdGUg y97bBYLgJTRxqwWbkWMnpm bhSHG2hpV4XOhuWGGgl4td OUPpYs0rHPktx31to5PsvU 3al0zjaHtjw3LokMWePVvy PVGgxRFoPJzgaA4iRiDpl1 bruQx0ZKbwflM8PVBrgc64 OKtuHAKlH2JlV3LlCLdcCS R1HVNpLuNeWNCvMB7TQaNh WAK1UIViADFnNTa0RZm3QR 9TSzTsIJSoMMT4YtT7WUCc KAp5DGmzVA0UXLO0Wsn0WP f4NSY4MITuVNQoYPHkGwSo XGZsIFxcZiBBcmlhbCBcXG 5jfVxmczIwIEIuIFUuXHBh clxmczIwXGNmMSBTcGVjaW 3ghiANBOFhwcUtj8YqDP6a LYOjHsijy3ZsT6qifWSsHY GlvSNtzyrpRS6uRZkvNZ81 FUwkAN69WNUcCiTqZRoeRY WoTNOewNCzTYstTTObp2Tl aNXlBDMfTZAxcUHozYJ7MX SiXC84jFNorDxgrU5cF3Ha l9J6zJVjBaLpPXYbyxyuif SkHLRrGAfnBZCbA1EcF4Fp pfMchANxQGAelxHll5ldTS I2AKQvtFOkaPCeNlZvSqww DNZ6g3qjDJMeyUCgZTB6FN xcaWQgNTEwMDIgXFxkYiBP GsWeIsIdIyO9Cqc3GsK8YC n5JFRVXgDhOlPuSuuzVIZ8 VrwhUEz7NCo2KSzICqL0MN L1UJO3RIPjCOFzDyDaVEg1 IDIgXFxmbCBcXGYgQXJpYW iwLOajX28fNjDeIBFHVdBP LlxwYXJcZnMyMFxjZjEgUm JeNPh9KLSwjW1tWg1ykZQj tW2xuCGiCGW2IN5exlKuZW JjysLaJ82aMAMoCYIruINc yyypKm96QYInPTruIOpzlo e1pJQfpJJanOO1JTIbAY77 wHZpsGqxmW5pRvDkHn3dLR SbH2LzI1gkvQMcmAdpin4o cGFyXHBhclxmczIyXGNmMC TGWB4nLFIQfVW4NJWnRHCO HHUbk1auR6glfgFanXWeih X5REYghTZyURX7RP6ttTwf VREgW0VuA5CarjB1QNKejq 0= MICROSCOPIC DESCRIPTION z4yfpMRkJEXykFI4JfZpYW (test code = 3371) Dxa6fle5EyoLUdhNUzUIfi zKHuxzZynz23zXC3dF49QH 8wUWZbBzV7QVQksoG0Aik8 VLVqURVjfEFzS979u0fhq6 alukLzuZQ6PDZaLJRcD6Ff FQ4bSHJdhPRcM8xpNYKoMB NxU8PbQO5fWTYaMnm9QQH3 OSg0HPUomVJkcnExNhWnML SusBAwfJJ3BRUsPM1nwnzu LOrjJAejMPTemaJ1VWEhbC ElQ9KoCERiUD6arapiNAH7 EYcdNQFtQCO3YoHaJGBwz7 Crcss8CzLeeNXuOAdyjJQd blxmczIyIEJPTkUgTUFSUk 9XIEFTUElSQVRFOlxwYXIg UVVBTElUWTpccGFyIEFzcG lyYXRlLSAgQWRlcXVhdGVc cGFyIFRvdWNoIGltcHJpbn EqCMFmUES2ADLaFNBreqkq SLRaKXOIUv8PSWNHOaDXOz YOZVyRVWPUJ5ZKOWrxZiBq ZfPwSP5nGCChfCmwSRShbE 85PQV2BKLsZBsxVPNfPL0g WKFxAWObHDL7abDybSWwJY CeNAJfWKHFfs8vgMBhz2C6 dGVzIFxwYXIgMTkuMCAgJS NCeJSdl4U1iEHlE82xqWQs aHFzw0E5gPCdBSkwRTJqNu CeGWLjGCNIPQ7ihc7ORMap BJ99VLZzT4QyudWbp8X5fQ XkBUveOCYkZw2aUGOhPX7r fB2ncTqdwXXpCE0gPNVwHZ L9kfCvilBtCTNlndFjBfDx YNYpDvVyu9YxdSpfWZQkTG TdhsWsbPYkv5WbVReqUCTy AcOmGRLwMXNXaml5uEMkpW SfmXJqM4Jwe38gfeZylEHa PYX5RdVvBGErZGnpoEvzW1 w0TMPmPCIunaRaQaAcOPZh VJ0qo9I5kGEuXTGvxcSnWk KeAAAbBSshf39yHVHpdSkc RYPmkrkmKNIxFEzleX6rRD dqTQH5rInpg9ywUWPjjFev QxRbOJ68SnJWr8VlHJjnnU FfSXXhDFY0tldjDy54JZnw J4RdNDRgIWwyATXgoYIuWF SfxZAjir7ta4ekg6kgSmTX HGF4FDEdmPD6LLJqXW7sXK RvsFWwAECsXJ2efLPlWZVr w93cmSCuKOGrUIZhXTZrXX AgICAgICAgICAgICAgICAg ICAgICAgXHBhciBNeWVsb3 TajYBqmKU6VX7yfERqmSYo AYA9MIGfjJY0BWHdw1p4zE Vqg97uxYK7SSWeJTJ7ufW5 zE6hIQJyJ5Qif4zxysZdEM 3qE7Xwg9WaIIN2u7ntGQJb WU0tALYuTAYcVVSoGTJzPP AgICAgICAgICAgICAgICAg ICAgICAgICBccGFyXHBhci EHTRora0VklY3pvQFeryep KQIyHTXdjcFmBC7qQIQjmN SpvqQ5puFhuYFtv8ZpwSAy cGFyXHBhciBTdGFpbmFibG UgaXJvbiBpcyBhZGVxdWF0 ZSBiYXNlZCBvbiBhbiBpcm 1jLWD6LQfgOSOhfdPkqi2b SSCcxwS2tKYqTVHbaIJvhO Hfm21fAFIoDFQwZYIyKYBl NYMfblVjoR1tOFBtCUGyx4 OgDCO9guCsAFWljZrpbKYo LiBccGFyXHBhciAgICAgIC AgICAgICAgICAgICAgICAg ICAgICAgICAgICAgICAgIC AgICAgICAgICAgICAgICAg ICAgICAgICAgICAgICAgIC IzPBDiIQLjFOqoKDFbDz3T SAVEERFUZ1aiNmcKDUOPXl eoFMEjZycevYT3CJOJDDOh zXI4NEkwHJWfC1qgaM2kVK RlcXVhdGVccGFyXHBhciBW EPRcJRFnoNExuEEoD2AdoT AmURVkNp3fZSFwAWSbACXa XTRdULweVHTdB4HnjFOpGY KuM93gnK1joSRfa45xb1at rCzzejV7nsAia0XbyiC6ZT GeaHYkxgFqFE0hFWHmkAMz WKvmtKNfidCfSzFEebm3zZ IpfT2kGBWetdBjdvCekNiz bS8gm2zzw5kfYGOeRHKww0 4uwVD8ZU5qBGWrNBnsabur N7g2TIUlPFNnMLElAUVsqk Dtn0k2uYGipnSfDUxtWIEq cxGtPDVcSTAbBTTqw4XkxG 1fy4y6XoKyH4UzEXQuK7Oa EODgBMVgzOOdIEofc9UgqA 4nrG1bpBjivL4oxZXseUXw gPEsbEZrwaMyk0e7fNUooC Nyx8MtnPH7ZWJjo244do7u HJXuLXViLWIev0WnDAVqKD XTSoMhhIucmFfqJ1g4ajTn WPEmQTMaAQN5jr7bGGS9mV pws8gmBDWkEHS3jrVzaaJm WUEsIHTdp5i2cTQxZD6iAS KoO7KwgHTheP5eVF1gZDAL WES4GmUZESPbWNezA4pdvJ uozIAkgILuDNkuyipiC4g0 ZCCbCOFuJ0VbcVIsEALiTR 1pbGRseSBpbmNyZWFzZWQg VXNhvLsxjUmnC2e8VMClu1 5jR5XwBYL1BFpcVgPUIIYq RKA4VMbeBRhugPknNjHkt7 ZkEFMeWPFgs4QmDsTpnSio cxKintEjoRX3nX6mYU8cFE GvSTRORZBuoYtrYiTPS2S2 dGVyZWQgXGNmMFxjaGNicG L8DYJDROGiDbJCXBOjzQub WEKhFVQpd8GbTR8lB0MeFn grIHBsYXNtYSBjZWxscyBh zhHei2QprZPxsgEjKAccpL Nzh9IwgYxdaSu4NTqskAfe Og52mIJdJEDeMRHrdnCnqH CmKgHhMQZ7VoLvcETpyBKb j8XmvX7meBWrZGUcPETeFM AgICAgICAgICAgICAgICAg ICAgICAgICAgXHBhciBCb2 34ESLfYXDpF3LbUYO7PFYP hxFwnJKee7JkqCImjNZzKG BhciBTdGFpbmFibGUgaXJv xvYlsvMwTBWtqHO4UZNnPP WkADHipbCubdCbfj9aSHC8 BYtgNVHnrwYwhv8bVNWhwq X5lXAbX6lrjHLkXLP2iP6o LiAgXHBhclxwYXJccGFyIF MDIbtYEMQBEIzuTlmVW4E8 XHBhclxwYXIgUkJDczpcdG ObKM4shk0pB8bel83aZaHq k5Bjd1G8lJyeHERiTH0nWF S0cIQjo1E1ZJNoB44dQmtw BZ27ZPTvrYDtzB2tw2quq1 J9wV6pdBGzzVFcTMDgJTCj ICAgICAgICAgICAgICAgIC AgICAgICAgICAgXHBhciBX BfBaQlHSHCCgo6HmpyflMO qbzMeygmK7pMRjfOMrdHNr NJ9uDUIjddG2rYN3eJ9mLO TtETQ1ufQdUXTeHPNxWOTm ICAgICAgICAgICAgXHBhci AgICAgICAgICAgICAgICAg ICAgICAgICAgICAgICAgIF xwYXIgUGxhdGVsZXRzOiBE ZRCbLXAdVZZlp2p4jYL1um BerUQys2GjsDGkbL6ruCij yC2phRneng3bU5v0fXKdmk gsy7Rep3Q8DGvqlXFxv76i cGFyfQ== SPECIAL STUDIES (test s4auyFLzYCQpkIX9UoAmQK code = 3376) Nae9nbf8XxzUZgeAFxWYqj uNTclrZimm32fTQ5eE26PH 7fXWPlPeH3IFVlzeU9Cyw7 AYNzZSVwfONfI056PBPtFJ WkhAnjuxt4iD46VMBouL2o dGJsIDtccmVkMFxncmVlbj CsVqd4AQI7wOisVKXiezzu ToO7IXpvKPFvnsdcYRs6PR laSDHdfIL0PKVcwOQkA0En RDUeSH3yeuv2ZEE3CZpxHH KrNiA2CCKbrIJgZJJxdDtd JYlkd307VNJ4XfWrOSQwnw AagClytH3rIbUbGhBbDwsa ZjEgVGhlIGludGVycHJldG Q8uX9zMT3tYEKcqGTiR7Wh JQVlopJtpPOhLKT4hIMlaS GaYR5kYCbbfPEmh2rjk6Ok E7fnrDepkAU0ZO8yQLOlQV MwJDgwg3RyiG8oHlldCXQl XkL0XDzgc09aqPCnATRbKt BDRDMsIENEMjAsIENEMTM4 CWGXJSY7KWWWNSNsErhfC7 M0XYkpVS8aOWKbYXWzstae C4DuuPQtXAsrqBLjUVdkYG TrwEYmWFLgowMfp3mxF2gi SHGvITD9CB3bkdBlFtOaPY 7zuX69g8Xly51nb38ysM6a vLLprbJdI96vxUTlfYUcw3 NtJVUsrdGifDX7MCBhRVtp biyoa4s9sXO9pNVwxEGxdF R0dEZrcYDzVRHXfYWoIWWr y196wk4pKEXwiMEwvtKcbX 3iGLqaabdpdSYpGM9hXVZq UQFySIDwTF05evCsMG5rfB Fzz9awsfYrqIZkd2VnqEC9 QZFsaEUadcgdUj4xOG18CG CdUYcpfJ0wnMRhxaJuZL3o AY4uK6R4lTFsSSJfurZgp6 afGIbaBK0rBCEkkFpyDhbu KISrQAEhswTmaNT9NYKjwL WuCKWnjAJhDWcpyDLqv7qc j5BmF0vrtUifsTN7JDWeI9 hwqFBwnGR5RIS8qE4bSNdj fpWgAYBzq2ElQBRzCBUeJk O6qK1oKNZ3KwLUtVgoPXX1 UjM8PJlnQKHmSJ5wHPrrTZ fcH3HsaBIrDMOBQLQdc6cs R1upHQQpv7YntW1pzBY6zE RnOWOhpJG6HUXuXQF8JFte cGVkIGFuZCBpdHMgcGVyZm 2okCKlH1YoO1bbcbUjrYHa iLX5jZTmSMqmzrJlTNQ4OM ZxhM5dNB7sMOVyuIFwRI6p dCBiZWVuIGNsZWFyZWQgb3 MoOJFnui91HLYtSdxxlLvr QJTbGz0eTl8iROJvafOfDP O9EpOXHX5uqzbewZNwzQfu mb0hFOoiOICODDMjRVSwYQ E1QBEoqA2aRHF5yZM7XDF0 A2liC3gnULQepeWvRQ3iMJ FvyDOvviRbDAcoKY1zdCUo XCAoz8TnhcgyXPGdKRB6NE Y3GObkSUCzFVRkOj5gHMKp jL4xY3RoJUM8jdLzs1GhEk JWqHXdrS83aGXxpr42MOXi IMAdK6QiPKFbCKRyVUuspq JtjGvjAFPlp98cdRJxbrKh g4HortOdEPPgA5wfFTRfmK EbxGUiz8LufV1kyOCwhqCi REB0cBTxSVKjcD8zLHKykP tnVYZzaI9pL5IgDIcjXu5x BLZjotbjYD8atd40CT1usn OzWW2osiDmZV09wkYsYoUc DZe8EMmOXWxUWHj2LGNtuz BbxKIgyRXjAOPzsP4olXVf Ii9afZMhpQpuWUUwfDXdNK jpiAysX2jwrvevFQvruXDl e3ZexE1miBO9GWR2xV2cVk xwYXJ9 Gross assessment was [facility] performed at ([facility], = 2777) Department of Pathology, [address] [place] [address], Technical component was [facility] performed at ([facility], = 2778) Department of Pathology, [address] [place] [address], Professional component [facility] was performed at ([facility], code = 2779) Department of Pathology, [address] [place], [place] [address], [facility] [id number] 14:46:50Bone Marrow Pathology Report Case: [id number] Authorizing Provider: Cheryl Daniels Collected: 04/03/2022 02:50 PM Ordering Location: [address] Received: 04/03/2022 03:29 PM Service Pathologist: Aisha Mcmahon MD Specimens: A) - Bone Marrow B) - C) - Reason for addendum: To report results of additional immunostains and cytogenetic studies.TIA-1 stain shows scattered TIA positive T cells with rare small cluster formation.(04/11/22) As reported by [employer], cytogenetic analysis shows a normal male karyotype: 46,XY[20](04/24/22) NGS Myeloid Disorders Profile: SNVs/Indels: None Detected Pertinent Negatives: No abnormalities detected in the following genes: FLT3, IDH1, IDH2, IBN1Oxvoyb see scanned/attached [employer] report for complete results and interpretation. The final diagnosis remains unchanged. Although bone marrow is variably hypocellular with an associated pancytopenia, no definitive evidence of involvement by a neoplastic process is identified in the current s ample. Other possible etiologies, such as infectious, vitamin/nutritional deficiencies, drug/toxin effect and autoimmune conditions should be clinically excluded. Clinical correlation and close follow up is recommended.Addendum electronically signed by Aisha Mcmahon MD on 05/06/2022 at 2:46 PMBONE MARROW ASPIRATE, CLOT, AND DECALCIFIED BIOPSY:- VARIABLY HYPOCELLULAR (10-40%) MARROW FOR AGE WITHMATURING TRILINEAGE HEMATOPOIESIS- ERYTHROID PRECURSORS WITH LEFT SHIFT- ADEQUATE IRON STORES- PENDING TIA-1 STAIN- PENDING CYTOGENETIC AND MOLECULAR STUDIES- SEE COMMENTPERIPHERAL BLOOD:- PANCYTOPENIA Signing Pathologist Direct Phone Line: [phone] signed by Aisha Mcmahon MDon 04/08/2022 at 8:05 AMBone marrow evaluation demonstrates a variably hypocellular marrow for age with maturing trilineage hematopoiesis and left shifted erythroid precursors. No significant dysplasia or increased blasts seen. The corresponding flow cytometry study ([id number]) shows no monotypic B cell population, aberrant T cell population, or increase in immunophenotypic myeloblasts. Cytogenetics and NGS myeloid disorders profile have been ordered at the request of Dr. Sandi Tejeda and are currently pending. Correlation the pending studies is required for final interpretation.The results were communicated to Dr. Sandi Tejeda on 04/07/22.62194; 42296; 56863 x 2; 80394; 76694; 72090; 30965 y8Sbtwqtarfbwqkewo, anemiaBone marrow aspirate, clot and core biopsyA. Bone Marrow.The specimen is received in 3 parts, alllabeled with the patient's name, medical record number, and accession number.Specimen a consists of several aspirate smears, including 1 unstained slide for iron stain.B. U.Specimen B consists of a blood clot measuring 1.1 x 0.8 x 0.7 cm. The specimen is bisected and submitted entirely in cassette B1.C. U.Received in formalin is a torres-red bone core [...] Mildly left shifted with complete maturation, occasional m egaloblastoid changes Megakaryocytes: Present and appear unremarkableStainable iron is adequate based on an iron stain performed on the aspirate [...] CD3, CD20, CD138, CD34, CD117, CD61, E-cadherin, [place], LambdaControl Slides Examined: In-house known positive controls were evaluated along with the test tissue. These control slides run alongside of the patients sample show appropriate staining. Internal positive and negative controls when available are evaluated Immunohistochemistry technical testing was performed at [facility], Pathology Laboratory where it was developed [...] qualified to perform high complexity clinical laboratory testing.[facility], Departmentof Pathology, [address] [place] [address], [facility], [facility] of Path[facility], [address] [place] [address], [facility], Department of Pathology, [address] [place] [address], SAG W/PLT COUNT & AUTO [id number] 12:17:10 Test Item Value Reference Range Interpretation [...] (BEAKER) (test code = 2801) MISCELLANEOUS LAB [id number] 08:56:59 Test Item Value Reference Range Interpretation Comments SCAN RESULT (test code = See scanned report [id number]) See scanned reportU/S, ABDOMINAL, [id number] 13:25:00High volumeReason for exam:->evaluate for hepatosplenomegalyReason for exam:->reordered per original order due to high volume scans [facility] : 1995 Sex: MFINALREPORT U/S, [...] 04/17/2022 13:25:08 CBC W/PLT COUNT & AUTO [id number] 08:17:32 Test Item Value Reference Range Interpretation [...] (BEAKER) (test code = 2801) BASIC METABOLIC [id number] 06:28:23 Test Item Value Reference Range Interpretation [...] not appl icable for dialysis patien ts Central Office Supervisor ID - JAMESON GCBC W/PLT COUNT & AUTO [id number] 06:05:56 Test Item Value Reference Range Interpretation [...] (BEAKER) (test code = 2801) BASIC METABOLIC [id number] 05:25:03 Test Item Value Reference Range Interpretation [...] not appl icable for dialysis patien ts Central Office Supervisor ID - PIAYA LCBC W/PLT COUNT & AUTO [id number] 05:04:59 Test Item Value Reference Range Interpretation [...] (BEAKER) (test code = 2801) Chromosomes Cancer [id number] 11:52:22 Test Item Value Reference Range Interpretation Comments Scan Result (test code = See scanned report [id number]) LETTY (test code = LETTY) See scanned report [facility] [id number] 11:52:22 Test Item Value Reference Range Interpretation Comments Scan Result (test code = See scanned report [id number]) LETTY (test code = LETTY) See scanned report [facility]CBC [facility]/PLT COUNT & AUTO [id number] 07:25:03 Test Item Value Reference Range Interpretation [...] CONCENTRATION Decreased (CELLAVISION)(BEAKER) (test code = 3438) Central Office Supervisor ID - [id number] ID - Shobha Black comments: Slide comments: PROTHROMBIN TIME/[id number] 06:06:12 Test Item Value Reference Range Interpretation Comments PROTIME (BEAKER) 13.4 seconds 11.9-14.2 (test code = 759) INR (BEAKER) (test 1.09 See_Comment [Automat ed message] code = 370) The system [employer] generated this result transmitted ref erence range: <=5.90. The reference range was not used to int erpret this result as normal/abnormal . RECOMMENDED COUMADIN/WARFARIN INR THERAPY RANGESSTANDARD DOSE: 2.0 - 3.0 Includes: PROPHYLAXIS for venous thrombosis, systemic embolization; TREATMENT for venous thrombosis and/or pulmonary embolus.HIGH RISK: Target INR is 2.5-3.5 for patients with mechanical heart valves.[id number] 05:45:46 Test Item Value Reference Range Interpretation Comments MAGNESIUM (BEAKER) 2.1 mg/dL 1.6-2.6 Specimen slightly (test code = 627) hemolyzed Central Office Supervisor ID - MEG [id number] 05:45:46 Test Item Value Reference Range Interpretation Comments PHOSPHORUS (BEAKER) 3.8 mg/dL 2.3-4.7 Specimen slightly (test code = 604) hemolyzed Central Office Supervisor ID - MEG WBASIC METABOLIC [id number] 05:45:46 Test Item Value Reference Range Interpretation [...] not appl icable for dialysis patien ts Central Office Supervisor ID - MEG WCBC W/PLT COUNT & AUTO [id number] 20:34:43 Test Item Value Reference Range Interpretation [...] PERCENT (BEAKER) (test code = 2801) TROPONIN [id number] 18:24:43 Test Item Value Reference Interpretation Comments Range TROPONIN I (test 0.000 ng/mL See_Comment [Automated code = [id number]) message] The system which generated this result [...] biotin. Lab Interpretation Normal (test code = 84874-5) [facility] [id number] 18:21:22 Test Item Value Reference Range Interpretation Comments NT-proBNP (test code 40 pg/mL See_Comment [Autom ated = [id number]) message] The system which generated this result transmitted reference range : <=125. The reference range was not used to interpret this result as normal/abnormal . LETTY (test code = LETTY) Biotin has been reported to cause a negative bias, interpret results relative to patient's use of biotin. Lab Interpretation Normal (test code = 43667-2) [facility]CBC WITH [id number] 18:16:37 Test Item Value Reference Range Interpretation Comments WBC (test code = See_Comment L [Automated 3890-2) message] The system which generated this result transmit goran reference range : 4.20 - 10.70 10*3/?L. The reference range was not used to interpret this result as normal/abnormal . RBC (test code = See_Comment L [Automated 819-8) message] The system which generated this result [...] RDW-SD (test code = 47.8 fL 38.5-51.6 69416-5) RDW-CV (test code = 15.7 % 12.1-15.4 H 788-0) PLT (test code = See_Comment LL [Automated 777-3) message] The system which generated this result transmit goran reference range : 150 - 328 10*3/ ?L. The reference range was not u sed to interpret th is result as normal/abnormal . MPV (test code = 9.2 fL 9.8-13 L 09339-4) IPF % (test code = 2.8 % 1.2-10.7 Platelet count [id number]) measured by fluorescence method. NRBC/100 WBC (test See_Comment [Automat ed code = 1137958392) message] The system which generated this result transmit goran reference range : 0.0 - 10.0 /100 WBCs. The reference range was not used to interpret this result as normal/abnormal . NRBC x10^3 (test code See_Comment [Auto mated = 9338792058) message] The system which generated this result transmit goran reference range : 10*3/?L. The reference range was not used to interpret this result as normal/abnormal . SEG % (test code = 27 % 33-76 L 64267-6) BAND % (test code = 6 % 0-1 H 67313-7) LYMPH % (test code = 57 % 14-54 H 92507-2) MONO % (test code = 10 % 0-4 H 77601-7) ANC (test code = 0.72 10*3/uL 1.99-6.95 L 753-4) PLT ESTIMATE (test Critically Normal AA code = 9317-9) Decreased Lab Interpretation Abnormal (test code = 63192-7) [facility]. METABOLIC PANEL (84502)2022-04-13 18:14:21 Test Item Value Reference Range Interpretation Comments NA (test code = 138 mmol/L 135-145 2826116081) K (test code = 4.3 mmol/L 3.5-5 0713722623) CL (test code = 99 mmol/L 98-108 2298137335) CO2 TOTAL (test code 30 mmol/L 23-31 = 4955184498) AGAP (test code = 2-16 2963516149) BUN (test code = 10 mg/dL 7-23 2824524255) GLUCOSE (test code = 98 mg/dL 70-110 6640765863) CREATININE (test code 0.82 mg/dL 0.6-1.25 = 2365810076) TOTAL BILI (test code 0.9 mg/dL 0.1-1.1 = 0757949488) CALCIUM (test code = 8.7 mg/dL 8.6-10.6 5556560772) T PROTEIN (test code 6.9 g/dL 6.3-8.2 = 6013295456) ALBUMIN (test code = 4.7 g/dL 3.5-5 0984275175) ALK PHOS (test code = 59 U/L 34-122 1945516631) ALTv (test code = 27 U/L 5-50 1742-6) AST(SGOT) (test code 32 U/L 13-40 = 6809888910) eGFR (test code = mL/min/1.73m2 9871944681) LETTY (test code = LETTY) Association of [...] or urine or abnormalities in imaging tests). [facility] THRMPLAS [id number] 17:30:41 Test Item Value Reference Range Interpretation Comments APTT Patient (test See_Comment [Automat ed code = 3173-2) message] The system which generated this result transmitted reference range : 23 - 38 Seconds . The reference range was not used to interpr et this result as normal/abnormal . LETTY (test code = LETTY) The [facility] patient population mean normal value for aPTT is 30 seconds. Lab Interpretation Normal (test code = 87794-7) [facility] HospitalPROTHROMBIN TIME / [id number] 17:28:40 Test Item Value Reference Range Interpretation [...] tions. Lab Interpretation (test Normal code = 87503-9) [facility] HospitalFlow [facility]ometry [id number] 07:54:04 Test Item Value Reference Range Interpretation Comments Flow Cytometry (test code See Separate Report = 2758) Case # (test code = 2759) [id number] [facility] [id number] 07:54:04 Test Item Value Reference Range Interpretation Comments Flow Cytometry (test code See Separate Report = 2758) Case # (test code = 2759) [id number] [facility] [id number] 07:54:04 Test Item Value Reference Range Interpretation Comments FLOW CYTOMETRY RESULT See Separate Report POINTER (BEAKER) (test code = 2758) FLOW CYTOMETRY AP CASE # [id number] (BEAKER) (test code = 2759) BASIC METABOLIC [id number] 03:44:18 Test Item Value Reference Range Interpretation [...] S NOT APPLICABLE FOR DIALYSIS PATIEN TS. Central Office Supervisor ID - MELQUIADES [id number] 03:44:18 Test Item Value Reference Range Interpretation Comments MAGNESIUM (BEAKER) (test code = 1.9 mg/dL 1.6-2.6 627) Central Office Supervisor ID - MELQUIADES LCBC W/PLT COUNT & AUTO [id number] 03:34:58 Test Item Value Reference Range Interpretation [...] (BEAKER) (test code = 2801) EBV VIRAL [id number] 15:26:28 Test Item Value Reference Range Interpretation [...] (2) real-time PCR amplification and detection with LHNN-2-lvbkuzgy primers and probes. A well-conserved region of the EBNA-1 gene is targeted, along with an internal control sequence used to confirm PCR amplification. Asymptomatic carriers and viral genetic variation, among other factors, can affect the accuracy of nucleic acidtesting; therefore, results should be interpreted in light of clinical data.This test was developed and its performance characteristics determined by the [facility] Pathology Department,Section of Molecular Pathology. It has [...] real- time PCR amplification and detection with INWC-6-oppxxdaj primers and probes. A well-conserved region of the EBNA-1 gene is targeted, along with an internal control sequence used to confirm PCR amplification. Asymptomatic carriers and viral genetic variation, among other factors, can affect the accuracy of nucleic acid testing; therefore, results should be interpreted in light of clinical data.This test was developed and its performance characteristics determined by the [facility] Pathology Department, Section of Molecular Pathology.It has not been cleared or approved by the U.S. Food and Drug Administration (FDA), since FDA approval is not required for clinical use of the test. Validation was done as required by The Clinical Laboratory Improvement Amendments of 1988.CMV PCR, [id number] 14:58:19 Test Item Value Reference Range Interpretation Comments CMV VIRAL LOAD - Negative or below See_Comment [Auto mated message] NEGATIVE (MERY) the linear range The sy stem which [...] and its performance characteristics determined by the [facility] Pathol ogy Department, Section of Molecular Pathology. It has not been cleared or approved by the U.S. Foodand Drug Administration (FDA), since FDA approval is not required for clinical use of the test. Validation was done as required by The Clinical Laboratory Improvement Amendments of 1988.RETICULOCYTE COUNT 2022-04-04 13:33:41 Test Item Value Reference Range Interpretation Comments RETICULOCYTE COUNT PCT (MERY) (test 3.2 % 0.5-1.8 H code = 575) Central Office Supervisor ID - [id number] ID - [id number] [id number] 11:50:43 Test Item Value Reference Range Interpretation Comments Case Report (test code = Flow Cytometry 104) Report Case: [id number] Authorizing Provider: Cheryl Daniels Collected: 04/03/2022 02:50 PM Ordering Location: [address] Nursing Received: 04/03/2022 03:21 PM Service Pathologist: Aisha Mcmahon MD Specimen: Other Flow Interpretation (test l4rmmOCvRKUssLD5HdDg code = 3364) LSCem7wpu0EqpHBzkTGg UHlnxLVckaMojl26cRM5 qQ16PP3mKWIyZaN0XBRa sjJ3Sli4OKLtACAjuZKs E725e6blh8einbIbpFR7 sMscXXSfiyveNuQ4RUse JFVugirdVMz9YFzlYZPh tYV7IZLktBGoO3ZrOKJm PT2sqai4HJQ5CGouCKFs ZmP2DFSciZOfIDMfrNza JZovg560DMC5BkUdUNBh koTyuOfcwC7dYnAhEONH K06CJC2HQgVIWybpSonH VuBFKVDRUIQVQgm5OJZx ciAtIFNMSUdIVExZIFJF RFVDRUQgVklBQklMSVRZ IEFORCBDRUxMVUxBUklU JBgdBNByXHKIFyUVX22S VFlQSUMgQiBDRUxMIFBP FMJUOZMMR62wdRDnSS4x Rq8iUICCDjDKRxWiGCZL MCxFVTRKMPQUQCGSL71i hPUaOSMmHXxpaC4iMG2f Qa1hXO2OBhJCT7LtGW8x UG7UQA3UPBuGEl1ZKCXU SvKDEYXTZ4KJZJRGX0mv YXJ9 Flow Interpretation g8jviVWjLFCanJL9CiIu Comment (test code = VTJiv2qvx3XrkGIoeQAn 3365) YUqxzYVwaxAihe43eGW8 vQ85SE9pOMHnCmO8XVJb phK3Gzk3QAPgKNMzyKTf V277e2uov6gefqIorRA3 JADkHFQlL9AcUW5kNDFt bEEjR28tvOOlQWY2GKWi NSAisMEeRGMnVPT4SOLd qDOfH0lfGZRoVT4mdtko CXzoSFczUZTrwAY3TFXa yATcB6JhWPNmXBgfNGTc dzr8SwPsUp3hsSRjxCle MFxwYXJkXHBsYWluXGZz OwCtY3RrTEMoRXIyDVCv ZWUgdGhlIGJvbmUgbWFy ou15XOEykA7jaRNdVRAq TBXiCNO3IBQob6LoG84i duIuGZSql94yk6i1yGV6 cIAcfF5uoCosgR0jjBOb EN6sNK18cPLeQKVyHWL0 oyFnIcYnV1IzKMWjtPMe fQ== CPT Code(s) (test code = u0nykPNkNMBbgYY6ScUj 3355) NVTnc0mru3PgoOVzkSMg CXijsMKmifMasl62rGQ1 tT44KH4tGKLeFxH7QNIu prN0Uqd3IQUeBKKltHEr S778l6jgw2cqmyIteST3 yHzgQDWwpbjcXjW7YLhg SQElryglYCf9QLrbPVHw nQK1SVQhfIMjW6BrSXDw BP4jthw3QUY6FKjeTQGm AlD5OVWioHItROEbyRxy QEyxj549KYB6GzEvDNFe m4C7pvSfQhLiUCLvfED2 lzL2QTWaIN6vcpgmt6be ECjvLYcrUWQehtH4bzW2 JISwvGPjP9FaqJ6wWLOb JM8syqdro7fgDPD4YMvr YXJkXHBsYWluXGZzMjIg ODgxODlccGFyfQ== CLINICAL HISTORY (test p7mttHSbVNOzyXF3TpPc code = 3356) SLHsa9ykd9PivCHbaYZb NXamuVKxsbBhhd93dSJ0 wF00NW1sKRJkAbU2RZYu ydB7Ahc3SKVzJBOltACv K768d1tpo5gtzjBsmZI8 VAZiBGNhT5MnCN7uSXYh rEEhC49fzASdFHG3DXQi XRLyfUPgPDBhDNS4HWNu ySKwU4lzHEYbHG7lklgw FUfeFCcaYYPlyLY2VQSn dMZdS4CgUHTiLUasTHVy shv8IxYyUv6yeHArfVig MFxwYXJkXHBsYWluXGZz CfDrQ8DwJECfvh6vTx1y rWBuwWEhmRTlTZZmMC5r YVxwYXJ9 SPECIMEN SOURCE (test p8djeAFoLHSlzZZ7ZiCf code = 3377) OECak1kfh6RtsSXdgXXo DUuonKWkdrSxvm75oRV1 tD74VK7qLUKyDsC9TDHr snJ6Mkc6PMZdSDTisWTf G402a2oib7iyziTskUN6 bVsyMBGmddqhXcA6HNsw UUGlcdqkKUq9EQqnTLDc fIX9VFQloLWqB5UeNHUl VV0epnc4MLL0YKgoPTSq AqD0GNMysENeNEEmnJza EKbgy093WVV4OvSzZUHk ezMhcItsaH0fXrVxOGWE f70oBJ1dsqOud2amRRG4 CELLULAR BIOMARKER d4rlqOIfFRXqsTV0RaJw ANALYSIS (test code = FZSrn2vdj4SzeNTulRPh 3380) UBkgrLBeokMvdx66cZN1 vC95EQ8fLLYlPaK1SXKv ojV4Seo3GORxLBAxhEWz X197v5hdp1aqxjCasTR0 TWJmNKVlB3RqBU5uJMXk iCSmI59bjPPnEKS1HWJs UQVuoXGtKDCoRJA5UGOw zLJlQ4kxFFXnXK4buvpk QKvoHNujTXBrgLP1XRFu oOFbS6ZzLMPfVMkvQQNl ipd4PdXvWt2qwOYwmGjl MFxwYXJkXHBsYWluXGZz YlVcZ6TzTUSICAtpc9Nx YcZhGA7OJIKhAVmnI9O9 Xpego2FnDdCxAW3XLP9b YKOfYZGQEYodM4EmPFlt Z0MwCZpxL5WoJBPEQHEx LCBDRDQsIENENDUsIENE MTQsIENEMTMsIENEMzMs GITQSOR2MELESQI6ASLt X0WhqYYcVNAOYW7rLHZh LXBRVjahSIGIXCJ5OAWw cn0= IMMUNOPHENOTYPIC FINDINGS y5rayFOcTWKxnTQ2JnAt (test code = 3379) HBJhh9tyc1TubBWlqMKc TOqxlUFqojMoku12zGE1 zE01MU4zPFQmQpI3POKy haL2Nql1EAKnWOJxnHJh A548a5jvd2ejgcZqlXG2 KNVrYEVeL0BqUN8oHHWz kJSuD83riJRsBYO1GKOm KIUzuLXlTXJbFVP1FQHy pRUvT9eaDABdVP8qhtzj BMmjIFrvHTNveCA2EGWn sSWcN6RlPJTwRVnuVVWe soa9TwBnGc1mnLLobVez MFxwYXJkXHBsYWluXGZz VdKyX9IkJLXbDXZtcTZp JHWqVRTyqWp0vSjqBOQh MiVcflx+UY8rxyu+IE51 bWJlciBvZiBFdmVudHMg JQRoiArmADC6MXz0CQhq XHBhclx+XHBhciBUaGUg Ry8mgN41yR5oAOTqhNJb ICThh07lFPFbUSLbPMJa dGlmaWVkOlxwYXJcflxw VZFxHnhuc5OySvB3bRSs ZGltIENENDUrIENEMzQr AYWrAAR8jmIpx42dsass LNLlA5JzSSWxNYgcUiWd TEZyTeU1w9UgoOClJNpy ys5cGFXtxqjvREPwNYuf dXkdS0x7POG8HACesNht wXMXNAY0BpGenH6dnF6t bYNlzgZah29symohOAWd UA25DLFcWlB5k2WifUPf ASetqg1xVLFdXHiltoLb dB43GAYsK8Y1KcQPBIEl BNDuerBvTsOnV2OfJIUc RYuqZwNyITUoHMUtm1Sp UTiqYMcrfmRxk2lcwkQi FjG6gUKndMPmTNIsJ5Vc lOYqytLnW4VlkgYSWLYx WK1hJZYZLE8mBrGrICdq wfQuebVzfQ0rxZO1mKdq IHdpdGggYSBrYXBwYTps LZ8hRGZfkwI5fU6iw9Pn QF21QkRKkDHnOVVzmtFf Es7rKKWCGKGiBkXQYUEv bGxzIHdpdGggdGhlIGlt iEIpw4PaLV0aqTainCEs UuZnoNYgEQUsq2JaaGMs TACxN71hNZFgNGYhidq+ XUTlpnYQzLFzl8urI28m ab6uyPVvFiTlu2D3tDV8 tK6wizrrEOSgvOSikdSb IjihBHXubSQJZQZ4KHXw PETeaUjudZFvZ0E5xJNi LKVdNHVgM7MoptkmpUex akpaI9DnpfLqm0T7pSCp IGNvbXByaXNlIHRoZSBt HOuwrkn5oYBwMcGpYAjd hqFzvpBjoWnjLDwnUW1c ECHMPHHlCV6qmn0ivRZo amLjz49oiwxrFZDuF3Uz IDIuMFxjZjEgJSBvZiB0 w7GswJTsXPrkgi9wyTYg ED1fmTCrQBRtRFIlHXEu ZWxsczogXGNmMCAwLjJc M7GfJIVsL8SfDfkvvY3x eRYiysVuvMibg19qLBRy nGwwPILkQRYhz8NzTMF8 wEEyCAOlnNg5hJPzLoMo aOAgbZifd39nHrYfvYdn dCBjaGFpbiBleHByZXNz aL3zXjjpVPYomklfFNZk VGhlIHJlbWFpbmluZyBl jvYzyHLbJY0rwBt1JGLb ntNksaDiMR05GY3mdhXt EWTmKZEvOQqpplfifn3x OTigaXA1v3g6fFMkn8zp IGNlbGxzLCBhbmQgZGVi cmlzLlxwYXJ9 DISCLAIMER (test code = w3kblHPiFDJfzRZ6DdRa 3363) LZTqt9ykk7ZoxYAzvHFz JNdsjQOlhsSjvo10fLC3 yW33PR8vLODpTeU9XBPx vmL1Rim8DIRfPXDvyFZe Q311a5miz0lyxuPdgWV2 bBxdJJDuvjybGjH4ZBsa LGFqlqtgHOy1ENleEIZn yAP6RVLlsVSlC1IwUJMc HC1rcum2ZID5RElrYPRv VlO9PGTniYSeDLXpjKeo ZFtem550ZHB0PvEyRAEa ycQqqQcftD2nJzUnOkPQ rMVeWAF9ZVI5ggX9KUTi HRZtdpMyn4YkWOMhxjTw uHerhJRtkRBmEe7qwXMg K8MbA5jdsuSzdHYijSA5 aWNzIGRldGVybWluZWQg AbuiEgV7fO6hIPE2AjAY vNylA0ZwUAEvtSIyvJXO ZQ03QWVtWVCbZOcqgBB0 ADUwy7VbZuRmctTbuCKa wwDsCR6xQELwkTXjmtKy ZEY0MNAoTJBVFaRvUIKc q4TpXH2pZNMsoOfxEMHs wU6sk3JyAIRlb85gFRIn ZSBGREEgaGFzIGRldGVy bWluZWQgdGhhdCBzdWNo UKXuNPEnLP1cJBHbbuTg jWXdk2SegVJlxuQrs5Zx xbHaACFrDNP6ImRVgMVz aU96lVQepv44JEEqQEEu B2MdIKWmFPAqEDpetfGb iFfhJNLga47hrAYxuuDm m6ElayZnXWBcG1euXTBk sXXreURsi2IcmI0bhVGu btHcQCF6fYIxRMGicD5p BOSavYmfFVZtbJ0bD8Mb QZewEj5sEJImxfalAH9e jl77EI1inqJbSL2svjBn KL01nhVhRzEdDEf2JZnm Z6tEZALkNLBlOAW6TNwg UbyeHNP3uhWfVXKhj8Va SAzoO3dzM62ybSgyeFa9 dXBsrCuxkOAfhAJ6GHM4 yH2tAzmrCUQ9 Technical component was [facility]'s performed at (test code = [facility], 2778) Department of Pathology, [address] [place] [address], Professional component [facility]'s was performed at ([facility], code = 2779) Department of Pathology, [address] [place] [address], [facility] [id number] 11:50:43 Test Item Value Reference Range Interpretation Comments Case Report (test code = Flow Cytometry 104) Report Case: [id number] Authorizing Provider: Cheryl Daniels Collected: 04/03/2022 02:50 PM Ordering Location: [address] Received: 04/03/2022 03:21 PM Service Pathologist: Aisha Mcmahon MD Specimen: Other Flow Interpretation (test c8rkeZVuIHJjsYA2MyGt code = 3364) MQIsn3uel1QjbCBbbITf NBfpeMTwmpRpcv02xGB7 uI59NV0kPGVrQpA5GMNe gtB9Ooa9KJWlJUMwgDEf J878l1lqe7kbuuGszUY1 zLpfXWQlhbpdDzL3LHse VFZgsfklAAo6DAvrXJWb vFJ2TNEcsGWoG8IgYHIy LX5rfqg5AZY7XTdfQXOk ObZ0ZXSkhQNcCUKzrCpa UZspd784SNN5WkLeXDBk guYxzEumaU2uWpLxLMCH M11WZT9VSnFKDztpRvaF EyAUFECJAGQIHhv6BHKn ciAtIFNMSUdIVExZIFJF RFVDRUQgVklBQklMSVRZ IEFORCBDRUxMVUxBUklU SNguYEHoKMSUNnPLT41P VFlQSUMgQiBDRUxMIFBP CMXLTZQKY28mkPBzTB4e Tv9tWNKKIkJSHiCtRDCS UKcQRPSXJZIWAEHBD31n hUPpUOYwEMkciY1mUM6j Dr2kMV9XXlIXQ1AlDK5z NR8CYP9BNWdDTy6CSHQJ ZtHRKSRIM8CPPTLRL3wm YXJ9 Flow Interpretation r5ffsBSmXGWwkGA0RaQt Comment (test code = WGVrw4glh4GvzGRqwGIq 3365) RWewoZDoyyMbxy95yAJ5 oD33HV8qUTMbOnW3TEMz ouC9Qui8TNAfIIMlpKSf T689k4yxo5yvifXzzLB8 RYZhZVKgF8OcFN3wAQPc kUCyU51qqFKaDXA3MDSm TZGoaTCgWGKiFUS4SPYf yHRaG5kiTSPdIZ2mbsmb TOngGLboTZErsKR6AXBy pLHpN2XnXBTdOTjwODId yuy7VxExIz5eqBAdcBal MFxwYXJkXHBsYWluXGZz YtCvV3AcOPUcVLCxEVMi ZWUgdGhlIGJvbmUgbWFy dn20EVWaoD6izCFdWKQv OJAhJCD0QFNsj8IeG81c pfBqPZAtp06ld4e0wZW6 iZMnrL1imRtnrC3fpDWy JZ7bOW47uPBgYGLaEER3 sgQgPuAiC6OjCHGmjLIs fQ== CPT Code(s) (test code = f9qhgQZmWAMvxEQ3NlOc 3355) DEIvd4dss5DriOPnbYXm CVghmQUhbwCkne49gQA5 jB33OY9cEFFmRhX2YEAg tdN1Poh8YEOvUGVowHVq L200e9rnf1jgezVfjMY9 sUvaKQLeadctVtW6WWff LOEjpvihGDm1DCyeCMIb nZX4NHTzqNGvP8ClGQNy QB6sjrc6EEZ3MPmgFZWa KoN5YZSlgYRtHIYovUxr PQgfw673NVH3RjMgWYFr h8Z2ssBjNmMdRHRzbOX6 kuS8LFKlKJ5nokodm1co TKriPLijNAOrxbS5kuF8 XVYizSCcS4HpcF2aZBNx DA6nzkwuj1pvXAP5ELkw YXJkXHBsYWluXGZzMjIg ODgxODlccGFyfQ== CLINICAL HISTORY (test p3jdsQKrYTOyjOJ1SbVb code = 3356) XUQfb3ceb8BedYQolJLd VJfowGKlzaDjde62hFV8 bR07KP7rRUHxYfU3CGPu leH0Jyo7EFCgYHFsmDXf D626x9zqv8boxrSdeNJ1 DBZfSXLaF1OhAD6zDANw fOGrA19smAMiLRF6YMXt JJBdeEWeGZYwYRS5YXIs wGSpP4wrZRTiVL7xoluk CYnpXCsgIPWjtCJ1UOEt nQLgS9GfFGOeSGwuFIEm cxb2NyNeKa9gmSJfnNdi MFxwYXJkXHBsYWluXGZz GuTeM6BeNREior5bGt1g kGVimNTrqSMuDLKsUG5d YVxwYXJ9 SPECIMEN SOURCE (test v8hjiZBdAZYxrHB3BfXw code = 3377) FHDys0hgw4XeqMOaxTCt JNmumFHejhQklo12tOS6 eQ84SO3wRRXzBoQ4RHLu hzC8Opn6FKVnXNVkePBe H959k7zig5mfveSssLX7 hAooJAAtcmdrHuG0YQqc FLFdfeaeLYi0UAttSGXm hMN7VGPzuMAwZ8ExAEKv CK5wggd1KJI8WAfrGYKs UaT6OLOreBDbESStqFqr RFwfm073GBL6ZkTqRAIo rnYkhAofqM2fLrGuNRSW j59dKL9pmvNgs1wsBNV6 CELLULAR BIOMARKER q0posRNyMNNvyXL2MySx ANALYSIS (test code = WZZyj1qvm1TnvUVcxPFl 3380) TGdbiGDlzeAcam94hJG2 oD34VS0lUQCiDlT4WUMc fhI6Oda0OYLnNIFbvRBa X480c2sxm1haebGvyYU2 HLNsTGAvO0PtFR9gJEOc fHEcE55dqRDcJQY0SGMr AVQypDVkNUJpARQ2XAIg oZMzK3jlSJCeBM5tqqzx BAhqMGrrKOKgiRQ0NEJy lIZtQ2FwYGSrUGinDGXn iul0AlNgGd6xvSDsbVfc MFxwYXJkXHBsYWluXGZz NcYaS0MiSXHBTXclj6Ev LiWzCY4UCWOxIZnuX7H1 Xdcef4PfZqZzNQ6FGN8o FOLtYRKGKLbaR2JxSYfx S6MtOIawF0YeEIRHAYHz LCBDRDQsIENENDUsIENE MTQsIENEMTMsIENEMzMs IODZUYG0PXTNCXH1HPTm Q8OysUPgPTQSEW8pSEZd ETDQHpvwZVFNQAV2HBFa cn0= IMMUNOPHENOTYPIC FINDINGS x5ntbQEpFAImnPJ2CbNy (test code = 3379) TNMua0qdz5BnkWLzwFOs TNyndWNproKcnx06bGR0 gX47LK0rTLUpXxO0CUDm uaB8Tnc6AUYuQVXdxOPu V857j0agh1sfqhLyqCM5 DOUiQVKvC3RzRE1sITUy aTRoC46gmSKaCSP9EUJd LFLhrYXuJDBwWMI3EJRs kNBqD5siBEVeBX7xhuts ONgoPCqkAHIndOI8IVAb wYXzV3WnHFMkWQnkEVHb irs8JhVkRm0feCEqbXsd MFxwYXJkXHBsYWluXGZz EjPbF6TzCNViERSehUIr FYZuCBHjbAe3oRdiYUUo MiVcflx+PK3duds+IE51 bWJlciBvZiBFdmVudHMg JGAgrRypGOD9DXa2XFbg XHBhclx+XHBhciBUaGUg Ha9mnN95lC3zQTJscJNy BBCba57zXZYaPNSwDYGi dGlmaWVkOlxwYXJcflxw DHQtEueat0PmPwK3bWIk ZGltIENENDUrIENEMzQr IVMhAKF2prCxz91urmee LLUdI3CuYCGyRWwoZaIp PSSxPuG8f9AnaXQfOKxr uq2wKHGptlquJHLyXHpa uSnfA1r2PHY3HJTdtUkh sPOUXCM0LuZvmK2guU1s yAKtetCmz80yqsimPIBj GC63TGQqRsV6u5LdpWYb HLqlij5aLFVzNEtsfrWo hF49LGEpY4K7WyQBWHXn TIQhoqLiRgMqS2YgUAPy NScvKnMnMRBeYAGib5Uc JVngIAfevjZie0scduHb UtP4kQGciUFrPZXyN7Ih uHXaomQnF2RsnzATVNAn WL6uYIREYK2zFzSmDKiz uaSppyLqyQ9snSW0lHpd IHdpdGggYSBrYXBwYTps EB8kGXZfwsL4tZ4yd4Pm NF70ScJXjNPqLGYqnyRq Jm7wIHANRDWcFxNXNUQw bGxzIHdpdGggdGhlIGlt cKAix8WcEK3hiCbjyLLu AuYgkZXqCVAcq3UyvXHw MNZiS68hBWWlNUNjuwh+ IEKicfRVsJOss3nsL31h pb2gsDUfUiWwc5A9oQU8 rX6oivazIVLoqKLwtrZh UhiiZRLfbXYJANS5UULq CFMcaKwilQGzA3N7cYTi DGGiFSMxP9MqqwtcuLfg unabW5DfntRdx7R9rRTq IGNvbXByaXNlIHRoZSBt GVwkywl0gFIfHkGfVCgv cbJzmyApuAmiAAvnPL4d TEFULXRoBW5ukh1qwLCz mzVcs99alowvZALiC1Bw IDIuMFxjZjEgJSBvZiB0 m7RlbNWaKZlefs0wpHFm DX7koYVgUHAtZGZzPKPs ZWxsczogXGNmMCAwLjJc A6YcDRVyD3AlSjaxrL8j sHEoqyIlfXboc22iIOEd tIstQBAeTZSdz4UkMGT2 vWVnSICxgBd0zUJfQwSc tLMewUxvh12vNbSzpJiu dCBjaGFpbiBleHByZXNz lW6yTypwMHVsdruiXFTi VGhlIHJlbWFpbmluZyBl dgCfdEDrAS9doCo2CWVh jtZxhyKpTD30MJ2vciNy VQFdJHFxZZywtlxjij0a JLhgtCH9q1o3cOTlt5lt IGNlbGxzLCBhbmQgZGVi cmlzLlxwYXJ9 DISCLAIMER (test code = z6xwuSOvPWRwvUP4BpLw 3363) PLBzz8kpf5NtgTUdnLOw FVvzaIGtomBalz33hZT8 oP42XO9mEPZgRoI3FSUc heT6Fua6MACrXLAtePGz E038f2qhh3cpoyRyjHA7 dKwdRPYpgbmzBnG7FTad BTUpzzgsFId3TVlhLQVa xHR9FKWvnQInV4UrTVPp CO6hhgn2BYR8SEsqCVDm TbP5XYRrtVPzFSSalIli KUpfo270LSK7AfZrTCMl dmGbvVqiuD9mNnUsFfOY vDBaUSZ9PQX3zsI1BPCi KOFdaoNbs8TbSLHlthFh pYpnpRMbvUMiDg7jtNEi W4CvS0cwkiQxaCDkrPK0 aWNzIGRldGVybWluZWQg EseeYhM0mN6xPJL7DhFR oEflL8NuNEMdmIElgDEQ ZJ28NIBjBYOkCXduyME4 VFKrv2OeIkUfkiXekAPq kvAwUY7dOLJbmYSsokQh TAF8QDNaDHFSDsLiYFVz z5LaNO7eRWYgzRziPMKx mF5li2NqUUWfi38tHEYt ZSBGREEgaGFzIGRldGVy bWluZWQgdGhhdCBzdWNo BCNwSEVoBR2jICIyrnBs qOBrh0BalOOeklPqb8Ae cuHcKVFpTSU4NvALwSYh bF45qPRvaq70COPlLEAq K8JmSCChEUEzOFsryiZe bMwiYPCsb20ysYGzjsFr x5JlyeCcRXQaL1piCIZh gLJbzJAia3TfaT4yrTKt bgTcIZR3jOGqJEYhwX0l PUBpsNosWPZriA0mR1Ng SMaiBn5yNMPfqjeoQA9j lt28FD1acsRyYA1zthNc IG72ztCaUtQrJBr6HNer Q2dPQLRqUKEfMFK6XTne QpgzSDX2ycFfJGWmg1Rv KXgmQ2nqS51qkUujdJk1 uKPfsZrfcAQxaHS1WXE8 yS3uKaisLYH8 Technical component was [facility]'s performed at (test code = [facility], 2778) Department of Pathology, [address] [place] [address], Professional component [facility]'s was performed at ([facility], code = 2779) Department of Pathology, [address] [place] [address], [facility]OW [id number] 11:50:43Flow Cytometry Report Case: [id number] Authorizing Provider: Cheryl Daniels Collected: 04/03/2022 02:50 PM Ordering Location: [address] Received: 04/03/2022 03:21 PM Service Pathologist: Aisha Mcmahon MD Specimen: Other BONE MARROW, FLOW CYTOMETRY:- SLIGHTLY REDUCED VIABILITY AND CELLULARITY- NO MONOTYPIC B CELL POPULATION- NO ABERRANT T CELL POPULATION- NO INCREASE IN IMMUNOPHENOTYPIC MYELOBLASTS Please see the bone marrow report ([id number]) for correlation with the morphologic and other features. [id number], anemiaBone marrowCD8, surface-[place], CD56, surface-Lambda, CD5, CD19, CD10, CD3, CD20, CD4, CD45, CD14, CD13, CD33, CD117, CD34, cKappa, cLambda, CD38, AX344Iaqtdjal Viability: 86.2% Number of Events Acquired: 68533 The following populations are identified: Blasts: the dim CD45+ CD34+blasts comprise 1.0% of total cells. Lymphocytes: Bright CD45+ lymphocytes comprise 15.5% of total ce lls. T cells show a CD4:CD8 ratio of [...] CD138 positive plasma cells are noted with polytypic cytoplasmic light chain expression. The remaining events analyzed represent nonviable cells, non-hematolymphoid cells, and debris.These tests were developed and their performance characteristics determined by [facility]. They have not been cleared or approved by the U.S. Food and Drug Administration. The FDA has determined that such clearance or approval is not necessary. It should not be regarded as investigational or for research. This laboratory is certified under the Clinical Laboratory Improvement Amendments of 1988 ("CLIA") as qualified to perform high- complexity clinical testing.[facility], Department of Pathology, [address] [place] [address], [facility], Department of Pathology, [address] [place] [address], QZDXW METABOLIC [id number] 08:31:12 Test Item Value Reference Range Interpretation [...] S NOT APPLICABLE FOR DIALYSIS PATIEN TS. Central Office Supervisor ID - ANALIKALYA [id number] 08:31:12 Test Item Value Reference Range Interpretation Comments MAGNESIUM (BEAKER) (test code = 1.8 mg/dL 1.6-2.6 627) Central Office Supervisor ID - PIKAYLA LCBC W/PLT COUNT & AUTO [id number] 05:52:44 Test Item Value Reference Range Interpretation [...] (test code = 2801) CT, BIOPSY, BONE [id number] 15:58:00Reason for exam:->pancytopenia, concern for aplastic anemia or amegakaryocytic thrombocytopenia [facility] : 1995 Sex: [address] [...] Morgan Verified Date/Time: 04/03/2022 15:58:35 Reading Location: [address] Consult Reading Room (MANUAL DIFFERENTIAL)2022-04-03 15:50:57 [...] (test code Normal = 762) Biopsy Bone [id number] 15:30:06 Test Item Value Reference Range Interpretation Comments Anatomic Case# (test code = 2470) [id number] Ordering Physician (test code = Frances 2457) Performing Physician (test code = Cathy 2458) Clot Rec'd? (test code = 2459) Yes Biopsy Rec'd? (test code = 2460) Yes Rec'd for Culture? (test code = No 2464) Rec'd for Flow? (test code = 2461) Yes Rec'd for Cytogenetics? (test code Yes = 2462) Rec'd for Molecular Genetics? (test Yes code = 2463) [facility] [id number] 15:30:06 Test Item Value Reference Range Interpretation Comments Anatomic Case# (test code = 2470) [id number] Ordering Physician (test code = Frances 2457) Performing Physician (test code = Cathy 2458) Clot Rec'd? (test code = 2459) Yes Biopsy Rec'd? (test code = 2460) Yes Rec'd for Culture? (test code = No 2464) Rec'd for Flow? (test code = 2461) Yes Rec'd for Cytogenetics? (test code Yes = 2462) Rec'd for Molecular Genetics? (test Yes code = 2463) [facility].2022-04-03 15:30:06 Test Item Value Reference Range Interpretation Comments ANATOMIC CASE# (BEAKER) (test code [id number] = 2470) ORDERED BY DOCTOR# (BEAKER) (test [...] Yes code = 2463) DOUBLE-STRANDED DNA (DSDNA) [id number] 14:39:48 Test Item Value Reference Range Interpretation Comments ANTI-DNA DS (BEAKER) (test code = Negative Negative 1055) MONONUCLEOSIS [id number] 06:36:10 Test Item Value Reference Range Interpretation Comments HETEROPHILE ANTIBODIES (BEAKER) Negative Negative (test code = 621) BASIC METABOLIC [id number] 04:34:58 Test Item Value Reference Range Interpretation [...] S NOT APPLICABLE FOR DIALYSIS PATIEN TS. Central Office Supervisor ID - MELQUIADES [id number] 04:34:58 Test Item Value Reference Range Interpretation Comments MAGNESIUM (BEAKER) (test code = 1.8 mg/dL 1.6-2.6 627) Central Office Supervisor ID Lester ARNETT LCBC (HEMOGRAM ONLY)2022-04-03 03:48:53 [...] performed by IFA method.Test performed by IFA method.[id number] 07:06:15 Test Item Value Reference Range Interpretation Comments MAGNESIUM (BEAKER) (test code = 1.9 mg/dL 1.6-2.6 627) Central Office Supervisor ID - PIAYA LC-REACTIVE [id number] 07:06:15 Test Item Value Reference Range Interpretation Comments C-REACTIVE PROTEIN (BEAKER) (test 0.18 mg/dL 0.00-0.50 code = 676) Central Office Supervisor ID - PIAYA LBASIC METABOLIC [id number] 07:06:14 Test Item Value Reference Range Interpretation [...] S NOT APPLICABLE FOR DIALYSIS PATIEN TS. Central Office Supervisor ID - PIAYA LCBC (HEMOGRAM ONLY)2022-04-02 06:11:27 [...] = 413) PERIPHERAL BLOOD SMEAR - HOLD [id number] 17:14:12 Test Item Value Reference Range Interpretation Comments PERIPHERAL SMEAR SAVE (BEAKER) (test saved code = 1815) PERIPHERAL BLOOD SMEAR - PATHOLOGIST [id number] 16:31:07 Test Item Value Reference Range Interpretation Comments PERIPHERAL SMR REVIEW Cell counts confirmed. (BEAKER) (test code = Normocytic normochromic 2640) anemia without significant anisopoikilocytosis. Platelets markedly decreased with no platelet clumps or satellitism identified. [id number] Aisha Mcmahon, (BEAKER) (test code = M.D. 0439) RETICULOCYTE [id number] 15:48:44 Test Item Value Reference Range Interpretation Comments RETICULOCYTE COUNT PCT (BEAKER) (test 2.8 % 0.5-1.8 H code = 575) Central Office Supervisor ID - 6000HEPATITIS B [id number] 14:11:38 Test Item Value Reference Range Interpretation Comments HEPATITIS B CORE TOTAL ANTIBODY Nonreactive Nonreactive (BEAKER) (test code = 497) HEPATITIS B SURFACE ANTIBODY 1671.2 mIU/mL <8.0 H (BEAKER) (test code = 647) HEPATITIS B SURFACE ANTIGEN (2) Nonreactive Nonreactive (BEAKER) (test code = 2585) Central Office Supervisor ID - DBOperator ID - DBSARS-CoV2/RT-PCR (Asymptomatic ONLY)2022-04-01 14:09:07 Test Item Value Reference Range Interpretation Comments SARS-COV2/RT-PCR Negative Not Detected, (test code = Negative, See 99750-0) external report for linked test SARS-COV-2 [facility] PERFORMING LAB (test code = 64677-1) LETTY (test code = Negative result for [...] of the Act. Fact Sheet for Healthcare Providers:https://www.[employer]/sites/default/f mukul/product/documents/F act_Sheet_HC_Providers_L ogt_KACR-EiZ-7.pdf Fact Sheet for Healthcare Patients:https://www.[employer]/sites/default/fi les/product/documents/Fa ct_Sheet_Patients_Lyra_S ARS-CoV-2.pdf Performing Laboratory:[facility] [place] [address] [facility]omatic ONLY)2022-04-01 14:09:07 Test Item Value Reference Range Interpretation Comments SARS-COV2/RT-PCR Negative Not Detected, (test code = Negative, See 06894-7) external report for linked test SARS-COV-2 [facility] PERFORM[facility] (test code = 17315-7) LETTY (test code = Negative result for [...] of the Act. Fact Sheet for Healthcare Providers:https://www.[employer]/sites/default/f mukul/product/documents/F act_Sheet_HC_Providers_L jol_TVPZ-HuX-0.pdf Fact Sheet for Healthcare Patients:https://www.[employer]/sites/default/fi les/product/documents/Fa ct_Sheet_Patients_Lyra_S ARS-CoV-2.pdf Performing Laboratory:[facility], [place] [address] [place], [place] [address]ARS-COV2/RT-PCR ([facility])2022-04-01 14:09:07 Test Item Value Reference Range Interpretation Comments SARS-COV2/RT-PCR (test Negative Not Detected, Negative, code = 9433962) See external report for linked test SARS-COV-2 PERFORMING LAB [facility] (test code = 3439161) Negative result for this test determines that [...] of the Act.Fact Sheet for Healthcare Prov iders:https://www.[employer]/sites/default/files/product/documents/Fact_Sheet_HC _Tjjauosfa_Dnyy_KYPT-AaL-8.pdfFact Sheet for Healthcare Patients:https://www.[employer]/sites/default/files/product/docume nts/Bazu_Dpifd_Feakaqoq_Jecp_ROYJ-ZoF-0.pdfPerforming Laboratory:[place] [address] [place], [place] [address]YWDWETIWO C ANTIBODY 2022-04-01 14:08:55 Test Item Value Reference Range Interpretation Comments HEPATITIS C ANTIBODY (BEAKER) Nonreactive Nonreactive (test code = 367) Central Office Supervisor ID - [id number] 13:23:20 Test Item Value Reference Range Interpretation Comments HAPTOGLOBIN (BEAKER) (test code = 19 mg/dL 366) Central Office Supervisor ID - DBCBC W/PLT COUNT & AUTO [id number] 09:53:31 Test Item Value Reference Range Interpretation [...] PERCENT (BEAKER) (test code = 2801) VITAMIN [id number] 02:30:29 Test Item Value Reference Range Interpretation Comments VITAMIN B12 (BEAKER) (test code = 453 pg/mL 213-816 774) Central Office Supervisor ID - MEG [id number] 02:30:29 Test Item Value Reference Range Interpretation Comments FERRITIN (BEAKER) (test code = 236.85 ng/mL 5.00-275.00 361) Central Office Supervisor ID - MEG WHIV-1 ANTIGEN WITH HIV-1/2 [id number] 00:18:54 Test Item Value Reference Range Interpretation Comments HIV-1 ANTIGEN WITH HIV 1\\T\\2 Nonreactive Nonreactive ANTIBODY (2) (BEAKER) (test code = 2586) Central Office Supervisor ID - DBCBC W/PLT COUNT & AUTO [id number] 00:12:44 Test Item Value Reference Range Interpretation [...] (test code = 2801) HIGH SENSITIVITY TROPONIN [id number] 00:04:27 Test Item Value Reference Range Interpretation Comments HIGH SENSITIVITY < pg/ml See_Comment [Automated message] TROPONIN I (test code = The system which 0359395) generated this result transmitted ref erence range: <=35. Th e reference range was not used to interpr et this result as normal/abnormal . Central Office Supervisor ID - DBThe JUNIOR SOFTWARE ENGINEER STAT High Sensitivity Troponin-I results should be used in conjunctionwith other diagnostic information such as ECG, clinical observations and information, and patient symptoms to aid in the diagnosis of CA.[id number] 00:00:27 Test Item Value Reference Range Interpretation Comments FIBRINOGEN LEVEL (BEAKER) (test 240 mg/dl 225-434 code = 658) [id number] 00:00:27 Test Item Value Reference Range Interpretation [...] % 20-55 H (test code = 2590) Central Office Supervisor ID - DBCOMPREHENSIVE METABOLIC [id number] 23:58:48 Test Item Value Reference Range Interpretation [...] S NOT APPLICABLE FOR DIALYSIS PATIEN TS. Central Office Supervisor ID - [id number] 23:58:48 Test Item Value Reference Range Interpretation Comments LIPASE (BEAKER) (test code = 749) 16 U/L 878 Central Office Supervisor ID - DB
--- NOTE | 2023-04-08 16:38 | RAD REPORT ---
EXAM DESCRIPTION: CT - CTHCSPWOC - 04/08/2023 4:19 pm CLINICAL HISTORY: Trauma, head and neck injury. upper back, neck pain COMPARISON: No comparisons TECHNIQUE: Axial 5 mm thick images of the head were obtained. Axial 2 mm thick images of the cervical spine were obtained with sagittal and coronal reconstruction images generated and reviewed. All CT scans are performed using dose optimization technique as appropriate and may include automated exposure control or mA/KV adjustment according to patient size. FINDINGS: CT HEAD WITHOUT CONTRAST: No acute hemorrhage, hydrocephalus or extra-axial collection is identified.No areas of brain edema or midline shift. The paranasal sinuses and mastoids are clear.The calvarium is intact. CT CERVICAL SPINE WITHOUT CONTRAST: No fracture or subluxation.No prevertebral soft tissues swelling is identified. IMPRESSION: No acute intracranial or cervical spine findings.
[2023-04-08 17:46] LABS: Absolute Lymphocytes (CBC) 1.6 K/uL (0.7-4.9); Hematocrit 39.3 % (39.6-49.0); Lymphocytes % 27.1 % (15.3-44.8); MCV 94.9 fL (80-100); MPV 6.9 fL (7.6-11.3); RBC Red Blood Cell Count 4.14 M/uL (4.33-5.43)
[2023-04-08] MEDS ORDERED: IBUPROFEN 200 MG TAB PO ONE (17:52)
[2023-04-08] MEDS ORDERED: IBUPROFEN 400 MG TAB ONE (17:52)
--- NOTE | 2023-04-08 17:59 | EDPHYS ---
Physician Documentation [facility] Name: Aguila Monaco Age: 28 yrs Sex: Male : 1995 Arrival Date: 04/08/2023 Time: 15:25 Bed 12 Private MD: Migel Angel HPI: 04/08 17:20 This 28 yrs old Male presents to ER via Ambulatory with complaints of Back kelli Pain. 17:21 The patient presents with pain that is chronic, with no known mechanism of injury. The kelli symptoms are located in the right scapular area. Onset: The symptoms/episode began/occurred 1 week(s) ago. The pain does not radiate. Associated signs and symptoms: The patient has no apparent associated signs or symptoms. The problem was sustained from unknown cause. Modifying factors: The patient symptoms are alleviated by remaining still, the patient symptoms are aggravated by any movement, movement. The patient has experienced similar episodes in the past, several times. Historical: - Allergies: 15:39 No Known Allergies; aa5 - PMHx: 15:37 aplastic anemia; IDIOPATHIC THROMBOCYTOPENIA PURPURA; aa5 - PSHx: 15:39 collar bone; aa5 - Immunization history:: Adult Immunizations unknown. - Social history:: Smoking status: Patient denies any tobacco usage or history of. ROS: 17:22 Constitutional: Negative for fever, chills, and weight loss, Eyes: Negative for injury, kelli pain, redness, and discharge, ENT: Negative for injury, pain, and discharge, Neck: Negative for injury, pain, and swelling, Cardiovascular: Negative for chest pain, palpitations, and edema, Respiratory: Negative for shortness of breath, cough, wheezing, and pleuritic chest pain, Abdomen/GI: Negative for abdominal pain, nausea, vomiting, diarrhea, and constipation, : Negative for injury, bleeding, discharge, and swelling, MS/Extremity: Negative for injury and deformity, Skin: Negative for injury, rash, and discoloration, Neuro: Negative for headache, weakness, numbness, tingling, and seizure, Psych: Negative for depression, anxiety, suicide ideation, homicidal ideation, and hallucinations, Allergy/Immunology: Negative for hives, rash, and allergies, Endocrine: Negative for neck swelling, polydipsia, polyuria, polyphagia, and marked weight changes, Hematologic/Lymphatic: Negative for swollen nodes, abnormal bleeding, and unusual bruising. 17:22 Back: Positive for pain with movement. Exam: 17:22 Constitutional: This is a well developed, well nourished patient who is awake, alert, kelli and in no acute distress. Head/Face: Normocephalic, atraumatic. Eyes: Pupils equal round and reactive to light, extra-ocular motions intact. Lids and lashes normal. Conjunctiva and sclera are non-icteric and not injected. Cornea within normal limits. Periorbital areas with no swelling, redness, or edema. ENT: Nares patent. No nasal discharge, no septal abnormalities noted. Tympanic membranes are normal and external auditory canals are clear. Oropharynx with no redness, swelling, or masses, exudates, or evidence of obstruction, uvula midline. Mucous membranes moist. Neck: Trachea midline, no thyromegaly or masses palpated, and no cervical lymphadenopathy. Supple, full range of motion without nuchal rigidity, or vertebral point tenderness. No Meningismus. Chest/axilla: Normal chest wall appearance and motion. Nontender with no deformity. No lesions are appreciated. Cardiovascular: Regular rate and rhythm with a normal S1 and S2. No gallops, murmurs, or rubs. Normal PMI, no JVD. No pulse deficits. Respiratory: Lungs have equal breath sounds bilaterally, clear to auscultation and percussion. No rales, rhonchi or wheezes noted. No increased work of breathing, no retractions or nasal flaring. Abdomen/GI: Soft, non-tender, with normal bowel sounds. No distension or tympany. No guarding or rebound. No evidence of tenderness throughout. Male : Normal genitalia with no discharge or lesions. Skin: Warm, dry with normal turgor. Normal color with no rashes, no lesions, and no evidence of cellulitis. MS/ Extremity: Pulses equal, no cyanosis. Neurovascular intact. Full, normal range of motion. Neuro: Awake and alert, GCS 15, oriented to person, place, time, and situation. Cranial nerves II-XII grossly intact. Motor strength 5/5 in all extremities. Sensory grossly intact. Cerebellar exam normal. Normal gait. Psych: Awake, alert, with orientation to person, place and time. Behavior, mood, and affect are within normal limits. 17:22 Back: pain, that is mild, ROM is normal, normal spinal alignment noted, CVA tenderness, is absent, muscle spasm, is appreciated in the left scapular area, right scapular area, left subscapular area and right subscapular area. Vital Signs: 15:38 BP 107 / 96; Pulse 73; Resp 18 S; Temp 98.4(TE); Pulse Ox 98% on R/A; Weight 72.57 kg aa5 (R); Height 6 ft. 0 in. (R); 15:38 Body Mass Index 21.70 (72.57 kg, 182.88 cm) aa5 MDM: 15:56 Patient medically screened. kelli 17:24 Differential diagnosis: arthritis, chronic back pain, Fatigue Osteoarthritis ruptured kelli disc, Scoliosis. Data reviewed: vital signs, nurses notes, lab test result(s), radiologic studies, CT scan. Consideration of Admission/Observation Escalation of care including admission/observation considered. I considered the following discharge prescriptions or medication management in the emergency department Medications were administered in the Emergency Department. See MAR. Independent interpretation of the following test(s) in the Emergency Department CT Scan: My interpretation is ct head and c spine. Test considered but Not performed: X-ray: no cxr. Care significantly affected by the following chronic conditions: itp, a plastic anemia. 04/08 17:20 Order name: CBC with Diff; Complete Time: 17:58 [facility] 04/08 17:20 Order name: Comprehensive Metabolic Panel [facility] 04/08 15:49 Order name: CT Head C Spine; Complete Time: 16:44 snw Administered Medications: 17:43 Drug: Ibuprofen PO 600 mg Route: PO; cm10 18:17 Follow up: Response: No adverse reaction cm10 Disposition Summary: 04/08/23 17:58 Discharge Ordered Location: Home kelli Problem: new kelli Symptoms: have improved kelli Condition: Stable kelli Diagnosis - Unspecified symptoms and signs involving the musculoskeletal system kelli - Thrombocytopenia, unspecified - hx ITP kelli Followup: kelli - With: Private Physician - When: 2 - 3 days - Reason: Recheck today's complaints, Continuance of care, Re-evaluation by your physician Followup: kelli - With: Harleen Dunham MD - When: 2 - 3 days - Reason: Recheck today's complaints, Re-evaluation by your physician Discharge Instructions: - Discharge Summary Sheet kelli - Musculoskeletal Pain kelli Forms: - Medication Reconciliation Form kelli - Thank You Letter kelli - Antibiotic Education kelli - Prescription Opioid Use kelli - Patient Portal Instructions [facility] Prescriptions: - Tylenol 325 mg Oral Tablet - take 2 tablets by ORAL route every 6 hours as needed; 60 tablet; Refills: 0, kelli Product Selection Permitted - Cyclobenzaprine 5 mg Oral Tablet - take 1 tablet by ORAL route 3 times per day As needed; 15 tablet; Refills: 0, kelli Product Selection Permitted Signatures: Dispatcher [employer] Migel Lance MD MD cha Waters, Shelly, CUSTODIAN MANAGER-C CUSTODIAN MANAGER-Csnw Aparna Mayberry, RN RN aa5 Laura Pierre RN RN cm10
--- NOTE | 2023-04-08 17:59 | ER ---
Nurse's Notes [facility] Name: Aguila Monaco Age: 28 yrs Sex: Male : 1995 Arrival Date: 04/08/2023 Time: 15:25 Bed 12 Private MD: Diagnosis: Unspecified symptoms and signs involving the musculoskeletal system;Thrombocytopenia, unspecified-hx ITP Presentation: 04/08 15:38 Chief complaint: Patient states: upper back pain and neck pain, pt states "it's been aa5 going on for a long while". Coronavirus screen: At this time, the client does not indicate any symptoms associated with coronavirus-19. Ebola Screen: Patient denies travel to an Ebola-affected area in the 21 days before illness onset. Initial Sepsis Screen: Does the patient meet any 2 criteria? No. Patient's initial sepsis screen is negative. Does the patient have a suspected source of infection? No. Patient's initial sepsis screen is negative. Risk Assessment: Do you want to hurt yourself or someone else? Patient reports no desire to harm self or others. Onset of symptoms is unknown. 15:38 Acuity: GERTRUDIS 3 aa5 15:38 Method Of Arrival: Ambulatory aa5 Historical: - Allergies: 15:39 No Known Allergies; aa5 - PMHx: 15:37 aplastic anemia; IDIOPATHIC THROMBOCYTOPENIA PURPURA; aa5 - PSHx: 15:39 collar bone; aa5 - Immunization history:: Adult Immunizations unknown. - Social history:: Smoking status: Patient denies any tobacco usage or history of. Screenin:16 [facility] ED Fall Risk Assessment (Adult) History of falling in the last 3 months, cm10 including since admission No falls in past 3 months (0 pts) Confusion or Disorientation No (0 pts) Intoxicated or Sedated No (0 pts) Impaired Gait No (0 pts) Mobility Assist Device Used No (0 pt) Altered Elimination No (0 pt) Score/Fall Risk Level 0 - 2 = Low Risk Oriented to surroundings, Maintained a safe environment, Hourly rounding (assess needs \\T\\ fall precautionary measures) done. Abuse screen: Denies threats or abuse. Denies injuries from another. Nutritional screening: No deficits noted. Tuberculosis screening: No symptoms or risk factors identified. Assessment: 18:15 General: Appears in no apparent distress. comfortable, Behavior is calm, cooperative. cm10 Pain: Complains of pain in right subscapular area and left subscapular area and left scapular area and right scapular area. Neuro: No deficits noted. Level of Consciousness is awake, alert, Oriented to person, place, time, situation. Respiratory: No deficits noted. Airway is patent Respiratory effort is even, unlabored, Respiratory pattern is regular, symmetrical. Vital Signs: 15:38 BP 107 / 96; Pulse 73; Resp 18 S; Temp 98.4(TE); Pulse Ox 98% on R/A; Weight 72.57 kg aa5 (R); Height 6 ft. 0 in. (R); 15:38 Body Mass Index 21.70 (72.57 kg, 182.88 cm) aa5 ED Course: 15:27 Patient arrived in ED. am2 15:37 Arm band placed on. aa5 15:39 Triage completed. aa5 15:56 Migel Rose MD is Attending Physician. kelli 16:21 CT Head C Spine In Process Unspecified. EDMS 16:34 Laura Pierre, MANJINDER is Primary Nurse. cm10 17:40 Comprehensive Metabolic Panel Sent. cm10 17:40 CBC with Diff Sent. cm10 17:40 No provider procedures requiring assistance completed. Initial lab(s) drawn, by il, cm10 sent to lab. Inserted saline lock: 20 gauge in right forearm, using aseptic technique. Blood collected. 17:58 Harleen Dunham MD is Referral Physician. kelli 18:16 Patient has correct armband on for positive identification. Bed in low position. Call cm10 light in reach. Provided Education on: N/A. 18:16 IV discontinued, intact, bleeding controlled, No redness/swelling at site. Pressure cm10 dressing applied. Administered Medications: 17:43 Drug: Ibuprofen PO 600 mg Route: PO; cm10 18:17 Follow up: Response: No adverse reaction cm10 Medication: 18:16 VIS not applicable for this client. cm10 Outcome: 17:58 Discharge ordered by . kelli 18:17 Discharged to home ambulatory. cm10 18:17 Condition: good 18:17 Discharge instructions given to patient, Instructed on discharge instructions, follow up and referral plans. medication usage, Demonstrated understanding of instructions, follow-up care, medications, Prescriptions given X 2. 18:21 Patient left the ED. cm10 Signatures: Dispatcher [employer] Migel Lance MD MD cha Calderon, Audri, MANJINDER RN aa5 Mayuri Montoya Clarissa, MANJINDER RN cm10
[2023-04-08 18:13] LABS: Albumin 4.5 g/dL (3.4-5.0); Bilirubin Total 0.7 mg/dL (0.2-1.0); Potassium 3.8 mEq/L (3.5-5.1); Protein, Total 7.6 g/dL (6.4-8.2)
[2023-04-08 19:14] VITALS: BP 107/96; TEMP 98.4; O2SAT 98
== END 2023-04-08 18:21 | disposition home or self-care (01) ==
LOC: ER 15:25
DX: R29.91 Unspecified symptoms and signs involving the musculoskeletal system (principal); D69.6 Thrombocytopenia, unspecified; D69.3 Immune thrombocytopenic purpura
CPT/HCPCS: 36415; 70450; 72125; 80053; 85025; 99284